=== PATIENT | male | born 1980 | race African-American/Black ===

== ENCOUNTER → 2017-06-06 | Outpatient (CLI) | payer OTHER ==
[2017-06-06 13:34] LABS: Bilirubin, Delta 0.2 mg/dL (0.0-0.2); Total Bilirubin 0.4 mg/dL (0.2-1.3); Total Protein 7.7 g/dL (6.3-8.2)
[2017-06-06 13:37] LABS: Basophils % (A) 0 %; CH 31.3; CHCM 34.5; Eosinophils # (A) 0.1 k/uL (0-0.7); Eosinophils % (A) 1 %; HCT 45.2 % (39.0-53.0); HDW 2.78; HGB 14.8 gm/dL (13.0-17.5); Luc # (Auto) 0.07; Luc % (Auto) 1; Lymphocytes # (A) 0.6 k/uL (1.0-4.8); Lymphocytes % (A) 7 %; MCHC 32.8 g/dL (31.0-37.0); MCV 91.2 fL (80.0-100.0); Mean Platelet Volume 7.4; Monocytes # (A) 0.3 k/uL (0-1.0); Monocytes % (A) 4 %; Neutrophils # (A) 7.5 k/uL (1.3-7.7); Neutrophils % (A) 87 %; RBC 4.95 m/uL (4.30-5.90); RDW 15.2 % (11.5-15.5); WBC 8.6 k/uL (3.8-10.6); WBC (Perox) 9.03
== END | disposition home or self-care (01) ==
LOC: LABWHC1 12:56
PROVIDERS: ATTEND Internal Medicine Critical Care Medicine
DX: D86.0 Sarcoidosis of lung (principal)
CPT/HCPCS: 36415; 80076; 85025

== ENCOUNTER → 2017-08-17 | Outpatient (CLI) | payer OTHER ==
[2017-08-17 11:51] LABS: Basophils % (A) 0 %; CH 30.4; Eosinophils # (A) 0.1 k/uL (0-0.7); Eosinophils % (A) 1 %; HCT 44.4 % (39.0-53.0); HDW 2.93; HGB 14.3 gm/dL (13.0-17.5); Luc # (Auto) 0.18; Luc % (Auto) 3; Lymphocytes # (A) 0.7 k/uL (1.0-4.8); Lymphocytes % (A) 11 %; MCH 29.7 pg (25.0-35.0); MCHC 32.1 g/dL (31.0-37.0); MCV 92.5 fL (80.0-100.0); Mean Platelet Volume 6.7; Monocytes # (A) 0.3 k/uL (0-1.0); Monocytes % (A) 5 %; Neutrophils # (A) 5.3 k/uL (1.3-7.7); Neutrophils % (A) 80 %; RDW 15.5 % (11.5-15.5); WBC 6.6 k/uL (3.8-10.6); WBC (Perox) 6.83
== END | disposition home or self-care (01) ==
LOC: LABWHC1 11:11
PROVIDERS: ATTEND Family Medicine
DX: D47.3 Essential (hemorrhagic) thrombocythemia (principal)
CPT/HCPCS: 36415; 85025

== ENCOUNTER 2017-10-29 23:51 | Observation (INO) | payer OTHER ==
[2017-10-30] MEDS ORDERED: SODIUM CHLORIDE 0.9% 1,000 ML IV STA (01:01)
[2017-10-30 01:45] LABS: Basophils # (A) 0.1 k/uL (0-0.2); Basophils % (A) 1 %; Eosinophils # (A) 0.2 k/uL (0-0.7); Eosinophils % (A) 2 %; HCT 42.2 % (39.0-53.0); Lymphocytes # (A) 1.5 k/uL (1.0-4.8); Lymphocytes % (A) 18 %; MCH 30.4 pg (25.0-35.0); MCHC 33.2 g/dL (31.0-37.0); MCV 91.3 fL (80.0-100.0); Mean Platelet Volume 6.9; Monocytes # (A) 0.6 k/uL (0-1.0); Monocytes % (A) 7 %; Neutrophils % (A) 69 %; Platelet Count 349 k/uL (150-450); RBC 4.62 m/uL (4.30-5.90); RDW 14.7 % (11.5-15.5); WBC 8.8 k/uL (3.8-10.6)
--- NOTE | 2017-10-30 01:47 | ED ---
General Adult HPI - General Chief complaint: Headache Stated complaint: Headache/DONNA Time Seen by Provider: 10/30/17 00:14 Source: patient, RN notes reviewed Mode of arrival: ambulatory Limitations: no limitations - History of Present Illness Initial comments: 37 yo male presents to the ER with cc of headache, lightheadedness, and cough. Patient states he has had a this for about 2 weeks now. Patient admits to a history of sarcoidosis. He states he has had lightheadedness episodes in the past when he had sarcoidosis on the brain. He states he's had a low-grade fever he had a cough with this. He states that this hasn't worsened headache. He denies any high fevers but states he has been warm on and off. He states that he walks up stairs of his increased exercise he does get sweaty. He was concerned because he just does not seem to be getting better so he thought that he should be seen. Patient denies any recent shortness of breath, chest pain, back pain, abdominal pain, nausea vomiting, numbness or tingling, dysuria or hematuria, constipation or diarrhea, visual changes, or any other current symptoms. - Related Data Allergies Allergy/AdvReac Type Severity Reaction Status Date / Time No Known Allergies Allergy Verified 10/29/17 23:59 Review of Systems ROS Statement: Those systems with pertinent positive or pertinent negative responses have been documented in the HPI. ROS Other: All systems not noted in ROS Statement are negative. Past Medical History Additional Past Medical History / Comment(s): sarcoidosis History of Any Multi-Drug Resistant Organisms: None Reported Additional Past Surgical History / Comment(s): lung biopsy Past Psychological History: Depression Smoking Status: Current every day smoker Past Alcohol Use History: None Reported Past Drug Use History: None Reported General Exam - General Exam Comments Initial Comments: General: The patient is awake and alert, in no distress, and does not appear acutely ill. Eye: Pupils are equal, round and reactive to light, extra-ocular movements are intact; there is normal conjunctiva bilaterally. No signs of icterus. Ears, nose, mouth and throat: There are moist mucous membranes and no oral lesions. Neck: The neck is supple, there is no tenderness. Cardiovascular: There is a regular rate and rhythm. No murmur, rub or gallop is appreciated. Respiratory: Lungs are clear to auscultation, respirations are non-labored, breath sounds are equal. No wheezes, stridor, rales, or rhonchi. Gastrointestinal: Soft, non-distended, non-tender abdomen without masses or organomegaly noted. There is no rebound or guarding present. No CVA tenderness. Bowel sounds are unremarkable. Back: There is no tenderness to palpation in the midline. There is no obvious deformity. No rashes noted. Musculoskeletal: Normal ROM, no tenderness, There is no pedal edema. There is no calf tenderness or swelling. Sensation intact. Pulses equal bilaterally 2+. Neurological: CN II-XII intact, There are no obvious motor or sensory deficits. Coordination appears grossly intact. Speech is normal. Skin: Skin is warm and dry and no rashes or lesions are noted. Psychiatric: Cooperative, appropriate mood & affect, normal judgment. Limitations: no limitations Course Vital Signs 10/29/17 23:57 Temperature 100.6 F H Pulse Rate 94 Respiratory 20 Rate Blood Pressure 123/60 O2 Sat by Pulse 96 Oximetry EKG Findings - EKG Comments: EKG Findings:: normal sinus rhythm 88 bpm, normal axis, no atopy, no S-T depressions or elevations Medical Decision Making - Medical Decision Making 37-year-old male presents with history of productive cough with fever. This time x-rays reviewed that does show concern for possible developing pneumonia. Due to his health history the patient at this time. We will start Levaquin. We did discuss this with patient who is in agreement this plan. All questions have been answered. Patient will be admitted. - Lab Data Result diagrams: 10/30/17 01:30 10/30/17 01:30 Lab Results 10/30/17 10/30/17 10/30/17 Range/Units 00:10 01:30 01:30 WBC 8.8 (3.8-10.6) k/uL RBC 4.62 (4.30-5.90) m/uL Hgb 14.0 (13.0-17.5) gm/dL Hct 42.2 (39.0-53.0) % MCV 91.3 (80.0-100.0) fL MCH 30.4 (25.0-35.0) pg MCHC 33.2 (31.0-37.0) g/dL RDW 14.7 (11.5-15.5) % Plt Count 349 (150-450) k/uL Neutrophils % 69 % Lymphocytes % 18 % Monocytes % 7 % Eosinophils % 2 % Basophils % 1 % Neutrophils # 6.0 (1.3-7.7) k/uL Lymphocytes # 1.5 (1.0-4.8) k/uL Monocytes # 0.6 (0-1.0) k/uL Eosinophils # 0.2 (0-0.7) k/uL Basophils # 0.1 (0-0.2) k/uL PT (9.0-12.0) sec INR (<1.2) APTT (22.0-30.0) sec Sodium 141 (137-145) mmol/L Potassium 3.5 (3.5-5.1) mmol/L Chloride 99 (98-107) mmol/L Carbon Dioxide 30 (22-30) mmol/L Anion Gap 12 mmol/L BUN 15 (9-20) mg/dL Creatinine 1.10 (0.66-1.25) mg/dL Est GFR (MDRD) Af Amer >60 (>60 ml/min/1.73 sqM) Est GFR (MDRD) Non-Af >60 (>60 ml/min/1.73 sqM) Glucose 104 H (74-99) mg/dL Plasma Lactic Acid Olman (0.7-2.0) mmol/L Calcium 9.7 (8.4-10.2) mg/dL Total Bilirubin 0.3 (0.2-1.3) mg/dL AST 34 (17-59) U/L ALT 54 (21-72) U/L Alkaline Phosphatase 83 (38-126) U/L Troponin I (0.000-0.034) ng/mL Total Protein 7.4 (6.3-8.2) g/dL Albumin 4.1 (3.5-5.0) g/dL Influenza Type A RNA Not Detected (Not Detectd) Influenza Type B (PCR) Not Detected (Not Detectd) 10/30/17 10/30/17 10/30/17 Range/Units 01:30 01:30 01:30 WBC (3.8-10.6) k/uL RBC (4.30-5.90) m/uL Hgb (13.0-17.5) gm/dL Hct (39.0-53.0) % MCV (80.0-100.0) fL MCH (25.0-35.0) pg MCHC (31.0-37.0) g/dL RDW (11.5-15.5) % Plt Count (150-450) k/uL Neutrophils % % Lymphocytes % % Monocytes % % Eosinophils % % Basophils % % Neutrophils # (1.3-7.7) k/uL Lymphocytes # (1.0-4.8) k/uL Monocytes # (0-1.0) k/uL Eosinophils # (0-0.7) k/uL Basophils # (0-0.2) k/uL PT 9.7 (9.0-12.0) sec INR 1.0 (<1.2) APTT 29.3 (22.0-30.0) sec Sodium (137-145) mmol/L Potassium (3.5-5.1) mmol/L Chloride (98-107) mmol/L Carbon Dioxide (22-30) mmol/L Anion Gap mmol/L BUN (9-20) mg/dL Creatinine (0.66-1.25) mg/dL Est GFR (MDRD) Af Amer (>60 ml/min/1.73 sqM) Est GFR (MDRD) Non-Af (>60 ml/min/1.73 sqM) Glucose (74-99) mg/dL Plasma Lactic Acid Olman 1.6 (0.7-2.0) mmol/L Calcium (8.4-10.2) mg/dL Total Bilirubin (0.2-1.3) mg/dL AST (17-59) U/L ALT (21-72) U/L Alkaline Phosphatase (38-126) U/L Troponin I <0.012 (0.000-0.034) ng/mL Total Protein (6.3-8.2) g/dL Albumin (3.5-5.0) g/dL Influenza Type A RNA (Not Detectd) Influenza Type B (PCR) (Not Detectd) - Radiology Data Radiology results: report reviewed, image reviewed Disposition Clinical Impression: Left upper lobe pneumonia, Sarcoidosis, Lightheadedness, Fever Disposition: ADMITTED IP TO THIS [facility] Condition: Stable Referrals: Renee Brito MD [Primary Care Provider] - 1-2 days Decision Date: 10/30/17 Decision Time: 03:37
--- NOTE | 2017-10-30 01:54 | XR ---
EXAMINATION TYPE: XR chest 2V DATE OF EXAM: 10/30/2017 COMPARISON: 12/05/2013 HISTORY: Cough TECHNIQUE: Frontal and lateral views of the chest are obtained. FINDINGS: There is extensive bilateral nodular pulmonary interstitial infiltrate. There is coalescen t density in the upper lobes. Heart size is normal. There is no pleural effusion. I do not suspect he art failure. There is some bulkiness of the pulmonary leelee. The bony thorax appears intact. IMPRESSION: Extensive pulmonary infiltrates that could relate to severe sarcoidosis or pneumoconiosi s. There is some progression compared to old exam with more coalescent density in the upper lobes.
[2017-10-30 02:02] LABS: ALT 54 U/L (21-72); AST 34 U/L (17-59); Albumin 4.1 g/dL (3.5-5.0); Alkaline Phosphatase 83 U/L (38-126); Anion Gap 12 mmol/L; Blood Urea Nitrogen 15 mg/dL (9-20); Calcium 9.7 mg/dL (8.4-10.2); Carbon Dioxide 30 mmol/L (22-30); Chloride 99 mmol/L (98-107); Glucose 104 mg/dL (74-99); Potassium 3.5 mmol/L (3.5-5.1); Sodium 141 mmol/L (137-145); Total Bilirubin 0.3 mg/dL (0.2-1.3); Total Protein 7.4 g/dL (6.3-8.2)
--- NOTE | 2017-10-30 02:04 | CT ---
EXAMINATION TYPE: CT brain wo con DATE OF EXAM: 10/30/2017 COMPARISON: 12/25/2011 HISTORY: GARRETT, hx of neurosarcoid CT DLP: 978.20 mGycm. Automated Exposure Control for Dose Reduction was Utilized. TECHNIQUE: CT scan of the head is performed without contrast. Findings. Ventricles and sulci appear normal. There is no mass effect nor midline shift. There is no sign of in tracranial hemorrhage. The calvarium is intact. There are numerous tiny cutaneous calcifications. The re is some ossification noted in the anterior cerebral falx that is thought to be of no significance. CONCLUSION: Negative CT scan of the brain. Brain appears unchanged compared to old exam.
[2017-10-30 02:40] LABS: Partial Thromboplastin Time 29.3 sec (22.0-30.0); Prothrombin Time 9.7 sec (9.0-12.0)
[2017-10-30] MEDS ORDERED: ACETAMINOPHEN TAB 500 MG TAB PO STA (03:25)
[2017-10-30] MEDS ORDERED: KETOROLAC 30 MG/ML 1 ML VIAL IVP STA (03:25)
[2017-10-30] MEDS ORDERED: PNEUMONIA PROTOCOL UTILIZED 1 EACH MISC PO PRN (03:37)
[2017-10-30] MEDS ORDERED: LEVOFLOXACIN 750MG-D5W PMX 750 MG in DEXTROSE/WATER 1 150ML.BAG IVPB STA (03:37)
[2017-10-30] MEDS ORDERED: BENZONATATE 100 MG CAP PO ONE (04:00)
[2017-10-30 05:05] VITALS: BMI 31.1
[2017-10-30 07:36] VITALS: RESP 16
[2017-10-30] MEDS: IBUPROFEN 600 MG TAB PO SCH ×2 (07:36→17:45)
[2017-10-30] MEDS: IPRATROPIUM-ALBUTEROL 3 ML NEB INHALATION PRN ×2 (08:11→11:42)
[2017-10-30] MEDS: SODIUM CHLORIDE 0.9% 1,000 ML IV SCH ×2 (08:58→17:37)
[2017-10-30] MEDS ORDERED: predniSONE 10 MG TAB PO SCH (09:00)
[2017-10-30] MEDS ORDERED: SYMBICORT 160-4.5 MCG INHALER INHALATION SCH (09:00)
[2017-10-30] MEDS ORDERED: Acetaminophen-Codeine 300-30mg TAB PO PRN (11:46)
[2017-10-30] MEDS ORDERED: methylPREDNISolone SOD SUCCI 125 MG/2 ML VIAL IV STA (11:48)
[2017-10-30 11:57] VITALS: BP 168/66; PULSE 67; TEMP 98.6
[2017-10-30] MEDS ORDERED: PANTOPRAZOLE 40 MG/10 ML VIAL IVP ONE (12:00)
--- NOTE | 2017-10-30 18:10 | HP ---
HISTORY AND PHYSICAL HISTORY AND PHYSICAL/DISCHARGE SUMMARY: CHIEF COMPLAINT: Headache and dizziness. HISTORY OF PRESENT ILLNESS: This 37-year-old gentleman with a past medical history of multiple medical problems including COPD, sarcoidosis, lung biopsy, depression being followed by Dr. Renee Brito as a primary care and also [facility] for multiple other medical issues, was having headaches for the last 2 weeks. The headache is mostly situated diffusely and the patient also had lightheaded episodes and in the past the patient has sarcoidosis of the brain and the patient also has a low-grade fever and the patient came to [facility] and was admitted for further evaluation and treatment. Symptomatic treatment was provided at this time. There is no history of chest pain, palpitations, hematochezia or melena, cough, sputum and hemoptysis at this time. PAST MEDICAL HISTORY: History of COPD, sarcoidosis, lung biopsy, depression. MEDICATIONS: Prior to admission include home medications are: 1. Prednisone 10 mg daily. 2. Lamictal 200 mg daily. 3. Methotrexate 20 mg. 4. Ipratropium 2 sprays t.i.d. 5. Hydrochlorothiazide 12.5 mg daily. 6. Folic acid 1 mg daily. 7. Drisdol 1 tabs p.r.n. 8. Cymbalta 60 mg daily. 9. Symbicort 160/4.5 two puffs b.i.d. 10.Fosamax 1 tablet p.o. daily. 11.Albuterol 1 puff q.4h p.r.n. 12.Abilify 15 mg p.o. daily. 13.Prednisone. 14.Protonix 40 mg daily. PHYSICAL EXAMINATION: Patient is alert, oriented x two. Pulse is 76, blood pressure 168/66, respirations 16, temperature 98.2, pulse ox 98% on room air. HEENT: Conjunctivae normal. NECK: No jugular venous distention. No carotid bruit. Cardiovascular: S1, S2 muffled. Respiratory: Breath sounds diminished in the bases. A few scattered rhonchi and crackles. ABDOMEN: Soft, nontender. No mass palpable. Legs no edema and no swelling. NERVOUS SYSTEM: Higher functions as mentioned earlier. Moves all 4 limbs. No focal motor or sensory deficits. Lymphatics: No lymph nodes palpable in the neck, axillae or groin. Skin no ulcer, rash or bleeding. LABS: CBC within normal limits. ESR 68. INR is 1 and CMP noted. Influenza is negative. Chest x-ray showed bilateral lesions of sarcoidosis. ASSESSMENT: 1. Headache for evaluation. 2. Bilateral lung sarcoidosis. 3. Lightheadedness. 4. History of chronic obstructive pulmonary disease. 5. History of lung biopsy. 6. History of depression. 7. History of nicotine dependence. RECOMMENDATIONS AND DISCUSSION: In this 37-year-old gentleman who presented with multiple medical issues as mentioned earlier. Currently the patient appears to be improving at this time I recommend continue the steroids and I would also recommend close follow up at [facility] early next week and as well as primary physician. The recommended medications at the time of discharge are as follows. DISCHARGE ADVICE AND MEDICATIONS: 1. Diet is cardiac diet. 2. Activity limited until followup. 3. Follow up with primary physician in 2-3 days. 4. Follow up with [facility] as advised. 5. Ventolin 1 puff q.6h p.r.n. 6. Fosamax 1 tab p.o. Thursday. 7. Abilify 50 mg daily. 8. Symbicort 2 puffs b.i.d. 9. Cymbalta 60 mg daily. 10.Vitamin D2 1 tab p.o. Thursday. 11.Folic acid 1 mg. 12. 12.5 mg daily. 13.Ipratropium 2 sprays daily. 14.Lamictal 200 mg p.o. daily. 15.Levaquin 750 mg p.o. daily for 5 days. 16.Methotrexate 20 mg p.o. Thursday. 17.Protonix 40 mg p.o. daily and dose to be tapered by [facility] or primary physician. 18.Diet is cardiac. 19.Activity limited until followup. MMODL / IJN: [id number] /
[2017-10-31] MEDS ORDERED: LEVOFLOXACIN 750 MG TAB PO SCH (09:00)
== END 2017-10-30 16:56 | disposition home or self-care (01) ==
LOC: EC 23:51 → 3OBS 10-30 04:13
PROVIDERS: ADMIT Hospitalist; ATTEND Hospitalist
DX: R51 Headache (principal); R42 Dizziness and giddiness; D86.0 Sarcoidosis of lung; D86.89 Sarcoidosis of other sites; J44.9 Chronic obstructive pulmonary disease, unspecified; F32.9 Major depressive disorder, single episode, unspecified; Z87.891 Personal history of nicotine dependence; R05 Cough; R50.9 Fever, unspecified; Z79.899 Other long term (current) drug therapy; Z79.51 Long term (current) use of inhaled steroids; Z79.52 Long term (current) use of systemic steroids
CPT/HCPCS: 96365 ×2; 96375 ×3; 96361 ×2; 99285; 36415; 94640 ×2; 93005; 80053; 85652; 83605; 84484; 85025; 85610; 85730; 86140; 87040; 87502; 71046; 70450; G0378; J2930; J1885; J1956; J7512; C9113

== ENCOUNTER 2019-10-06 10:01 | Observation (INO) | payer OTHER ==
[2019-10-06] MEDS ORDERED: IPRATROPIUM-ALBUTEROL 3 ML NEB INHALATION STA (10:41)
--- NOTE | 2019-10-06 10:44 | ED ---
SOB HPI - General Chief Complaint: Shortness of Breath Stated Complaint: pneumonia Time Seen by Provider: 10/06/19 10:18 Source: patient Mode of arrival: ambulatory Limitations: no limitations - History of Present Illness Initial Comments: Patient is a 39-year-old male with history of COPD and sarcoidosis presenting to emergency Department with a chief complaint of a cough and shortness of breath. Patient states symptoms began about 4-5 days ago and have been gradually increasing severity. Patient states the cough is nonproductive. He also report s bilateral otalgia but denies any rhinorrhea or sore throat. Denies any wheezing or chest pain. Denies nausea vomiting diarrhea. Denies any headaches, lightheadedness, dizziness or blurry vision. Patient has history of smoking. He does report night sweats and chills but denies any fevers. Patient states he went to the urgent care where he received a single dose of Rocephin and albuterol breathing treatment. - Related Data Home Medications Medication Instructions Recorded Confirmed ARIPiprazole 15 mg PO DAILY 10/30/17 10/06/19 Albuterol Inhaler [Ventolin Hfa 1 puff INHALATION RT-Q4H PRN 10/30/17 10/06/19 Inhaler] Budesonide/Formoterol Fumarate 2 puff INHALATION RT-BID 10/30/17 10/06/19 [Symbicort 160-4.5 Mcg Inhaler] Ergocalciferol [Vitamin D2 1 tab PO HENAO 10/30/17 10/06/19 (DRISDOL)] lamoTRIgine 200 mg PO HS 10/30/17 10/06/19 DULoxetine HCL [Cymbalta] 60 mg PO DAILY 10/06/19 10/06/19 Hydrochlorothiazide 12.5 mg PO DAILY 10/06/19 10/06/19 predniSONE 5 mg PO DAILY 10/06/19 10/06/19 Allergies Allergy/AdvReac Type Severity Reaction Status Date / Time No Known Allergies Allergy Verified 10/06/19 13:33 Review of Systems ROS Statement: Those systems with pertinent positive or pertinent negative responses have been documented in the HPI. ROS Other: All systems not noted in ROS Statement are negative. Past Medical History Past Medical History: COPD Additional Past Medical History / Comment(s): sarcoidosis History of Any Multi-Drug Resistant Organisms: None Reported Past Surgical History: Hernia Repair Additional Past Surgical History / Comment(s): lung biopsy Past Anesthesia/Blood Transfusion Reactions: No Reported Reaction Past Psychological History: Depression Smoking Status: Former smoker Past Alcohol Use History: None Reported Past Drug Use History: Marijuana - Past Family History Mother Additional Family Medical History / Comment(s): sarcoidosis Father Additional Family Medical History / Comment(s): leukemia at 45 General Exam Limitations: no limitations General appearance: alert, in no apparent distress Head exam: Present: atraumatic, normocephalic, normal inspection Eye exam: Present: normal appearance, PERRL, EOMI Pupils: Present: normal accommodation ENT exam: Present: normal exam, normal oropharynx, mucous membranes moist, TM's normal bilaterally, normal external ear exam Neck exam: Present: normal inspection, full ROM Respiratory exam: Present: normal lung sounds bilaterally. Absent: respiratory distress, wheezes Cardiovascular Exam: Present: regular rate, normal rhythm, normal heart sounds Extremities exam: Present: normal inspection, full ROM Back exam: Present: normal inspection, full ROM Neurological exam: Present: alert, oriented X3 Psychiatric exam: Present: normal affect, normal mood Skin exam: Present: warm, dry, intact, normal color Course Vital Signs 10/06/19 10/06/19 10/06/19 10:09 10:56 11:03 Temperature 100.5 F H Pulse Rate 94 91 90 Respiratory 20 16 16 Rate Blood Pressure 132/83 O2 Sat by Pulse 96 Oximetry 10/06/19 13:29 Temperature 99.0 F Pulse Rate 91 Respiratory 18 Rate Blood Pressure 138/81 O2 Sat by Pulse 97 Oximetry Medical Decision Making - Medical Decision Making Patient is a 39-year-old male with history of COPD and sarcoidosis presenting to emergency Department with chief complaint of shortness of breath. On initial evaluation patient does have a nonproductive cough. Auscultation is unremarkable. Chest x-ray shows multiple acute on chronic consolidations. Edmundo chao does have a white count of 13.7. Rest of laboratory workup is unremarkable. Patient was given 1 g Rocephin prior to ED arrival in the urgent care. Patient given 125 mg of Solu-Medrol in the ED. Patient also given a DuoNeb treatment and azithromycin. Patient does report some improvement in his symptoms but continues to be short of breath. Patient will be admitted for further medical management. Case discussed with physician. Medical physician is . Pulmonology consulted. - Lab Data Result diagrams: 10/06/19 12:20 10/06/19 12:20 Lab Results 10/06/19 10/06/19 10/06/19 Range/Units 12:20 12:20 12:20 WBC 13.7 H (3.8-10.6) k/uL RBC 4.88 (4.30-5.90) m/uL Hgb 13.6 (13.0-17.5) gm/dL Hct 42.0 (39.0-53.0) % MCV 86.2 (80.0-100.0) fL MCH 27.9 (25.0-35.0) pg MCHC 32.3 (31.0-37.0) g/dL RDW 14.4 (11.5-15.5) % Plt Count 365 (150-450) k/uL Neutrophils % 83 % Lymphocytes % 7 % Monocytes % 6 % Eosinophils % 2 % Basophils % 1 % Neutrophils # 11.4 H (1.3-7.7) k/uL Lymphocytes # 0.9 L (1.0-4.8) k/uL Monocytes # 0.8 (0-1.0) k/uL Eosinophils # 0.2 (0-0.7) k/uL Basophils # 0.2 (0-0.2) k/uL Sodium 139 (137-145) mmol/L Potassium 4.1 (3.5-5.1) mmol/L Chloride 105 (98-107) mmol/L Carbon Dioxide 25 (22-30) mmol/L Anion Gap 9 mmol/L BUN 13 (9-20) mg/dL Creatinine 0.78 (0.66-1.25) mg/dL Est GFR (CKD-EPI)AfAm >90 (>60 ml/min/1.73 sqM) Est GFR (CKD-EPI)NonAf >90 (>60 ml/min/1.73 sqM) Glucose 91 (74-99) mg/dL Plasma Lactic Acid Olman 1.0 (0.7-2.0) mmol/L Calcium 9.2 (8.4-10.2) mg/dL Total Bilirubin 0.7 (0.2-1.3) mg/dL AST 23 (17-59) U/L ALT 16 (4-49) U/L Alkaline Phosphatase 96 (38-126) U/L Total Protein 7.6 (6.3-8.2) g/dL Albumin 3.9 (3.5-5.0) g/dL Influenza Type A RNA (Not Detectd) Influenza Type B (PCR) (Not Detectd) 10/06/19 Range/Units 12:36 WBC (3.8-10.6) k/uL RBC (4.30-5.90) m/uL Hgb (13.0-17.5) gm/dL Hct (39.0-53.0) % MCV (80.0-100.0) fL MCH (25.0-35.0) pg MCHC (31.0-37.0) g/dL RDW (11.5-15.5) % Plt Count (150-450) k/uL Neutrophils % % Lymphocytes % % Monocytes % % Eosinophils % % Basophils % % Neutrophils # (1.3-7.7) k/uL Lymphocytes # (1.0-4.8) k/uL Monocytes # (0-1.0) k/uL Eosinophils # (0-0.7) k/uL Basophils # (0-0.2) k/uL Sodium (137-145) mmol/L Potassium (3.5-5.1) mmol/L Chloride (98-107) mmol/L Carbon Dioxide (22-30) mmol/L Anion Gap mmol/L BUN (9-20) mg/dL Creatinine (0.66-1.25) mg/dL Est GFR (CKD-EPI)AfAm (>60 ml/min/1.73 sqM) Est GFR (CKD-EPI)NonAf (>60 ml/min/1.73 sqM) Glucose (74-99) mg/dL Plasma Lactic Acid Olman (0.7-2.0) mmol/L Calcium (8.4-10.2) mg/dL Total Bilirubin (0.2-1.3) mg/dL AST (17-59) U/L ALT (4-49) U/L Alkaline Phosphatase (38-126) U/L Total Protein (6.3-8.2) g/dL Albumin (3.5-5.0) g/dL Influenza Type A RNA Not Detected (Not Detectd) Influenza Type B (PCR) Not Detected (Not Detectd) Disposition Clinical Impression: COPD exacerbation, Shortness of breath Disposition: ADMITTED IP TO THIS HOSP Condition: Good Instructions (If sedation given, give patient instructions): Chronic Cough (ED) Additional Instructions: Patient will be admitted Is patient prescribed a controlled substance at d/c from ED?: No Referrals: Renee Brito MD [Primary Care Provider] - 1-2 days Time of Disposition: 13:48
--- NOTE | 2019-10-06 11:34 | XR ---
EXAMINATION TYPE: XR chest 2V DATE OF EXAM: 10/06/2019 COMPARISON: 10/30/2017 HISTORY: Cough and congestion TECHNIQUE: Frontal and lateral views of the chest are obtained. FINDINGS: Acute on chronic multifocal opacities. These are masslike in the lung apices, right perihi lar region and right infrahilar region. Chronic interstitial prominence is also seen. No sizable pleu ral effusion. Advanced bullous emphysematous changes of the lung apices as noted on the prior, right greater than left. Cardiomediastinal silhouette is stable. IMPRESSION: Multiple masslike consolidations, acute on chronic in comparison to the prior. Pulmonary neoplasms are suspected with underlying bullous emphysematous changes and fibrosis. Alternatively th e previously suggested sarcoidosis or pneumoconiosis are possible.
[2019-10-06] MEDS ORDERED: methylPREDNISolone SOD SUCCI 125 MG/2 ML VIAL IV STA (12:00)
[2019-10-06] MEDS ORDERED: AZITHROMYCIN 500 MG in SODIUM CHLORIDE 0.9% 250 ML IVPB STA (12:00)
[2019-10-06] MEDS ORDERED: SODIUM CHLORIDE 0.9% 500 ML 500 ML IV STA (12:00)
[2019-10-06 12:37] LABS: Basophils # (A) 0.2 k/uL (0-0.2); Basophils % (A) 1 %; Eosinophils # (A) 0.2 k/uL (0-0.7); Eosinophils % (A) 2 %; HGB 13.6 gm/dL (13.0-17.5); Lymphocytes # (A) 0.9 k/uL (1.0-4.8); Lymphocytes % (A) 7 %; MCH 27.9 pg (25.0-35.0); MCHC 32.3 g/dL (31.0-37.0); MCV 86.2 fL (80.0-100.0); Monocytes # (A) 0.8 k/uL (0-1.0); Monocytes % (A) 6 %; Neutrophils # (A) 11.4 k/uL (1.3-7.7); Neutrophils % (A) 83 %; Platelet Count 365 k/uL (150-450); RBC 4.88 m/uL (4.30-5.90); RDW 14.4 % (11.5-15.5); WBC 13.7 k/uL (3.8-10.6)
[2019-10-06 12:53] LABS: ALT 16 U/L (4-49); AST 23 U/L (17-59); African American GFR (CKD) >90 (>60 ml/min/1.73 sqM); Albumin 3.9 g/dL (3.5-5.0); Alkaline Phosphatase 96 U/L (38-126); Anion Gap 9 mmol/L; Blood Urea Nitrogen 13 mg/dL (9-20); Calcium 9.2 mg/dL (8.4-10.2); Carbon Dioxide 25 mmol/L (22-30); Chloride 105 mmol/L (98-107); Glucose 91 mg/dL (74-99); Non-African American GFR(CKD) >90 (>60 ml/min/1.73 sqM); Potassium 4.1 mmol/L (3.5-5.1); Sodium 139 mmol/L (137-145); Total Bilirubin 0.7 mg/dL (0.2-1.3); Total Protein 7.6 g/dL (6.3-8.2)
[2019-10-06] MEDS ORDERED: LORazepam 2 MG/ML INJ IV PRN (13:42)
[2019-10-06] MEDS ORDERED: NALOXONE 0.4 MG/ML 1 ML VIAL IV PRN (13:42)
[2019-10-06] MEDS ORDERED: MORPHINE SULFATE 4 MG/ML SYRINGE IV PRN (13:42)
[2019-10-06] MEDS: SODIUM CHLORIDE 0.9% 1,000 ML IV SCH (13:59)
--- NOTE | 2019-10-06 14:00 | P.HPIM ---
History of Present Illness This is a pleasant 39 years old -Italian male with past medical history of COPD and sarcoidosis, depression. Presents because of chest congestion and dyspnea with a dry cough for about 5-6 days. He doesn't have chest pain and does not make a lot of phlegm. No diarrhea or headache. He uses Lamictal for depression, however he does not signs and symptoms of active depression. He is not on home oxygen but he uses prednisone 5 mg daily for sarcoidosis however he does not follow up with computer information systems professor as an outpatient On admission patient is febrile at 100.5. Leukocytosis with 13.7 K, rest of labs are unremarkable. Influenza is negative. Chest x-ray showing emphysematous changes, masslike consolidation, 3 on the right and one on the left In the emergency room patient was started on ceftriaxone, Zithromax and reynaldo meterol. Review of Systems CONSTITUTIONAL: No fever, no malaise, no fatigue. HEENT: No recent visual problems or hearing problems. Denied any sore throat. CARDIOVASCULAR: No orthopnea, PND, no palpitations, no syncope. PULMONARY: No shortness of breath, no cough, no hemoptysis. GASTROINTESTINAL: No diarrhea, no nausea, no vomiting, no abdominal pain. Normoactive bowel sounds. NEUROLOGICAL: No headaches, no weakness, no numbness. HEMATOLOGICAL: Denies any bleeding or petechiae. GENITOURINARY: Denies any burning micturition, frequency, or urgency. MUSCULOSKELETAL/RHEUMATOLOGICAL: Denies any joint pain, swelling, or any muscle pain. ENDOCRINE: Denies any polyuria or polydipsia. Past Medical History Past Medical History: COPD Additional Past Medical History / Comment(s): sarcoidosis History of Any Multi-Drug Resistant Organisms: None Reported Past Surgical History: Hernia Repair Additional Past Surgical History / Comment(s): lung biopsy Past Anesthesia/Blood Transfusion Reactions: No Reported Reaction Past Psychological History: Depression Smoking Status: Former smoker Past Alcohol Use History: None Reported Past Drug Use History: Marijuana - Past Family History Mother Additional Family Medical History / Comment(s): sarcoidosis Father Additional Family Medical History / Comment(s): leukemia at 45 Medications and Allergies Home Medications Medication Instructions Recorded Confirmed Type ARIPiprazole 15 mg PO DAILY 10/30/17 10/06/19 History Albuterol Inhaler [Ventolin Hfa 1 puff INHALATION RT-Q4H PRN 10/30/17 10/06/19 History Inhaler] Budesonide/Formoterol Fumarate 2 puff INHALATION RT-BID 10/30/17 10/06/19 History [Symbicort 160-4.5 Mcg Inhaler] Ergocalciferol [Vitamin D2 1 tab PO HENAO 10/30/17 10/06/19 History (DRISDOL)] lamoTRIgine 200 mg PO HS 10/30/17 10/06/19 History DULoxetine HCL [Cymbalta] 60 mg PO DAILY 10/06/19 10/06/19 History Hydrochlorothiazide 12.5 mg PO DAILY 10/06/19 10/06/19 History predniSONE 5 mg PO DAILY 10/06/19 10/06/19 History Allergies Allergy/AdvReac Type Severity Reaction Status Date / Time No Known Allergies Allergy Verified 10/06/19 13:33 Physical Exam Vitals: Vital Signs Temp Pulse Resp BP Pulse Ox 10/06/19 13:29 99.0 F 91 18 138/81 97 10/06/19 11:03 90 16 10/06/19 10:56 91 16 10/06/19 10:09 100.5 F H 94 20 132/83 96 Intake and Output 10/05/19 10/06/19 10/06/19 22:59 06:59 14:59 Other: Weight 74.843 kg GENERAL: The patient is alert and oriented x3, not in any acute distress. Well developed, well nourished. HEENT: Pupils are round and equally reacting to light. EOMI. No scleral icterus. No conjunctival pallor. Normocephalic, atraumatic. No pharyngeal erythema. No thyromegaly. CARDIOVASCULAR: S1 and S2 present. No murmurs, rubs, or gallops. PULMONARY: Chest is clear to auscultation, no wheezing or crackles. ABDOMEN: Soft, nontender, nondistended, normoactive bowel sounds. No palpable organomegaly. MUSCULOSKELETAL: No joint swelling or deformity. EXTREMITIES: No cyanosis, clubbing, or pedal edema. NEUROLOGICAL: Gross neurological examination did not reveal any focal deficits. SKIN: No rashes. No petechiae Results CBC & Chem 7: 10/06/19 12:20 10/06/19 12:20 Labs: Abnormal Lab Results - Last 24 Hours (Table) 10/06/19 Range/Units 12:20 WBC 13.7 H (3.8-10.6) k/uL Neutrophils # 11.4 H (1.3-7.7) k/uL Lymphocytes # 0.9 L (1.0-4.8) k/uL Assessment and Plan Assessment: Acute community acquired pneumonia, With multiple consolidation suspicious for masses Sepsis secondary to above, with systemic inflammatory response syndrome with f ever and tachycardia COPD, not in acute exacerbation Sarcoidosis Depression, not in active tissue Plan: This is a pleasant 39 years old male who presents with pneumonia, possible mass consolidation. Continue with breathing treatment, bronchodilator and oxygen as needed. Continue with IV fluid. Pulmonary consult Labs and medication were reviewed.. Continue same treatment. Continue with symptomatic treatment. Resume home medication. Monitor lytes and vitals. DVT and GI prophylaxis. Further recommendations of the clinical course of the patient DVT prophylaxis: Subcutaneous heparin GI Prophylaxis: Pepcid Prognosis is guarded
--- NOTE | 2019-10-06 18:37 | P.CNPUL ---
History of Present Illness Consult date: 10/06/19 Requesting physician: Seng E Sheet Reason for consult: cough, COPD, other (Sarcoidosis.) Chief complaint: Cough, shortness of breath, History of present illness: This is a 39-year-old -Finnish male with history of multiple medical problems including sarcoidosis, depression, COPD, patient was diagnosed with sarcoidosis back in 2007. He saw me and he saw Dr. BEARDEN for a period of time, and he was treated with prednisone. Later that year, the patient was referred to the [facility], and has been following with Dr. Petersen until 2 years ago. Patient was treated with prednisone and methotrexate. Later on he was switched only to prednisone, and his primary care physician has tapered the prednisone down over the last year to 5 mg daily maintenance. Patient had no pulmonary function tests, no actual pulmonary follow-up on his sarcoidosis over the last 2 years. Presented to the ER today with mostly 6 days history of cough, congestion, shortness of breath on exertion, some vague chest discomfort. His cough is described as nonproductive, also associated with some fullness and pressure in the ears and sinuses. Patient had a chest x-ray which showed evidence of multiple masslike consolidations, very much similar to a chest x-ray he had at in 2018, and it is mostly consistent with sarcoidosis or pneumoconiosis. Underlying infiltrate is difficult to rule out considering the abnormality noted on the chest x-ray. Considering his symptoms and considering his abnormal chest x-ray, patient was admitted, and this consult was initiated. Review of Systems Constitutional: Denies any fever denies any chills, he had a low-grade temp in the ER. Denies any weight loss. Pulmonary: As noted in HPI. Cardiac: Denies any anginal symptoms, denies any diaphoresis, denies any syncope. Denies any palpitations. GI: Denies nausea vomiting abdominal pain melena or hematemesis. Genitourinary: Denies any dysuria frequency or urgency. Musculoskeletal: Denies any aches or pains, denies any sarcoid related arthropathy. Hematologic: No clotting bleeding or bruising Psychiatric: History of depression presently inactive.. Neurologic: Denies any headache blurred vision or dizziness denies any diplopia. Endocrine: Denies any heat or cold intolerance, denies any polyuria polydipsia. And polycythemia. Skin: History of sarcoidosis involving the skin treated by dermatology. Past Medical History Past Medical History: COPD Additional Past Medical History / Comment(s): sarcoidosis History of Any Multi-Drug Resistant Organisms: None Reported Past Surgical History: Hernia Repair Additional Past Surgical History / Comment(s): lung biopsy, cataract surgery bilateral Past Anesthesia/Blood Transfusion Reactions: No Reported Reaction Past Psychological History: Depression Smoking Status: Former smoker Past Alcohol Use History: None Reported Past Drug Use History: Marijuana - Past Family History Mother Additional Family Medical History / Comment(s): sarcoidosis Father Additional Family Medical History / Comment(s): leukemia at 45 Medications and Allergies Home Medications Medication Instructions Recorded Confirmed Type ARIPiprazole 15 mg PO DAILY 10/30/17 10/06/19 History Albuterol Inhaler [Ventolin Hfa 1 puff INHALATION RT-Q4H PRN 10/30/17 10/06/19 History Inhaler] Budesonide/Formoterol Fumarate 2 puff INHALATION RT-BID 10/30/17 10/06/19 History [Symbicort 160-4.5 Mcg Inhaler] Ergocalciferol [Vitamin D2 1 tab PO HENAO 10/30/17 10/06/19 History (DRISDOL)] lamoTRIgine 200 mg PO HS 10/30/17 10/06/19 History DULoxetine HCL [Cymbalta] 60 mg PO DAILY 10/06/19 10/06/19 History Hydrochlorothiazide 12.5 mg PO DAILY 10/06/19 10/06/19 History predniSONE 5 mg PO DAILY 10/06/19 10/06/19 History Allergies Allergy/AdvReac Type Severity Reaction Status Date / Time No Known Allergies Allergy Verified 10/06/19 13:33 Physical Exam Vitals: Vital Signs Temp Pulse Pulse Resp BP BP Pulse Ox 10/06/19 14:30 99.0 F 91 17 143/82 96 10/06/19 13:29 99.0 F 91 18 138/81 97 10/06/19 11:03 90 16 10/06/19 10:56 91 16 10/06/19 10:09 100.5 F H 94 20 132/83 96 Intake and Output 10/06/19 10/06/19 10/06/19 06:59 14:59 22:59 Intake Total 300 Balance 300 Intake: Oral 300 Other: Weight 74.843 kg Physical Exam: Revealed 39-year-old -Finnish male in no form of respiratory distress, on room air. Head: Atraumatic, normocephalic. HEENT:[Neck is supple.] [No neck masses.] [No thyromegaly.] [No JVD.] Chest: [Diminished breath sounds at the bases, minimal wheezing on forced expiratory maneuver only. No chest wall tenderness. Symmetrical chest expansion. Cardiac Exam: [Normal S1 and S2, no S3 gallop, no murmur.] Abdomen: [Soft, nontender, no megaly, no rebound, no guarding, normal bowel sounds.] Extremities: [No clubbing, no edema, no cyanosis.] Neurological Exam: [No focal neurologic deficit.] Alert and oriented 3. Psychiatric: Normal mood, affect and normal mental status examination. Skin: No rashes. Lymphatics: No lymphadenopathy. Results - Laboratory Findings CBC and BMP: 10/06/19 12:20 10/06/19 12:20 Abnormal lab findings: Abnormal Labs 10/06/19 12:20 WBC 13.7 H Neutrophils # 11.4 H Lymphocytes # 0.9 L - Diagnostic Findings Chest x-ray: image reviewed (As noted in HPI.) Assessment and Plan Assessment: Impression: Pulmonary sarcoidosis, difficult to rule out underlying pneumonia, but it is felt to be less likely. Acute tracheobronchitis and possible acute exacerbation of sarcoidosis. Or underlying COPD with acute exacerbation. History of depression. Recommendation: Reviewed and discussed the chest x-ray findings with the patient. Suggest we treat the patient with Solu-Medrol, antibiotics, bronchodilators, Consider discharging the patient home in the next 24 hours, and follow-up on outpatient basis. Patient will need further evaluation of his sarcoidosis by having more workup including PFT, possibly CT of the chest, and try to retrieve previous workup done at the [facility] for his sarcoidosis. We'll continue to follow. Time with Patient: Greater than 30
[2019-10-06] MEDS: SYMBICORT 160-4.5 MCG INHALER INHALATION SCH (19:49)
[2019-10-06] MEDS ORDERED: lamoTRIgine 100 MG TAB PO SCH (21:00)
[2019-10-06] MEDS: methylPREDNISolone SOD SUCCI 40 MG/ML 1 ML VIAL IV SCH (21:00)
[2019-10-06] MEDS: HEPARIN SODIUM,PORCINE 5,000 UNIT/ML 1 ML VIAL SQ SCH (21:00)
[2019-10-06] MEDS: FAMOTIDINE 20 MG/2 ML VIAL IV SCH (21:00)
[2019-10-07] MEDS: methylPREDNISolone SOD SUCCI 40 MG/ML 1 ML VIAL IV SCH ×2 (01:21→09:58)
[2019-10-07] MEDS: SODIUM CHLORIDE 0.9% 1,000 ML IV SCH (05:12)
[2019-10-07 08:07] VITALS: BP 162/76; PULSE 70; RESP 17; TEMP 98.7
[2019-10-07] MEDS: Acetaminophen-Codeine 300-30mg TAB PO PRN ×2 (08:45→10:48)
[2019-10-07] MEDS: HEPARIN SODIUM,PORCINE 5,000 UNIT/ML 1 ML VIAL SQ SCH (08:46)
[2019-10-07] MEDS: FAMOTIDINE 20 MG/2 ML VIAL IV SCH (08:47)
[2019-10-07] MEDS ORDERED: HYDROCHLOROTHIAZIDE 12.5 MG CAP PO SCH (09:00)
[2019-10-07] MEDS ORDERED: AZITHROMYCIN 500 MG in SODIUM CHLORIDE 0.9% 250 ML IVPB SCH (09:00)
[2019-10-07] MEDS ORDERED: DULoxetine HCL 60 MG CAPSULE.DR PO SCH (09:00)
[2019-10-07] MEDS ORDERED: ARIPiprazole 15 MG TAB PO SCH (09:00)
[2019-10-07] MEDS: SYMBICORT 160-4.5 MCG INHALER INHALATION SCH (10:49)
--- NOTE | 2019-10-07 13:29 | P.PN ---
Subjective Progress Note Date: 10/07/19 Principal diagnosis: Cough, COPD, sarcoidosis This is a 39-year-old -Gambian male with history of multiple medical problems including sarcoidosis, depression, COPD, patient was diagnosed with sarcoidosis back in 2007. He saw me and he saw Dr. BEARDEN for a period of time, and he was treated with prednisone. Later that year, the patient was referred to the [facility], and has been following with Dr. Petersen until 2 years ago. Patient was treated with prednisone and methotrexate. Later on he was switched only to prednisone, and his primary care physician has tapered the prednisone down over the last year to 5 mg daily maintenance. Patient had no pulmonary function tests, no actual pulmonary follow-up on his sarcoidosis over the last 2 years. Presented to the ER today with mostly 6 days history of cough, congestion, shortness of breath on exertion, some vague chest discomfort. His cough is described as nonproductive, also associated with some fullness and pressure in the ears and sinuses. Patient had a chest x-ray which showed evidence of multiple masslike consolidations, very much similar to a chest x-ray he had at [facility] in 2018, and it is mostly consistent with sarcoidosis or pneumoconiosis. Underlying infiltrate is difficult to rule out considering the abnormality noted on the chest x-ray. Considering his symptoms and considering his abnormal chest x-ray, patient was admitted, and this consult was initiated. On 10/07/2019 patient seen in follow-up on medical surgical floor, he is resting comfortably in bed, no evidence of respiratory difficulty, room air pulse ox is 98%, lung sounds are clear, diminished at the bases, no rhonchi, no wheezing, no complaints of chest pain, no significant cough or congestion, patient is afebrile, patient is on Antibiotics, IV steroids, breathing treatments, is improving, he is only complaint today is a migraine headache. Objective - Vital Signs Vital signs: Vital Signs Temp 98.7 F 10/07/19 07:00 Pulse 70 10/07/19 07:00 Resp 17 10/07/19 07:25 BP 162/76 10/07/19 07:00 Pulse Ox 98 10/07/19 07:00 Intake & Output 10/06/19 10/07/19 10/07/19 18:59 06:59 18:59 Intake Total 300 Balance 300 Weight 74.843 kg Intake: Oral 300 Other: Voiding Method Toilet - Exam GENERAL EXAM: Alert, 39-year-old male, comfortable in no apparent distress. HEAD: Normocephalic/atraumatic. EYES: Normal reaction of pupils, equal size. Conjunctiva pink, sclera white. NOSE: Clear with pink turbinates. THROAT: No erythema or exudates. NECK: No masses, no JVD, no thyroid enlargement, no adenopathy. CHEST: No chest wall deformity. Symmetrical expansion. LUNGS: Equal air entry with no crackles, wheeze, rhonchi or dullness. CVS: Regular rate and rhythm, normal S1 and S2, no gallops, no murmurs, no rubs ABDOMEN: Soft, nontender. No hepatosplenomegaly, normal bowel sounds, no guarding or rigidity. EXTREMITIES: No clubbing, no edema, no cyanosis, 2+ pulses and upper and lower extremities. MUSCULOSKELETAL: Muscle strength and tone normal. SPINE: No scoliosis or deformity SKIN: No rashes CENTRAL NERVOUS SYSTEM: Alert and oriented -3. No focal deficits, tone is normal in all 4 extremities. PSYCHIATRIC: Alert and oriented -3. Appropriate affect. Intact judgment and insight. - Labs CBC & Chem 7: 10/06/19 12:20 10/06/19 12:20 Assessment and Plan Plan: Assessment: #1. Pulmonary sarcoidosis, difficult to rule out underlying pneumonia, however pneumonia is felt to be less likely #2. Acute tracheobronchitis and possible acute exacerbation of sarcoidosis or underlying COPD with acute exacerbation #3. History of depression Plan: Patient remains stable, no worsening dyspnea, vital signs are stable, no fever, no wheezing, no phlegm production, his only complaint today is a migraine headache. From pulmonary perspective patient can be considered for discharge home on outpatient course of oral antibiotics, prednisone taper, he will need follow-up with Dr. Whitney and Dr. Petersen at the [facility] graft to his underlying history of sarcoidosis I performed a history & physical examination of the patient and discussed their management with my nurse practitioner, Neelam Grant. I reviewed the nurse practitioner's note and agree with the documented findings and plan of care. Lung sounds are positive for clear diminished breath sounds. The findings and the impression was discussed with the patient. I attest to the documentation by the nurse practitioner. Time with Patient: Less than 30
[2019-10-07] MEDS ORDERED: FAMOTIDINE 20 MG TAB PO SCH (21:00)
--- NOTE | 2019-10-08 07:19 | P.DS ---
Providers Date of admission: 10/06/19 13:48 Attending physician: Prince Montoya Consults: 10/06/19 13:42 Consult Physician Stat Consulting Provider: Sara Kwan Reason/Comments: Shortness of breath, pneumonia, COPD exacerbation Do you want consulting provider notified?: Yes Primary care physician: [facility] Course: Diagnoses: -Bilateral multiple consolidation, about 3 of them on the left side and one of them on the right side, suspicious for pulmonary sarcoidosis with acute exacerbation, possible pneumonia but less likely -Acute tracheal bronchitis, also possibility of acute COPD exacerbation -Depression, not in active tissue -Chronic headache, for years Hospital course: This is a pleasant 39 years old -Norwegian male with past medical history of COPD and sarcoidosis, depression. Presents because of chest congestion and dyspnea with a dry cough for about 5-6 days. He doesn't have chest pain and does not make a lot of phlegm. No diarrhea or headache. He uses Lamictal for depression, however he does not signs and symptoms of active depression. He is not on home oxygen but he uses prednisone 5 mg daily for sarcoidosis however he does not follow up with industrial laborer as an outpatient On admission patient is febrile at 100.5. Leukocytosis with 13.7 K, rest of labs are unremarkable. Influenza is negative. Chest x-ray showing emphysematous changes, and mass-like consolidation with 3 on the right and one on the left side. In the emergency room patient was started on ceftriaxone, Zithromax and Solu- Medrol. Patient feels better, however he does not have much symptoms. He has no cough, no dyspnea, no chest pain. Patient has been evaluated by industrial laborer cleared him for discharge. However patient will need pulmonary follow-up for further evaluation of his sarcoidosis including PFT, and possibly CT of the chest. Upper recommendation of industrial laborer patient was discharge on oral antibiotic for 7-10 days, also he will be discharged on standard dose of prednisone 30 mg, patient was instructed extensively with the at bedside about the need to continue with prednisone and follow-up with industrial laborer, also I explained to the patient and patient stop steroids appropriately as this could these to sudden drop in blood pressure and other complications, instead he will continue prednisone until he sees his doctors, PCP on pulmono logist, and upon discontinuation of the medication it should be tapered down gradually, patient and at bedside verbalized understanding, and the, that going to follow-up with his industrial laborer Dr. Whitney Patient also having chronic headache, frontal and generalized that gets about twice per week, moderate in severity, felt like pressure. No neurological deficits, no blurred vision or difficulty swallowing or talking. No weakness or abnormal sensation in limbs. Meningeal signs are absent. Patient will be referred to a neurologist as an outpatient and he agrees Patient denies other symptoms Patient is cleared for discharge by pulmonary team Problems and management plan were discussed with the patient and he verbalized understanding and acceptance Patient was found stable and can be discharged home however he needs follow-up as an outpatient. Patient was instructed to follow up with PCP within one week and patient agrees. Also patient instructed to follow up with pulmonary in 1-2 weeks and neurology for headache in 1-2 weeks and he agrees. I told the patient and at bedside about his appointments and the exact timing for his pulmonary, PCP and neurologist and both agreed with these appointments and their timing and states he will follow-up physical exam Gen: patient is a AAOx3, no distress CVS: S1-S2, RRR, no murmur Lungs: B/L CTA, no wheezing Abdomen: soft, no distention, no tenderness, positive bowel sounds Extremity: no leg edema or induration Time spent more than 35 minutes Patient Condition at Discharge: Good Plan - Discharge Summary Discharge Rx Participant: No New Discharge Prescriptions: New Cefuroxime Axetil [Ceftin] 500 mg PO BID 10 Days #20 tab Famotidine [Pepcid] 20 mg PO Q12HR #60 tab predniSONE 30 mg PO DAILY #21 tab Acetaminophen-Codeine 300-30mg [Tylenol w/codeine #3] 1 each PO Q12HR PRN 3 Days #6 tab PRN Reason: Moderate Pain Azithromycin [Zithromax] 500 mg PO DAILY 7 Days #7 tab Continue lamoTRIgine 200 mg PO HS Budesonide/Formoterol Fumarate [Symbicort 160-4.5 Mcg Inhaler] 2 puff INHALATION RT-BID Ergocalciferol [Vitamin D2 (DRISDOL)] 1 tab PO HENAO Albuterol Inhaler [Ventolin Hfa Inhaler] 1 puff INHALATION RT-Q4H PRN PRN Reason: Shortness Of Breath Or Wheezing ARIPiprazole 15 mg PO DAILY predniSONE 5 mg PO DAILY Hydrochlorothiazide 12.5 mg PO DAILY DULoxetine HCL [Cymbalta] 60 mg PO DAILY Discharge Medication List ARIPiprazole 15 mg PO DAILY 10/30/17 [History] Albuterol Inhaler [Ventolin Hfa Inhaler] 1 puff INHALATION RT-Q4H PRN 10/30/17 [History] Budesonide/Formoterol Fumarate [Symbicort 160-4.5 Mcg Inhaler] 2 puff INHALATION RT-BID 10/30/17 [History] Ergocalciferol [Vitamin D2 (DRISDOL)] 1 tab PO HENAO 10/30/17 [History] lamoTRIgine 200 mg PO HS 10/30/17 [History] DULoxetine HCL [Cymbalta] 60 mg PO DAILY 10/06/19 [History] Hydrochlorothiazide 12.5 mg PO DAILY 10/06/19 [History] predniSONE 5 mg PO DAILY 10/06/19 [History] Acetaminophen-Codeine 300-30mg [Tylenol w/codeine #3] 1 each PO Q12HR PRN 3 Days #6 tab 10/07/19 [Rx] Azithromycin [Zithromax] 500 mg PO DAILY 7 Days #7 tab 10/07/19 [Rx] Cefuroxime Axetil [Ceftin] 500 mg PO BID 10 Days #20 tab 10/07/19 [Rx] Famotidine [Pepcid] 20 mg PO Q12HR #60 tab 10/07/19 [Rx] predniSONE 30 mg PO DAILY #21 tab 10/07/19 [Rx] Follow up Appointment(s)/Referral(s): Sara Kwan MD [STAFF PHYSICIAN] - 10/19/19 9:45 am Renee Brito MD [Primary Care Provider] - 10/10/19 8:00 am (With Dr Hernández, Bring discharge packet with you and arrive 10 minutes early) Johanna Crockett MD [STAFF PHYSICIAN] - 10/17/19 9:30 am (neurologist for your headache) Patient Instructions/Handouts: Sarcoidosis (DC), Chronic Cough (ED) Activity/Diet/Wound Care/Special Instructions: Resume previous diet,use low carbohydrate diet Activity is limited till you see your doctor Discharge Disposition: HOME SELF-CARE
[2019-10-08] MEDS ORDERED: AZITHROMYCIN 500 MG TAB PO SCH (09:00)
[2019-10-09] MEDS ORDERED: ERGOCALCIFEROL 50,000 UNIT CAP PO SCH (09:00)
== END 2019-10-07 15:48 | disposition home or self-care (01) ==
LOC: EC 10:01 → 4SSUR 13:48
PROVIDERS: ADMIT Hospitalist; ATTEND Hospitalist
DX: D86.0 Sarcoidosis of lung (principal); J20.9 Acute bronchitis, unspecified; J44.0 Chronic obstructive pulmonary disease with (acute) lower respiratory infection; R51 Headache; F32.9 Major depressive disorder, single episode, unspecified; Z87.891 Personal history of nicotine dependence; Z79.51 Long term (current) use of inhaled steroids; Z79.899 Other long term (current) drug therapy; Z83.6 Family history of other diseases of the respiratory system; Z80.6 Family history of leukemia
CPT/HCPCS: 96376 ×2; 96361 ×3; 96366; 96367; 96372 ×2; 96375 ×2; 96365; 99285; 36415; 94640 ×2; 80053; 82164; 83605; 85025; 87040; 87502; 71046; G0378 ×2; J1644 ×2; J2920 ×2; J2930; J0456 ×2; J0696

== ENCOUNTER → 2020-11-29 | Outpatient (CLI) | payer OTHER ==
--- NOTE | 2020-11-29 13:31 | XR ---
EXAMINATION TYPE: XR shoulder complete RT DATE OF EXAM: 11/29/2020 Comparison: 03/15/2020 chest x-ray Clinical History: 40-year-old male M25.511 pain in right shoulder Findings: There is no loss of the subacromial space. There is mild degenerative spurring in the glenohumeral padmini int. Patchy sclerosis in the humeral head is noted. Extensive pleural-parenchymal opacities throughou t the right lung due to be correlated clinically. No acute fracture, subluxation, dislocation seen. Impression: 1. Patchy sclerosis within the humeral head may be seen with AVN. Correlate for any risk factors in t his patient. 2. There is mild degenerative spurring of the glenohumeral joint. 3. No acute osseous abnormality seen. 4. Extensive pleural-parenchymal changes in the visualized right lung. Some of these densities haven' t masslike configuration. We see that the patient's prior CT was back on 07/13/2011. Chronic changes, possible sequela of pneumoconiosis or sarcoidosis are considerations. Recommend follow-up CT chest t o assess for any suspicious interval change.
== END | disposition home or self-care (01) ==
LOC: RADXRMAIN 10:27
PROVIDERS: ATTEND Internal Medicine
DX: M19.011 Primary osteoarthritis, right shoulder (principal)

== ENCOUNTER → 2020-12-13 | Outpatient (CLI) | payer OTHER | END | disposition home or self-care (01) | LOC: LABWHC1 16:50 | PROVIDERS: ATTEND Internal Medicine | DX: Z20.822 Contact with and (suspected) exposure to COVID-19 (principal); R51.9 Headache, unspecified | CPT/HCPCS: U0003; C9803; U0005 ==

== ENCOUNTER → 2021-01-07 | Outpatient (CLI) | payer OTHER | END | disposition home or self-care (01) | LOC: LABWHC1 16:26 | PROVIDERS: ATTEND Emergency Medicine | DX: Z20.822 Contact with and (suspected) exposure to COVID-19 (principal) | CPT/HCPCS: U0003; C9803; U0005 ==

== ENCOUNTER 2021-02-26 07:46 | Observation (INO) | payer OTHER ==
--- NOTE | 2021-02-26 08:10 | ED ---
General Adult HPI - General Chief complaint: Back Pain/Injury Stated complaint: Back Pain Time Seen by Provider: 02/26/21 07:54 Source: patient Mode of arrival: ambulatory Limitations: no limitations - History of Present Illness Initial comments: Dictation was produced using [employer] dictation software. please excuse any grammatical, word or spelling errors. Chief Complaint: 40-year-old Rican male past medical history of sarco idosis presents with right thoracic back pain History of Present Illness: Just 40-year-old male started having right thoracic back pain since yesterday. Patient states she was getting out of the car for his lunch break when his pain started. Denies any trauma to the thoracic back. Patient denies any worsening shortness of breath. He lives with chronic shortness of breath from sarcoidosis. States that it hurts when he twists his thorax and takes a deep breath. Denies any constitutional symptoms. Does not have any recent coughing. No runny nose. No obvious exposed To sick individuals. No radiation of symptoms. The ROS documented in this emergency department record has been reviewed and confirmed by me. Those systems with pertinent positive or negative responses have been documented in the HPI. All other systems are other negative and/or noncontributory. PHYSICAL EXAM: General Impression: Alert and oriented x3, not in acute distress HEENT: Normocephalic atraumatic, extra-ocular movements intact, pupils equal and reactive to light bilaterally, mucous membranes moist. Cardiovascular: Heart regular rate and rhythm Chest: Able to complete full sentences, no retractions, no tachypnea, tenderness to palpation over the right posterior ribs, lungs clear to auscultation bila terally Abdomen: abdomen soft, non-tender, non-distended, no organomegaly Musculoskeletal: Pulses present and equal in all extremities, no peripheral edema Motor: no focal deficits noted Neurological: CN II-XII grossly intact, no focal motor or sensory deficits noted Skin: Intact with no visualized rashes Psych: Normal affect and mood ED course: 40-year-old male history of sarcoidosis presents clinical presentation consistent with musculoskeletal thoracic back strain. Times upon arrival shows findings within acceptable limits. Patient is not hypoxic. He is not tachycardic. Laboratory evaluation obtained. CBC, metabolic panel is unremarkable. Urinalysis is negative. Pending Covid test. CT angios the chest shows no evidence of PE however there is pulmonary hypertension. There is ground glass and consolidation in the right lower lobe trace effusion. Disposition options were discussed with patient. They're agreeable with observation admission with pulmonary consultation. We this is reasonable disposition given that there is significantly worsened findings on patient's CT films compared to 2010. Patient will be admitted to [facility]. - Related Data Home Medications Medication Instructions Recorded Confirmed ARIPiprazole 15 mg PO HS 10/30/17 02/26/21 Ergocalciferol [Vitamin D2 1,250 mcg PO HENAO 10/30/17 02/26/21 (DRISDOL)] lamoTRIgine 200 mg PO HS 10/30/17 02/26/21 Hydrochlorothiazide 12.5 mg PO HS 10/06/19 02/26/21 [hydroCHLOROthiazide] Albuterol Sulfate [Proventil Hfa] 2 puff INHALATION RT-Q4H PRN 02/26/21 02/26/21 Ascorbic Acid [Vitamin C] 1,000 mg PO DAILY 02/26/21 02/26/21 Cyclobenzaprine [Flexeril] 10 mg PO HS 02/26/21 02/26/21 Vitamin B Complex 1 cap PO DAILY 02/26/21 02/26/21 Allergies Allergy/AdvReac Type Severity Reaction Status Date / Time No Known Allergies Allergy Verified 02/26/21 09:31 Review of Systems ROS Statement: Those systems with pertinent positive or pertinent negative responses have been documented in the HPI. ROS Other: All systems not noted in ROS Statement are negative. Past Medical History Past Medical History: COPD Additional Past Medical History / Comment(s): sarcoidosis History of Any Multi-Drug Resistant Organisms: None Reported Past Surgical History: Hernia Repair Additional Past Surgical History / Comment(s): lung biopsy, cataract surgery bilateral Past Anesthesia/Blood Transfusion Reactions: No Reported Reaction Past Psychological History: Depression Smoking Status: Never smoker Past Alcohol Use History: Occasional Past Drug Use History: Marijuana - Past Family History Mother Additional Family Medical History / Comment(s): sarcoidosis Father Additional Family Medical History / Comment(s): leukemia at 45 General Exam Limitations: no limitations Course Vital Signs 02/26/21 07:49 Temperature 99.7 F H Pulse Rate 87 Respiratory 18 Rate Blood Pressure 140/87 O2 Sat by Pulse 96 Oximetry Medical Decision Making - Lab Data Result diagrams: 02/26/21 08:09 02/26/21 08:09 Lab Results 02/26/21 02/26/21 02/26/21 Range/Units 08:09 08:09 08:09 WBC 9.6 (3.8-10.6) k/uL RBC 4.73 (4.30-5.90) m/uL Hgb 13.7 (13.0-17.5) gm/dL Hct 39.5 (39.0-53.0) % MCV 83.5 (80.0-100.0) fL MCH 28.9 (25.0-35.0) pg MCHC 34.6 (31.0-37.0) g/dL RDW 14.5 (11.5-15.5) % Plt Count 357 (150-450) k/uL MPV 7.1 Neutrophils % 79 % Lymphocytes % 9 % Monocytes % 8 % Eosinophils % 2 % Basophils % 1 % Neutrophils # 7.6 (1.3-7.7) k/uL Lymphocytes # 0.9 L (1.0-4.8) k/uL Monocytes # 0.8 (0-1.0) k/uL Eosinophils # 0.2 (0-0.7) k/uL Basophils # 0.1 (0-0.2) k/uL Sodium 137 (137-145) mmol/L Potassium 4.4 (3.5-5.1) mmol/L Chloride 102 (98-107) mmol/L Carbon Dioxide 27 (22-30) mmol/L Anion Gap 8 mmol/L BUN 11 (9-20) mg/dL Creatinine 0.84 (0.66-1.25) mg/dL Est GFR (CKD-EPI)AfAm >90 (>60 ml/min/1.73 sqM) Est GFR (CKD-EPI)NonAf >90 (>60 ml/min/1.73 sqM) Glucose 91 (74-99) mg/dL Calcium 9.0 (8.4-10.2) mg/dL Urine Color Yellow Urine Appearance Clear (Clear) Urine pH 6.5 (5.0-8.0) Ur Specific [place] 1.018 (1.001-1.035) Urine Protein Trace H (Negative) Urine Glucose (UA) Negative (Negative) Urine Ketones Negative (Negative) Urine Blood Negative (Negative) Urine Nitrite Negative (Negative) Urine Bilirubin Negative (Negative) Urine Urobilinogen <2.0 (<2.0) mg/dL Ur Leukocyte Esterase Negative (Negative) Disposition Clinical Impression: Sarcoidosis Disposition: ADMITTED IP TO THIS HOSP Condition: Fair Referrals: Perlita Perez NPC [REFERRING] - 1-2 days
--- NOTE | 2021-02-26 08:33 | XR ---
EXAMINATION TYPE: XR chest 2V DATE OF EXAM: 02/26/2021 COMPARISON: 10/06/2019 INDICATION: Right thoracic back pain TECHNIQUE: Frontal and lateral views of the chest are obtained. FINDINGS: The heart size is normal. The pulmonary vasculature is normal. There are patchy infiltrates through the bilateral lungs. This appears more extensive than prior. Mas s should be considered. Right apical bulla are present. There is tenting diaphragm.. IMPRESSION: 1. Worsening bilateral lung opacities. Findings are progressive from comparison. Mass is within the d ifferential
[2021-02-26 08:44] LABS: Appearance,Urine Clear (Clear); Bilirubin,Urine Negative (Negative); Blood,Urine Negative (Negative); Color,Urine Yellow; Glucose,Urine (UA) Negative (Negative); Ketones,Urine Negative (Negative); Leukocyte Esterase,Urine Negative (Negative); Nitrite,Urine Negative (Negative); PH, Urine 6.5 (5.0-8.0); Protein,Urine Trace (Negative); Specific Gravity,Urine 1.018 (1.001-1.035); Urobilinogen,Urine <2.0 mg/dL (<2.0)
[2021-02-26 08:51] LABS: Basophils # (A) 0.1 k/uL (0-0.2); Basophils % (A) 1 %; Eosinophils # (A) 0.2 k/uL (0-0.7); Eosinophils % (A) 2 %; HCT 39.5 % (39.0-53.0); HGB 13.7 gm/dL (13.0-17.5); Lymphocytes # (A) 0.9 k/uL (1.0-4.8); Lymphocytes % (A) 9 %; MCH 28.9 pg (25.0-35.0); MCHC 34.6 g/dL (31.0-37.0); MCV 83.5 fL (80.0-100.0); Mean Platelet Volume 7.1; Monocytes # (A) 0.8 k/uL (0-1.0); Monocytes % (A) 8 %; Neutrophils # (A) 7.6 k/uL (1.3-7.7); Neutrophils % (A) 79 %; Platelet Count 357 k/uL (150-450); RBC 4.73 m/uL (4.30-5.90); RDW 14.5 % (11.5-15.5); WBC 9.6 k/uL (3.8-10.6)
[2021-02-26 08:55] LABS: African American GFR (CKD) >90 (>60 ml/min/1.73 sqM); Anion Gap 8 mmol/L; Blood Urea Nitrogen 11 mg/dL (9-20); Carbon Dioxide 27 mmol/L (22-30); Chloride 102 mmol/L (98-107); Glucose 91 mg/dL (74-99); Non-African American GFR(CKD) >90 (>60 ml/min/1.73 sqM); Sodium 137 mmol/L (137-145)
[2021-02-26] MEDS ORDERED: LIDOCAINE 5% PATCH TOPICAL STA (09:01)
[2021-02-26 09:04] LABS: Potassium 4.4 mmol/L (3.5-5.1)
--- NOTE | 2021-02-26 09:41 | CT ---
EXAMINATION TYPE: CT angio chest DATE OF EXAM: 02/26/2021 COMPARISON: Radiograph same day at 03/15/[address]. [address] 07/13/2011 HISTORY: 40-year-old male elevated d-dimer, posterior right chest pain, history of sarcoid TECHNIQUE: Contiguous axial scanning of the chest performed with IV Contrast, patient injected with 1 00 mL of Isovue 370. Coronal/sagittal MIP reconstructions performed. CT DLP: 281 mGycm Automated exposure control for dose reduction was used. FINDINGS: Heart upper limits of normal in size. No reflux of contrast into the hepatic veins. No pericardial ef fusion. Aorta normal caliber with bovine configuration to the aortic arch. Subcarinal lymph node measures up to 1.8 cm. Confluent bilateral hilar and suprahilar masslike peribr onchovascular thickening and opacities extending up into the upper lobes and down to the mid lungs. N umerous smaller areas of interstitial nodularity throughout. Findings have severely progressed from 2 011. Some cystic or emphysematous change at the right greater than left apices. Borderline to mildly enlarged caliber to the main right and left pulmonary arteries at 2.5 to 2.8 cm, respectively suggesting underlying pulmonary arterial hypertension. No pulmonary embolism is identif ied. There is groundglass opacity and consolidation involving the posterior right lower lobe. Trace right pleural effusion. Visualized upper abdomen shows no gross abnormality. Bones: Bilateral humeral head AVN. No osseous destructive process otherwise seen. IMPRESSION: 1. NO EVIDENCE FOR PULMONARY EMBOLUS. HOWEVER, FINDINGS SUGGEST PULMONARY ARTERIAL HYPERTENSION PROBA DANIELLE DUE TO SEVERE CHRONIC LUNG DISEASE. THE LUNG DISEASE HAS SIGNIFICANTLY PROGRESSED FROM 2011. 2. GROUNDGLASS AND CONSOLIDATION IN THE RIGHT LOWER LOBE WITH TRACE RIGHT EFFUSION. FINDINGS SUGGEST A SUPERIMPOSED PNEUMONIA. 3. SEVERE CHRONIC LUNG DISEASE WITH MASSLIKE INTERSTITIAL AND PERIBRONCHOVASCULAR THICKENING ESPECIAL LY IN THE UPPER AND MID LUNGS AND DIFFUSE INTERSTITIAL NODULARITY THROUGHOUT BUT WITH AN UPPER AND CA DLUNG PREDOMINANCE. FINDINGS IN KEEPING WITH PULMONARY SARCOIDOSIS. SUSPECT SOME SUPERIMPOSED EMPHYSE MA AT THE APICES. 4. BILATERAL HUMERAL HEAD AVN PROBABLY DUE TO CHRONIC STEROID USE.
[2021-02-26] MEDS ORDERED: NALOXONE 0.4 MG/ML 1 ML VIAL IV PRN (10:03)
[2021-02-26] MEDS ORDERED: CYCLOBENZAPRINE 5 MG TAB PO PRN (11:00)
[2021-02-26] MEDS ORDERED: ALBUTEROL NEBULIZED 2.5 MG/3 ML INHALATION PRN (11:01)
--- NOTE | 2021-02-26 11:11 | P.HPIM ---
History of Present Illness H&P Date: 02/26/21 Chief Complaint: Low back pain This is a 40-year-old male with past medical history noted below significant for underlying sarcoidosis the presented to the emergency room with low back pain. Patient said that his symptoms started yesterday and is being getting progressively worse. He denies any trauma or back injury. He said the pain is mostly in the right lower back. There is no radiation to the lower extremity. No numbness or tingling anywhere. Patient was evaluated in the ER and a urinalysis showed no evidence of UTI. For unclear reasons to me, patient had th e CT angiogram of the chest in the ER. CT showed no evidence of PE however showed significantly worsening underlying sarcoidosis with diffuse interstitial nodularity and suspected severe pulmonary hypertension. Patient will be placed on observation with pulmonary consultation. Patient himself reports that he has chronic shortness of breath that is not changed recently. He has cough that is generally nonproductive. He denies any fevers or chills. No recent sick contact. 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 He was never evaluated in the specialized sarcoidosis clinic at the tertiary care facility. Review of Systems Review of system: 14 points review of systems were obtained and were negative except to what were mentioned in the HPI. Past Medical History Past Medical History: COPD Additional Past Medical History / Comment(s): sarcoidosis History of Any Multi-Drug Resistant Organisms: None Reported Past Surgical History: Hernia Repair Additional Past Surgical History / Comment(s): lung biopsy, cataract surgery bilateral Past Anesthesia/Blood Transfusion Reactions: No Reported Reaction Past Psychological History: Depression Smoking Status: Never smoker Past Alcohol Use History: Occasional Past Drug Use History: Marijuana - Past Family History Mother Additional Family Medical History / Comment(s): sarcoidosis Father Additional Family Medical History / Comment(s): leukemia at 45 Medications and Allergies Home Medications Medication Instructions Recorded Confirmed Type ARIPiprazole 15 mg PO HS 10/30/17 02/26/21 History Ergocalciferol [Vitamin D2 1,250 mcg PO HENAO 10/30/17 02/26/21 History (DRISDOL)] lamoTRIgine 200 mg PO HS 10/30/17 02/26/21 History Hydrochlorothiazide 12.5 mg PO HS 10/06/19 02/26/21 History [hydroCHLOROthiazide] Albuterol Sulfate [Proventil Hfa] 2 puff INHALATION RT-Q4H PRN 02/26/21 02/26/21 History Ascorbic Acid [Vitamin C] 1,000 mg PO DAILY 02/26/21 02/26/21 History Cyclobenzaprine [Flexeril] 10 mg PO HS 02/26/21 02/26/21 History Vitamin B Complex 1 cap PO DAILY 02/26/21 02/26/21 History Allergies Allergy/AdvReac Type Severity Reaction Status Date / Time No Known Allergies Allergy Verified 02/26/21 09:31 Physical Exam Vitals: Vital Signs Temp Pulse Resp BP Pulse Ox 02/26/21 10:53 73 20 137/83 97 02/26/21 07:49 99.7 F H 87 18 140/87 96 Intake and Output 02/25/21 02/26/21 02/26/21 22:59 06:59 14:59 Other: Weight 79.379 kg General: The patient is awake and alert, in no distress Eye: there is normal conjunctiva bilaterally. Neck: The neck is supple, there is no JVD. Cardiovascular: Normal S1-S2, no S3-S4, no murmurs. Respiratory: Lungs clear to auscultation bilaterally Gastrointestinal: Abdomen is soft, nontender Musculoskeletal: There is no pedal edema. Neurological:. Speech is normal. Skin: Skin is warm and dry Results CBC & Chem 7: 02/26/21 08:09 02/26/21 08:09 Labs: Abnormal Lab Results - Last 24 Hours (Table) 02/26/21 02/26/21 Range/Units 08:09 08:09 Lymphocytes # 0.9 L (1.0-4.8) k/uL Urine Protein Trace H (Negative) Assessment and Plan Assessment: This is a 40-year-old male with past medical history noted below who presented to the hospital with low back pain. He was evaluated in the ER and was placed on observation for pulmonary consultation regarding CT scan of the chest findings. Below is a list of his medical problems agonist during this hospitalization 1. Acute low back pain, most likely musculoskeletal. Continue Tylenol and Fl exeril as needed. Urinalysis with no evidence of infection. 2. Worsening underlying sarcoidosis, with complex findings noted on computed tomography scan of the chest. Awaiting pulmonary evaluation. No clinical evidence of underlying pneumonia. I would order pro-calcitonin. Echocardiogram to assess right ventricular pressure 3. Essential hypertension: Blood pressure within acceptable range
[2021-02-26] MEDS ORDERED: IPRATROPIUM-ALBUTEROL 3 ML NEB INHALATION PRN (11:35)
--- NOTE | 2021-02-26 11:57 | P.CNPUL ---
History of Present Illness Consult date: 02/26/21 Requesting physician: Sherman Bruce Reason for consult: abnormal CXR/CT, other Chief complaint: Back pain History of present illness: 40-year-old -Italian male patient that follows with Dr. Whitney in the pulmonary clinic for his history of stage IV pulmonary sarcoidosis, and COPD. His outpatient PFT completed on 10/19/2019 showed FEV1 of 1.79 L or 53% predicted, FVC of 2.96 L or 73% of predicted, UIU8DAS of 73% of predicted, DLCO of 50%, moderately severe obstructive airway disease, probable restriction, and moderately severe diffusion defect. Patient used to be on steroids for his pulmonary sarcoidosis, currently he is not on any treatment. He he is an ex- smoker, not smoking anymore. He is on Symbicort, and Proventil on a regular basis, he hasn't seen Dr. Whitney in about 1 year. He presented to the emergency department no 6 awake 2020 with complaints of sharp back pain which is exacerbated by deep breathing, and he states even smaller breaths exacerbate the sharp pain in the back, he denied any fever, denied any chills, he states he always coughs related to his history of COPD, and his cough frequency or characteristics have not changed, denies any wheezing. Denies any phlegm production. He stated that he was getting out of the car yesterday for his lunch break when the pain started. Denies any trauma to the thoracic back, no falls, no injury. No constitutional symptoms, no runny nose, he was tested for COVID-19 and was found to be negative. Chest x-ray showed worsening bilateral lung opacities in comparison to most recent chest x-ray on 10/06/2019. His labs showed normal white count of 9.6, hemoglobin of 13.7, electrolytes and renal profile were within normal limits, urinalysis shows trace protein, no evidence of infection. Patient states he has had no muscle aches, no visual changes, no recent kidney stones he follows with business management specialist Dr. Garcia regular basis, and has not been told that his vision is worsening to suspect active azar coidoisis. CTA chest was obtained and showed no evidence of pulmonary embolism, there were ground glass consolidation in the right lower lobe with trace pleural effusion and findings suggested pneumonia, and severe chronic lung disease with masslike interstitial and peribronchial bronchovascular thickening especially in the upper and mid lungs and diffuse interstitial nodularity throughout with u pper and midlung predominance, and superimposed emphysema at the apices. Pro- calcitonin level has been sent. he was seen in the emergency department, he is being kept for observation, appears fairly comfortable, breathing comfortably, and with deep breathing, he is currently on room air, a low-grade temperature with a temp of 99.7F, hemodynamically stable. Review of Systems All systems: negative Constitutional: Denies chills, Denies fever Eyes: denies blurred vision, denies pain Ears, nose, mouth and throat: Denies headache, Denies sore throat Cardiovascular: Denies chest pain, Denies shortness of breath Respiratory: Reports pleurisy, Denies cough Gastrointestinal: Denies abdominal pain, Denies diarrhea, Denies nausea, Denies vomiting Musculoskeletal: Denies myalgias Integumentary: Denies pruritus, Denies rash Neurological: Denies numbness, Denies weakness Psychiatric: Denies anxiety, Denies depression Endocrine: Denies fatigue, Denies weight change Past Medical History Past Medical History: COPD Additional Past Medical History / Comment(s): sarcoidosis History of Any Multi-Drug Resistant Organisms: None Reported Past Surgical History: Hernia Repair Additional Past Surgical History / Comment(s): lung biopsy, cataract surgery bilateral Past Anesthesia/Blood Transfusion Reactions: No Reported Reaction Past Psychological History: Depression Smoking Status: Never smoker Past Alcohol Use History: Occasional Past Drug Use History: Marijuana - Past Family History Mother Additional Family Medical History / Comment(s): sarcoidosis Father Additional Family Medical History / Comment(s): leukemia at 45 Medications and Allergies Home Medications Medication Instructions Recorded Confirmed Type ARIPiprazole 15 mg PO HS 10/30/17 02/26/21 History Ergocalciferol [Vitamin D2 1,250 mcg PO HENAO 10/30/17 02/26/21 History (DRISDOL)] lamoTRIgine 200 mg PO HS 10/30/17 02/26/21 History Hydrochlorothiazide 12.5 mg PO HS 10/06/19 02/26/21 History [hydroCHLOROthiazide] Albuterol Sulfate [Proventil Hfa] 2 puff INHALATION RT-Q4H PRN 02/26/21 02/26/21 History Ascorbic Acid [Vitamin C] 1,000 mg PO DAILY 02/26/21 02/26/21 History Cyclobenzaprine [Flexeril] 10 mg PO HS 02/26/21 02/26/21 History Vitamin B Complex 1 cap PO DAILY 02/26/21 02/26/21 History Allergies Allergy/AdvReac Type Severity Reaction Status Date / Time No Known Allergies Allergy Verified 02/26/21 09:31 Physical Exam Vitals: Vital Signs Temp Pulse Resp BP Pulse Ox 02/26/21 10:53 73 20 137/83 97 02/26/21 07:49 99.7 F H 87 18 140/87 96 Intake and Output 02/25/21 02/26/21 02/26/21 22:59 06:59 14:59 Other: Weight 79.379 kg GENERAL EXAM: Alert, very pleasant, 40-year-old -Italian male on room air, with pulse ox of 96% comfortable in no apparent distress. Patient has with grimacing and discomfort with deep breathing in his back HEAD: Normocephalic/atraumatic. EYES: Normal reaction of pupils, equal size. Conjunctiva pink, sclera white. NOSE: Clear with pink turbinates. THROAT: No erythema or exudates. NECK: No masses, no JVD, no thyroid enlargement, no adenopathy. CHEST: No chest wall deformity. Symmetrical expansion. LUNGS: Equal air entry with no crackles, wheeze, rhonchi or dullness. CVS: Regular rate and rhythm, normal S1 and S2, no gallops, no murmurs, no rubs ABDOMEN: Soft, nontender. No hepatosplenomegaly, normal bowel sounds, no guarding or rigidity. EXTREMITIES: No clubbing, no edema, no cyanosis, 2+ pulses and upper and lower extremities. MUSCULOSKELETAL: Muscle strength and tone normal. SPINE: No scoliosis or deformity SKIN: No rashes CENTRAL NERVOUS SYSTEM: Alert and oriented -3. No focal deficits, tone is normal in all 4 extremities. PSYCHIATRIC: Alert and oriented -3. Appropriate affect. Intact judgment and insight. Results - Laboratory Findings CBC and BMP: 02/26/21 08:09 02/26/21 08:09 Abnormal lab findings: Abnormal Labs 02/26/21 02/26/21 08:09 08:09 Lymphocytes # 0.9 L Urine Protein Trace H - Diagnostic Findings Chest x-ray: report reviewed, image reviewed CT scan - chest: report reviewed, image reviewed Assessment and Plan Plan: Assessment: #1. Pleuritic pain in patient's back, possibly related to underlying pneumonia, CTA chest showed no evidence of pulmonary embolism, total groundglass consolidation at the right lower lobe for trace right pleural effusion suggesting possibility of pneumonia. COVID-19 PCR was negative #2. Bullous emphysema seen on CT chest, at the apices of bilateral lungs #3. History of pulmonary sarcoidosis stage IV, currently not on any treatment #4. 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 #5. History of COPD #6. Former smoker, currently in remission #7. Bipolar disorder Plan: We'll start the patient on empiric Antibiotics the form of azithromycin and Rocephin Pro-calcitonin level is pending Chest x-ray and CAT scan reviewed, difficult to exclude underlying pneumonia We'll cover the patient with antibiotics Breathing treatments We will continue to follow I performed a history & physical examination of the patient and discussed their management with my nurse practitioner, Neelam Grant. I reviewed the nurse bryn iverson's note and agree with the documented findings and plan of care. Lung sounds are positive for diminished breath sounds. The findings and the impression was discussed with the patient. I attest to the documentation by the nurse practitioner. Time with Patient: Greater than 30
[2021-02-26] MEDS: IPRATROPIUM-ALBUTEROL 3 ML NEB INHALATION SCH ×3 (13:26→19:21)
[2021-02-26 13:28] VITALS: RESP 18
[2021-02-26] MEDS: AZITHROMYCIN 500 MG TAB PO SCH (13:37)
[2021-02-26] MEDS: ACETAMINOPHEN TAB 325 MG TAB PO PRN (16:34)
[2021-02-26] MEDS ORDERED: KETOROLAC 15 MG/ML 1 ML VIAL IVP STA (18:09)
[2021-02-26] MEDS ORDERED: hydroCHLOROthiazide 12.5 MG CAP PO SCH (21:00)
[2021-02-26] MEDS ORDERED: CYCLOBENZAPRINE 10 MG TAB PO SCH (21:00)
[2021-02-26] MEDS ORDERED: lamoTRIgine 100 MG TAB PO SCH (21:00)
[2021-02-26] MEDS ORDERED: ARIPiprazole 15 MG TAB PO SCH (21:00)
[2021-02-27] MEDS: IPRATROPIUM-ALBUTEROL 3 ML NEB INHALATION SCH ×2 (07:45→11:16)
[2021-02-27] MEDS: AZITHROMYCIN 500 MG TAB PO SCH (08:44)
[2021-02-27] MEDS: ACETAMINOPHEN TAB 325 MG TAB PO PRN (08:44)
[2021-02-27] MEDS ORDERED: ASCORBIC ACID 500 MG TAB PO SCH (09:00)
[2021-02-27] MEDS ORDERED: NON FORMULARY DRUG (Vitamin B Complex [Vitamin B Complex] 1 EACH Capsule) PO SCH (09:00)
--- NOTE | 2021-02-27 10:16 | P.DS ---
Providers Date of admission: 02/27/21 09:22 Expected date of discharge: 02/27/21 Attending physician: Sherman Bruce Consults: 02/26/21 10:04 Consult Physician Routine Consulting Provider: Sara Kwan Consult Reason/Comments: sarcoidosis Do you want consulting provider notified?: Yes Primary care physician: Earnest [facility] Hospital Course: This is a 40-year-old male with past medical history noted below who presented to the hospital with low back pain. He was evaluated in the ER and was placed on observation for pulmonary consultation regarding CT scan of the chest find ings. Below is a list of his medical problems agonist during this hospitalization 1. Acute low back pain, most likely musculoskeletal. Improved significantly. Continue Tylenol and Flexeril as needed. Urinalysis with no evidence of infection. 2. Worsening underlying sarcoidosis with suspected community-acquired pneumonia: complex findings noted on computed tomography scan of the chest. Pat ient was seen and evaluated by pulmonology. Pro-calcitonin only slightly elevated. We will treat with antibiotic to finish 8 days course. Patient was strongly advised to follow-up with Dr. Kwan in the office in 10 days 3. Essential hypertension: Blood pressure within acceptable range 4. Suspected pulmonary hypertension suggested on CT findings. Echocardiogram ordered for further evaluation. Patient will follow-up with Dr. Whitney in the office regarding results Patient will be discharged home in a stable condition. For further details about this hospitalization please refer to the electronic chart. Time spent on discharge > 30 minutes including counseling and coordination of care Patient Condition at Discharge: Fair Plan - Discharge Summary Discharge Rx Participant: No New Discharge Prescriptions: New Cephalexin [Keflex] 500 mg PO Q6HR 6 Days #24 cap RX: Azithromycin [Zithromax] 250 mg PO DAILY 4 Days #4 tab Continue RX: lamoTRIgine 200 mg PO HS RX: Ergocalciferol [Vitamin D2 (DRISDOL)] 1,250 mcg PO HENAO RX: ARIPiprazole 15 mg PO HS RX: Hydrochlorothiazide [hydroCHLOROthiazide] 12.5 mg PO HS RX: Cyclobenzaprine [Flexeril] 10 mg PO HS RX: Vitamin B Complex 1 cap PO DAILY RX: Ascorbic Acid [Vitamin C] 1,000 mg PO DAILY RX: Albuterol Sulfate [Proventil Hfa] 2 puff INHALATION RT-Q4H PRN PRN Reason: Shortness Of Breath Discharge Medication List ARIPiprazole 15 mg PO HS 10/30/17 [History] Ergocalciferol [Vitamin D2 (DRISDOL)] 1,250 mcg PO HENAO 10/30/17 [History] lamoTRIgine 200 mg PO HS 10/30/17 [History] Hydrochlorothiazide [hydroCHLOROthiazide] 12.5 mg PO HS 10/06/19 [History] Albuterol Sulfate [Proventil Hfa] 2 puff INHALATION RT-Q4H PRN 02/26/21 [History] Ascorbic Acid [Vitamin C] 1,000 mg PO DAILY 02/26/21 [History] Cyclobenzaprine [Flexeril] 10 mg PO HS 02/26/21 [History] Vitamin B Complex 1 cap PO DAILY 02/26/21 [History] Azithromycin [Zithromax] 250 mg PO DAILY 4 Days #4 tab 02/27/21 [Rx] Cephalexin [Keflex] 500 mg PO Q6HR 6 Days #24 cap 02/27/21 [Rx] Follow up Appointment(s)/Referral(s): Perlita Perez NPC [REFERRING] - 1-2 days Sara Kwan MD [Family Provider] - 10 Days Discharge Disposition: HOME SELF-CARE
--- NOTE | 2021-02-27 11:38 | P.PN ---
Subjective Progress Note Date: 02/27/21 Principal diagnosis: Pleuritic back pain, suspect right lower lobe pneumonia 40-year-old -Fil[place] male patient that follows with Dr. Whitney in the pulmonary clinic for his history of stage IV pulmonary sarcoidosis, and COPD. His outpatient PFT completed on 10/19/2019 showed FEV1 of 1.79 L or 53% predicted, FVC of 2.96 L or 73% of predicted, [id number] of 73% of predicted, DLCO of 50%, moderately severe obstructive airway disease, probable restriction, and moderately severe diffusion defect. Patient used to be on steroids for his pulmonary sarcoidosis, currently he is not on any treatment. He he is an ex- smoker, not smoking anymore. He is on Symbicort, and Proventil on a regular basis, he hasn't seen Dr. Whitney in about 1 year. He presented to the emergency department no 6 awake 2020 with complaints of sharp back pain which is exacerbated by deep breathing, and he states even smaller breaths exacerbate the sharp pain in the back, he denied any fever, denied any chills, he states he always coughs related to his history of COPD, and his cough frequency or characteristics have not changed, denies any wheezing. Denies any phlegm production. He stated that he was getting out of the car yesterday for his lunch break when the pain started. Denies any trauma to the thoracic back, no falls, no injury. No constitutional symptoms, no runny nose, he was tested for COVID-19 and was found to be negative. Chest x-ray showed worsening bilateral lung opacities in comparison to most recent chest x-ray on 10/06/2019. His labs showed normal white count of 9.6, hemoglobin of 13.7, electrolytes and renal profile were within normal limits, urinalysis shows trace protein, no evidence of infection. Patient states he has had no muscle aches, no visual changes, no recent kidney stones he follows with eyeglass lens grinder Dr. Garcia regular basis, and has not been told that his vision is worsening to suspect active sarcoidoisis. CTA chest was obtained and showed no evidence of pulmonary embolism, there were ground glass consolidation in the right lower lobe with trace pleural effusion and findings suggested pneumonia, and severe chronic lung disease with masslike interstitial and peribronchial bronchovascular thickening especially in the upper and mid lungs and diffuse interstitial nodularity throughout with upper and midlung predominance, and superimposed emphysema at the apices. Pro-calcitonin level has been sent. he was seen in the emergency department, he is being kept for observation, appears fairly comfortable, breathing comfortably, and with deep breathing, he is currently on room air, a low-grade temperature with a temp of 99.7F, hemodynamically stable. The patient is seen today 02/27/2021 in follow-up on the selective care unit. He is awake and alert in no acute distress. Continue good O2 saturations in the mid 90s on room air. He's been afebrile. Hemodynamically stable. He's been maintained on bronchodilators, antibiotics in the form of ceftriaxone and azithromycin. Objective - Vital Signs Vital signs: Vital Signs Temp 98.7 F 02/26/21 20:00 Pulse 85 02/27/21 07:57 Resp 18 02/27/21 04:00 BP 132/68 02/27/21 04:00 Pulse Ox 96 02/27/21 04:00 Intake & Output 02/26/21 02/27/21 02/27/21 18:59 06:59 18:59 Weight 79.379 kg Other: # Voids 1 - Exam GENERAL EXAM: Alert, very pleasant, 40-year-old male patient on room air, with pulse ox of 96% comfortable in no apparent distress. HEAD: Normocephalic/atraumatic. EYES: Normal reaction of pupils, equal size. Conjunctiva pink, sclera white. NOSE: Clear with pink turbinates. THROAT: No erythema or exudates. NECK: No masses, no JVD, no thyroid enlargement, no adenopathy. CHEST: No chest wall deformity. Symmetrical expansion. LUNGS: Equal air entry with no crackles, wheeze, rhonchi or dullness. CVS: Regular rate and rhythm, normal S1 and S2, no gallops, no murmurs, no rubs ABDOMEN: Soft, nontender. No hepatosplenomegaly, normal bowel sounds, no guarding or rigidity. EXTREMITIES: No clubbing, no edema, no cyanosis, 2+ pulses and upper and lower extremities. MUSCULOSKELETAL: Muscle strength and tone normal. SPINE: No scoliosis or deformity SKIN: No rashes CENTRAL NERVOUS SYSTEM: No focal deficits, tone is normal in all 4 extremities. PSYCHIATRIC: Alert and oriented -3. Appropriate affect. Intact judgment and i nsight. - Labs CBC & Chem 7: 02/26/21 08:09 02/26/21 08:09 Labs: Abnormal Lab Results - Last 24 Hours (Table) 02/26/21 Range/Units 08:09 Procalcitonin 0.14 H (0.02-0.09) ng/mL Assessment and Plan Assessment: 1 Pleuritic pain in patient's back, possibly related to underlying pneumonia, CTA chest showed no evidence of pulmonary embolism, total groundglass consolidation at the right lower lobe for trace right pleural effusion suggesting possibility of pneumonia. 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 5 History of COPD 6 Former smoker, currently in remission 7 Bipolar disorder Plan: The patient was seen and evaluated by Dr. Watson Yang from the pulmonary standpoint Cleared for discharge No antibiotics needed at this time Follow-up in the office in 1-2 weeks' time I, the cosigning physician, performed a history & physical examination of the patient. Lungs sounds are clear. Maintaining good O2 saturations in the 90s on room air. I discussed the assessment and plan of care with my nurse practitioner, Yady Gomez. I attest to the above note as dictated by her.
[2021-02-27 12:29] VITALS: BP 112/66; PULSE 68; TEMP 98.5
--- NOTE | 2021-03-01 11:20 | ECHOF ---
Referral Reason:Severe pulmonary hypertension? MEASUREMENTS -------- HEIGHT: 172.7 cm WEIGHT: 79.4 kg BP: IVSd: 1.0 cm (0.6 - 1.1) LVIDd: 3.3 cm (3.9 - 5.3) LVPWd: 1.2 cm (0.6 - 1.1) IVSs: 1.7 cm LVIDs: 2.4 cm LVPWs: 1.7 cm Ao Diam: 2.9 cm (2.0 - 3.7) AV Cusp: 1.6 cm (1.5 - 2.6) LA Diam: 2.4 cm (2.7 - 3.8) MV EXCURSION: 16.399 mm (> 18.000) MV EF SLOPE: 93 mm/s (70 - 150) EPSS: 0.4 cm MV E Bean: 0.85 m/s MV DecT: 309 ms MV A Bean: 0.86 m/s MV E/A Ratio: 0.99 RAP: 5.00 mmHg RVSP: 21.56 mmHg FINDINGS -------- This was a technically good study. The left ventricular size is normal. There is mild concentric left ventricular hypertrophy. Overa ll left ventricular systolic function is normal with, an EF between 55 - 60 %. The right ventricle is normal in size. The left atrial size is normal. Left atrium is normal size by volume. The right atrial size is normal. The aortic valve is trileaflet and appears structurally normal. The mitral valve is normal. Mild mitral regurgitation is present. The tricuspid valve appears structurally normal. Mild tricuspid regurgitation present. Right vent ricular systolic pressure is normal at < 35 mmHg. There is no pulmonic regurgitation present. The aortic root size is normal. There is no pericardial effusion. CONCLUSIONS -------- 1. The left ventricular size is normal. 2. There is mild concentric left ventricular hypertrophy. 3. Overall left ventricular systolic function is normal with, an EF between 55 - 60 %. 4. Mild mitral regurgitation is present. 5. Mild tricuspid regurgitation present. 6. There is no pericardial effusion. 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
== END 2021-02-27 13:53 | disposition home or self-care (01) ==
LOC: EC 07:46 → 1SOBS 10:03 → 3SCARD 15:25 → OBSVTOIN 02-27 09:22 → INTOOBSV 02-27 09:22 → UNDODISIN 02-27 13:53
PROVIDERS: ADMIT Internal Medicine; ATTEND Internal Medicine
DX: D86.0 Sarcoidosis of lung (principal); J43.9 Emphysema, unspecified; M54.6 Pain in thoracic spine; M54.5 Low back pain; R07.81 Pleurodynia; I10 Essential (primary) hypertension; M87.9 Osteonecrosis, unspecified; I08.1 Rheumatic disorders of both mitral and tricuspid valves; F31.9 Bipolar disorder, unspecified; Z20.822 Contact with and (suspected) exposure to COVID-19; Z79.899 Other long term (current) drug therapy; Z98.49 Cataract extraction status, unspecified eye; Z98.890 Other specified postprocedural states; Z87.891 Personal history of nicotine dependence; Z80.6 Family history of leukemia; Z83.6 Family history of other diseases of the respiratory system
CPT/HCPCS: 96366; 96375; 96365; 99284; 36415; 94640 ×3; 93306; 80048; 85025; 81003; 84145; 87635; 71046; 71275; G0378 ×3; J0696 ×2; J1885; Q9967; 99285

== ENCOUNTER → 2021-03-25 | Outpatient (CLI) | payer OTHER | END | disposition home or self-care (01) | CPT/HCPCS: 70553; A9585 ==

== ENCOUNTER → 2022-07-09 | Outpatient (CLI) | payer OTHER ==
--- NOTE | 2022-07-09 09:32 | MR ---
EXAMINATION TYPE: MR shoulder RT wo con DATE OF EXAM: 07/09/2022 COMPARISON: Right shoulder x-ray November 29, 2020 HISTORY: RIGHT SHOULDER PAIN for 2 years with prior s urgery March 10, 2020 TECHNIQUE: Multiplanar, multisequence imaging of the right shoulder is performed without contrast. FINDINGS: Rotator Cuff: There is increased signal in the distal supraspinatus and infraspinatus tendons with pa rtial tearing more prominent in the distal supraspinatus tendon. Susceptibility artifact from prior r otator cuff repair in the anterior lateral aspect of the humeral head is noted. No full-thickness ret racted tear is seen. Subscapularis tendon intact. Rotator cuff muscle bulk preserved. Acromioclavicular Joint: Mild narrowing with mild to moderate superior capsular hypertrophy. Mild spu rring. Underlying fat plane maintained. Distal acromion morphology unremarkable. Glenohumeral Joint: Mild/moderate bony projection inferior medial humeral head. Small joint effusion. Labrum: Increased signal superior labrum coronal image 31 suspicious for tearing. Biceps Tendon: The long head of biceps is in normal location within bicipital groove. Bone marrow signal: There is serpiginous low T1 signal in the superior medial aspect of the humeral h ead corresponding to area of sclerosis on 2020 radiographs. No new bony fragmentation or collapse not ed. Other: No additional significant abnormality is appreciated. IMPRESSION: 1. 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 Correlate clinically. 2. Tendinopathy and partial tearing of the surgically repaired distal supraspinatus and infraspinatus tendons. No recurrent full-thickness retracted tear is seen. Rotator cuff muscle bulk is maintained.
== END | disposition home or self-care (01) ==
LOC: RADMRIMAIN 07:03
PROVIDERS: ATTEND Internal Medicine
DX: M75.111 Incomplete rotator cuff tear or rupture of right shoulder, not specified as traumatic (principal); M25.111 Fistula, right shoulder

== ENCOUNTER 2022-09-22 23:56 | Observation (INO) | payer OTHER ==
[2022-09-23] MEDS ORDERED: SODIUM CHLORIDE 0.9% 1,000 ML IV STA (00:13)
[2022-09-23] MEDS ORDERED: SODIUM CHLORIDE 0.9% 500 ML 500 ML IV STA (00:13)
--- NOTE | 2022-09-23 00:14 | ED ---
SOB HPI - General Chief Complaint: Shortness of Breath Stated Complaint: DONNA Time Seen by Provider: 09/23/22 00:13 Source: patient, RN notes reviewed, old records reviewed Mode of arrival: ambulatory Limitations: no limitations - History of Present Illness Initial Comments: This is a 42-year-old male to the emergency department for evaluation patient do es suffer from sarcoidosis coming in for severe shortness of breath patient gets these exacerbations often but this is about is worse as his head. No nausea vomiting or chest pain or shortness of breath no current fevers. Difficulty with wheezing and increasing wheezing. MD Complaint: shortness of breath, cough -: days(s) Severity: moderate Severity scale (1-10): 4 Quality: dull, throbbing Consistency: constant, intermittent Improves With: oxygen, rest Worsens With: exertion, movement Known History Of: COPD, asthma Context: recent URI, recent illness Associated Symptoms: cough, sputum production Treatments Prior to Arrival: none - Related Data Home Medications Medication Instructions Recorded Confirmed ARIPiprazole 15 mg PO HS 10/30/17 09/26/22 lamoTRIgine 200 mg PO HS 10/30/17 09/26/22 Ascorbic Acid [Vitamin C] 1,000 mg PO HS 02/26/21 09/26/22 Vitamin B Complex 1 cap PO HS 02/26/21 09/26/22 predniSONE 10 mg PO HS 09/23/22 09/26/22 Previous Rx's Medication Instructions Recorded ALPRAZolam [Xanax] 0.5 mg PO BID PRN #6 tab 09/25/22 Albuterol Nebulized [Ventolin 2.5 mg INHALATION RT-Q4H #180 ml 09/25/22 Nebulized] Albuterol Sulfate [Proventil Hfa] 2 puff INHALATION RT-Q4H PRN #1 09/25/22 each Budesonide/Formoterol Fumarate 2 puff INHALATION RT-BID #7 each 09/25/22 [Symbicort 160-4.5 Mcg Inhaler] predniSONE See Taper PO DIRECTED #30 tab 09/25/22 Allergies Allergy/AdvReac Type Severity Reaction Status Date / Time No Known Allergies Allergy Verified 09/26/22 06:35 Review of Systems ROS Statement: Those systems with pertinent positive or pertinent negative responses have been documented in the HPI. ROS Other: All systems not noted in ROS Statement are negative. Past Medical History Past Medical History: COPD Additional Past Medical History / Comment(s): sarcoidosis History of Any Multi-Drug Resistant Organisms: None Reported Past Surgical History: Hernia Repair Additional Past Surgical History / Comment(s): lung biopsy, cataract surgery bilateral Past Anesthesia/Blood Transfusion Reactions: No Reported Reaction Past Psychological History: Depression Smoking Status: Never smoker Past Alcohol Use History: Occasional Past Drug Use History: Marijuana - Past Family History Mother Additional Family Medical History / Comment(s): sarcoidosis Father Additional Family Medical History / Comment(s): leukemia at 45 General Exam Limitations: no limitations General appearance: alert, in no apparent distress, anxious Head exam: Present: atraumatic, normocephalic, normal inspection Eye exam: Present: normal appearance, PERRL, EOMI. Absent: scleral icterus, conjunctival injection, periorbital swelling ENT exam: Present: normal exam, mucous membranes moist Neck exam: Present: normal inspection. Absent: tenderness, meningismus, lymphadenopathy Respiratory exam: Present: wheezes, decreased breath sounds, prolonged expir atory. Absent: respiratory distress, rales, rhonchi, stridor Cardiovascular Exam: Present: regular rate, normal rhythm, normal heart sounds. Absent: systolic murmur, diastolic murmur, rubs, gallop, clicks GI/Abdominal exam: Present: soft, normal bowel sounds. Absent: distended, tenderness, guarding, rebound, rigid Extremities exam: Present: normal inspection, full ROM, normal capillary refill. Absent: tenderness, pedal edema, joint swelling, calf tenderness Back exam: Present: normal inspection Neurological exam: Present: alert, oriented X3, CN II-XII intact Psychiatric exam: Present: normal affect, normal mood Skin exam: Present: warm, dry, intact, normal color. Absent: rash Course Vital Signs 09/23/22 09/23/22 09/23/22 00:08 01:07 01:13 Temperature 98.6 F Pulse Rate 94 96 91 Pulse Rate [ Right] Respiratory 16 Rate Blood Pressure 161/93 Blood Pressure [Right Arm] O2 Sat by Pulse 94 L Oximetry 09/23/22 09/23/22 09/23/22 01:37 03:39 03:48 Temperature Pulse Rate 91 85 86 Pulse Rate [ Right] Respiratory 22 Rate Blood Pressure 153/99 Blood Pressure [Right Arm] O2 Sat by Pulse 98 Oximetry 09/23/22 09/23/22 09/23/22 06:24 07:14 07:26 Temperature Pulse Rate 75 74 84 Pulse Rate [ Right] Respiratory 16 Rate Blood Pressure 149/115 Blood Pressure [Right Arm] O2 Sat by Pulse 98 99 Oximetry 09/23/22 09/23/22 07:55 08:20 Temperature 98.2 F Pulse Rate 83 Pulse Rate [ 68 Right] Respiratory 18 20 Rate Blood Pressure 169/98 Blood Pressure 156/98 [Right Arm] O2 Sat by Pulse 96 98 Oximetry - Reevaluation(s) Reevaluation #1: 09/23/22 medical record is reviewed Reevaluation #2: 10/01/22 Patient symptoms are not improved here in the ER Reevaluation #3: 09/23/22 Patient informed results and questions answered Reevaluation #4: 09/23/22 Differential Dyspnea: Coronary syndrome, arrhythmia, tamponade, asthma, COPD, pulmonary embolism, pneumonia, pneumothorax, pulmonary effusion, anaphylaxis, diabetic ketoacidosis, flailed chest, pulmonary contusion, diaphragmatic rupture, anemia, neuromuscular, this is not meant to be an all-inclusive list. Reevaluation #5: 09/23/22 Was pt. sent in by a medical professional or institution? @ -no Did you speak to anyone other than the patient for history? @ -no Did you review nursing and triage notes? @ -agree Were old charts reviewed? @ -no Differential Diagnosis? @ -no EKG interpreted by me (3pts min.)? @ -yes X-rays interpreted by me (1pt min.)? @ -yes CT interpreted by me (1pt min.)? @ -[none] U/S interpreted by me (1pt. min.)? @ -[none] What testing was considered but not performed? (CT, X-rays, U/S, labs)? Why? @ no What meds were considered but not given? Why? @ -[none] Did you discuss the management of the patient with other professionals? @ -no Did you reconcile home meds? @ -[none] Was smoking cessation discussed for >3mins.? @ -[none] Was critical care preformed (if so, how long)? @ -[none] Were there social determinants of health that impacted care today? How? (Homelessness, low income, unemployed, alcoholism, drug addiction, transportation, low edu. Level, literacy, decrease access to med. care, halfway, rehab)? @ -no Was there de-escalation of care discussed even if they declined? (Discuss DNR or withdrawal of care, Hospice)? @ -on What co-morbidities impacted this encounter? (DM, HTN, Smoking, COPD, CAD, Cancer, CVA, Hep., AIDS, mental health diagnosis, sleep apnea, morbid obesity)? @ -no Was patient admitted / discharged? @ -admit Undiagnosed new problem with uncertain prognosis? @ -[none] Drug Therapy requiring intensive monitoring for toxicity (Heparin, Nitro, Insulin, Cardizem)? @ -[none] Were any procedures done? @ -[none] Diagnosis/symptom? @ -[default] Acute, or Chronic, or Acute on Chronic? @ -[default] Uncomplicated (without systemic symptoms) or Complicated (systemic symptoms)? @ -[default] Side effects of treatment? @ -[none] Exacerbation, Progression, or Severe Exacerbation] @ -[no] Poses a threat to life or bodily function? @ -[no] 10/01/22 06:02 Medical Decision Making - Lab Data Result diagrams: 09/23/22 00:38 09/23/22 06:09 Lab Results 09/23/22 09/23/22 09/23/22 Range/Units 00:38 00:38 00:38 WBC 7.2 (3.8-10.6) k/uL RBC 4.77 (4.30-5.90) m/uL Hgb 13.9 (13.0-17.5) gm/dL Hct 42.4 (39.0-53.0) % MCV 88.9 (80.0-100.0) fL MCH 29.2 (25.0-35.0) pg MCHC 32.9 (31.0-37.0) g/dL RDW 14.3 (11.5-15.5) % Plt Count 271 (150-450) k/uL MPV 7.4 Neutrophils % 78 % Lymphocytes % 12 % Monocytes % 6 % Eosinophils % 2 % Basophils % 1 % Neutrophils # 5.6 (1.3-7.7) k/uL Lymphocytes # 0.9 L (1.0-4.8) k/uL Monocytes # 0.5 (0-1.0) k/uL Eosinophils # 0.1 (0-0.7) k/uL Basophils # 0.1 (0-0.2) k/uL PT 10.6 (9.0-12.0) sec INR 1.0 (<1.2) APTT 28.0 (22.0-30.0) sec D-Dimer <0.17 (<0.60) mg/L FEU Sodium 141 (137-145) mmol/L Potassium 3.3 L (3.5-5.1) mmol/L Chloride 101 (98-107) mmol/L Carbon Dioxide 32 H (22-30) mmol/L Anion Gap 8 mmol/L BUN 11 (9-20) mg/dL Creatinine 0.74 (0.66-1.25) mg/dL Est GFR (CKD-EPI)AfAm >90 (>60 ml/min/1.73 sqM) Est GFR (CKD-EPI)NonAf >90 (>60 ml/min/1.73 sqM) Glucose 127 H (74-99) mg/dL Plasma Lactic Acid Olman (0.7-2.0) mmol/L Calcium 9.1 (8.4-10.2) mg/dL Magnesium 1.8 (1.6-2.3) mg/dL Total Bilirubin 0.2 (0.2-1.3) mg/dL AST 26 (17-59) U/L ALT 26 (4-49) U/L Alkaline Phosphatase 81 (38-126) U/L Troponin I (0.000-0.034) ng/mL NT-Pro-B Natriuret Pep pg/mL Total Protein 7.9 (6.3-8.2) g/dL Albumin 4.2 (3.5-5.0) g/dL Influenza Type A (PCR) (Not Detectd) Influenza Type B (PCR) (Not Detectd) RSV (PCR) (Not Detectd) SARS-CoV-2 (PCR) (Not Detectd) 09/23/22 09/23/22 09/23/22 Range/Units 00:38 00:38 00:38 WBC (3.8-10.6) k/uL RBC (4.30-5.90) m/uL Hgb (13.0-17.5) gm/dL Hct (39.0-53.0) % MCV (80.0-100.0) fL MCH (25.0-35.0) pg MCHC (31.0-37.0) g/dL RDW (11.5-15.5) % Plt Count (150-450) k/uL MPV Neutrophils % % Lymphocytes % % Monocytes % % Eosinophils % % Basophils % % Neutrophils # (1.3-7.7) k/uL Lymphocytes # (1.0-4.8) k/uL Monocytes # (0-1.0) k/uL Eosinophils # (0-0.7) k/uL Basophils # (0-0.2) k/uL PT (9.0-12.0) sec INR (<1.2) APTT (22.0-30.0) sec D-Dimer (<0.60) mg/L FEU Sodium (137-145) mmol/L Potassium (3.5-5.1) mmol/L Chloride (98-107) mmol/L Carbon Dioxide (22-30) mmol/L Anion Gap mmol/L BUN (9-20) mg/dL Creatinine (0.66-1.25) mg/dL Est GFR (CKD-EPI)AfAm (>60 ml/min/1.73 sqM) Est GFR (CKD-EPI)NonAf (>60 ml/min/1.73 sqM) Glucose (74-99) mg/dL Plasma Lactic Acid Olman 1.6 (0.7-2.0) mmol/L Calcium (8.4-10.2) mg/dL Magnesium (1.6-2.3) mg/dL Total Bilirubin (0.2-1.3) mg/dL AST (17-59) U/L ALT (4-49) U/L Alkaline Phosphatase (38-126) U/L Troponin I <0.012 (0.000-0.034) ng/mL NT-Pro-B Natriuret Pep 67 pg/mL Total Protein (6.3-8.2) g/dL Albumin (3.5-5.0) g/dL Influenza Type A (PCR) (Not Detectd) Influenza Type B (PCR) (Not Detectd) RSV (PCR) (Not Detectd) SARS-CoV-2 (PCR) (Not Detectd) 09/23/22 Range/Units 01:46 WBC (3.8-10.6) k/uL RBC (4.30-5.90) m/uL Hgb (13.0-17.5) gm/dL Hct (39.0-53.0) % MCV (80.0-100.0) fL MCH (25.0-35.0) pg MCHC (31.0-37.0) g/dL RDW (11.5-15.5) % Plt Count (150-450) k/uL MPV Neutrophils % % Lymphocytes % % Monocytes % % Eosinophils % % Basophils % % Neutrophils # (1.3-7.7) k/uL Lymphocytes # (1.0-4.8) k/uL Monocytes # (0-1.0) k/uL Eosinophils # (0-0.7) k/uL Basophils # (0-0.2) k/uL PT (9.0-12.0) sec INR (<1.2) APTT (22.0-30.0) sec D-Dimer (<0.60) mg/L FEU Sodium (137-145) mmol/L Potassium (3.5-5.1) mmol/L Chloride (98-107) mmol/L Carbon Dioxide (22-30) mmol/L Anion Gap mmol/L BUN (9-20) mg/dL Creatinine (0.66-1.25) mg/dL Est GFR (CKD-EPI)AfAm (>60 ml/min/1.73 sqM) Est GFR (CKD-EPI)NonAf (>60 ml/min/1.73 sqM) Glucose (74-99) mg/dL Plasma Lactic Acid Olman (0.7-2.0) mmol/L Calcium (8.4-10.2) mg/dL Magnesium (1.6-2.3) mg/dL Total Bilirubin (0.2-1.3) mg/dL AST (17-59) U/L ALT (4-49) U/L Alkaline Phosphatase (38-126) U/L Troponin I (0.000-0.034) ng/mL NT-Pro-B Natriuret Pep pg/mL Total Protein (6.3-8.2) g/dL Albumin (3.5-5.0) g/dL Influenza Type A (PCR) Not Detected (Not Detectd) Influenza Type B (PCR) Not Detected (Not Detectd) RSV (PCR) Detected A (Not Detectd) SARS-CoV-2 (PCR) Not Detected (Not Detectd) - EKG Data -: EKG Interpreted by Me (EKG is sinus 96 IN 149 QRS 92 QTC 327) Disposition Clinical Impression: Asthma with acute exacerbation, COPD exacerbation, Sarcoidosis, Pneumonia, Encounter for observation due to foreign body in airway Disposition: ADMITTED IP TO THIS HOSP Condition: Stable Is patient prescribed a controlled substance at d/c from ED?: No Time of Disposition: 02:10
[2022-09-23] MEDS ORDERED: KETOROLAC 15 MG/ML 1 ML VIAL IVP STA (00:28)
[2022-09-23] MEDS ORDERED: IPRATROPIUM-ALBUTEROL 3 ML NEB INHALATION STA ×2 (00:28→02:06)
[2022-09-23 00:49] LABS: Basophils # (A) 0.1 k/uL (0-0.2); Basophils % (A) 1 %; Eosinophils # (A) 0.1 k/uL (0-0.7); Eosinophils % (A) 2 %; HCT 42.4 % (39.0-53.0); HGB 13.9 gm/dL (13.0-17.5); Lymphocytes # (A) 0.9 k/uL (1.0-4.8); Lymphocytes % (A) 12 %; MCH 29.2 pg (25.0-35.0); MCHC 32.9 g/dL (31.0-37.0); MCV 88.9 fL (80.0-100.0); Mean Platelet Volume 7.4; Monocytes # (A) 0.5 k/uL (0-1.0); Monocytes % (A) 6 %; Neutrophils # (A) 5.6 k/uL (1.3-7.7); Neutrophils % (A) 78 %; Platelet Count 271 k/uL (150-450); RBC 4.77 m/uL (4.30-5.90); RDW 14.3 % (11.5-15.5); WBC 7.2 k/uL (3.8-10.6)
[2022-09-23 01:01] LABS: Chloride 101 mmol/L (98-107)
[2022-09-23 01:02] LABS: ALT 26 U/L (4-49); AST 26 U/L (17-59); African American GFR (CKD) >90 (>60 ml/min/1.73 sqM); Albumin 4.2 g/dL (3.5-5.0); Alkaline Phosphatase 81 U/L (38-126); Anion Gap 8 mmol/L; Blood Urea Nitrogen 11 mg/dL (9-20); Calcium 9.1 mg/dL (8.4-10.2); Carbon Dioxide 32 mmol/L (22-30); Glucose 127 mg/dL (74-99); Magnesium 1.8 mg/dL (1.6-2.3); Non-African American GFR(CKD) >90 (>60 ml/min/1.73 sqM); Potassium 3.3 mmol/L (3.5-5.1); Sodium 141 mmol/L (137-145); Total Bilirubin 0.2 mg/dL (0.2-1.3); Total Protein 7.9 g/dL (6.3-8.2)
[2022-09-23 01:05] LABS: Prothrombin Time 10.6 sec (9.0-12.0)
--- NOTE | 2022-09-23 01:15 | XR ---
EXAMINATION TYPE: XR chest 1V portable DATE OF EXAM: 09/23/2022 COMPARISON: 06/23/2022 HISTORY: Chest pain TECHNIQUE: FINDINGS: There are extensive bilateral upper lobe patchy pulmonary infiltrates. There is coalescent density. No pleural effusion. Heart size is normal. Thoracic aorta is intact. There is enlargement of the pulmonary leelee. There are chest leads. IMPRESSION: Extensive bilateral perihilar infiltrates is consistent with sarcoidosis and not signific antly different than last exam. Normal heart.
[2022-09-23] MEDS ORDERED: NALOXONE 0.4 MG/ML 1 ML VIAL IVP PRN (02:06)
[2022-09-23] MEDS ORDERED: ACETAMINOPHEN TAB 325 MG TAB PO PRN (02:06)
[2022-09-23] MEDS ORDERED: ONDANSETRON 4 MG/2 ML VIAL IVP PRN (02:06)
[2022-09-23] MEDS ORDERED: ALBUTEROL NEBULIZED 2.5 MG/3 ML INHALATION SCH (02:15)
[2022-09-23] MEDS: ALBUTEROL NEBULIZED 2.5 MG/3 ML INHALATION SCH ×5 (03:40→20:10)
[2022-09-23] MEDS ORDERED: IPRATROPIUM-ALBUTEROL 3 ML NEB INHALATION PRN (03:56)
--- NOTE | 2022-09-23 03:56 | P.HPIM ---
History of Present Illness H&P Date: 09/23/22 The patient is a 42-year-old male with a PMH of sarcoidosis and COPD who presented to the emergency room with complaints of shortness of breath and productive cough. The patient is accompanied by his at the bedside. Patient reports that over the past 3-4 days, he has had a gradually worsening cough productive of yellow phlegm as well as shortness of breath and occasional chest tightness. He denies fever or chills. Also denied nausea, vomiting, or dizziness. Patient follows with Dr. Kwan for sarcoidosis. He reported attempting to take his rescue inhaler numerous times over the past few days with only partial improvement. Case discussed in detail with the ED physician. EKG in emergency room revealed sinus rhythm at [address]/T-wave changes noted as reviewed by me. Chest x-ray revealed findings consistent with sarcoidosis unchanged from prior. Laboratory evaluation was remarkable for RSV PCR positive, potassium 3.3, CO2 32, and troponin less than 0.012. The patie nt's SpO2 was 94% on room air upon presentation which improved to 96% with 2 L is a cannula oxygen. Review of systems: Pertinent positives and negatives as discussed in HPI, a complete review of syst ems was performed and all other systems are negative. Physical examination: General: non toxic, no distress, appears at stated age, normal weight Derm: no unusual rashes/lesions, warm Head: atraumatic, normocephalic, symmetric Eyes: EOMI, no lid lag, anicteric sclera, pupils equal round reactive to light ENT: Nose and ears atraumatic Neck: No cervical lymphadenopathy, trachea midline, supple Mouth: no lip lesion, mucus membranes moist Cardiovascular: S1S2 reg, no murmur, positive dorsalis pedis pulse bilateral, no edema Lungs: Poor air entry bilaterally with expiratory wheezing noted, no rales or rhonchi, no accessory muscle use Abdominal: soft, nontender to palpation, no guarding Ext: muscle strength 5 out of 5 in all 4 extremities grossly, no gross muscle atrophy, no contractures, Neuro: CN II-XI grossly intact, no gross focal neuro deficits Psych: Alert, oriented, appropriate affect Assessment/plan Acute COPD exacerbation in setting of sarcoidosis and RSV infection -Patient takes prednisone at home -Initiate Solu-Medrol -DuoNeb's when necessary and [id number] -Pulmonary consulted -Low suspicion for bacterial infection at this time Hypokalemia -Replace and monitor DVT prophylaxis -Heparin subcu The patient is admitted with an anticipated less than 2 midnight stay for evaluation of COPD exacerbation CODE STATUS: Full Code Discussed with: Patient, Anticipated discharge date: in am Anticipated discharge place: Home Past Medical History Past Medical History: COPD Additional Past Medical History / Comment(s): sarcoidosis History of Any Multi-Drug Resistant Organisms: None Reported Past Surgical History: Hernia Repair Additional Past Surgical History / Comment(s): lung biopsy, cataract surgery bilateral Past Anesthesia/Blood Transfusion Reactions: No Reported Reaction Past Psychological History: Depression Smoking Status: Never smoker Past Alcohol Use History: Occasional Past Drug Use History: Marijuana - Past Family History Mother Additional Family Medical History / Comment(s): sarcoidosis Father Additional Family Medical History / Comment(s): leukemia at 45 Medications and Allergies Home Medications Medication Instructions Recorded Confirmed Type ARIPiprazole 15 mg PO HS 10/30/17 02/26/21 History Ergocalciferol [Vitamin D2 1,250 mcg PO HENAO 10/30/17 02/26/21 History (DRISDOL)] lamoTRIgine 200 mg PO HS 10/30/17 02/26/21 History hydroCHLOROthiazide 12.5 mg PO HS 10/06/19 02/26/21 History Albuterol Sulfate [Proventil Hfa] 2 puff INHALATION RT-Q4H PRN 02/26/21 02/26/21 History Ascorbic Acid [Vitamin C] 1,000 mg PO DAILY 02/26/21 02/26/21 History Cyclobenzaprine [Flexeril] 10 mg PO HS 02/26/21 02/26/21 History Vitamin B Complex 1 cap PO DAILY 02/26/21 02/26/21 History Azithromycin [Zithromax] 250 mg PO DAILY 4 Days #4 tab 02/27/21 Rx Cephalexin [Keflex] 500 mg PO Q6HR 6 Days #24 cap 02/27/21 Rx Allergies Allergy/AdvReac Type Severity Reaction Status Date / Time No Known Allergies Allergy Verified 09/23/22 00:11 Physical Exam Vitals: Vital Signs Temp Pulse Resp BP Pulse Ox 09/23/22 03:48 86 09/23/22 03:39 85 09/23/22 01:37 91 22 153/99 98 09/23/22 01:13 91 09/23/22 01:07 96 09/23/22 00:08 98.6 F 94 16 161/93 94 L Intake and Output 09/22/22 09/22/22 09/23/22 14:59 22:59 06:59 Other: Weight 74.843 kg Results CBC & Chem 7: 09/23/22 00:38 09/23/22 00:38 Labs: Abnormal Lab Results - Last 24 Hours (Table) 09/23/22 09/23/22 09/23/22 Range/Units 00:38 00:38 01:46 Lymphocytes # 0.9 L (1.0-4.8) k/uL Potassium 3.3 L (3.5-5.1) mmol/L Carbon Dioxide 32 H (22-30) mmol/L Glucose 127 H (74-99) mg/dL RSV (PCR) Detected A (Not Detectd)
[2022-09-23] MEDS ORDERED: POTASSIUM CHLORIDE ER 20 MEQ TAB.ER PO STA (03:57)
[2022-09-23] MEDS: SODIUM CHLORIDE 0.9% 1,000 ML IV SCH ×2 (04:20→14:58)
[2022-09-23] MEDS: methylPREDNISolone SOD SUCCI 125 MG/2 ML VIAL IV SCH ×3 (06:22→17:01)
[2022-09-23] MEDS: HEPARIN SODIUM,PORCINE/PF 5,000 UNIT/0.5 ML SYRINGE SQ SCH ×2 (07:41→17:02)
[2022-09-23 08:49] LABS: African American GFR (CKD) 125.9 (60.0-200.0); Anion Gap 10.8 mmol/L (10.00-18.00); BUN/Creat Ratio 12.5 Ratio (12.00-20.00); Calcium 9.1 mg/dL (8.7-10.3); Carbon Dioxide 28.2 mmol/L (20.0-27.5); Non-African American GFR(CKD) 108.6 (60.0-200.0); Potassium 4.3 mmol/L (3.5-5.5)
--- NOTE | 2022-09-23 09:13 | P.CNPUL ---
History of Present Illness Consult date: 09/23/22 Requesting physician: Cem Hawley Reason for consult: dyspnea Chief complaint: Shortness of breath and productive cough History of present illness: Evaluating this patient on 09/23/2022, for a new consult, on general medical floor. Apparently the patient has been experiencing shortness of breath and a productive cough with yellow sputum for approximately 3-4 days. Denies He did see Dr. Lin in outpatient setting who recommended he go to the ER for treatment. Patient did test positive for RSV in the ER. Negative for coronavirus and influenza. He also sees Dr. john in our office for history of sarcoidosis stage IV. He is managed outpatient with prednisone 10 mg orally daily. He also takes Symbicort inhaler, albuterol inhaler at home.. other pertinent medical history includes being an ex-smoker, in which he quit in 2006 after his diagnosis of sarcoidosis and previous COPD diagnosis.. He appears fairly comfortable laying in bed nasal cannula. Denies fever, chest pain, palpitations. He does have expiratory wheezes heard throughout. Currently maintained on DuoNeb inhalation, IV Solu-Medrol. He is receiving normal saline at 75 mL per hour. CBC from today shows WBC count of 7.2, hemoglobin 13.9, hematocrit 42.4, platelets 271,000. BMP from today shows sodium 142, potassium 4.3, chloride 103, serum CO2 28.2, BUN 10, creatinine 0.8, glucose 82. His d- dimer, troponins, and BNP were all clinically insignificant. Chest x-ray from 09/23/2022 showed extensive bilateral perihilar infiltrates which were consistent with sarcoidosis and not significantly different from previous exam. Vital signs are stable patient remains afebrile this time. Review of Systems REVIEW OF SYSTEMS: CONSTITUTIONAL: Denies any recent significant weight loss or weight gain. EYES: Denies change in vision. EARS, NOSE, MOUTH, THROAT: Denies headaches, denies sore throat. CARDIOVASCULAR: Denies chest pain, palpitations or syncopal episodes. RESPIRATORY: Denies congestion or hemoptysis. Admits shortness of breathand intermittent nonproductive cough feels sputum GASTROINTESTINAL: Denies change in appetite, denies abdominal pain GENITOURINARY: Denies hematuria, denies infections. MUSKULOSKELETAL: Denies pain, denies swelling. INTEGUMENTARY: Denies rash, denies eczema. NEUROLOGICAL: Denies recent memory loss, no recent seizure activity. PSYCHIATRIC: Denies anxiety, denies depression. HEMATOLOGIC/LYMPHATIC: Denies anemia, denies enlarged lymph nodes. Past Medical History Past Medical History: COPD Additional Past Medical History / Comment(s): sarcoidosis History of Any Multi-Drug Resistant Organisms: None Reported Past Surgical History: Hernia Repair Additional Past Surgical History / Comment(s): lung biopsy, cataract surgery bilateral Past Anesthesia/Blood Transfusion Reactions: No Reported Reaction Past Psychological History: Depression Smoking Status: Never smoker Past Alcohol Use History: Occasional Past Drug Use History: Marijuana - Past Family History Mother Additional Family Medical History / Comment(s): sarcoidosis Father Additional Family Medical History / Comment(s): leukemia at 45 Medications and Allergies Home Medications Medication Instructions Recorded Confirmed Type ARIPiprazole 15 mg PO HS 10/30/17 09/23/22 History lamoTRIgine 200 mg PO HS 10/30/17 09/23/22 History Albuterol Sulfate [Proventil Hfa] 2 puff INHALATION RT-Q4H PRN 02/26/21 09/23/22 History Ascorbic Acid [Vitamin C] 1,000 mg PO HS 02/26/21 09/23/22 History Vitamin B Complex 1 cap PO HS 02/26/21 09/23/22 History Budesonide/Formoterol Fumarate 2 puff INHALATION RT-BID 09/23/22 09/23/22 Histo ry [Symbicort 160-4.5 Mcg Inhaler] predniSONE 10 mg PO HS 09/23/22 09/23/22 History Allergies Allergy/AdvReac Type Severity Reaction Status Date / Time No Known Allergies Allergy Verified 09/23/22 07:01 Physical Exam Vitals: Vital Signs Temp Pulse Resp BP Pulse Ox 09/23/22 07:55 83 18 169/98 96 09/23/22 07:26 84 09/23/22 07:14 74 99 09/23/22 06:24 75 16 149/115 98 09/23/22 03:48 86 09/23/22 03:39 85 09/23/22 01:37 91 22 153/99 98 09/23/22 01:13 91 09/23/22 01:07 96 09/23/22 00:08 98.6 F 94 16 161/93 94 L Intake and Output 09/22/22 09/23/22 09/23/22 22:59 06:59 14:59 Other: Weight 74.843 kg GENERAL EXAM: Alert, active, -Lao male, comfortable in no apparent distress. HEAD: Normocephalic. EYES: Normal reaction of pupils, equal size. NOSE: Clear with pink turbinates. THROAT: No erythema or exudates. NECK: No masses, no JVD. CHEST: No chest wall deformity. LUNGS: Equal air entry with no crackles, rhonchi or dullness. Expiratory wheezes heard throughout. On 2 L nasal cannula with an oxygen saturation of 96% CVS: S1 and S2 normal with no audible murmur, regular rhythm. ABDOMEN: No hepatosplenomegaly, normal bowel sounds, no guarding or rigidity. SPINE: No scoliosis or deformity SKIN: No rashes CENTRAL NERVOUS SYSTEM: No focal deficits, tone is normal in all 4 extremities. EXTREMITIES: There is no peripheral edema. No clubbing, no cyanosis. Peripheral pulses are intact. Results - Laboratory Findings CBC and BMP: 09/23/22 00:38 09/23/22 06:09 PT/INR, D-dimer PT 10.6 sec (9.0-12.0) 09/23/22 00:38 INR 1.0 (<1.2) 09/23/22 00:38 D-Dimer <0.17 mg/L FEU (<0.60) 09/23/22 00:38 Abnormal lab findings: Abnormal Labs 09/23/22 09/23/22 09/23/22 00:38 00:38 01:46 Lymphocytes # 0.9 L Potassium 3.3 L Carbon Dioxide 32 H Glucose 127 H RSV (PCR) Detected A 09/23/22 06:09 Lymphocytes # Potassium Carbon Dioxide 28.2 H Glucose RSV (PCR) - Diagnostic Findings Chest x-ray: image reviewed Assessment and Plan Assessment: RSV infection Acute hypoxemic respiratory failure secondary to above Sarcoidosis Ex-smoker History of COPD Plan: Indications, labs, x-ray were reviewed. Continue DuoNeb inhalation and IV Solu-Medrol. Start patient back on Symbicort inhaler Heparin for DVT prophylaxis. We will continue to follow I have personally seen and examined the patient, performed the documentation and the assessment and plan as written. Number of minutes spent on the visit: 20. Time with Patient: Greater than 30
[2022-09-23] MEDS: ALPRAZolam 0.5 MG TAB PO PRN (20:06)
[2022-09-23] MEDS: SYMBICORT 160-4.5 MCG INHALER INHALATION SCH (20:10)
[2022-09-23] MEDS ORDERED: hydrALAZINE HCL 25 MG TAB PO STA (20:31)
[2022-09-23] MEDS: ARIPiprazole 15 MG TAB PO SCH (20:56)
[2022-09-23] MEDS: lamoTRIgine 100 MG TAB PO SCH (20:56)
[2022-09-24] MEDS: methylPREDNISolone SOD SUCCI 125 MG/2 ML VIAL IV SCH ×5 (00:04→22:12)
[2022-09-24] MEDS: HEPARIN SODIUM,PORCINE/PF 5,000 UNIT/0.5 ML SYRINGE SQ SCH ×4 (00:05→22:17)
[2022-09-24] MEDS: ALBUTEROL NEBULIZED 2.5 MG/3 ML INHALATION SCH ×6 (01:08→20:21)
[2022-09-24] MEDS: SODIUM CHLORIDE 0.9% 1,000 ML IV SCH ×2 (04:19→18:21)
[2022-09-24] MEDS ORDERED: SYMBICORT 160-4.5 MCG INHALER INHALATION SCH (08:00)
[2022-09-24] MEDS: SYMBICORT 160-4.5 MCG INHALER INHALATION SCH ×2 (08:20→20:30)
--- NOTE | 2022-09-24 14:50 | P.PN ---
Subjective Progress Note Date: 09/24/22 Evaluating this patient on 09/23/2022, for a new consult, on general medical floor. Apparently the patient has been experiencing shortness of breath and a productive cough with yellow sputum for approximately 3-4 days. Denies He did see Dr. Lin in outpatient setting who recommended he go to the ER for treatment. Patient did test positive for RSV in the ER. Negative for coronavirus and influenza. He also sees Dr. john in our office for history of sarcoidosis stage IV. He is managed outpatient with prednisone 10 mg orally daily. He also takes Symbicort inhaler, albuterol inhaler at home.. other pertinent medical history includes being an ex-smoker, in which he quit in 2006 after his diagnosis of sarcoidosis and previous COPD diagnosis.. He appears fairly comfortable laying in bed nasal cannula. Denies fever, chest pain, palpitations. He does have expiratory wheezes heard throughout. Currently maintained on DuoNeb inhalation, IV Solu-Medrol. He is receiving normal saline at 75 mL per hour. CBC from today shows WBC count of 7.2, hemoglobin 13.9, hematocrit 42.4, platelets 271,000. BMP from today shows sodium 142, potassium 4.3, chloride 103, serum CO2 28.2, BUN 10, creatinine 0.8, glucose 82. His d- dimer, troponins, and BNP were all clinically insignificant. Chest x-ray from 09/23/2022 showed extensive bilateral perihilar infiltrates which were consistent with sarcoidosis and not significantly different from previous exam. Vital signs are stable patient remains afebrile this time. On 09/24/2022, seeing the patient for a follow-up. The patient is still on oxygen at 2 L/m nasal cannula. The patient remains on Symbicort and Ventolin about treatments every 4 hours. The patient is receiving normal saline at rate of 75 mL an hour. No new complaints otherwise for now. Clinically improving. She has sarcoidosis stage IV with chronic fibrotic changes and volume loss in addition to a superinfection with RSV-positive significant amount of shortness of breath and bronchospasm and wheeze. Objective - Vital Signs Vital signs: Vital Signs Temp 97.5 F L 09/24/22 07:00 Pulse 95 09/24/22 12:31 Resp 20 09/24/22 08:00 BP 158/90 09/24/22 07:00 Pulse Ox 97 01/04/23 12:02 FiO2 Intake & Output 09/23/22 09/24/22 09/24/22 18:59 06:59 18:59 Intake Total 118 Balance 118 Weight 74.843 kg Intake: Oral 118 Other: Voiding Method Toilet Toilet # Voids 2 3 - Exam GENERAL EXAM: Alert, active, -[place] male, comfortable in no apparent distress. HEAD: Normocephalic. EYES: Normal reaction of pupils, equal size. NOSE: Clear with pink turbinates. THROAT: No erythema or exudates. NECK: No masses, no JVD. CHEST: No chest wall deformity. LUNGS: Equal air entry with no crackles, rhonchi or dullness. Expiratory wheezes heard throughout. On 2 L nasal cannula with an oxygen saturation of 96% CVS: S1 and S2 normal with no audible murmur, regular rhythm. ABDOMEN: No hepatosplenomegaly, normal bowel sounds, no guarding or rigidity. SPINE: No scoliosis or deformity SKIN: No rashes CENTRAL NERVOUS SYSTEM: No focal deficits, tone is normal in all 4 extremities. EXTREMITIES: There is no peripheral edema. No clubbing, no cyanosis. Peripheral pulses are intact. - Labs CBC & Chem 7: 09/23/22 00:38 09/23/22 06:09 Assessment and Plan Plan: RSV infection Acute on chronic respiratory insufficiency and shortness of breath secondary to RSV infection type of chronic stage IV sarcoidosis Acute hypoxemic respiratory failure secondary to above Sarcoidosis Ex-smoker History of COPD Plan: The patient is still maintained on oxygen at 2 L/m. Unable to wean down any f urther. Continue DuoNeb inhalation and IV Solu-Medrol. Continue Symbicort inhaler Heparin for DVT prophylaxis. We will continue to follow
[2022-09-24] MEDS: ALPRAZolam 0.5 MG TAB PO PRN (15:57)
--- NOTE | 2022-09-24 16:54 | P.PN ---
Subjective Progress Note Date: 09/24/22 The patient is a 42-year-old male with a PMH of sarcoidosis and COPD who presented to the emergency room with complaints of shortness of breath and productive cough. The patient is accompanied by his at the bedside. Patient reports that over the past 3-4 days, he has had a gradually worsening cough productive of yellow phlegm as well as shortness of breath and occasional chest tightness. He denies fever or chills. Also denied nausea, vomiting, or dizziness. Patient follows with Dr. Kwan for sarcoidosis. He reported attempting to take his rescue inhaler numerous times over the past few days with only partial improvement. Case discussed in detail with the ED physician. EKG in emergency room revealed sinus rhythm at [address]/T-wave changes noted as reviewed by me. Chest x-ray revealed findings consistent with sarcoidosis unchanged from prior. Laboratory evaluation was remarkable for RSV PCR positive, potassium 3.3, CO2 32, and troponin less than 0.012. The patient's SpO2 was 94% on room air upon presentation which improved to 96% with 2 L is a cannula oxygen. Patient was seen and examined. No acute events overnight. Patient reports slight improvement in his breathing continues to complain of shortness of breath and chest tightness. He reports a dry cough. Physical examination: General: non toxic, no distress, appears at stated age, normal weight Derm: no unusual rashes/lesions, warm Head: atraumatic, normocephalic, symmetric Eyes: EOMI, no lid lag, anicteric sclera ENT: Nose and ears atraumatic Neck: No cervical lymphadenopathy, trachea midline, supple Mouth: no lip lesion, mucus membranes moist Cardiovascular: S1S2 reg, no murmur, positive dorsalis pedis pulse bilateral, no edema Lungs: Poor air entry bilaterally with expiratory wheezing noted, no rales or rhonchi, no accessory muscle use Ext: muscle strength 5 out of 5 in all 4 extremities grossly, no gross muscle atrophy, no contractures, Neuro: no gross focal neuro deficits Psych: Alert, oriented, appropriate affect #Acute hypoxic respiratory failure #Acute COPD exacerbation in setting of sarcoidosis and RSV infection Patient takes prednisone at home Continue Solu-Medrol DuoNeb's when necessary and [id number] Pulmonary recommendations appreciated Low suspicion for bacterial infection at this time Resolved: Hypokalemia Objective - Vital Signs Vital signs: Vital Signs Temp 98.2 F 09/24/22 15:00 Pulse 100 09/24/22 16:14 Resp 18 09/24/22 15:00 BP 162/86 09/24/22 15:00 Pulse Ox 97 09/24/22 15:00 FiO2 Intake & Output 09/23/22 09/24/22 09/24/22 18:59 06:59 18:59 Intake Total 118 Balance 118 Weight 74.843 kg Intake: Oral 118 Other: Voiding Method Toilet Toilet # Voids 2 3 4 # Bowel Movements 1 - Labs CBC & Chem 7: 09/23/22 00:38 09/23/22 06:09
[2022-09-24] MEDS: NYSTATIN 100,000 UNIT/ML SUSP 500,000 UNIT/5 ML CUP PO SCH ×2 (18:16→22:12)
[2022-09-24] MEDS: lamoTRIgine 100 MG TAB PO SCH (22:12)
[2022-09-24] MEDS: ARIPiprazole 15 MG TAB PO SCH (22:12)
[2022-09-25] MEDS: ALBUTEROL NEBULIZED 2.5 MG/3 ML INHALATION SCH ×5 (00:31→15:52)
[2022-09-25] MEDS: methylPREDNISolone SOD SUCCI 125 MG/2 ML VIAL IV SCH ×3 (06:29→13:11)
[2022-09-25 08:01] VITALS: RESP 16
[2022-09-25] MEDS: SODIUM CHLORIDE 0.9% 1,000 ML IV SCH (08:36)
[2022-09-25] MEDS: HEPARIN SODIUM,PORCINE/PF 5,000 UNIT/0.5 ML SYRINGE SQ SCH ×2 (08:37→16:18)
[2022-09-25] MEDS: NYSTATIN 100,000 UNIT/ML SUSP 500,000 UNIT/5 ML CUP PO SCH ×2 (08:38→13:23)
[2022-09-25] MEDS: SYMBICORT 160-4.5 MCG INHALER INHALATION SCH (08:51)
[2022-09-25] MEDS ORDERED: predniSONE 20 MG TAB PO SCH (12:59)
--- NOTE | 2022-09-25 13:18 | P.PN ---
Subjective Progress Note Date: 09/25/22 Principal diagnosis: RSV Evaluating this patient on 09/23/2022, for a new consult, on general medical floor. Apparently the patient has been experiencing shortness of breath and a productive cough with yellow sputum for approximately 3-4 days. Denies He did see Dr. Lin in outpatient setting who recommended he go to the ER for treatment. Patient did test positive for RSV in the ER. Negative for coronavirus and influenza. He also sees Dr. john in our office for history of sarcoidosis stage IV. He is managed outpatient with prednisone 10 mg orally daily. He also takes Symbicort inhaler, albuterol inhaler at home.. other pertinent medical history includes being an ex-smoker, in which he quit in 2006 after his diagnosis of sarcoidosis and previous COPD diagnosis.. He appears fairly comfortable laying in bed nasal cannula. Denies fever, chest pain, palp itations. He does have expiratory wheezes heard throughout. Currently maintained on DuoNeb inhalation, IV Solu-Medrol. He is receiving normal saline at 75 mL per hour. CBC from today shows WBC count of 7.2, hemoglobin 13.9, hematocrit 42.4, platelets 271,000. BMP from today shows sodium 142, potassium 4.3, chloride 103, serum CO2 28.2, BUN 10, creatinine 0.8, glucose 82. His d- dimer, troponins, and BNP were all clinically insignificant. Chest x-ray from 09/23/2022 showed extensive bilateral perihilar infiltrates which were consistent with sarcoidosis and not significantly different from previous exam. Vital signs are stable patient remains afebrile this time. On 09/24/2022, seeing the patient for a follow-up. The patient is still on oxygen at 2 L/m nasal cannula. The patient remains on Symbicort and Ventolin about treatments every 4 hours. The patient is receiving normal saline at rate of 75 mL an hour. No new complaints otherwise for now. Clinically improving. She has sarcoidosis stage IV with chronic fibrotic changes and volume loss in addition to a superinfection with RSV-positive significant amount of shortness of breath and bronchospasm and wheeze. I'm reevaluating this patient today on September 25, 2022, he is sitting comfortably up in bed, in no acute distress, on room air. Patient is telling me that he is ready to go home, and that his respiratory status is near baseline. He is maintained on DuoNeb inhalation, Symbicort inhaler, and IV Solu-Medrol. Overall, his lungs sound a bit better today, with faint expiratory wheezes heard throughout. No new chest x-ray to review today. No new labs to review today. Patient remains hemodynamically stable. Objective - Vital Signs Vital signs: Vital Signs Temp 97.6 F 09/25/22 07:15 Pulse 100 09/25/22 12:37 Resp 16 09/25/22 08:00 BP 156/88 09/25/22 07:15 Pulse Ox 94 L 09/25/22 08:51 FiO2 Intake & Output 09/24/22 09/25/22 09/25/22 18:59 06:59 18:59 Intake Total 118 1000 118 Balance 118 1000 118 Intake: Oral 118 1000 118 Other: Voiding Method Toilet Toilet Toilet # Voids 4 # Bowel Movements 1 - Exam GENERAL EXAM: Alert, active, -[place] male, comfortable in no apparent distress. HEAD: Normocephalic. EYES: Normal reaction of pupils, equal size. NOSE: Clear with pink turbinates. THROAT: No erythema or exudates. NECK: No masses, no JVD. CHEST: No chest wall deformity. LUNGS: Equal air entry with no crackles, rhonchi or dullness. Faint expiratory wheezes heard throughout. On room air with oxygen saturation of 93%. CVS: S1 and S2 normal with no audible murmur, regular rhythm. ABDOMEN: No hepatosplenomegaly, normal bowel sounds, no guarding or rigidity. SPINE: No scoliosis or deformity SKIN: No rashes CENTRAL NERVOUS SYSTEM: No focal deficits, tone is normal in all 4 extremities. EXTREMITIES: There is no peripheral edema. No clubbing, no cyanosis. Peripheral pulses are intact. - Labs CBC & Chem 7: 09/23/22 00:38 09/23/22 06:09 Assessment and Plan Assessment: RSV infection Acute on chronic respiratory insufficiency and shortness of breath secondary to RSV infection type of chronic stage IV sarcoidosis Acute hypoxemic respiratory failure secondary to above Sarcoidosis Ex-smoker History of COPD Plan: Patient's medications were reviewed start prednisone taper Continue albuterol inhalations at home Follow up in the office with Dr. Whitney on October 10 Patient is cleared for discharge from pulmonary standpoint I have personally seen and examined the patient, performed the documentation and the assessment and plan as written. Number of minutes spent on the visit: 10. Patient can be discharged home today on a prednisone burst taper to be followed up in our office. Cleared for discharge from the pulmonary standpoint. Time with Patient: Less than 30
--- NOTE | 2022-09-25 13:30 | P.PN ---
Subjective Progress Note Date: 09/25/22 The patient is a 42-year-old male with a PMH of sarcoidosis and COPD who presented to the emergency room with complaints of shortness of breath and productive cough. The patient is accompanied by his at the bedside. Patient reports that over the past 3-4 days, he has had a gradually worsening cough productive of yellow phlegm as well as shortness of breath and occasional chest tightness. He denies fever or chills. Also denied nausea, vomiting, or dizziness. Patient follows with Dr. Kwan for sarcoidosis. He reported attempting to take his rescue inhaler numerous times over the past few days with only partial improvement. Case discussed in detail with the ED physician. EKG in emergency room revealed sinus rhythm at [address]/T-wave changes noted as reviewed by me. Chest x-ray revealed findings consistent with sarcoidosis unchanged from prior. Laboratory evaluation was remarkable for RSV PCR positive, potassium 3.3, CO2 32, and troponin less than 0.012. The patient's SpO2 was 94% on room air upon presentation which improved to 96% with 2 L is a cannula oxygen. Patient was seen and examined. No acute events overnight. Patient reports continued improvement in his breathing continues to complain of shortness of breath and chest tightness. He reports a dry cough. States that he is 50% better. Physical examination: General: non toxic, no distress, appears at stated age, normal weight Derm: no unusual rashes/lesions, warm Head: atraumatic, normocephalic, symmetric Eyes: EOMI, no lid lag, anicteric sclera ENT: Nose and ears atraumatic Neck: No cervical lymphadenopathy, trachea midline, supple Mouth: no lip lesion, mucus membranes moist Cardiovascular: S1S2 reg, no murmur, positive dorsalis pedis pulse bilateral, no edema Lungs: Poor air entry bilaterally with expiratory wheezing noted, no rales or rhonchi, no accessory muscle use Ext: muscle strength 5 out of 5 in all 4 extremities grossly, no gross muscle atrophy, no contractures, Neuro: no gross focal neuro deficits Psych: Alert, oriented, appropriate affect #Acute hypoxic respiratory failure #Acute COPD exacerbation in setting of sarcoidosis and RSV infection Patient takes prednisone at home Patient does not have IV line, agree with transition to Prednisone 40 mg PO QD (takes 10 mg PO QD at home) DuoNeb's when necessary and [id number] Pulmonary recommendations appreciated Low suspicion for bacterial infection at this time Resolved: Hypokalemia Patient states he still feels short of breath. We will reassess this afternoon. Anticipate DC in 1-2 days. Objective - Vital Signs Vital signs: Vital Signs Temp 97.6 F 09/25/22 07:15 Pulse 100 09/25/22 12:37 Resp 16 09/25/22 08:00 BP 156/88 09/25/22 07:15 Pulse Ox 94 L 09/25/22 08:51 FiO2 Intake & Output 09/24/22 09/25/22 09/25/22 18:59 06:59 18:59 Intake Total 118 1000 118 Balance 118 1000 118 Intake: Oral 118 1000 118 Other: Voiding Method Toilet Toilet Toilet # Voids 4 # Bowel Movements 1 - Labs CBC & Chem 7: 09/23/22 00:38 09/23/22 06:09
[2022-09-25 14:49] VITALS: BP 166/95; TEMP 98.3
[2022-09-25 16:06] VITALS: PULSE 97
--- NOTE | 2022-09-25 18:14 | P.DS ---
Providers Date of admission: 09/23/22 02:06 Expected date of discharge: 09/25/22 Attending physician: Francois Rahman MD Consults: 09/23/22 02:07 Consult Physician Routine Consulting Provider: Sara Kwan Consult Reason/Comments: kknown Do you want consulting provider notified?: Yes Primary care physician: Maximino Dunham MD Hospital Course: The patient is a 42-year-old male with a PMH of sarcoidosis and COPD who presented to the emergency room with complaints of shortness of breath and productive cough. The patient is accompanied by his at the bedside. Patient reports that over the past 3-4 days, he has had a gradually worsening cough productive of yellow phlegm as well as shortness of breath and occasional chest tightness. He denies fever or chills. Also denied nausea, vomiting, or dizziness. Patient follows with Dr. Kwan for sarcoidosis. He reported attempting to take his rescue inhaler numerous times over the past few days with only partial improvement. Case discussed in detail with the ED physician. EKG in emergency room revealed sinus rhythm at [address]/T-wave changes noted as reviewed by me. Chest x-ray revealed findings consistent with sarcoidosis unchanged from prior. Laboratory evaluation was remarkable for RSV PCR positive, potassium 3.3, CO2 32, and troponin less than 0.012. The patient's SpO2 was 94% on room air upon presentation which improved to 96% with 2 L is a cannula oxygen. Patient improved with DuoNeb and Solu-Medrol. Pulmonology was consulted and involved in the care of this patient. Pulmonology cleared the patient for discharge on 09/25/2022. Pertinent studies include chest x-ray. Physical examination: General: non toxic, no distress, appears at stated age, normal weight Derm: no unusual rashes/lesions, warm Head: atraumatic, normocephalic, symmetric Eyes: EOMI, no lid lag, anicteric sclera ENT: Nose and ears atraumatic Neck: No cervical lymphadenopathy, trachea midline, supple Mouth: no lip lesion, mucus membranes moist Cardiovascular: S1S2 reg, no murmur, positive dorsalis pedis pulse bilateral, no edema Lungs: Poor air entry bilaterally with expiratory wheezing noted, no rales or rh onchi, no accessory muscle use Ext: muscle strength 5 out of 5 in all 4 extremities grossly, no gross muscle atrophy, no contractures, Neuro: no gross focal neuro deficits Psych: Alert, oriented, appropriate affect Discharge diagnosis: #Acute hypoxic respiratory failure #Acute COPD exacerbation in setting of sarcoidosis and RSV infection Patient Condition at Discharge: Stable Plan - Discharge Summary New Discharge Prescriptions: New ALPRAZolam [Xanax] 0.5 mg PO BID PRN #6 tab PRN Reason: Anxiety predniSONE See Taper PO DIRECTED #30 tab Albuterol Nebulized [Ventolin Nebulized] 2.5 mg INHALATION RT-Q4H #180 ml Continue lamoTRIgine 200 mg PO HS ARIPiprazole 15 mg PO HS Vitamin B Complex 1 cap PO HS Ascorbic Acid [Vitamin C] 1,000 mg PO HS predniSONE 10 mg PO HS Budesonide/Formoterol Fumarate [Symbicort 160-4.5 Mcg Inhaler] 2 puff INHALATION RT-BID #7 each Albuterol Sulfate [Proventil Hfa] 2 puff INHALATION RT-Q4H PRN #1 each PRN Reason: Shortness Of Breath Discharge Medication List ARIPiprazole 15 mg PO HS 10/30/17 [History] lamoTRIgine 200 mg PO HS 10/30/17 [History] Ascorbic Acid [Vitamin C] 1,000 mg PO HS 02/26/21 [History] Vitamin B Complex 1 cap PO HS 02/26/21 [History] predniSONE 10 mg PO HS 09/23/22 [History] ALPRAZolam [Xanax] 0.5 mg PO BID PRN #6 tab 09/25/22 [Rx] Albuterol Nebulized [Ventolin Nebulized] 2.5 mg INHALATION RT-Q4H #180 ml 09/25/22 [Rx] Albuterol Sulfate [Proventil Hfa] 2 puff INHALATION RT-Q4H PRN #1 each 09/25/22 [Rx] Budesonide/Formoterol Fumarate [Symbicort 160-4.5 Mcg Inhaler] 2 puff INHALATION RT-BID #7 each 09/25/22 [Rx] predniSONE See Taper PO DIRECTED #30 tab 09/25/22 [Rx] Follow up Appointment(s)/Referral(s): Sara Kwan MD [STAFF PHYSICIAN] - 10/10/22 10:15 am Maximino Dunham MD [Primary Care Provider] - 1-2 days Discharge Disposition: HOME SELF-CARE
== END 2022-09-25 16:21 | disposition home or self-care (01) ==
LOC: EC 23:56 → 6NMEDSUR 09-23 02:06
PROVIDERS: ADMIT Internal Medicine; ATTEND Internal Medicine
DX: R06.02 Shortness of breath (principal); J96.01 Acute respiratory failure with hypoxia; J44.1 Chronic obstructive pulmonary disease with (acute) exacerbation; B97.4 Respiratory syncytial virus as the cause of diseases classified elsewhere; Z20.822 Contact with and (suspected) exposure to COVID-19; D86.9 Sarcoidosis, unspecified; F32.A Depression, unspecified; J18.9 Pneumonia, unspecified organism; Z80.6 Family history of leukemia; Z87.891 Personal history of nicotine dependence; Z79.51 Long term (current) use of inhaled steroids; Z79.899 Other long term (current) drug therapy; Z79.52 Long term (current) use of systemic steroids
CPT/HCPCS: 96376 ×2; 96372 ×3; 96374; 96375; 99285; 36415; 94640 ×6; 94760 ×3; 93005; 85379; 83880; 80053; 80048; 83605; 83735; 84484; 85025; 85610; 85730; 87636; 71045; G0378 ×3; J2930 ×2; J1885; J7512; J1644 ×2

== ENCOUNTER 2022-09-25 23:24 | Inpatient (IN) | payer OTHER ==
[2022-09-26] MEDS ORDERED: IPRATROPIUM 0.5 MG/2.5 ML NEBU INHALATION STA (03:22)
[2022-09-26] MEDS ORDERED: ALBUTEROL NEBULIZED 2.5 MG/3 ML INHALATION STA (03:22)
[2022-09-26] MEDS ORDERED: NALOXONE 0.4 MG/ML 1 ML VIAL IV PRN (03:43)
--- NOTE | 2022-09-26 03:48 | ED ---
General Adult HPI - General Chief complaint: Shortness of Breath Stated complaint: DONNA Time Seen by Provider: 09/26/22 02:27 Source: patient Mode of arrival: ambulatory Limitations: no limitations - History of Present Illness Initial comments: This is a 42-year-old male with a past medical history including sarcoidosis presents to the emergency department for shortness of breath. The patient was recently discharged from the hospital earlier this afternoon with RSV. The patient then try to go home however had continued increasing shortness of breath or difficulty in breathing 3 needed to come back to the emergency department for evaluation. The patient did report that there was some back and forth about him being discharged and he ultimately decided to go home however stated with me that he made the wrong choice and needed to be in the hospital considered continued shortness of breath was not ready to go home. The patient denied any other acute pain or complaints or any other acute changes. The patient was tachypneic on evaluation with mild respiratory distress. The patient denied any fevers and chills however. - Related Data Home Medications Medication Instructions Recorded Confirmed ARIPiprazole 15 mg PO HS 10/30/17 09/23/22 lamoTRIgine 200 mg PO HS 10/30/17 09/23/22 Ascorbic Acid [Vitamin C] 1,000 mg PO HS 02/26/21 09/23/22 Vitamin B Complex 1 cap PO HS 02/26/21 09/23/22 predniSONE 10 mg PO HS 09/23/22 09/23/22 Previous Rx's Medication Instructions Recorded ALPRAZolam [Xanax] 0.5 mg PO BID PRN #6 tab 09/25/22 Albuterol Nebulized [Ventolin 2.5 mg INHALATION RT-Q4H #180 ml 09/25/22 Nebulized] Albuterol Sulfate [Proventil Hfa] 2 puff INHALATION RT-Q4H PRN #1 09/25/22 each Budesonide/Formoterol Fumarate 2 puff INHALATION RT-BID #7 each 09/25/22 [Symbicort 160-4.5 Mcg Inhaler] predniSONE See Taper PO DIRECTED #30 tab 09/25/22 Allergies Allergy/AdvReac Type Severity Reaction Status Date / Time No Known Allergies Allergy Verified 09/25/22 23:29 Review of Systems ROS Statement: Those systems with pertinent positive or pertinent negative responses have been documented in the HPI. ROS Other: All systems not noted in ROS Statement are negative. Past Medical History Past Medical History: COPD, Hypertension, Osteoarthritis (OA), Vascular Disorder Additional Past Medical History / Comment(s): sarcoidosis, avascular necrosis right shoulder History of Any Multi-Drug Resistant Organisms: None Reported Past Surgical History: Hernia Repair Additional Past Surgical History / Comment(s): lung biopsy, cataract surgery bilateral, rotator cuff repair right shoulder Past Anesthesia/Blood Transfusion Reactions: No Reported Reaction Past Psychological History: Depression Smoking Status: Former smoker - Past Family History Mother Additional Family Medical History / Comment(s): sarcoidosis Father Additional Family Medical History / Comment(s): leukemia at 45 General Exam Limitations: no limitations General appearance: alert, in distress (In mild respiratory distress) Head exam: Present: atraumatic, normocephalic, normal inspection Eye exam: Present: normal appearance, PERRL Pupils: Present: normal accommodation ENT exam: Present: normal exam, normal oropharynx, mucous membranes moist Neck exam: Present: normal inspection, full ROM Respiratory exam: Present: wheezes (Expiratory wheezes heard bilaterally) Cardiovascular Exam: Present: regular rate, normal rhythm, normal heart sounds GI/Abdominal exam: Present: soft, distended Extremities exam: Present: normal inspection, full ROM, normal capillary refill Back exam: Present: normal inspection, full ROM Neurological exam: Present: alert, oriented X3, CN II-XII intact Psychiatric exam: Present: normal affect, normal mood Skin exam: Present: warm, dry Course Vital Signs 09/25/22 09/26/22 09/26/22 23:29 03:28 03:33 Temperature 98.0 F Pulse Rate 88 70 Respiratory 15 18 20 Rate Blood Pressure 168/97 168/109 O2 Sat by Pulse 95 93 L Oximetry Medical Decision Making - Medical Decision Making Was pt. sent in by a medical professional or institution (, PA, BISQUE CLEANER, urgent care, hospital, or longterm...) When possible be specific @ -No Did you speak to anyone other than the patient for history (EMS, parent, family, police, friend...)? What history was obtained from this source @ -Yes, patient's Did you review nursing and triage notes (agree or disagree)? Why? @ -I reviewed and agree with nursing and triage notes Were old charts reviewed (outside hosp., previous admission, EMS record, old EKG, old radiological studies, urgent care reports/EKG's, longterm records)? Report findings @ -Yes, previous admission notes were reviewed Differential Diagnosis (chest pain, altered mental status, abdominal pain women, abdominal pain men, vaginal bleeding, weakness, fever, dyspnea, syncope, headache, dizziness, GI bleed, back pain, seizure, CVA, palpatations, mental health)? @ -Sarcoidosis exacerbation, pneumonia, pneumothorax EKG interpreted by me (3pts min.). @ -None X-rays interpreted by me (1pt min.). @ -Chest x-ray was obtained was to pending at this time CT interpreted by me (1pt min.). @ -None done U/S interpreted by me (1pt. min.). @ -None done What testing was considered but not performed or refused? (CT, X-rays, U/S, labs)? Why? @ -None What meds were considered but not given or refused? Why? @ -None Did you discuss the management of the patient with other professionals (professionals i.e. , PA, BISQUE CLEANER, lab, RT, psych nurse, long term care social worker, python java developer, teacher, earth science technical officer, leather case finisher)? Give summary @ -Yes, admitting physician Was smoking cessation discussed for >3mins.? @ -No Was critical care preformed (if so, how long)? @ -No Were there social determinants of health that impacted care today? How? (Homelessness, low income, unemployed, alcoholism, drug addiction, transportation, low edu. Level, literacy, decrease access to med. care, longterm, rehab)? @ -No Was there de-escalation of care discussed even if they declined (Discuss DNR or withdrawal of care, Hospice)? DNR status @ -No What co-morbidities impacted this encounter? (DM, HTN, Smoking, COPD, CAD, Canc er, CVA, ARF, Chemo, Hep., AIDS, mental health diagnosis, sleep apnea, morbid obesity)? @ -Sarcoidosis Was patient admitted / discharged? Hospital course, mention meds given and route, prescriptions, significant lab abnormalities, going to OR and other pertinent info. @ -The patient was seen and evaluated emergency department. Physical exam, the patient was in mild respiratory distress and was to Neck. The patient had bilateral expiratory wheezes heard. Due to the patient's RSV in the setting of sarcoidosis and a previous admission and no improvement of his symptoms, the patient will be readmitted to the same team for continued evaluation and management. The patient's primary care physician was being covered by Dr. Wilkins and he accepted the patient for admission at 0339. The patient was admitted in stable condition. Undiagnosed new problem with uncertain prognosis? @ -No Drug Therapy requiring intensive monitoring for toxicity (Heparin, Nitro, Insulin, Cardizem)? @ -No Were any procedures done? @ -No Diagnosis/symptom? @ -Shortness of breath secondary to RSV, sarcoidosis Acute, or Chronic, or Acute on Chronic? @ -Acute on chronic Uncomplicated (without systemic symptoms) or Complicated (systemic symptoms)? @ -Complicated Side effects of treatment? @ -No Exacerbation, Progression, or Severe Exacerbation? @ -Exacerbation Poses a threat to life or bodily function? How? (Chest pain, [place], [place], pneumonia, PE, COPD, DKA, ARF, appy, cholecystitis, CVA, Diverticulitis, Homicidal, Suicidal, threat to staff... and all critical care pts) @ -No Disposition Clinical Impression: Sarcoidosis, RSV infection, Shortness of breath Disposition: ADMITTED IP TO THIS [facility] Condition: Stable Is patient prescribed a controlled substance at d/c from ED?: No Referrals: Maximino Dunham MD [Primary Care Provider] - 1-2 days Time of Disposition: 03:30 Decision to Admit Reason: Admit from EC Decision Date: 09/26/22 Decision Time: 03:30
--- NOTE | 2022-09-26 04:08 | XR ---
EXAMINATION TYPE: XR chest 2V DATE OF EXAM: 09/26/2022 COMPARISON: NONE HISTORY: Difficulty breathing TECHNIQUE: 2 views FINDINGS: There is extensive coarse infiltrate in the mid and upper lung [place]. There is some retrac tion of the pulmonary [place]. Heart size is normal. No definite heart failure. No pleural effusion. The re are chest leads. IMPRESSION: Extensive coarse perihilar infiltrates could relate to fibrosis or sarcoidosis and not si gnificantly different than recent exam. Lung disease also similar to old exam of 06/23/2012.
--- NOTE | 2022-09-26 04:56 | P.HPIM ---
History of Present Illness H&P Date: 09/26/22 The patient is a 42-year-old male with a PMH of COPD and sarcoidosis, who was discharged earlier today after hospitalization for acute COPD exacerbation in setting of an RSV infection. The patient reports that shortly after returning home, he again started having shortness of breath. Symptoms persisted and gradually worsened, which prompted him to come to the emergency room. He denied experiencing pain, nausea, vomiting, diaphoresis, or dizziness. The patient had SpO2 of 93% on room air upon presentation. Chest x-ray the emergency room revealed findings consistent with sarcoidosis, unchanged from prior. Review of systems: Pertinent positives and negatives as discussed in HPI, a complete review of systems was performed and all other systems are negative. Physical examination: General: non toxic, no distress, appears at stated age, normal weight Derm: no unusual rashes/lesions, warm Head: atraumatic, normocephalic, symmetric Eyes: EOMI, no lid lag, anicteric sclera, pupils equal round reactive to light ENT: Nose and ears atraumatic Neck: No cervical lymphadenopathy, trachea midline, supple Mouth: no lip lesion, mucus membranes moist Cardiovascular: S1S2 reg, no murmur, positive dorsalis pedis pulse bilateral, no edema Lungs: Decreased air entry bilaterally without wheezing, rales, rhonchi, no accessory muscle use Abdominal: soft, nontender to palpation, no guarding Ext: muscle strength 5 out of 5 in all 4 extremities grossly, no gross muscle atrophy, no contractures, Neuro: CN II-XI grossly intact, no gross focal neuro deficits Psych: Alert, oriented, appropriate affect Assessment/plan Acute hypoxic respiratory failure with acute COPD exacerbation in setting of COPD and RSV infections -Continue with Solu-Medrol and DuoNeb's -Pulmonary consult -Supplemental oxygen -Cardiac monitoring DVT prophylaxis -Heparin subcu The patient is admitted with an anticipated greater than 2 midnight stay for evaluation of acute COPD exacerbation CODE STATUS: Full Code Discussed with: Patient, Anticipated discharge date: 2-[address]: Home Past Medical History Past Medical History: COPD, Hypertension, Osteoarthritis (OA), Vascular Disorder Additional Past Medical History / Comment(s): sarcoidosis, avascular necrosis right shoulder History of Any Multi-Drug Resistant Organisms: None Reported Past Surgical History: Hernia Repair Additional Past Surgical History / Comment(s): lung biopsy, cataract surgery bilateral, rotator cuff repair right shoulder Past Anesthesia/Blood Transfusion Reactions: No Reported Reaction Past Psychological History: Depression Smoking Status: Former smoker - Past Family History Mother Additional Family Medical History / Comment(s): sarcoidosis Father Additional Family Medical History / Comment(s): leukemia at 45 Medications and Allergies Home Medications Medication Instructions Recorded Confirmed Type ARIPiprazole 15 mg PO HS 10/30/17 09/23/22 History lamoTRIgine 200 mg PO HS 10/30/17 09/23/22 History Ascorbic Acid [Vitamin C] 1,000 mg PO HS 02/26/21 09/23/22 History Vitamin B Complex 1 cap PO HS 02/26/21 09/23/22 History predniSONE 10 mg PO HS 09/23/22 09/23/22 History ALPRAZolam [Xanax] 0.5 mg PO BID PRN #6 tab 09/25/22 Rx Albuterol Nebulized [Ventolin 2.5 mg INHALATION RT-Q4H #180 ml 09/25/22 Rx Nebulized] Albuterol Sulfate [Proventil Hfa] 2 puff INHALATION RT-Q4H PRN #1 09/25/22 Rx each Budesonide/Formoterol Fumarate 2 puff INHALATION RT-BID #7 each 09/25/22 Rx [Symbicort 160-4.5 Mcg Inhaler] predniSONE See Taper PO DIRECTED #30 tab 09/25/22 Rx Allergies Allergy/AdvReac Type Severity Reaction Status Date / Time No Known Allergies Allergy Verified 09/25/22 23:29 Physical Exam Vitals: Vital Signs Temp Pulse Resp BP Pulse Ox 09/26/22 03:33 20 09/26/22 03:28 70 18 168/109 93 L 09/25/22 23:29 98.0 F 88 15 168/97 95 Intake and Output 09/25/22 09/25/22 09/26/22 14:59 22:59 06:59 Other: Weight 74.843 kg
[2022-09-26] MEDS: methylPREDNISolone SOD SUCCI 125 MG/2 ML VIAL IV SCH ×3 (06:48→19:00)
[2022-09-26] MEDS: IPRATROPIUM-ALBUTEROL 3 ML NEB INHALATION SCH ×4 (07:19→23:03)
[2022-09-26] MEDS: HEPARIN SODIUM,PORCINE/PF 5,000 UNIT/0.5 ML SYRINGE SQ SCH ×2 (08:20→16:07)
[2022-09-26] MEDS: SYMBICORT 160-4.5 MCG INHALER INHALATION SCH ×2 (10:03→23:03)
--- NOTE | 2022-09-26 13:04 | P.CNPUL ---
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 The patient was in the hospital earlier this week for RSV infection and severe bronchospasm wheezing and hypoxic respiratory failure. The patient ultimately improved and the patient was sent home on room air oxygen along with a prednisone burst taper. Within 3 hours of being home, he smokes 2 cigarettes a became acutely short of breath and he became quite hypoxic and he had to come into the hospital. Currently is on high flow oxygen at 50 L with an FiO2 of 30%. He is having diminished breath sounds along with significant bronchospasm and wheezing. The patient's chest x-ray shows no significant interval change. No angina. No palpitation. No swelling lower extremities. No calf pain or tenderness. No fever or chills. Review of Systems Constitutional: Reports fatigue, Reports weakness Eyes: denies as per HPI, denies blurred vision, denies bulging eye, denies decreased vision, denies diplopia, denies discharge, denies dry eye, denies irritation, denies itching, denies pain, denies photophobia, denies loss of peripheral vision, denies loss of vision, denies tunnel vision/blind spots Ears: deny: decreased hearing, ear discharge, earache, tinnitus Ears, nose, mouth and throat: Reports as per HPI Breasts: absent: as per HPI, gynecomastia Cardiovascular: Reports decreased exercise tolerance, Reports dyspnea on exertion Respiratory: Reports cough, Reports cough with sputum, Reports dyspnea, Reports wheezing Gastrointestinal: Reports as per HPI Genitourinary: Reports as per HPI Musculoskeletal: Reports as per HPI Musculoskeletal: absent: ankle pain, ankle stiffness, ankle swelling, as per HPI, elbow pain, elbow stiffness, elbow swelling, foot pain, foot stiffness, foot swelling, hand pain, hand stiffness, hand swelling, hip pain, hip stiffness, hip swelling, knee pain, knee stiffness, knee swelling, shoulder pain, shoulder stiffness, shoulder swelling, wrist pain, wrist stiffness, wrist swelling Integumentary: Reports as per HPI Neurological: Reports as per HPI Psychiatric: Reports as per HPI Endocrine: Reports as per HPI Hematologic/Lymphatic: Reports as per HPI Allergic/Immunologic: Reports as per HPI Past Medical History Past Medical History: COPD, Hypertension, Osteoarthritis (OA), Vascular Disorder Additional Past Medical History / Comment(s): sarcoidosis, avascular necrosis right shoulder History of Any Multi-Drug Resistant Organisms: None Reported Past Surgical History: Hernia Repair Additional Past Surgical History / Comment(s): lung biopsy, cataract surgery bilateral, rotator cuff repair right shoulder Past Anesthesia/Blood Transfusion Reactions: No Reported Reaction Past Psychological History: Depression Smoking Status: Former smoker - Past Family History Mother Additional Family Medical History / Comment(s): sarcoidosis Father Additional Family Medical History / Comment(s): leukemia at 45 Medications and Allergies Home Medications Medication Instructions Recorded Confirmed Type ARIPiprazole 15 mg PO HS 10/30/17 09/26/22 History lamoTRIgine 200 mg PO HS 10/30/17 09/26/22 History Ascorbic Acid [Vitamin C] 1,000 mg PO HS 02/26/21 09/26/22 History Vitamin B Complex 1 cap PO HS 02/26/21 09/26/22 History predniSONE 10 mg PO HS 09/23/22 09/26/22 History ALPRAZolam [Xanax] 0.5 mg PO BID PRN #6 tab 09/25/22 09/26/22 Rx Albuterol Nebulized [Ventolin 2.5 mg INHALATION RT-Q4H #180 ml 09/25/22 09/26/22 Rx Nebulized] Albuterol Sulfate [Proventil Hfa] 2 puff INHALATION RT-Q4H PRN #1 09/25/22 09/26/22 Rx each Budesonide/Formoterol Fumarate 2 puff INHALATION RT-BID #7 each 09/25/22 09/26/22 Rx [Symbicort 160-4.5 Mcg Inhaler] predniSONE See Taper PO DIRECTED #30 tab 09/25/22 09/26/22 Rx Allergies Allergy/AdvReac Type Severity Reaction Status Date / Time No Known Allergies Allergy Verified 09/26/22 06:35 Physical Exam Vitals: Vital Signs Temp Pulse Resp BP Pulse Ox FiO2 09/26/22 11:30 91 09/26/22 11:18 84 98 30 09/26/22 11:00 91 24 182/113 98 09/26/22 10:00 93 58 H 168/106 98 09/26/22 09:39 84 23 168/106 98 09/26/22 07:31 97 09/26/22 07:19 85 97 30 09/26/22 06:14 87 16 160/108 98 09/26/22 05:15 30 09/26/22 05:00 88 09/26/22 04:15 76 09/26/22 03:33 20 09/26/22 03:28 70 18 168/109 93 L 09/25/22 23:29 98.0 F 88 15 168/97 95 Intake and Output 09/25/22 09/26/22 09/26/22 22:59 06:59 14:59 Other: Weight 74.843 kg GENERAL EXAM: Alert, active, -Indian male, comfortable in no apparent distress. She is currently on high flow oxygen with 50 L an FiO2 of 30% HEAD: Normocephalic. EYES: Normal reaction of pupils, equal size. NOSE: Clear with pink turbinates. THROAT: No erythema or exudates. NECK: No masses, no JVD. CHEST: No chest wall deformity. LUNGS: Equal air entry with no crackles, rhonchi or dullness. Expiratory wheezes heard throughout. CVS: S1 and S2 normal with no audible murmur, regular rhythm. ABDOMEN: No hepatosplenomegaly, normal bowel sounds, no guarding or rigidity. SPINE: No scoliosis or deformity SKIN: No rashes CENTRAL NERVOUS SYSTEM: No focal deficits, tone is normal in all 4 extremities. EXTREMITIES: There is no peripheral edema. No clubbing, no cyanosis. Peripheral pulses are intact. Results - Diagnostic Findings Chest x-ray: image reviewed Assessment and Plan Plan: Acute hypoxemic respiratory failure, on that investigation. The patient was recently hospitalized for acute RSV tracheobronchitis on top of chronic stage IV pulmonary sarcoidosis. Subsequently, the patient was discharged home and within a few hours, he presented back with acute hypoxic respiratory failure. Rule out ongoing need activity and failure for home treatment. Rule out pulmonary embolism. Rule out superinfection with viruses including Covid 19 or influenza and those needs to be rechecked. Chest x-ray showing no interval change Stage IV resected doses with chronic fibrosis History of avascular necrosis of the right shoulder. History of osteoarthritis Chronic smoking Plan Keep the patient on high flow oxygen at 50 L with an FiO2 of 30% Restart IV Solu-Medrol 60 mg every 6 hours DuoNeb nebulized treatments 4 times a day CTA of the chest Influenza and Covid 19 screen Resume all medications Titrate FiO2 to maintain saturation above 90% We'll continue to follow
[2022-09-26] MEDS: cloNIDine HCL 0.1 MG TAB PO SCH ×2 (13:24→23:54)
--- NOTE | 2022-09-26 14:03 | CT ---
CT CHEST FOR PULMONARY EMBOLISM. EXAMINATION TYPE: CT angio chest DATE OF EXAM: 09/26/2022 INDICATION: Sarcoidosis with RSV, dyspnea CT DLP: 319.6 mGycm, Automated exposure control for dose reduction was used. CONTRAST: Patient injected with 100, wasted 20 ml mL of Isovue 300. COMPARISON: 02/26/2021 TECHNIQUE: CT of the chest is performed on a spiral scan at 2 mm thick sections. Study is performed with intravenous contrast timed for evaluation for pulmonary embolism. This will limit additional po rtions of the evaluation. 3-D MIP images reconstructed by the technologist are reviewed on the compu ter in the coronal and sagittal planes. FINDINGS: No persistent filling defects are evident to suggest an acute pulmonary embolism. No mediastinal or hilar adenopathy enlarged by CT criteria is evident. The ascending aorta diameter at the level of the main pulmonary artery is 3.4 cm. The main pulmonary artery diameter at the bifur cation is 2.6 cm. There is soft tissue thickening through the perihilar regions bilaterally more so on the right. Addit ional areas of increased density are scattered within the bilateral lung [place]. A new soft tissue de nsity is in the posterior lateral left lung base. Series 401 image 122. Peripheral density in the anterior lateral right lung base, series 401 image 23 is stable in prior ex am. Upper lobe field density has a more stable appearance from the comparison. Large emphysematous blebs or bulla are within the right apex. Additional smaller blebs and bulla are present bilaterally greate r on the right. Limited CT section through the upper abdomen are unremarkable. IMPRESSIONS: 1. No acute pulmonary embolism radiographically evident. 2. Soft tissue densities within the perihilar lung [place] with a similar appearance to prior study. 3. There is a new soft tissue density within the lateral left lung base.
[2022-09-26 14:39] LABS: Basophils % (A) 0 %; Eosinophils # (A) 0.2 k/uL (0-0.7); Eosinophils % (A) 1 %; HCT 45.7 % (39.0-53.0); HGB 14.1 gm/dL (13.0-17.5); Hypochromasia Moderate; Lymphocytes # (A) 0.4 k/uL (1.0-4.8); Lymphocytes % (A) 4 %; MCH 28.5 pg (25.0-35.0); MCHC 30.9 g/dL (31.0-37.0); Mean Platelet Volume 7.7; Monocytes # (A) 0.2 k/uL (0-1.0); Monocytes % (A) 2 %; Neutrophils # (A) 11.7 k/uL (1.3-7.7); Neutrophils % (A) 93 %; Platelet Count 296 k/uL (150-450); RBC 4.96 m/uL (4.30-5.90); RDW 14.4 % (11.5-15.5); WBC 12.6 k/uL (3.8-10.6)
[2022-09-26 15:02] LABS: African American GFR (CKD) >90 (>60 ml/min/1.73 sqM); Anion Gap 6 mmol/L; Blood Urea Nitrogen 21 mg/dL (9-20); Calcium 9.3 mg/dL (8.4-10.2); Carbon Dioxide 37 mmol/L (22-30); Chloride 95 mmol/L (98-107); Glucose 166 mg/dL (74-99); Non-African American GFR(CKD) >90 (>60 ml/min/1.73 sqM); Potassium 4.6 mmol/L (3.5-5.1); Sodium 138 mmol/L (137-145)
--- NOTE | 2022-09-26 15:18 | P.PN ---
Subjective Progress Note Date: 09/26/22 The patient is a 42-year-old male with a PMH of COPD and sarcoidosis, who was discharged earlier today after hospitalization for acute COPD exacerbation in setting of an RSV infection. The patient reports that shortly after returning home, he again started having shortness of breath. Symptoms persisted and gradually worsened, which prompted him to come to the emergency room. He denied experiencing pain, nausea, vomiting, diaphoresis, or dizziness. The patient had SpO2 of 93% on room air upon presentation. Chest x-ray the emergency room revealed findings consistent with sarcoidosis, unchanged from prior. He states that when he went home he smoked a cigar, felt short of breath which prompted him to come back to the ED. Patient was seen and examined. No acute events overnight. Patient reports continued improvement in his breathing continues to complain of shortness of breath and chest tightness. He is currently on Airvo. Physical examination: General: non toxic, no distress, appears at stated age, normal weight Derm: no unusual rashes/lesions, warm Head: atraumatic, normocephalic, symmetric Eyes: EOMI, no lid lag, anicteric sclera ENT: Nose and ears atraumatic Neck: No cervical lymphadenopathy, trachea midline, supple Mouth: no lip lesion, mucus membranes moist Cardiovascular: S1S2 reg, no murmur, positive dorsalis pedis pulse bilateral, no edema Lungs: Poor air entry bilaterally with expiratory wheezing noted, no rales or rhonchi, no accessory muscle use Ext: muscle strength 5 out of 5 in all 4 extremities grossly, no gross muscle atrophy, no contractures, Neuro: no gross focal neuro deficits Psych: Alert, oriented, appropriate affect #Acute hypoxic respiratory failure #Acute COPD exacerbation in setting of sarcoidosis and RSV infection Patient takes prednisone at home Continue Solu-Medrol DuoNeb's when necessary and [id number] Pulmonary recommendations appreciated CTA chest ordered Low suspicion for bacterial infection at this time #Leukocytosis #Hyperglycemia Steroid induced. Continue to monitor. Objective - Vital Signs Vital signs: Vital Signs Temp 98.0 F 09/25/22 23:29 Pulse 88 09/26/22 15:13 Resp 19 09/26/22 14:00 BP 178/105 09/26/22 14:00 Pulse Ox 98 09/26/22 15:13 FiO2 30 09/26/22 15:13 Intake & Output 09/25/22 09/26/22 09/26/22 18:59 06:59 18:59 Weight 74.843 kg - Labs CBC & Chem 7: 09/26/22 14:17 09/26/22 14:17 Labs: Abnormal Lab Results - Last 24 Hours (Table) 09/26/22 09/26/22 Range/Units 14:17 14:17 WBC 12.6 H (3.8-10.6) k/uL MCHC 30.9 L (31.0-37.0) g/dL Neutrophils # 11.7 H (1.3-7.7) k/uL Lymphocytes # 0.4 L (1.0-4.8) k/uL Chloride 95 L (98-107) mmol/L Carbon Dioxide 37 H (22-30) mmol/L BUN 21 H (9-20) mg/dL Glucose 166 H (74-99) mg/dL
[2022-09-26] MEDS: lamoTRIgine 100 MG TAB PO SCH (20:51)
[2022-09-26] MEDS: ALPRAZolam 0.5 MG TAB PO PRN (20:51)
[2022-09-26] MEDS: ARIPiprazole 15 MG TAB PO SCH (23:54)
[2022-09-27] MEDS: IPRATROPIUM-ALBUTEROL 3 ML NEB INHALATION PRN (00:21)
[2022-09-27] MEDS: methylPREDNISolone SOD SUCCI 125 MG/2 ML VIAL IV SCH ×4 (01:00→17:34)
[2022-09-27] MEDS: HEPARIN SODIUM,PORCINE/PF 5,000 UNIT/0.5 ML SYRINGE SQ SCH ×3 (03:54→17:11)
[2022-09-27] MEDS: cloNIDine HCL 0.1 MG TAB PO SCH ×2 (08:33→21:24)
[2022-09-27] MEDS: SYMBICORT 160-4.5 MCG INHALER INHALATION SCH ×2 (09:25→19:37)
[2022-09-27] MEDS: IPRATROPIUM-ALBUTEROL 3 ML NEB INHALATION SCH ×4 (09:25→19:36)
[2022-09-27] MEDS: ALPRAZolam 0.5 MG TAB PO PRN ×2 (10:41→22:52)
--- NOTE | 2022-09-27 11:06 | P.PN ---
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 The patient was in the hospital earlier this week for RSV infection and severe bronchospasm wheezing and hypoxic respiratory failure. The patient ultimately improved and the patient was sent home on room air oxygen along with a prednisone burst taper. Within 3 hours of being home, he smokes 2 cigarettes a became acutely short of breath and he became quite hypoxic and he had to come into the hospital. Currently is on high flow oxygen at 50 L with an FiO2 of 30%. He is having diminished breath sounds along with significant bronchospasm and wheezing. The patient's chest x-ray shows no significant inte rval change. No angina. No palpitation. No swelling lower extremities. No calf pain or tenderness. No fever or chills. On 09/27/2022, the patient is feeling slightly better compared to yesterday. CT antigram of the chest was done yesterday and there was no evidence of any pulmonary embolism. There is chronic perihilar and upper lobe scarring which is unchanged. There is also chronic emphysematous blebs in the upper lobes bilaterally more so on the right upper lobe. There is also another 9 mm soft tissue density in the left lower lobe which is a nonspecific finding. He is currently on high flow oxygen at 50 L with an FiO2 of 25%. Which should be able to wean him down further. He remains on IV Solu-Medrol and bronchodilators. No other significant events otherwise for now. Overall much improved. Objective - Vital Signs Vital signs: Vital Signs Temp 98.0 F 09/25/22 23:29 Pulse 90 09/27/22 09:26 Resp 16 09/27/22 06:41 BP 137/85 09/27/22 06:41 Pulse Ox 96 09/27/22 06:41 FiO2 25 09/27/22 09:26 - Exam GENERAL EXAM: Alert, active, -[place] male, comfortable in no apparent distress. She is currently on high flow oxygen with 50 L an FiO2 of 30% HEAD: Normocephalic. EYES: Normal reaction of pupils, equal size. NOSE: Clear with pink turbinates. THROAT: No erythema or exudates. NECK: No masses, no JVD. CHEST: No chest wall deformity. LUNGS: Equal air entry with no crackles, rhonchi or dullness. Expiratory wheezes heard throughout. CVS: S1 and S2 normal with no audible murmur, regular rhythm. ABDOMEN: No hepatosplenomegaly, normal bowel sounds, no guarding or rigidity. SPINE: No scoliosis or deformity SKIN: No rashes CENTRAL NERVOUS SYSTEM: No focal deficits, tone is normal in all 4 extremities. EXTREMITIES: There is no peripheral edema. No clubbing, no cyanosis. Peripheral pulses are intact. - Labs CBC & Chem 7: 09/26/22 14:17 09/26/22 14:17 Labs: Abnormal Lab Results - Last 24 Hours (Table) 09/26/22 09/26/22 Range/Units 14:17 14:17 WBC 12.6 H (3.8-10.6) k/uL MCHC 30.9 L (31.0-37.0) g/dL Neutrophils # 11.7 H (1.3-7.7) k/uL Lymphocytes # 0.4 L (1.0-4.8) k/uL Chloride 95 L (98-107) mmol/L Carbon Dioxide 37 H (22-30) mmol/L BUN 21 H (9-20) mg/dL Glucose 166 H (74-99) mg/dL Assessment and Plan Plan: Acute hypoxemic respiratory failure, on that investigation. The patient was recently hospitalized for acute RSV tracheobronchitis on top of chronic stage IV pulmonary sarcoidosis. Subsequently, the patient was discharged home and within a few hours, he presented back with acute hypoxic respiratory failure. Rule out ongoing need activity and failure for home treatment. The angiogram was negative for any pulmonary embolism. Influenza screen and the Covid 19 screen came back negative also. Stage IV resected doses with chronic fibrosis, unchanged compared to the earlier CAT scan of the chest Emphysema with bilateral apical bulla right more than left History of avascular necrosis of the right shoulder. History of osteoarthritis Chronic smoking Plan Keep the patient on high flow oxygen and wean the patient to 40 L with an FiO2 of 25% Continue IV Solu-Medrol 60 mg every 6 hours DuoNeb nebulized treatments 4 times a day CTA of the chest was completed and there is no evidence of any pulmonary embolism and the findings of essentially stable Influenza and Covid 19 screen Resume all medications Titrate FiO2 to maintain saturation above 90% We'll continue to follow, clinically improving. We'll continue to follow.
--- NOTE | 2022-09-27 15:49 | P.PN ---
Subjective Progress Note Date: 09/27/22 The patient is a 42-year-old male with a PMH of COPD and sarcoidosis, who was discharged earlier today after hospitalization for acute COPD exacerbation in setting of an RSV infection. The patient reports that shortly after returning home, he again started having shortness of breath. Symptoms persisted and gradually worsened, which prompted him to come to the emergency room. He denied experiencing pain, nausea, vomiting, diaphoresis, or dizziness. The patient had SpO2 of 93% on room air upon presentation. Chest x-ray the emergency room revealed findings consistent with sarcoidosis, unchanged from prior. He states that when he went home he smoked a cigar, felt short of breath which prompted him to come back to the ED. Patient was seen and examined. No acute events overnight. Patient reports continued improvement in his breathing continues to complain of shortness of breath and chest tightness. He is currently on Airvo. Physical examination: General: non toxic, no distress, appears at stated age, normal weight Derm: no unusual rashes/lesions, warm Head: atraumatic, normocephalic, symmetric Eyes: EOMI, no lid lag, anicteric sclera ENT: Nose and ears atraumatic Neck: No cervical lymphadenopathy, trachea midline, supple Mouth: no lip lesion, mucus membranes moist Cardiovascular: S1S2 reg, no murmur, positive dorsalis pedis pulse bilateral, no edema Lungs: Poor air entry bilaterally with expiratory wheezing noted, no rales or rhonchi, no accessory muscle use Ext: muscle strength 5 out of 5 in all 4 extremities grossly, no gross muscle atrophy, no contractures, Neuro: no gross focal neuro deficits Psych: Alert, oriented, appropriate affect #Acute hypoxic respiratory failure #Acute COPD exacerbation in setting of sarcoidosis and RSV infection Patient takes prednisone at home Continue Solu-Medrol DuoNeb's when necessary and [id number] Pulmonary recommendations appreciated CTA chest shows no PE, soft tissue densities within the perihilar lung [place], new soft tissue density within the lateral left lung base Low suspicion for bacterial infection at this time #Leukocytosis #Hyperglycemia Steroid induced. Continue to monitor. Objective - Vital Signs Vital signs: Vital Signs Temp 98.0 F 09/25/22 23:29 Pulse 80 09/27/22 13:18 Resp 20 09/27/22 13:18 BP 142/87 09/27/22 13:18 Pulse Ox 94 L 09/27/22 13:18 FiO2 25 09/27/22 11:05 - Labs CBC & Chem 7: 09/26/22 14:17 09/26/22 14:17
[2022-09-27] MEDS ORDERED: ACETAMINOPHEN TAB 325 MG TAB PO STA (15:54)
[2022-09-27 20:15] LABS: Glucose,Whole Blood 195 mg/dL (70-110)
[2022-09-27] MEDS: ARIPiprazole 15 MG TAB PO SCH (21:23)
[2022-09-27] MEDS: ACETAMINOPHEN TAB 325 MG TAB PO PRN (21:24)
[2022-09-27] MEDS: lamoTRIgine 100 MG TAB PO SCH (21:25)
[2022-09-28] MEDS: HEPARIN SODIUM,PORCINE/PF 5,000 UNIT/0.5 ML SYRINGE SQ SCH ×3 (00:11→15:39)
[2022-09-28] MEDS: methylPREDNISolone SOD SUCCI 125 MG/2 ML VIAL IV SCH ×4 (00:13→19:13)
[2022-09-28] MEDS: ONDANSETRON 4 MG/2 ML VIAL IVP PRN ×3 (00:55→22:07)
[2022-09-28 06:14] LABS: Glucose,Whole Blood 130 mg/dL (70-110)
[2022-09-28] MEDS: IPRATROPIUM-ALBUTEROL 3 ML NEB INHALATION SCH ×4 (08:09→20:28)
[2022-09-28] MEDS: SYMBICORT 160-4.5 MCG INHALER INHALATION SCH ×2 (08:09→20:28)
[2022-09-28] MEDS: cloNIDine HCL 0.1 MG TAB PO SCH ×2 (09:06→20:25)
[2022-09-28] MEDS: ACETAMINOPHEN TAB 325 MG TAB PO PRN (09:06)
--- NOTE | 2022-09-28 10:21 | P.PN ---
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 The patient was in the hospital earlier this week for RSV infection and severe bronchospasm wheezing and hypoxic respiratory failure. The patient ultimately improved and the patient was sent home on room air oxygen along with a prednisone burst taper. Within 3 hours of being home, he smokes 2 cigarettes a became acutely short of breath and he became quite hypoxic and he had to come into the hospital. Currently is on high flow oxygen at 50 L with an FiO2 of 30%. He is having diminished breath sounds along with significant bronchospasm and wheezing. The patient's chest x-ray shows no significant inte rval change. No angina. No palpitation. No swelling lower extremities. No calf pain or tenderness. No fever or chills. On 09/27/2022, the patient is feeling slightly better compared to yesterday. CT antigram of the chest was done yesterday and there was no evidence of any pulmonary embolism. There is chronic perihilar and upper lobe scarring which is unchanged. There is also chronic emphysematous blebs in the upper lobes bilaterally more so on the right upper lobe. There is also another 9 mm soft tissue density in the left lower lobe which is a nonspecific finding. He is currently on high flow oxygen at 50 L with an FiO2 of 25%. Which should be able to wean him down further. He remains on IV Solu-Medrol and bronchodilators. No other significant events otherwise for now. Overall much improved. 09/28/2022, patient continues to improve and the patient currently is on 2 L O2 nasal cannula. He is gradually improving. No need for now. He was taken off the high flow oxygen today. CAT scan of the chest was. He is on bronchodilators. His been on steroids. I'm thinking that the patient may ultimately need home O2 at a time of discharge in combination with his nebulized treatments Objective - Vital Signs Vital signs: Vital Signs Temp 97.9 F 09/28/22 04:17 Pulse 92 09/28/22 08:25 Resp 12 09/28/22 04:17 BP 138/60 09/28/22 04:17 Pulse Ox 96 09/28/22 04:17 FiO2 21 09/27/22 17:10 Intake & Output 09/27/22 09/28/22 09/28/22 18:59 06:59 18:59 Intake Total 358 Balance 358 Intake: Oral 358 Other: Voiding Method Toilet # Voids 1 3 # Bowel Movements 1 - Exam GENERAL EXAM: Alert, active, -Citizen Of [place] male, comfortable in no apparent distress. She is currently on 2 L O2 nasal cannula HEAD: Normocephalic. EYES: Normal reaction of pupils, equal size. NOSE: Clear with pink turbinates. THROAT: No erythema or exudates. NECK: No masses, no JVD. CHEST: No chest wall deformity. LUNGS: Equal air entry with no crackles, rhonchi or dullness. Expiratory wheezes heard throughout. CVS: S1 and S2 normal with no audible murmur, regular rhythm. ABDOMEN: No hepatosplenomegaly, normal bowel sounds, no guarding or rigidity. SPINE: No scoliosis or deformity SKIN: No rashes CENTRAL NERVOUS SYSTEM: No focal deficits, tone is normal in all 4 extremities. EXTREMITIES: There is no peripheral edema. No clubbing, no cyanosis. Peripheral pulses are intact. - Labs CBC & Chem 7: 09/26/22 14:17 09/26/22 14:17 Labs: Abnormal Lab Results - Last 24 Hours (Table) 09/27/22 09/28/22 Range/Units 20:14 06:13 POC Glucose (mg/dL) 195 H 130 H (70-110) mg/dL Assessment and Plan Plan: Acute hypoxemic respiratory failure, on that investigation. The patient was recently hospitalized for acute RSV tracheobronchitis on top of chronic stage IV pulmonary sarcoidosis. Subsequently, the patient was discharged home and within a few hours, he presented back with acute hypoxic respiratory failure. Rule out ongoing need activity and failure for home treatment. The angiogram was n egative for any pulmonary embolism. Influenza screen and the Covid 19 screen came back negative also. Stage IV resected doses with chronic fibrosis, unchanged compared to the earlier CAT scan of the chest Emphysema with bilateral apical bulla right more than left History of avascular necrosis of the right shoulder. History of osteoarthritis Chronic smoking Plan Keep the patient on 2 liters/min Continue IV Solu-Medrol 60 mg every 6 hours DuoNeb nebulized treatments 4 times a day CTA of the chest was completed and there is no evidence of any pulmonary embolism and the findings of essentially stable Influenza and Covid 19 screen Resume all medications Titrate FiO2 to maintain saturation above 90% We'll continue to follow, clinically improving. We'll continue to follow.
[2022-09-28 10:45] LABS: HCT 42.9 % (39.0-53.0); HGB 13.5 gm/dL (13.0-17.5); Hypochromasia Marked; MCH 29.2 pg (25.0-35.0); MCHC 31.4 g/dL (31.0-37.0); MCV 93.2 fL (80.0-100.0); Mean Platelet Volume 7.8; Platelet Count 276 k/uL (150-450); RBC 4.61 m/uL (4.30-5.90); RDW 14.6 % (11.5-15.5); WBC 25.9 k/uL (3.8-10.6)
[2022-09-28 10:59] LABS: African American GFR (CKD) >90 (>60 ml/min/1.73 sqM); Anion Gap 2 mmol/L; Blood Urea Nitrogen 20 mg/dL (9-20); Calcium 8.9 mg/dL (8.4-10.2); Carbon Dioxide 40 mmol/L (22-30); Chloride 98 mmol/L (98-107); Glucose 106 mg/dL (74-99); Non-African American GFR(CKD) >90 (>60 ml/min/1.73 sqM); Potassium 5.1 mmol/L (3.5-5.1); Sodium 140 mmol/L (137-145)
[2022-09-28] MEDS ORDERED: KETOROLAC 15 MG/ML 1 ML VIAL IVP STA (14:16)
--- NOTE | 2022-09-28 14:19 | P.PN ---
Subjective Progress Note Date: 09/28/22 The patient is a 42-year-old male with a PMH of COPD and sarcoidosis, who was discharged earlier today after hospitalization for acute COPD exacerbation in setting of an RSV infection. The patient reports that shortly after returning home, he again started having shortness of breath. Symptoms persisted and gradually worsened, which prompted him to come to the emergency room. He denied experiencing pain, nausea, vomiting, diaphoresis, or dizziness. The patient had SpO2 of 93% on room air upon presentation. Chest x-ray the emergency room revealed findings consistent with sarcoidosis, unchanged from prior. He states that when he went home he smoked a cigar, felt short of breath which prompted him to come back to the ED. Patient was seen and examined. No acute events overnight. Patient reports continued improvement in his breathing continues to complain of shortness of breath and chest tightness. He is currently on 2L NC. General: non toxic, no distress, appears at stated age, normal weight Derm: no unusual rashes/lesions, warm Head: atraumatic, normocephalic, symmetric Eyes: EOMI, no lid lag, anicteric sclera ENT: Nose and ears atraumatic Neck: No cervical lymphadenopathy, trachea midline, supple Mouth: no lip lesion, mucus membranes moist Cardiovascular: S1S2 reg, no murmur, positive dorsalis pedis pulse bilateral, no edema Lungs: Poor air entry bilaterally with expiratory wheezing noted, no rales or rhonchi, no accessory muscle use Ext: muscle strength 5 out of 5 in all 4 extremities grossly, no gross muscle atrophy, no contractures, Neuro: no gross focal neuro deficits Psych: Alert, oriented, appropriate affect #Acute hypoxic respiratory failure #Acute COPD exacerbation in setting of sarcoidosis and RSV infection Patient takes prednisone at home Continue Solu-Medrol DuoNeb's when necessary and [id number] Pulmonary recommendations appreciated CTA chest shows no PE, soft tissue densities within the perihilar lung [place], new soft tissue density within the lateral left lung base Low suspicion for bacterial infection at this time Case discussed with Dr. Del Valle, continue present management, anticipate DC in 1-2 days. #Leukocytosis #Hyperglycemia Steroid induced. Continue to monitor. #Headache Toradol as needed. Objective - Vital Signs Vital signs: Vital Signs Temp 97.4 F L 09/28/22 08:32 Pulse 90 09/28/22 12:30 Resp 16 09/28/22 08:32 BP 154/98 09/28/22 08:32 Pulse Ox 94 L 09/28/22 08:32 FiO2 21 09/27/22 17:10 Intake & Output 09/27/22 09/28/22 09/28/22 18:59 06:59 18:59 Intake Total 598 Balance 598 Intake: Oral 598 Other: Voiding Method Toilet Toilet # Voids 1 3 # Bowel Movements 1 - Labs CBC & Chem 7: 09/28/22 10:03 09/28/22 10:03 Labs: Abnormal Lab Results - Last 24 Hours (Table) 09/27/22 09/28/22 09/28/22 Range/Units 20:14 06:13 10:03 WBC 25.9 H (3.8-10.6) k/uL Carbon Dioxide (22-30) mmol/L Glucose (74-99) mg/dL POC Glucose (mg/dL) 195 H 130 H (70-110) mg/dL 09/28/22 Range/Units 10:03 WBC (3.8-10.6) k/uL Carbon Dioxide 40 H (22-30) mmol/L Glucose 106 H (74-99) mg/dL POC Glucose (mg/dL) (70-110) mg/dL
[2022-09-28] MEDS: lamoTRIgine 100 MG TAB PO SCH (20:24)
[2022-09-28] MEDS: ARIPiprazole 15 MG TAB PO SCH (20:24)
[2022-09-28] MEDS: ALPRAZolam 0.5 MG TAB PO PRN (22:03)
[2022-09-29] MEDS: methylPREDNISolone SOD SUCCI 125 MG/2 ML VIAL IV SCH ×2 (00:15→06:50)
[2022-09-29] MEDS: HEPARIN SODIUM,PORCINE/PF 5,000 UNIT/0.5 ML SYRINGE SQ SCH ×4 (00:24→23:44)
[2022-09-29] MEDS: SYMBICORT 160-4.5 MCG INHALER INHALATION SCH ×2 (07:24→20:00)
[2022-09-29] MEDS: IPRATROPIUM-ALBUTEROL 3 ML NEB INHALATION SCH ×4 (07:24→20:00)
[2022-09-29] MEDS: KETOROLAC 15 MG/ML 1 ML VIAL IVP PRN (08:56)
[2022-09-29] MEDS: cloNIDine HCL 0.1 MG TAB PO SCH ×2 (08:56→20:36)
--- NOTE | 2022-09-29 13:18 | P.PN ---
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 The patient was in the hospital earlier this week for RSV infection and severe bronchospasm wheezing and hypoxic respiratory failure. The patient ultimately improved and the patient was sent home on room air oxygen along with a prednisone burst taper. Within 3 hours of being home, he smokes 2 cigarettes a became acutely short of breath and he became quite hypoxic and he had to come into the hospital. Currently is on high flow oxygen at 50 L with an FiO2 of 30%. He is having diminished breath sounds along with significant bronchospasm and wheezing. The patient's chest x-ray shows no significant inter maria teresa change. No angina. No palpitation. No swelling lower extremities. No calf pain or tenderness. No fever or chills. On 09/27/2022, the patient is feeling slightly better compared to yesterday. CT antigram of the chest was done yesterday and there was no evidence of any pulmonary embolism. There is chronic perihilar and upper lobe scarring which is unchanged. There is also chronic emphysematous blebs in the upper lobes bilaterally more so on the right upper lobe. There is also another 9 mm soft tissue density in the left lower lobe which is a nonspecific finding. He is currently on high flow oxygen at 50 L with an FiO2 of 25%. Which should be able to wean him down further. He remains on IV Solu-Medrol and bronchodilators. No other significant events otherwise for now. Overall much improved. 09/28/2022, patient continues to improve and the patient currently is on 2 L O2 nasal cannula. He is gradually improving. No need for now. He was taken off the high flow oxygen today. CAT scan of the chest was. He is on bronchodilators. His been on steroids. I'm thinking that the patient may ultimately need home O2 at a time of discharge in combination with his nebulized treatments The patient is seen today 09/29/2022 follow-up on the selective care unit. He is currently sitting up in bed. Awake and alert in no acute distress. He is maintaining good O2 saturations in the 90s on 2 L/m per nasal cannula. No new labs today. He remains on DuoNeb inhalations, Symbicort, prednisone taper. Heparin for DVT prophylaxis. Objective - Vital Signs Vital signs: Vital Signs Temp 98.0 F 09/29/22 08:55 Pulse 100 09/29/22 11:22 Resp 18 09/29/22 08:55 BP 157/87 09/29/22 08:55 Pulse Ox 96 09/29/22 08:55 FiO2 21 09/27/22 17:10 Intake & Output 09/28/22 09/29/22 09/29/22 18:59 06:59 18:59 Intake Total 712 118 Balance 712 118 Intake: Oral 712 118 Other: Voiding Method Toilet Toilet Toilet # Voids 2 2 - Exam GENERAL EXAM: Alert, pleasant 42-year-old male patient, comfortable in no apparent distress. Currently on 2 L O2 nasal cannula HEAD: Normocephalic. EYES: Normal reaction of pupils, equal size. NOSE: Clear with pink turbinates. THROAT: No erythema or exudates. NECK: No masses, no JVD. CHEST: No chest wall deformity. LUNGS: Equal air entry with no crackles, rhonchi or dullness. Expiratory wheeze s heard throughout. CVS: S1 and S2 normal with no audible murmur, regular rhythm. ABDOMEN: No hepatosplenomegaly, normal bowel sounds, no guarding or rigidity. SPINE: No scoliosis or deformity SKIN: No rashes CENTRAL NERVOUS SYSTEM: No focal deficits, tone is normal in all 4 extremities. EXTREMITIES: There is no peripheral edema. No clubbing, no cyanosis. Peripheral pulses are intact. - Labs CBC & Chem 7: 09/28/22 10:03 09/28/22 10:03 Assessment and Plan Assessment: Acute hypoxemic respiratory failure, under investigation. The patient was recently hospitalized for acute RSV tracheobronchitis on top of chronic stage IV pulmonary sarcoidosis. Subsequently, the patient was discharged home and within a few hours, he presented back with acute hypoxic respiratory failure. Rule out ongoing need for home oxygen treatment. The angiogram was negative for any pulmonary embolism. Influenza screen and the Covid 19 screen came back negative also. Stage IV sarcoidosis with chronic fibrosis, unchanged compared to the earlier CAT scan of the chest Emphysema with bilateral apical bulla right more than left History of avascular necrosis of the right shoulder. History of osteoarthritis Chronic smoking Plan: The patient was seen and evaluated Currently stable from the pulmonary standpoint May be evaluated for possible home oxygen Complete prednisone taper Continue his home pulmonary medications He follows with Dr. Kwan in our office To be seen in follow-up in one week I have personally seen and examined the patient, performed the documentation and the assessment and plan as written. Number of minutes spent on the visit: 10.
[2022-09-29] MEDS ORDERED: methylPREDNISolone SOD SUCCI 125 MG/2 ML VIAL IV SCH (16:00)
--- NOTE | 2022-09-29 17:47 | P.PN ---
Subjective Progress Note Date: 09/29/22 (delayed charting seen at 10am) Patient is a 42-year-old male with known COPD, sarcoidosis, tobacco dependency, and hypertension who presented to the hospital after being discharged earlier the day with acute exacerbation of COPD and RSV infection. After returning home he had increasing shortness of breath and therefore re-presented to the ER. Chest x-ray in the ER revealed findings consistent with sarcoidosis that were unchanged from prior. Initial vital signs were within normal limits however shortly after patient required aerosolized mask. Initial laboratory analysis was remarkable for white blood cell count of 12.6. He was admitted for acute exacerbation of COPD and RSV infection. Pulmonology was consulted. Patient underwent CT of the chest which was negative for pulmonary embolism but did show soft tissue densities within the perihilar lung [place] consistent with prior study and a new soft tissue density on the lateral left lung field. He was slowly weaned back down of his oxygen requirement. Patient seen and examined at bedside. He continues to have shortness of breath and a jagged cough. He has some chest discomfort when he has been coughing. He denies any nausea or vomiting. He has an insatiable hunger. Significant other present at bedside. All questions answered. I told him he could have a prolonged course with RSV. I also informed him awaiting to go home on oxygen. Case discussed with patient and he was advised not to use high flow O2 as it can have determental side effects. General: nontoxic, no distress, appears at stated age Derm: warm, dry Head: atraumatic, normocephalic, symmetric Eyes: EOMI, no lid lag, anicteric sclera Mouth: no lip lesion, mucus membranes moist Cardiovascular: S1S2 reg, no murmur, positive posterior tibial pulse bilateral, Lungs: Decreased breath sounds bilateral, no rhonchi, no rales , no accessory m uscle use Abdominal: soft, nontender to palpation, no guarding, no appreciable organomegaly Ext: no gross muscle atrophy, no edema, no contractures Neuro: CN II-XI grossly intact, no focal neuro deficits Psych: Alert, oriented, appropriate affect Assessment/plan: Acute exacerbation of COPD in the setting of stage IV sarcoidosis and active RSV infection Acute hypoxic respiratory failure related-pulmonary recommendations: They have transition Solu-Medrol to prednisone (increase to 60 mg as patient is chronically on 10 mg at home), earlier in the day decrease Solu-Medrol dosing -Continue with DuoNeb's -CTA of the chest ruled out pulmonary embolism -Patient will likely need to be off work for several weeks Murmur - new per patient - will check echo Hyperglycemia and leukocytosis -Likely secondary to steroids -Continue to monitor -Repeat CBC in a.m. Nicotine dependency - cessation encouraged. Headache, resolved Anticipate home tomorrow once echocardiogram complete. Active Medications Generic Name Dose Route Start Last Admin Trade Name Freq PRN Reason Stop Dose Admin Acetaminophen 650 mg 09/27/22 15:54 09/28/22 09:06 Acetaminophen Tab 325 Mg Tab PO 650 mg Q6HR PRN Administration Fever and/ or Pain Albuterol/Ipratropium 3 ml 09/26/22 04:56 09/27/22 00:21 Ipratropium-Albuterol 3 Ml Neb INHALATION 3 ml RT-QID PRN Administration Shortness Of Breath Or Wheezing Albuterol/Ipratropium 3 ml 09/26/22 08:00 09/29/22 15:26 Ipratropium-Albuterol 3 Ml Neb INHALATION 3 ml RT-QID ANDRY Administration Alprazolam 0.5 mg 09/26/22 08:00 09/28/22 22:03 Alprazolam 0.5 Mg Tab PO 0.5 mg BID PRN Administration Anxiety Aripiprazole 15 mg 09/26/22 21:00 09/28/22 20:24 Aripiprazole 15 Mg Tab PO 15 mg HS ANDRY Administration Budesonide/Formoterol Fumarate 2 puff 09/26/22 08:00 09/29/22 07:24 Symbicort 160-4.5 Mcg Inhaler INHALATION 2 puff RT-BID ANDRY Administration Clonidine 0.1 mg 09/26/22 13:15 09/29/22 08:56 Clonidine Hcl 0.1 Mg Tab PO 0.1 mg BID ANDRY Administration Heparin Sodium (Porcine) 5,000 unit 09/26/22 08:00 09/29/22 16:59 Heparin Sodium,Porcine/Pf 5,000 Unit/0.5 Ml Syringe SQ Not Given Q8HR ANDRY Ketorolac Tromethamine 15 mg 09/28/22 14:16 09/29/22 08:56 Ketorolac 15 Mg/Ml 1 Ml Vial IVP 10/01/22 14:16 15 mg Q6HR PRN Administration Pain Lamotrigine 200 mg 09/26/22 21:00 09/28/22 20:24 Lamotrigine 100 Mg Tab PO 200 mg HS ANDRY Administration Naloxone HCl 0.2 mg 09/26/22 03:43 Naloxone 0.4 Mg/Ml 1 Ml Vial IV Q2M PRN Opioid Reversal Ondansetron HCl 4 mg 09/28/22 00:47 09/28/22 22:07 Ondansetron 4 Mg/2 Ml Vial IVP 4 mg Q6HR PRN Administration Nausea And Vomiting Prednisone 60 mg 09/30/22 09:00 Prednisone 20 Mg Tab PO DAILY ANDRY Objective - Vital Signs Vital signs: Vital Signs Temp 97.8 F 09/29/22 14:14 Pulse 102 H 09/29/22 15:38 Resp 18 09/29/22 14:14 BP 155/87 09/29/22 14:14 Pulse Ox 95 09/29/22 14:14 FiO2 21 09/27/22 17:10 Intake & Output 09/28/22 09/29/22 09/29/22 18:59 06:59 18:59 Intake Total 712 718 Balance 712 718 Intake: Oral 712 718 Other: Voiding Method Toilet Toilet Toilet # Voids 2 2 - Labs CBC & Chem 7: 09/28/22 10:03 09/28/22 10:03
[2022-09-29] MEDS: ACETAMINOPHEN TAB 325 MG TAB PO PRN (20:34)
[2022-09-29] MEDS: lamoTRIgine 100 MG TAB PO SCH (20:35)
[2022-09-29] MEDS: ARIPiprazole 15 MG TAB PO SCH (20:36)
--- NOTE | 2022-09-29 23:17 | XR ---
EXAMINATION TYPE: XR abdomen 1V DATE OF EXAM: 09/29/2022 COMPARISON: NONE HISTORY: Abdominal pain TECHNIQUE: 2 views upright FINDINGS: There is no sign of intestinal obstruction or pneumoperitoneum. Fecal pattern is normal. No evidence of a mass. There are no pathologic calcifications over the kidneys. Lung bases are clear. IMPRESSION: Nonacute abdomen.
[2022-09-29] MEDS: ONDANSETRON 4 MG/2 ML VIAL IVP PRN (23:44)
[2022-09-30] MEDS: ALPRAZolam 0.5 MG TAB PO PRN ×2 (00:15→21:08)
[2022-09-30] MEDS: SYMBICORT 160-4.5 MCG INHALER INHALATION SCH ×2 (07:28→19:57)
[2022-09-30] MEDS: IPRATROPIUM-ALBUTEROL 3 ML NEB INHALATION SCH ×4 (07:28→19:57)
[2022-09-30] MEDS: cloNIDine HCL 0.1 MG TAB PO SCH ×2 (08:48→21:08)
[2022-09-30] MEDS: HEPARIN SODIUM,PORCINE/PF 5,000 UNIT/0.5 ML SYRINGE SQ SCH ×3 (08:48→23:54)
[2022-09-30] MEDS: predniSONE 20 MG TAB PO SCH (08:48)
[2022-09-30] MEDS: KETOROLAC 15 MG/ML 1 ML VIAL IVP PRN (08:55)
[2022-09-30] MEDS: ONDANSETRON 4 MG/2 ML VIAL IVP PRN (08:56)
[2022-09-30] MEDS ORDERED: predniSONE 20 MG TAB PO SCH (09:00)
[2022-09-30] MEDS: IOPAMIDOL CONTRAST (ORAL USE) VIAL PO PRN ×2 (11:43→12:33)
[2022-09-30] MEDS: guaiFENesin 600 MG TABLET.ER PO SCH ×2 (11:43→21:07)
--- NOTE | 2022-09-30 11:54 | CA ---
Transthoracic Echo Report Name: Osmany Soto Age: 42 Gender: M : 1980 Exam Date: 09/30/2022 11:13 Exam Location: [facility] Ht (in): 68 Wt (lb): 165 Ordering Physician: Gem Petty DO Attending/Referring Phys: [id number], Malinda Director Transportation Sarahy Molina RDCS Procedure CPT: Indications: new murmur Cardiac Hx: Technical Quality: Fair Contrast 1: Total Dose (mL): Contrast 2: Total Dose (mL): MEASUREMENTS (Male / Female) Normal Values 2D ECHO LV Diastolic Diameter PLAX 4.0 cm 4.2 - 5.9 / 3.9 - 5.3 cm LV Systolic Diameter PLAX 2.5 cm IVS Diastolic Thickness 1.7 cm 0.6 - 1.0 / 0.6 - 0.9 cm LVPW Diastolic Thickness 1.0 cm 0.6 - 1.0 / 0.6 - 0.9 cm LV Relative Wall Thickness 0.7 M-MODE Aortic Root Diameter MM 2.9 cm LA Systolic Diameter MM 3.3 cm LA Ao Ratio MM 1.1 AV Cusp Separation MM 1.9 cm DOPPLER AV Peak Velocity 139.3 cm/s AV Peak Gradient 7.8 mmHg LVOT Peak Velocity 123.4 cm/s LVOT Peak Gradient 6.1 mmHg MV Area PHT 4.0 cm??? Mitral E Point Velocity 90.0 cm/s Mitral A Point Velocity 102.1 cm/s Mitral E to A Ratio 0.9 MV Deceleration Time 187.4 ms FINDINGS Left Ventricle Severely increased left ventricular wall thickness. Normal left ventricular systolic function with no obvious regional wall motion abnormalities. Left ventricular ejection fraction is estimated at 55-60 %. Right Ventricle Normal right ventricular size and function. Right ventricular systolic pressure within normal limits. Right Atrium Normal right atrial size. Left Atrium Normal left atrial size. Mitral Valve Structurally normal mitral valve. No mitral stenosis, regurgitation or prolapse. Aortic Valve No aortic valve stenosis or regurgitation. Tricuspid Valve Structurally normal tricuspid valve. Mild tricuspid regurgitation. Pulmonic Valve Trace pulmonic regurgitation. Pericardium No pericardial effusion. Aorta Normal size aortic root and proximal ascending aorta. CONCLUSIONS Normal LV size with moderate to severe concentric LVH. There is no wall motion abnormality. Ejection fraction is normal there is mild mitral and tricuspid insufficiency no pericardial effusion Previewed by: Dr. Mary Wilson MD (Electronically Signed) Final Date: 30 September 2022 11:54
--- NOTE | 2022-09-30 12:10 | P.GSCN ---
History of Present Illness Consult date: 09/30/22 History of present illness: CHIEF COMPLAINT: Shortness of breath HISTORY OF PRESENT ILLNESS: This is a 42-year-old male with a known history of stage IV sarcoidosis and COPD. Patient recently hospitalized for an acute COPD exacerbation and RSV infection. He returned to the hospital shortly after being discharged due to worsening shortness of breath. He is admitted with to the hospital with COPD exacerbation and active RSV infection. Patient followed by pulmonary service. He has been transitioned from IV steroids to oral steroids. Patient has been complaining of abdominal distention that his been present for about one week. He does have mid abdominal pain. He feels that his abdomen is stretched tight and the tightness wraps around the back. He is tolerating diet. He does report some nausea. He is having regular bowel movements and flatus. He does report some tightness in the upper thighs as well. WBC is elevated. He has mildly tachycardic. Afebrile. Patient has been on steroids. Past surgical history does include bilateral inguinal hernia repair. Denies ever having an EGD or colonoscopy. Denies any change in bowel habits. Denies any blood in the stools or black stools. Medicine service ordered an echo due to new murmur. PAST MEDICAL HISTORY: See below PAST SURGICAL HISTORY: See below MEDICATIONS: See below ALLERGIES: See below SOCIAL HISTORY: No illicit drug use. Nicotine dependence. Rare alcohol use. REVIEW OF SYSTEMS: CONSTITUTIONAL: Denies fever or chills. HEENT: Denies blurred vision, vision changes, or eye pain. Denies hemoptysis CARDIOVASCULAR: Denies chest pain or pressure. RESPIRATORY: No shortness of breath. GASTROINTESTINAL: See HPI for pertinent findings HEMATOLOGIC: Denies bleeding disorders. GENITOURINARY: Denies any blood in urine or increased urinary frequency. SKIN: Denies pruitis. Denies rash. PHYSICAL EXAM: VITAL SIGNS: Reviewed GENERAL: Well-developed in no acute distress. HEENT: No sclera icterus. Extraocular movements grossly intact. Moist buccal mucosa. Head is atraumatic, normocephalic. No nasal drainage. ABDOMEN: Soft. Distended. Mid abdominal tenderness. NEUROLOGIC: Alert and oriented. Cranial nerves II through XII grossly intact. LABORATORY DATA: WBC 12.9 Hgb 13.5 platelets 276 Sodium 140 potassium is 5.1 creatinine 0.77 Covid 19 and influenza not detected IMAGING: Abdominal x-ray nonacute abdomen Echo normal LV size with moderate to severe LVH. There is no wall motion abnormality. EF is normal. There is mild mitral and tricuspid insufficiency. No pericardial effusion. ASSESSMENT: 1. Abdominal distention and pain 2. COPD exacerbation 3. RSV infection 4. History of sarcoidosis 5. Leukocytosis PLAN: -Computed tomography scan abdomen and pelvis with contrast ordered for further evaluation of abdominal distention -Continue supportive care -Keep patient nothing by mouth until computed tomography scan results reviewed -Follow up on today's lab results Thank you for this consultation Physician Band Presser note has been reviewed by physician. Signing provider agrees with the documented findings, assessment, and plan of care. I have personally seen and examined the patient, reviewed the [employer]ITION RELATIONSHIP MANAGER /PAs history, exam and MDM and agree with the assessment and plan as written. Based on total visit time, I have performed more than 50% of the visit. As above: Patient was having abdominal bloating. He says his abdomen, flanks, and upper thighs felt swollen. Said he was not having much discomfort. He is tolerating his diet. He said he is actually been quite hungry because of the steroid use recently. CAT scan shows some edema of the abdominal wall and retroperitoneum. No no obvious other pathology to explain his symptoms. Echo was performed showing LV hypertrophy but EF is maintained. He is no longer on IV fluids. Continue diet as tolerated. No further surgical testing planned at this time. We'll follow with you for now. Past Medical History Past Medical History: COPD, Hypertension, Osteoarthritis (OA), Vascular Disorder Additional Past Medical History / Comment(s): sarcoidosis, avascular necrosis right shoulder History of Any Multi-Drug Resistant Organisms: None Reported Past Surgical History: Hernia Repair Additional Past Surgical History / Comment(s): lung biopsy, cataract surgery bilateral, rotator cuff repair right shoulder Past Anesthesia/Blood Transfusion Reactions: No Reported Reaction Past Psychological History: Depression Smoking Status: Former smoker - Past Family History Mother Additional Family Medical History / Comment(s): sarcoidosis Father Additional Family Medical History / Comment(s): leukemia at 45 Medications and Allergies Home Medications Medication Instructions Recorded Confirmed Type ARIPiprazole 15 mg PO HS 10/30/17 09/26/22 History lamoTRIgine 200 mg PO HS 10/30/17 09/26/22 History Ascorbic Acid [Vitamin C] 1,000 mg PO HS 02/26/21 09/26/22 History Vitamin B Complex 1 cap PO HS 02/26/21 09/26/22 History predniSONE 10 mg PO HS 09/23/22 09/26/22 History ALPRAZolam [Xanax] 0.5 mg PO BID PRN #6 tab 09/25/22 09/26/22 Rx Albuterol Nebulized [Ventolin 2.5 mg INHALATION RT-Q4H #180 ml 09/25/22 09/26/22 Rx Nebulized] Albuterol Sulfate [Proventil Hfa] 2 puff INHALATION RT-Q4H PRN #1 09/25/22 09/26/22 Rx each Budesonide/Formoterol Fumarate 2 puff INHALATION RT-BID #7 each 09/25/2203/13 Rx [Symbicort 160-4.5 Mcg Inhaler] predniSONE See Taper PO DIRECTED #30 tab 09/25/22 09/26/22 Rx Allergies Allergy/AdvReac Type Severity Reaction Status Date / Time No Known Allergies Allergy Verified 09/26/22 06:35 Surgical - Exam Vital Signs Temp Pulse Resp BP Pulse Ox 98.0 F 88 15 168/97 95 09/25/22 23:29 09/25/22 23:29 09/25/22 23:29 09/25/22 23:29 09/25/22 23:29 Results - Labs 09/30/22 12:10 09/30/22 12:10
[2022-09-30 12:25] LABS: HCT 44.2 % (39.0-53.0); HGB 13.5 gm/dL (13.0-17.5); Hypochromasia Marked; MCH 28.9 pg (25.0-35.0); MCHC 30.4 g/dL (31.0-37.0); MCV 94.8 fL (80.0-100.0); Mean Platelet Volume 7.4; Platelet Count 306 k/uL (150-450); RBC 4.66 m/uL (4.30-5.90); RDW 14.2 % (11.5-15.5); WBC 17.1 k/uL (3.8-10.6)
--- NOTE | 2022-09-30 12:31 | P.PN ---
Subjective Progress Note Date: 09/30/22 Principal diagnosis: RSV infection, sarcoidosis This is a 42-year-old male patient with stage IV sarcoidosis with chronic pulmonary fibrosis. The patient was in the hospital earlier this week for RSV infection and severe bronchospasm wheezing and hypoxic respiratory failure. The patient ultimately improved and the patient was sent home on room air oxygen along with a prednisone burst taper. Within 3 hours of being home, he smokes 2 cigarettes a became acutely short of breath and he became quite hypoxic and he had to come into the hospital. Currently is on high flow oxygen at 50 L with an FiO2 of 30%. He is having diminished breath sounds along with significant bronc hospasm and wheezing. The patient's chest x-ray shows no significant interval change. No angina. No palpitation. No swelling lower extremities. No calf pain or tenderness. No fever or chills. On 09/27/2022, the patient is feeling slightly better compared to yesterday. CT antigram of the chest was done yesterday and there was no evidence of any pulmonary embolism. There is chronic perihilar and upper lobe scarring which is unchanged. There is also chronic emphysematous blebs in the upper lobes bilaterally more so on the right upper lobe. There is also another 9 mm soft tissue density in the left lower lobe which is a nonspecific finding. He is currently on high flow oxygen at 50 L with an FiO2 of 25%. Which should be able to wean him down further. He remains on IV Solu-Medrol and bronchodilators. No other significant events otherwise for now. Overall much improved. 09/28/2022, patient continues to improve and the patient currently is on 2 L O2 nasal cannula. He is gradually improving. No need for now. He was taken off the high flow oxygen today. CAT scan of the chest was. He is on bronchodilators. His been on steroids. I'm thinking that the patient may ultimately need home O2 at a time of discharge in combination with his nebulized treatments The patient is seen today 09/29/2022 follow-up on the selective care unit. He is currently sitting up in bed. Awake and alert in no acute distress. He is maintaining good O2 saturations in the 90s on 2 L/m per nasal cannula. No new labs today. He remains on DuoNeb inhalations, Symbicort, prednisone taper. Heparin for DVT prophylaxis. Evaluating this patient today on 09/30/2022 on a general medical floor. He currently is sitting up in bed, in no acute distress, on 2 L nasal cannula. Denies any acute episodes of shortness of breath or fevers overnight. He continues to have a persistent nonproductive cough. He is audibly wheezing. No new chest x-ray to review today. No new labs today. Patient did have some abdominal discomfort and distention last night. An abdominal x-ray was obtained and was essentially negative for any acute abnormality. Patient did have a small bowel movement last night. I am concerned, however, about this new distention and we'll consult surgery. Patient has an echocardiogram pending. Patient continues to be managed on DuoNeb inhalation, Symbicort inhaler, Muc inex, and oral prednisone taper. Patient's vital signs remain stable. Objective - Vital Signs Vital signs: Vital Signs Temp 98.5 F 09/30/22 07:24 Pulse 108 H 09/30/22 11:13 Resp 20 09/30/22 07:24 BP 146/90 09/30/22 07:24 Pulse Ox 96 09/30/22 07:24 FiO2 21 09/27/22 17:10 Intake & Output 09/29/22 09/30/22 09/30/22 18:59 06:59 18:59 Intake Total 836 Balance 836 Intake: Oral 836 Other: Voiding Method Toilet Toilet Toilet # Voids 2 2 - Exam GENERAL EXAM: Alert, pleasant 42-year-old male patient, comfortable in no apparent distress. HEAD: Normocephalic. EYES: Normal reaction of pupils, equal size. NOSE: Clear with pink turbinates. THROAT: No erythema or exudates. NECK: No masses, no JVD. CHEST: No chest wall deformity. LUNGS: Equal air entry with no crackles, rhonchi or dullness. Expiratory wheezes heard throughout. Currently on 2 L O2 nasal cannula. No conversational dyspnea or accessory muscle use. CVS: S1 and S2 normal, with no audible murmur, regular rhythm. Heart rate is 100 bpm ABDOMEN: No hepatosplenomegaly, normal bowel sounds, no guarding or rigidity. Patient's abdomen is moderately distended this morning. SPINE: No scoliosis or deformity SKIN: No rashes CENTRAL NERVOUS SYSTEM: No focal deficits, tone is normal in all 4 extremities. EXTREMITIES: There is no peripheral edema. No clubbing, no cyanosis. Peripheral pulses are intact. The - Labs CBC & Chem 7: 09/28/22 10:03 09/28/22 10:03 Assessment and Plan Assessment: Acute hypoxemic respiratory failure. The patient was recently hospitalized for acute RSV tracheobronchitis on top of chronic stage IV pulmonary sarcoidosis. Subsequently, the patient was discharged home and within a few hours, he presented back with acute hypoxic respiratory failure. Rule out ongoing need for home oxygen treatment. The angiogram was negative for any pulmonary embolism. Influenza screen and the Covid 19 screen came back negative also. Stage IV sarcoidosis with chronic fibrosis, unchanged compared to the earlier CAT scan of the chest Emphysema with bilateral apical bulla right more than left History of avascular necrosis of the right shoulder. History of osteoarthritis Chronic smoking Plan: Patient's medications and abdominal x-ray reviewed Continue supplemental oxygen to maintain oxygen saturation of 92% or greater May need evaluation for home oxygen on discharge Continue prednisone taper Continue DuoNeb inhalation, Symbicort inhaler, Mucinex We will consult surgery for new moderate abdominal distention We will continue to follow I have personally seen and examined the patient, performed the documentation and the assessment and plan as written. Number of minutes spent on the visit: 10. Time with Patient: Less than 30
[2022-09-30 12:37] LABS: African American GFR (CKD) >90 (>60 ml/min/1.73 sqM); Anion Gap 3 mmol/L; Blood Urea Nitrogen 22 mg/dL (9-20); Calcium 8.4 mg/dL (8.4-10.2); Chloride 93 mmol/L (98-107); Glucose 119 mg/dL (74-99); Non-African American GFR(CKD) >90 (>60 ml/min/1.73 sqM); Potassium 4.9 mmol/L (3.5-5.1); Sodium 136 mmol/L (137-145)
[2022-09-30 12:51] LABS: Carbon Dioxide 40 mmol/L (22-30)
--- NOTE | 2022-09-30 13:24 | CT ---
EXAMINATION TYPE: CT abdomen pelvis w con CT DLP: 772.6 mGycm, Automated exposure control for dose reduction was used. DATE OF EXAM: 09/30/2022 1:14 PM COMPARISON: CTA chest 09/26/2022 CLINICAL INDICATION:Male, 42 years old with history of abdominal distention, pain; abd distention TECHNIQUE: Standard CT of the abdomen and pelvis following the administration of 70 cc of Isovue 30 0 IV contrast material. Oral contrast was administered. Coronal and sagittal reformats were performed . FINDINGS: LOWER CHEST: Mild bibasilar patchy reticular groundglass opacities with some nodularity which is unch anged from most recent CT chest measuring up to 9 mm (series 4, image 7). ABDOMEN LIVER: Unremarkable GALLBLADDER AND BILE DUCTS: Unremarkable. PANCREAS: Unremarkable. SPLEEN: Unremarkable. ADRENAL GLANDS: Unremarkable. KIDNEYS AND URETERS: No evidence of hydronephrosis or renal calculus. The kidneys enhance symmetrical ly. PELVIS BLADDER: Unremarkable REPRODUCTIVE: Unremarkable. ABDOMEN & PELVIS STOMACH AND BOWEL: Stomach and duodenum are unremarkable. The appendix is within normal limits. Enter ic contrast reaches the cecum. Distal scattered colonic diverticulosis without evidence for acute div erticulitis. Moderate colonic stool burden. No evidence of bowel obstruction. PERITONEUM: No evidence of pneumoperitoneum or free fluid. VASCULATURE: No evidence of aortic aneurysm. MUSCULOSKELETAL: Heterogenous sclerosis involving the bilateral femoral heads consistent with avascul ar necrosis no subchondral collapse. LYMPH NODES: No gross evidence for lymphadenopathy. SOFT TISSUE/ABDOMINAL WALL: Diffuse anasarca. IMPRESSION: 1. No acute abdominal/pelvic process. 2. Scattered colonic diverticulosis without evidence for acute diverticulitis. 3. Diffuse anasarca. 4. Avascular necrosis of both femoral heads without evidence of subchondral collapse. 5. Redemonstration of bibasilar reticular groundglass opacities and nodularity which may be related t o reported sarcoidosis.
--- NOTE | 2022-09-30 15:48 | P.PN ---
Subjective Progress Note Date: 09/30/22 (delayed charting seen at 1130) Patient is a 42-year-old male with known COPD, sarcoidosis, tobacco dependency, and hypertension who presented to the hospital after being discharged earlier the day with acute exacerbation of COPD and RSV infection. After returning home he had increasing shortness of breath and therefore re-presented to the ER. Chest x-ray in the ER revealed findings consistent with sarcoidosis that were unchanged from prior. Initial vital signs were within normal limits however shortly after patient required aerosolized mask. Initial laboratory analysis was remarkable for white blood cell count of 12.6. He was admitted for acute exacerbation of COPD and RSV infection. Pulmonology was consulted. Patient underwent CT of the chest which was negative for pulmonary embolism but did show soft tissue densities within the perihilar lung [place] consistent with prior study and a new soft tissue density on the lateral left lung field. He was slowly weaned back down of his oxygen requirement. He developed some abdominal distention on 09/29/22 which came back as diffuse anasarca. Parents were transitioned to oral and he again began feeling short of breath. Patient seen and examined at bedside. Breathing is worse today, s/o feeling like he has stuff stuck in his lungs that he cannot cough up. CT ABD/Pelvis-no acute abdominal/pelvic process, diffuse anasarca, avascular n ecrosis of both femoral heads, redemonstration of diabetes with a reticular groundglass opacities and nodularities related to reported sarcoidosis ECHO-Ejection fraction 55-60%, severe concentric left ventricular hypertrophy, mild mitral and tricuspid insufficiency ABD X-ray- non acute abdomen General: nontoxic, no distress, appears at stated age Derm: warm, dry Head: atraumatic, normocephalic, symmetric Eyes: EOMI, no lid lag, anicteric sclera Mouth: no lip lesion, mucus membranes moist Cardiovascular: S1S2 reg, + grade 3 murmur, positive posterior tibial pulse bilateral, Lungs: Course breath sounds bilateral, no rhonchi, no rales , no accessory muscle use Abdominal: soft, nontender to palpation, no guarding, no appreciable organomegaly Ext: no gross muscle atrophy, no edema, no contractures Neuro: CN II-XI grossly intact, no focal neuro deficits Psych: Alert, oriented, appropriate affect Assessment/plan: Acute exacerbation of COPD in the setting of stage IV sarcoidosis and active RSV infection Acute hypoxic respiratory failure related-pulmonary recommendations - Continue Prednisone 60 mg - add mucinex and flutter valve -Continue with DuoNeb's -CTA of the chest ruled out pulmonary embolism Severe Concentric Left Ventricular Hypertrophy - Outpatient cardiac evaluation Hyperglycemia and leukocytosis- improving -Likely secondary to steroids -Continue to monitor Nicotine dependency - cessation encouraged. Headache, resolved Active Medications Generic Name Dose Route Start Last Admin Trade Name Freq PRN Reason Stop Dose Admin Acetaminophen 650 mg 09/27/22 15:54 09/29/22 20:34 Acetaminophen Tab 325 Mg Tab PO 650 mg Q6HR PRN Administration Fever and/ or Pain Albuterol/Ipratropium 3 ml 09/26/22 04:56 09/27/22 00:21 Ipratropium-Albuterol 3 Ml Neb INHALATION 3 ml RT-QID PRN Administration Shortness Of Breath Or Wheezing Albuterol/Ipratropium 3 ml 09/26/22 08:00 09/30/22 11:02 Ipratropium-Albuterol 3 Ml Neb INHALATION 3 ml RT-QID ANDRY Administration Alprazolam 0.5 mg 09/26/22 08:00 09/30/22 00:15 Alprazolam 0.5 Mg Tab PO 0.5 mg BID PRN Administration Anxiety Aripiprazole 15 mg 09/26/22 21:00 09/29/22 20:36 Aripiprazole 15 Mg Tab PO 15 mg HS ANDRY Administration Budesonide/Formoterol Fumarate 2 puff 09/26/22 08:00 09/30/22 07:28 Symbicort 160-4.5 Mcg Inhaler INHALATION 2 puff RT-BID ANDRY Administration Clonidine 0.1 mg 09/26/22 13:15 09/30/22 08:48 Clonidine Hcl 0.1 Mg Tab PO 0.1 mg BID ANDRY Administration Guaifenesin 600 mg 09/30/22 11:45 09/30/22 11:43 Guaifenesin 600 Mg Tablet.Er PO 600 mg Q12HR ANDRY Administration Heparin Sodium (Porcine) 5,000 unit 09/26/22 08:00 09/30/22 08:48 Heparin Sodium,Porcine/Pf 5,000 Unit/0.5 Ml Syringe SQ 5,000 unit Q8HR ANDRY Administration Ketorolac Tromethamine 15 mg 09/28/22 14:16 09/30/22 08:55 Ketorolac 15 Mg/Ml 1 Ml Vial IVP 10/01/22 14:16 15 mg Q6HR PRN Administration Pain Lamotrigine 200 mg 09/26/22 21:00 09/29/22 20:35 Lamotrigine 100 Mg Tab PO 200 mg HS ANDRY Administration Naloxone HCl 0.2 mg 09/26/22 03:43 Naloxone 0.4 Mg/Ml 1 Ml Vial IV Q2M PRN Opioid Reversal Ondansetron HCl 4 mg 09/28/22 00:47 09/30/22 08:56 Ondansetron 4 Mg/2 Ml Vial IVP 4 mg Q6HR PRN Administration Nausea And Vomiting Prednisone 60 mg 09/30/22 09:00 09/30/22 08:48 Prednisone 20 Mg Tab PO 60 mg DAILY ANDRY Administration Objective - Vital Signs Vital signs: Vital Signs Temp 98.3 F 09/30/22 13:17 Pulse 93 09/30/22 13:17 Resp 18 09/30/22 13:17 BP 159/89 09/30/22 13:17 Pulse Ox 92 L 09/30/22 13:17 FiO2 21 09/27/22 17:10 Intake & Output 09/29/22 09/30/22 09/30/22 18:59 06:59 18:59 Intake Total 836 Balance 836 Intake: Oral 836 Other: Voiding Method Toilet Toilet Toilet # Voids 2 2 - Labs CBC & Chem 7: 09/30/22 12:10 09/30/22 12:10 Labs: Abnormal Lab Results - Last 24 Hours (Table) 09/30/22 09/30/22 Range/Units 12:10 12:10 WBC 17.1 H (3.8-10.6) k/uL MCHC 30.4 L (31.0-37.0) g/dL Sodium 136 L (137-145) mmol/L Chloride 93 L (98-107) mmol/L Carbon Dioxide 40 H (22-30) mmol/L BUN 22 H (9-20) mg/dL Glucose 119 H (74-99) mg/dL
[2022-09-30] MEDS: lamoTRIgine 100 MG TAB PO SCH (21:08)
[2022-09-30] MEDS: ARIPiprazole 15 MG TAB PO SCH (21:08)
[2022-10-01] MEDS: SYMBICORT 160-4.5 MCG INHALER INHALATION SCH ×2 (04:56→19:47)
[2022-10-01] MEDS: IPRATROPIUM-ALBUTEROL 3 ML NEB INHALATION SCH ×4 (04:56→19:47)
[2022-10-01] MEDS: IPRATROPIUM-ALBUTEROL 3 ML NEB INHALATION PRN ×2 (07:44→23:25)
[2022-10-01] MEDS: HEPARIN SODIUM,PORCINE/PF 5,000 UNIT/0.5 ML SYRINGE SQ SCH ×2 (08:44→16:39)
[2022-10-01] MEDS: predniSONE 20 MG TAB PO SCH (08:44)
[2022-10-01] MEDS: KETOROLAC 15 MG/ML 1 ML VIAL IVP PRN (08:44)
[2022-10-01] MEDS: amLODIPine 5 MG TAB PO SCH (08:44)
[2022-10-01] MEDS: ONDANSETRON 4 MG/2 ML VIAL IVP PRN (08:45)
[2022-10-01] MEDS: guaiFENesin 600 MG TABLET.ER PO SCH ×2 (08:45→21:59)
[2022-10-01] MEDS ORDERED: FUROSEMIDE 10 MG/ML 4 ML VIAL IV STA (09:26)
[2022-10-01] MEDS: FLUTICASONE 50MCG/SPRAY NASAL 16GM EA NOSTRIL SCH (10:26)
[2022-10-01] MEDS: LORATADINE 10 MG TAB PO SCH (10:27)
--- NOTE | 2022-10-01 12:44 | P.PN ---
Subjective Progress Note Date: 10/01/22 Principal diagnosis: RSV infection, sarcoidosis This is a 42-year-old male patient with stage IV sarcoidosis with chronic pulmonary fibrosis. The patient was in the hospital earlier this week for RSV infection and severe bronchospasm wheezing and hypoxic respiratory failure. The patient ultimately improved and the patient was sent home on room air oxygen along with a prednisone burst taper. Within 3 hours of being home, he smokes 2 cigarettes a became acutely short of breath and he became quite hypoxic and he had to come into the hospital. Currently is on high flow oxygen at 50 L with an FiO2 of 30%. He is having diminished breath sounds along with significant bronc hospasm and wheezing. The patient's chest x-ray shows no significant interval change. No angina. No palpitation. No swelling lower extremities. No calf pain or tenderness. No fever or chills. On 09/27/2022, the patient is feeling slightly better compared to yesterday. CT antigram of the chest was done yesterday and there was no evidence of any pulmonary embolism. There is chronic perihilar and upper lobe scarring which is unchanged. There is also chronic emphysematous blebs in the upper lobes bilaterally more so on the right upper lobe. There is also another 9 mm soft tissue density in the left lower lobe which is a nonspecific finding. He is currently on high flow oxygen at 50 L with an FiO2 of 25%. Which should be able to wean him down further. He remains on IV Solu-Medrol and bronchodilators. No other significant events otherwise for now. Overall much improved. 09/28/2022, patient continues to improve and the patient currently is on 2 L O2 nasal cannula. He is gradually improving. No need for now. He was taken off the high flow oxygen today. CAT scan of the chest was. He is on bronchodilators. His been on steroids. I'm thinking that the patient may ultimately need home O2 at a time of discharge in combination with his nebulized treatments The patient is seen today 09/29/2022 follow-up on the selective care unit. He is currently sitting up in bed. Awake and alert in no acute distress. He is maintaining good O2 saturations in the 90s on 2 L/m per nasal cannula. No new labs today. He remains on DuoNeb inhalations, Symbicort, prednisone taper. Heparin for DVT prophylaxis. Evaluating this patient today on 09/30/2022 on a general medical floor. He currently is sitting up in bed, in no acute distress, on 2 L nasal cannula. Denies any acute episodes of shortness of breath or fevers overnight. He continues to have a persistent nonproductive cough. He is audibly wheezing. No new chest x-ray to review today. No new labs today. Patient did have some abdominal discomfort and distention last night. An abdominal x-ray was obtained and was essentially negative for any acute abnormality. Patient did have a small bowel movement last night. I am concerned, however, about this new distention and we'll consult surgery. Patient has an echocardiogram pending. Patient continues to be managed on DuoNeb inhalation, Symbicort inhaler, Muc inex, and oral prednisone taper. Patient's vital signs remain stable. I'm reevaluating this patient today on 10/01/2022 on a general medical floor. He's currently sitting at the edge of the bed, on 2 L nasal cannula, in no acute distress. He is a bit more wheezy today. Denies any significant shortness of breath or fevers overnight. he continues to receive DuoNeb inhalation, Symbicort inhaler, and oral prednisone taper. Abdominal workup was essentially negative, and he reports improvement in his abdominal distention today. He continues to have soft bowel movements and passing flatus. his abdominal CT from yesterday showed no acute abdominal or pelvic process; it did show some: diffuse anasarca, scattered diverticulosis without diverticulitis, avascular necrosis of both femoral heads without evidence of subchondral collapse, and redemonstration of his sarcoidosis. echocardiogram from yesterday showeda preserved ejection fraction of 55-60% with severe concentric left ventricular hypertrophy. no repeat chest x-ray from today. patient's CBC from yesterday showed improvement in his WBC count 17.1, hemoglobin 13.5, hematocrit 44.2, platelets 306,000. Patient's BMP from yesterday shows a sodium 136, potassium 4.9, chloride 93, serum CO2 was 40, BUN 22, creatinine 0.83, glucose 119. vital signs remain stable. Objective - Vital Signs Vital signs: Vital Signs Temp 98.8 F 10/01/22 08:17 Pulse 90 10/01/22 11:44 Resp 16 10/01/22 08:17 BP 149/82 10/01/22 08:17 Pulse Ox 94 L 10/01/22 08:17 FiO2 21 09/27/22 17:10 Intake & Output 09/30/22 10/01/22 10/01/22 18:59 06:59 18:59 Other: Voiding Method Toilet Toilet Toilet # Voids 6 1 # Bowel Movements 1 - Exam GENERAL EXAM: Alert, pleasant 42-year-old male patient, comfortable in no apparent distress. HEAD: Normocephalic. EYES: Normal reaction of pupils, equal size. NOSE: Clear with pink turbinates. THROAT: No erythema or exudates. NECK: No masses, no JVD. CHEST: No chest wall deformity. LUNGS: Equal air entry with no crackles, rhonchi or dullness. Expiratory wheezes heard throughout, more wheezing heard throughout the right lung. Currently on 2 L O2 nasal cannula. No conversational dyspnea or accessory muscle use. CVS: S1 and S2 normal, with no audible murmur, regular rhythm. Heart rate is 100 bpm ABDOMEN: No hepatosplenomegaly, normal bowel sounds, no guarding or rigidity. patient's abdominal distention has improved, and abdomen is soft palpation. SPINE: No scoliosis or deformity SKIN: No rashes CENTRAL NERVOUS SYSTEM: No focal deficits, tone is normal in all 4 extremities. EXTREMITIES: There is no peripheral edema. No clubbing, no cyanosis. Peripheral pulses are intact. The - Labs CBC & Chem 7: 09/30/22 12:10 09/30/22 12:10 Labs: Abnormal Lab Results - Last 24 Hours (Table) 09/30/22 Range/Units 12:10 Sodium 136 L (137-145) mmol/L Chloride 93 L (98-107) mmol/L Carbon Dioxide 40 H (22-30) mmol/L BUN 22 H (9-20) mg/dL Glucose 119 H (74-99) mg/dL Assessment and Plan Assessment: Acute hypoxemic respiratory failure. The patient was recently hospitalized for acute RSV tracheobronchitis on top of chronic stage IV pulmonary sarcoidosis. Subsequently, the patient was discharged home and within a few hours, he presented back with acute hypoxic respiratory failure. Rule out ongoing need for home oxygen treatment. The angiogram was negative for any pulmonary embolism. Influenza screen and the Covid 19 screen came back negative also. we will check procalcitonin level. Stage IV sarcoidosis with chronic fibrosis, unchanged compared to the earlier CAT scan of the chest Emphysema with bilateral apical bulla right more than left History of avascular necrosis of the right shoulder. History of osteoarthritis Chronic smoking Plan: Patient's medications, labs, abdominal CT, echocardiogram were reviewed Continue supplemental oxygen to maintain oxygen saturation of 92% or greater May need evaluation for home oxygen on discharge Continue prednisone taper Continue DuoNeb inhalation, Symbicort inhaler, Mucinex we will check procalcitoninto to rule out superimposed bacterial infection. Patient is not ready for discharge yet. His wheezing is a bit worse today, and I am worried he would end up being readmitted. We will continue to follow I have personally seen and examined the patient, performed the documentation and the assessment and plan as written. Number of minutes spent on the visit: 10. Time with Patient: Less than 30
--- NOTE | 2022-10-01 14:07 | P.PN ---
Subjective Progress Note Date: 10/01/22 CHIEF COMPLAINT: Abdominal distention HISTORY OF PRESENT ILLNESS: Patient continues to have abdominal distention with swelling into the thighs. He really feels more of a discomfort and tightness versus a pain. He is having bowel movements and flatus. He had some nausea earlier has improved. Denies any vomiting. Tolerating regular diet. Computed tomography scan showing no acute abdominal/pelvic process. Scattered colonic diverticulosis without evidence of diverticulitis diffuse anasarca. Avascular necrosis both femoral heads. Redemonstration of bibasilar reticular groundglass opacities and nodularity which may be related to reported sarcoidosis. Patient is afebrile. WBC is down from 25-17 H3 13.5 platelets 36 03/21/1938 potassium 4.9 creatinine 0.83 Medicine service did give a dose of IV Lasix PHYSICAL EXAM: VITAL SIGNS: Reviewed. GENERAL: Well-developed in no acute distress. HEENT: No sclera icterus. Extraocular movements grossly intact. Moist buccal mucosa. Head is atraumatic, normocephalic. ABDOMEN: Soft. Distended. Nontender NEUROLOGIC: Alert and oriented. Cranial nerves II through XII grossly intact. ASSESSMENT: 1. Abdominal distention with anasarca noted on CT scan 2. COPD exacerbation 3. RSV infection 4. History of sarcoidosis 5. Leukocytosis PLAN: -Continue supportive care -No surgical intervention planned -Continue regular diet Physician Ring Sewer note has been reviewed by physician. Signing provider agrees with the documented findings, assessment, and plan of care. Objective - Vital Signs Vital signs: Vital Signs Temp 98.6 F 10/01/22 13:38 Pulse 105 H 10/01/22 13:38 Resp 16 10/01/22 13:38 BP 142/73 10/01/22 13:38 Pulse Ox 93 L 10/01/22 13:38 FiO2 21 09/27/22 17:10 Intake & Output 09/30/22 10/01/22 10/01/22 18:59 06:59 18:59 Other: Voiding Method Toilet Toilet Toilet # Voids 6 1 # Bowel Movements 1 - Labs CBC & Chem 7: 09/30/22 12:10 09/30/22 12:10
--- NOTE | 2022-10-01 15:14 | P.PN ---
Subjective Progress Note Date: 10/01/22 (delayed charting seen at 0915) Patient is a 42-year-old male with known COPD, sarcoidosis, tobacco dependency, and hypertension who presented to the hospital after being discharged earlier the day with acute exacerbation of COPD and RSV infection. After returning home he had increasing shortness of breath and therefore re-presented to the ER. Chest x-ray in the ER revealed findings consistent with sarcoidosis that were unchanged from prior. Initial vital signs were within normal limits however shortly after patient required aerosolized mask. Initial laboratory analysis was remarkable for white blood cell count of 12.6. He was admitted for acute exacerbation of COPD and RSV infection. Pulmonology was consulted. Patient underwent CT of the chest which was negative for pulmonary embolism but did show soft tissue densities within the perihilar lung [place] consistent with prior study and a new soft tissue density on the lateral left lung field. He was slowly weaned back down of his oxygen requirement. He developed some abdominal distention on 09/29/22 which came back as diffuse anasarca. Parents were transitioned to oral and he again began feeling short of breath. He had some abdominal distension and CT showed anasarca. Echo showed severe LVH. Patient seen and examined at bedside. Feeling tired and worn out. Still SOB and cannot cough things up. He does report ear pain and post nasal drip. Initial diagnosis in 2006, lung biopsy, was following at [facility], had tried hydroxychlorquin and methotraxate in the past but did not tolerate. Has no been back to the in years and follows with Dr. Kwan. 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 No hx of cardiac involvement. CT ABD/Pelvis-no acute abdominal/pelvic process, diffuse anasarca, avascular necrosis of both femoral heads, redemonstration of diabetes with a reticular groundglass opacities and nodularities related to reported sarcoidosis ECHO-Ejection fraction 55-60%, severe concentric left ventricular hypertrophy, mild mitral and tricuspid insufficiency ABD X-ray- non acute abdomen General: nontoxic, no distress, appears at stated age Derm: warm, dry Head: atraumatic, normocephalic, symmetric Eyes: EOMI, no lid lag, anicteric sclera Mouth: no lip lesion, mucus membranes moist Cardiovascular: S1S2 reg, + murmur, positive posterior tibial pulse bilateral, Lungs: Course breath sounds bilateral, no rhonchi, no rales , no accessory muscle use Abdominal: soft, nontender to palpation, no guarding, no appreciable organomegaly Ext: no gross muscle atrophy, no edema, no contractures Neuro: CN II-XI grossly intact, no focal neuro deficits Psych: Alert, oriented, appropriate affect Assessment/plan: Acute exacerbation of COPD in the setting of stage IV sarcoidosis and active RSV infection Acute hypoxic respiratory failure related-pulmonary recommendations Sinusitis- viral - Continue Prednisone 60 mg - mucinex and flutter valve -Continue with DuoNeb's -CTA of the chest ruled out pulmonary embolism - flonase and claritin Severe Concentric Left Ventricular Hypertrophy HTN - Outpatient cardiac evaluation -Dr. Piper or Robby - transition from catapres to norvasc Anasarca - lasix X 1 Hyperglycemia and leukocytosis- improving -Likely secondary to steroids -Continue to monitor Nicotine dependency - cessation encouraged. Headache, resolved Active Medications Generic Name Dose Route Start Last Admin Trade Name Freq PRN Reason Stop Dose Admin Acetaminophen 650 mg 09/27/22 15:54 09/29/22 20:34 Acetaminophen Tab 325 Mg Tab PO 650 mg Q6HR PRN Administration Fever and/ or Pain Albuterol/Ipratropium 3 ml 09/26/22 04:56 10/01/22 07:44 Ipratropium-Albuterol 3 Ml Neb INHALATION 3 ml RT-QID PRN Administration Shortness Of Breath Or Wheezing Albuterol/Ipratropium 3 ml 09/26/22 08:00 10/01/22 11:35 Ipratropium-Albuterol 3 Ml Neb INHALATION 3 ml RT-QID ANDRY Administration Alprazolam 0.5 mg 09/26/22 08:00 09/30/22 21:08 Alprazolam 0.5 Mg Tab PO 0.5 mg BID PRN Administration Anxiety Amlodipine Besylate 5 mg 10/01/22 09:00 10/01/22 08:44 Amlodipine 5 Mg Tab PO 5 mg DAILY ANDRY Administration Aripiprazole 15 mg 09/26/22 21:00 09/30/22 21:08 Aripiprazole 15 Mg Tab PO 15 mg HS ANDRY Administration Budesonide/Formoterol Fumarate 2 puff 09/26/22 08:00 10/01/22 04:56 Symbicort 160-4.5 Mcg Inhaler INHALATION 2 puff RT-BID ANDRY Administration Fluticasone Propionate 2 spray 10/01/22 10:00 10/01/22 10:26 Fluticasone 50mcg/[place] Nasal 16gm EA NOSTRIL 2 spray DAILY ANDRY Administration Guaifenesin 600 mg 09/30/22 11:45 10/01/22 08:45 Guaifenesin 600 Mg Tablet.Er PO 600 mg Q12HR ANDRY Administration Heparin Sodium (Porcine) 5,000 unit 09/26/22 08:00 10/01/22 08:44 Heparin Sodium,Porcine/Pf 5,000 Unit/0.5 Ml Syringe SQ 5,000 unit Q8HR ANDRY Administration Lamotrigine 200 mg 09/26/22 21:00 09/30/22 21:08 Lamotrigine 100 Mg Tab PO 200 mg HS ANDRY Administration Loratadine 10 mg 10/01/22 10:00 10/01/22 10:27 Loratadine 10 Mg Tab PO 10 mg DAILY ANDRY Administration Naloxone HCl 0.2 mg 09/26/22 03:43 Naloxone 0.4 Mg/Ml 1 Ml Vial IV Q2M PRN Opioid Reversal Ondansetron HCl 4 mg 09/28/22 00:47 10/01/22 08:45 Ondansetron 4 Mg/2 Ml Vial IVP 4 mg Q6HR PRN Administration Nausea And Vomiting Prednisone 60 mg 09/30/22 09:00 10/01/22 08:44 Prednisone 20 Mg Tab PO 60 mg DAILY ANDRY Administration Objective - Vital Signs Vital signs: Vital Signs Temp 98.6 F 10/01/22 13:38 Pulse 105 H 10/01/22 13:38 Resp 16 10/01/22 13:38 BP 142/73 10/01/22 13:38 Pulse Ox 93 L 10/01/22 13:38 FiO2 21 09/27/22 17:10 Intake & Output 09/30/22 10/01/22 10/01/22 18:59 06:59 18:59 Other: Voiding Method Toilet Toilet Toilet # Voids 6 1 # Bowel Movements 1 - Labs CBC & Chem 7: 09/30/22 12:10 09/30/22 12:10
[2022-10-01] MEDS: ARIPiprazole 15 MG TAB PO SCH (21:59)
[2022-10-01] MEDS: lamoTRIgine 100 MG TAB PO SCH (21:59)
[2022-10-01] MEDS: ALPRAZolam 0.5 MG TAB PO PRN (22:01)
[2022-10-02] MEDS: HEPARIN SODIUM,PORCINE/PF 5,000 UNIT/0.5 ML SYRINGE SQ SCH ×4 (00:16→15:54)
[2022-10-02] MEDS: IPRATROPIUM-ALBUTEROL 3 ML NEB INHALATION PRN ×2 (04:38→23:27)
[2022-10-02 07:09] LABS: HCT 41.6 % (39.0-53.0); HGB 12.9 gm/dL (13.0-17.5); Hypochromasia Slight; MCH 28.4 pg (25.0-35.0); MCV 91.6 fL (80.0-100.0); Mean Platelet Volume 7.1; Platelet Count 260 k/uL (150-450); RBC 4.54 m/uL (4.30-5.90); RDW 14.3 % (11.5-15.5); WBC 17.1 k/uL (3.8-10.6)
[2022-10-02 07:18] LABS: African American GFR (CKD) >90 (>60 ml/min/1.73 sqM); Blood Urea Nitrogen 18 mg/dL (9-20); Calcium 8.2 mg/dL (8.4-10.2); Chloride 94 mmol/L (98-107); Glucose 117 mg/dL (74-99); Non-African American GFR(CKD) >90 (>60 ml/min/1.73 sqM); Potassium 3.7 mmol/L (3.5-5.1); Sodium 140 mmol/L (137-145)
[2022-10-02 07:25] LABS: Anion Gap 4 mmol/L
[2022-10-02 07:37] LABS: Carbon Dioxide 42 mmol/L (22-30)
[2022-10-02] MEDS: IPRATROPIUM-ALBUTEROL 3 ML NEB INHALATION SCH ×4 (07:56→19:29)
[2022-10-02] MEDS: SYMBICORT 160-4.5 MCG INHALER INHALATION SCH ×2 (07:56→19:29)
--- NOTE | 2022-10-02 09:12 | XR ---
EXAMINATION TYPE: XR chest 1V portable DATE OF EXAM: 10/02/2022 CLINICAL HISTORY: Difficulty breathing progress study. TECHNIQUE: Single AP portable upright view of the chest is obtained. COMPARISON: Chest x-ray using CTA chest from 6 day earlier and older studies FINDINGS: Advanced emphysematous change with perihilar opacities corresponding to chronic consolidat ion is redemonstrated. No pleural effusion or pneumothorax seen bilaterally. Cardiac silhouette size stable and within normal limits. Underlying scoliotic curvature is present. IMPRESSION: No significant change from prior studies. Advanced emphysematous change with bilateral ce ntral opacities favoring chronic consolidation.
[2022-10-02] MEDS ORDERED: FUROSEMIDE 10 MG/ML 4 ML VIAL IV STA (09:14)
[2022-10-02] MEDS: predniSONE 20 MG TAB PO SCH (09:38)
[2022-10-02] MEDS: FLUTICASONE 50MCG/SPRAY NASAL 16GM EA NOSTRIL SCH (09:38)
[2022-10-02] MEDS: LORATADINE 10 MG TAB PO SCH (09:38)
[2022-10-02] MEDS: amLODIPine 5 MG TAB PO SCH (09:38)
[2022-10-02] MEDS: guaiFENesin 600 MG TABLET.ER PO SCH ×2 (09:38→21:15)
--- NOTE | 2022-10-02 11:43 | P.PN ---
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 The patient was in the hospital earlier this week for RSV infection and severe bronchospasm wheezing and hypoxic respiratory failure. The patient ultimately improved and the patient was sent home on room air oxygen along with a prednisone burst taper. Within 3 hours of being home, he smokes 2 cigarettes a became acutely short of breath and he became quite hypoxic and he had to come into the hospital. Currently is on high flow oxygen at 50 L with an FiO2 of 30%. He is having diminished breath sounds along with significant bronc hospasm and wheezing. The patient's chest x-ray shows no significant interval change. No angina. No palpitation. No swelling lower extremities. No calf pain or tenderness. No fever or chills. On 09/27/2022, the patient is feeling slightly better compared to yesterday. CT antigram of the chest was done yesterday and there was no evidence of any pulmonary embolism. There is chronic perihilar and upper lobe scarring which is unchanged. There is also chronic emphysematous blebs in the upper lobes bilaterally more so on the right upper lobe. There is also another 9 mm soft tissue density in the left lower lobe which is a nonspecific finding. He is currently on high flow oxygen at 50 L with an FiO2 of 25%. Which should be able to wean him down further. He remains on IV Solu-Medrol and bronchodilators. No other significant events otherwise for now. Overall much improved. 09/28/2022, patient continues to improve and the patient currently is on 2 L O2 nasal cannula. He is gradually improving. No need for now. He was taken off the high flow oxygen today. CAT scan of the chest was. He is on bronchodilators. His been on steroids. I'm thinking that the patient may ultimately need home O2 at a time of discharge in combination with his nebulized treatments The patient is seen today 09/29/2022 follow-up on the selective care unit. He is currently sitting up in bed. Awake and alert in no acute distress. He is maintaining good O2 saturations in the 90s on 2 L/m per nasal cannula. No new labs today. He remains on DuoNeb inhalations, Symbicort, prednisone taper. Heparin for DVT prophylaxis. Evaluating this patient today on 09/30/2022 on a general medical floor. He currently is sitting up in bed, in no acute distress, on 2 L nasal cannula. Denies any acute episodes of shortness of breath or fevers overnight. He continues to have a persistent nonproductive cough. He is audibly wheezing. No new chest x-ray to review today. No new labs today. Patient did have some abdominal discomfort and distention last night. An abdominal x-ray was obtained and was essentially negative for any acute abnormality. Patient did have a smal l bowel movement last night. I am concerned, however, about this new distention and we'll consult surgery. Patient has an echocardiogram pending. Patient continues to be managed on DuoNeb inhalation, Symbicort inhaler, Mucinex, and oral prednisone taper. Patient's vital signs remain stable. I'm reevaluating this patient today on 10/01/2022 on a general medical floor. He's currently sitting at the edge of the bed, on 2 L nasal cannula, in no acute distress. He is a bit more wheezy today. Denies any significant shortness of breath or fevers overnight. he continues to receive DuoNeb inhalation, Symbicort inhaler, and oral prednisone taper. Abdominal workup was essentially negative, and he reports improvement in his abdominal distention today. He continues to have soft bowel movements and passing flatus. his abdominal CT from yesterday showed no acute abdominal or pelvic process; it did show some: diffuse anasarca, scattered diverticulosis without diverticulitis, avascular necrosis of both femoral heads without evidence of subchondral collapse, and redemonstration of his sarcoidosis. echocardiogram from yesterday showeda preserved ejection fraction of 55-60% with severe concentric left ventricular hypertrophy. no repeat chest x-ray from today. patient's CBC from yesterday showed improvement in his WBC count 17.1, hemoglobin 13.5, hematocrit 44.2, platelets 306,000. Patient's BMP from yesterday shows a sodium 136, potassium 4.9, chloride 93, serum CO2 was 40, BUN 22, creatinine 0.83, glucose 119. vital signs remain stable. This patient today 10/02/2022 in follow-up on a general medical floor. The patient is sitting up in bed, in no acute distress, on 2 L nasal cannula. He continues to have some persistent wheezing especially in the right lung. He denies any significant significant shortness of breath or fevers overnight. Coronary he continues DuoNeb inhalation, Symbicort inhaler, and oral prednisone taper. His repeat chest x-ray from today showed no significant change from priors studies, and some emphysematous changes. patient's CBC from today continues to show some leukocytosis with a WBC count of 17.1, hemoglobin 12.9, hematocrit 21.6, platelets 260,000. Patient's BMP shows a sodium of 140, potassium 3.7, chloride 94, a chronically high serum CO2 42, BUN 18, creatinine 0.81, glucose 117. His vital signs remain stable. Objective - Vital Signs Vital signs: Vital Signs Temp 98.7 F 10/02/22 07:52 Pulse 104 H 10/02/22 09:17 Resp 18 10/02/22 07:52 BP 142/82 10/02/22 07:52 Pulse Ox 86 L 10/02/22 09:17 FiO2 21 09/27/22 17:10 Intake & Output 10/01/22 10/02/22 10/02/22 18:59 06:59 18:59 Other: Voiding Method Toilet Toilet # Voids 1 - Exam GENERAL EXAM: Alert, pleasant 42-year-old -[place] male patient, comfortable in no apparent distress. HEAD: Normocephalic. EYES: Normal reaction of pupils, equal size. NOSE: Clear with pink turbinates. THROAT: No erythema or exudates. NECK: No masses, no JVD. CHEST: No chest wall deformity. LUNGS: Equal air entry with no crackles, rhonchi or dullness. Expiratory wheezes heard throughout, more wheezing heard throughout the right lung. Curr ently on 2 L O2 nasal cannula. No conversational dyspnea or accessory muscle use. CVS: S1 and S2 normal, with no audible murmur, regular rhythm. Heart rate is 106 bpm ABDOMEN: No hepatosplenomegaly, normal bowel sounds, no guarding or rigidity. patient's abdominal distention has improved, and abdomen is soft palpation. SPINE: No scoliosis or deformity SKIN: No rashes CENTRAL NERVOUS SYSTEM: No focal deficits, tone is normal in all 4 extremities. EXTREMITIES: There is no peripheral edema. No clubbing, no cyanosis. Peripheral pulses are intact. - Labs CBC & Chem 7: 10/02/22 06:53 10/02/22 06:53 Labs: Abnormal Lab Results - Last 24 Hours (Table) 10/02/22 10/02/22 Range/Units 06:53 06:53 WBC 17.1 H (3.8-10.6) k/uL Hgb 12.9 L (13.0-17.5) gm/dL Chloride 94 L (98-107) mmol/L Carbon Dioxide 42 H* (22-30) mmol/L Glucose 117 H (74-99) mg/dL Calcium 8.2 L (8.4-10.2) mg/dL Assessment and Plan Assessment: Acute hypoxemic respiratory failure. The patient was recently hospitalized for acute RSV tracheobronchitis on top of chronic stage IV pulmonary sarcoidosis. Subsequently, the patient was discharged home and within a few hours, he presented back with acute hypoxic respiratory failure. Rule out ongoing need for home oxygen treatment. The angiogram was negative for any pulmonary embolism. Influenza screen and the Covid 19 screen came back negative also. we will check procalcitonin level. Stage IV sarcoidosis with chronic fibrosis, unchanged compared to the earlier CAT scan of the chest Emphysema with bilateral apical bulla right more than left History of avascular necrosis of the right shoulder. History of osteoarthritis Chronic smoking Plan: Patient's medications, labs, abdominal CT, echocardiogram were reviewed Continue supplemental oxygen to maintain oxygen saturation of 92% or greater May need evaluation for home oxygen on discharge Continue prednisone taper Continue DuoNeb inhalation, Symbicort inhaler, Mucinex we will check procalcitonin to rule out superimposed bacterial infection. Patient is not ready for discharge yet. We will continue to follow I have personally seen and examined the patient, performed the documentation and the assessment and plan as written. Number of minutes spent on the visit: 10. Time with Patient: Less than 30
--- NOTE | 2022-10-02 15:11 | P.PN ---
Subjective Progress Note Date: 10/02/22 CHIEF COMPLAINT: Abdominal distention HISTORY OF PRESENT ILLNESS: Patient's abdominal distention and tightness in the thighs is showing improvement with the IV Lasix. Patient denies any abdominal pain. He is having bowel movements. Tolerating diet. Afebrile. WBC 17.1 hemoglobin 12.9-60 sodium is 140 potassium 3.7 creatinine 0.81 PHYSICAL EXAM: VITAL SIGNS: Reviewed. GENERAL: Well-developed in no acute distress. HEENT: No sclera icterus. Extraocular movements grossly intact. Moist buccal mucosa. Head is atraumatic, normocephalic. ABDOMEN: Soft. less Distended. Nontender NEUROLOGIC: Alert and oriented. Cranial nerves II through XII grossly intact. ASSESSMENT: 1. Abdominal distention with anasarca noted on CT scan 2. COPD exacerbation 3. RSV infection 4. History of sarcoidosis 5. Leukocytosis PLAN: -Continue supportive care -No surgical intervention planned -Continue regular diet -Agree with diuretics Physician [employer] Cook note has been reviewed by physician. Signing provider agrees with the documented findings, assessment, and plan of care. I have personally seen and examined the patient, reviewed the TRA[employer] /PAs history, exam and MDM and agree with the assessment and plan as written. Based on total visit time, I have performed more than 50% of the visit. As above: Patient tolerating regular diet. No abdominal pain at this time. We'll sign off. Please call if needed. Objective - Vital Signs Vital signs: Vital Signs Temp 98.1 F 10/02/22 12:40 Pulse 98 10/02/22 12:40 Resp 18 10/02/22 12:40 BP 142/85 10/02/22 12:40 Pulse Ox 97 10/02/22 12:40 FiO2 21 09/27/22 17:10 Intake & Output 10/01/22 10/02/22 10/02/22 18:59 06:59 18:59 Other: Voiding Method Toilet Toilet # Voids 1 - Labs CBC & Chem 7: 10/02/22 06:53 10/02/22 06:53 Labs: Abnormal Lab Results - Last 24 Hours (Table) 10/02/22 10/02/22 Range/Units 06:53 06:53 WBC 17.1 H (3.8-10.6) k/uL Hgb 12.9 L (13.0-17.5) gm/dL Chloride 94 L (98-107) mmol/L Carbon Dioxide 42 H* (22-30) mmol/L Glucose 117 H (74-99) mg/dL Calcium 8.2 L (8.4-10.2) mg/dL
--- NOTE | 2022-10-02 16:29 | P.PN ---
Subjective Progress Note Date: 10/02/22 (delayed charting seen at 0845) Patient is a 42-year-old male with known COPD, sarcoidosis, tobacco dependency, and hypertension who presented to the hospital after being discharged earlier the day with acute exacerbation of COPD and RSV infection. After returning home he had increasing shortness of breath and therefore re-presented to the ER. Chest x-ray in the ER revealed findings consistent with sarcoidosis that were unchanged from prior. Initial vital signs were within normal limits however shortly after patient required aerosolized mask. Initial laboratory analysis was remarkable for white blood cell count of 12.6. He was admitted for acute exacerbation of COPD and RSV infection. Pulmonology was consulted. Patient underwent CT of the chest which was negative for pulmonary embolism but did show soft tissue densities within the perihilar lung [place] consistent with prior study and a new soft tissue density on the lateral left lung field. He was slowly weaned back down of his oxygen requirement. He developed some abdominal distention on 09/29/22 which came back as diffuse anasarca. Parents were transitioned to oral and he again began feeling short of breath. He had some abdominal distension and CT showed anasarca. Echo showed severe LVH. CT ABD/Pelvis-no acute abdominal/pelvic process, diffuse anasarca, avascular necrosis of both femoral heads, redemonstration of diabetes with a reticular groundglass opacities and nodularities related to reported sarcoidosis ECHO-Ejection fraction 55-60%, severe concentric left ventricular hypertrophy, mild mitral and tricuspid insufficiency ABD X-ray- non acute abdomen Patient seen and examined at bedside. He reports some improvement with lasix yesterday, his mucus is coming up easier and breathing slightly better. We discussed that he will need O2 on discharge and short term disability. General: nontoxic, no distress, appears at stated age Derm: warm, dry Head: atraumatic, normocephalic, symmetric Eyes: EOMI, no lid lag, anicteric sclera Mouth: no lip lesion, mucus membranes moist Cardiovascular: S1S2 reg, + murmur, positive posterior tibial pulse bilateral, Lungs: Course breath sounds bilateral, no rhonchi, no rales , no accessory muscle use Abdominal: soft, nontender to palpation, no guarding, no appreciable or ganomegaly Ext: no gross muscle atrophy, no edema, no contractures Neuro: CN II-XI grossly intact, no focal neuro deficits Psych: Alert, oriented, appropriate affect Assessment/plan: Acute exacerbation of COPD in the setting of stage IV sarcoidosis and active RSV infection Acute hypoxic respiratory failure related-pulmonary recommendations Sinusitis- viral - Continue Prednisone 60 mg - mucinex and flutter valve -Continue with DuoNeb's - CTA of the chest ruled out pulmonary embolism - flonase and claritin - liekly will need home O2 at discharge RA with ambulation 85% Severe Concentric Left Ventricular Hypertrophy HTN - Outpatient cardiac evaluation -Dr. Piper or Robby - transition from [facility] to [facility] Anasarca - lasix X 1 again today Hyperglycemia and leukocytosis- improving -Likely secondary to steroids -Continue to monitor Nicotine dependency - cessation encouraged. Headache, resolved Active Medications Generic Name Dose Route Start Last Admin Trade Name Freq PRN Reason Stop Dose Admin Acetaminophen 650 mg 09/27/22 15:54 09/29/22 20:34 Acetaminophen Tab 325 Mg Tab PO 650 mg Q6HR PRN Administration Fever and/ or Pain Albuterol/Ipratropium 3 ml 09/26/22 04:56 10/02/22 04:38 Ipratropium-Albuterol 3 Ml Neb INHALATION 3 ml RT-QID PRN Administration Shortness Of Breath Or Wheezing Albuterol/Ipratropium 3 ml 09/26/22 08:00 10/02/22 16:04 Ipratropium-Albuterol 3 Ml Neb INHALATION 3 ml RT-QID ANDRY Administration Alprazolam 0.5 mg 09/26/22 08:00 10/01/22 22:01 Alprazolam 0.5 Mg Tab PO 0.5 mg BID PRN Administration Anxiety Amlodipine Besylate 5 mg 10/01/22 09:00 10/02/22 09:38 Amlodipine 5 Mg Tab PO 5 mg DAILY ANDRY Administration Aripiprazole 15 mg 09/26/22 21:00 10/01/22 21:59 Aripiprazole 15 Mg Tab PO 15 mg HS ANDRY Administration Budesonide/Formoterol Fumarate 2 puff 09/26/22 08:00 10/02/22 07:56 Symbicort 160-4.5 Mcg Inhaler INHALATION 2 puff RT-BID ANDRY Administration Fluticasone Propionate 2 spray 10/01/22 10:00 10/02/22 09:38 Fluticasone 50mcg/[place] Nasal 16gm EA NOSTRIL 2 spray DAILY ANDRY Administration Guaifenesin 600 mg 09/30/22 11:45 10/02/22 09:38 Guaifenesin 600 Mg Tablet.Er PO 600 mg Q12HR ANDRY Administration Heparin Sodium (Porcine) 5,000 unit 09/26/22 08:00 10/02/22 15:54 Heparin Sodium,Porcine/Pf 5,000 Unit/0.5 Ml Syringe SQ Not Given Q8HR ANDRY Lamotrigine 200 mg 09/26/22 21:00 10/01/22 21:59 Lamotrigine 100 Mg Tab PO 200 mg HS ANDRY Administration Loratadine 10 mg 10/01/22 10:00 10/02/22 09:38 Loratadine 10 Mg Tab PO 10 mg DAILY ANDRY Administration Naloxone HCl 0.2 mg 09/26/22 03:43 Naloxone 0.4 Mg/Ml 1 Ml Vial IV Q2M PRN Opioid Reversal Ondansetron HCl 4 mg 09/28/22 00:47 10/01/22 08:45 Ondansetron 4 Mg/2 Ml Vial IVP 4 mg Q6HR PRN Administration Nausea And Vomiting Prednisone 60 mg 09/30/22 09:00 10/02/22 09:38 Prednisone 20 Mg Tab PO 60 mg DAILY ANDRY Administration Objective - Vital Signs Vital signs: Vital Signs Temp 98.1 F 10/02/22 12:40 Pulse 98 10/02/22 16:16 Resp 18 10/02/22 12:40 BP 142/85 10/02/22 12:40 Pulse Ox 97 10/02/22 12:40 FiO2 21 09/27/22 17:10 Intake & Output 10/01/22 10/02/22 10/02/22 18:59 06:59 18:59 Other: Voiding Method Toilet Toilet # Voids 1 - Labs CBC & Chem 7: 10/02/22 06:53 10/02/22 06:53 Labs: Abnormal Lab Results - Last 24 Hours (Table) 10/02/22 10/02/22 Range/Units 06:53 06:53 WBC 17.1 H (3.8-10.6) k/uL Hgb 12.9 L (13.0-17.5) gm/dL Chloride 94 L (98-107) mmol/L Carbon Dioxide 42 H* (22-30) mmol/L Glucose 117 H (74-99) mg/dL Calcium 8.2 L (8.4-10.2) mg/dL
[2022-10-02] MEDS: ARIPiprazole 15 MG TAB PO SCH (21:15)
[2022-10-02] MEDS: lamoTRIgine 100 MG TAB PO SCH (21:15)
[2022-10-03] MEDS: HEPARIN SODIUM,PORCINE/PF 5,000 UNIT/0.5 ML SYRINGE SQ SCH ×2 (00:30→08:40)
[2022-10-03 03:25] VITALS: RESP 20
[2022-10-03] MEDS: IPRATROPIUM-ALBUTEROL 3 ML NEB INHALATION PRN (04:34)
[2022-10-03 07:39] LABS: HGB 12.8 gm/dL (13.0-17.5); Hypochromasia Slight; MCH 27.8 pg (25.0-35.0); MCHC 30.4 g/dL (31.0-37.0); MCV 91.4 fL (80.0-100.0); Platelet Count 271 k/uL (150-450); RBC 4.59 m/uL (4.30-5.90); RDW 14.3 % (11.5-15.5); WBC 19.3 k/uL (3.8-10.6)
[2022-10-03 07:51] LABS: African American GFR (CKD) >90 (>60 ml/min/1.73 sqM); Blood Urea Nitrogen 15 mg/dL (9-20); Calcium 8.4 mg/dL (8.4-10.2); Chloride 93 mmol/L (98-107); Glucose 76 mg/dL (74-99); Non-African American GFR(CKD) >90 (>60 ml/min/1.73 sqM); Sodium 137 mmol/L (137-145)
[2022-10-03 07:58] LABS: Anion Gap 1 mmol/L
[2022-10-03] MEDS: SYMBICORT 160-4.5 MCG INHALER INHALATION SCH (07:59)
[2022-10-03] MEDS: IPRATROPIUM-ALBUTEROL 3 ML NEB INHALATION SCH ×2 (07:59→11:29)
[2022-10-03 08:04] LABS: Carbon Dioxide 43 mmol/L (22-30)
[2022-10-03] MEDS: predniSONE 20 MG TAB PO SCH (08:39)
[2022-10-03] MEDS: LORATADINE 10 MG TAB PO SCH (08:39)
[2022-10-03] MEDS: guaiFENesin 600 MG TABLET.ER PO SCH (08:39)
[2022-10-03] MEDS: FLUTICASONE 50MCG/SPRAY NASAL 16GM EA NOSTRIL SCH (08:40)
[2022-10-03 08:45] VITALS: BP 159/87; TEMP 97.8
[2022-10-03] MEDS ORDERED: amLODIPine 10 MG TAB PO SCH (09:00)
[2022-10-03 11:44] VITALS: PULSE 90
--- NOTE | 2022-10-03 12:18 | P.PN ---
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 The patient was in the hospital earlier this week for RSV infection and severe bronchospasm wheezing and hypoxic respiratory failure. The patient ultimately improved and the patient was sent home on room air oxygen along with a prednisone burst taper. Within 3 hours of being home, he smokes 2 cigarettes a became acutely short of breath and he became quite hypoxic and he had to come into the hospital. Currently is on high flow oxygen at 50 L with an FiO2 of 30%. He is having diminished breath sounds along with significant bronc hospasm and wheezing. The patient's chest x-ray shows no significant interval change. No angina. No palpitation. No swelling lower extremities. No calf pain or tenderness. No fever or chills. On 09/27/2022, the patient is feeling slightly better compared to yesterday. CT antigram of the chest was done yesterday and there was no evidence of any pulmonary embolism. There is chronic perihilar and upper lobe scarring which is unchanged. There is also chronic emphysematous blebs in the upper lobes bilaterally more so on the right upper lobe. There is also another 9 mm soft tissue density in the left lower lobe which is a nonspecific finding. He is currently on high flow oxygen at 50 L with an FiO2 of 25%. Which should be able to wean him down further. He remains on IV Solu-Medrol and bronchodilators. No other significant events otherwise for now. Overall much improved. 09/28/2022, patient continues to improve and the patient currently is on 2 L O2 nasal cannula. He is gradually improving. No need for now. He was taken off the high flow oxygen today. CAT scan of the chest was. He is on bronchodilators. His been on steroids. I'm thinking that the patient may ultimately need home O2 at a time of discharge in combination with his nebulized treatments The patient is seen today 09/29/2022 follow-up on the selective care unit. He is currently sitting up in bed. Awake and alert in no acute distress. He is maintaining good O2 saturations in the 90s on 2 L/m per nasal cannula. No new labs today. He remains on DuoNeb inhalations, Symbicort, prednisone taper. Heparin for DVT prophylaxis. Evaluating this patient today on 09/30/2022 on a general medical floor. He currently is sitting up in bed, in no acute distress, on 2 L nasal cannula. Denies any acute episodes of shortness of breath or fevers overnight. He continues to have a persistent nonproductive cough. He is audibly wheezing. No new chest x-ray to review today. No new labs today. Patient did have some abdominal discomfort and distention last night. An abdominal x-ray was obtained and was essentially negative for any acute abnormality. Patient did have a smal l bowel movement last night. I am concerned, however, about this new distention and we'll consult surgery. Patient has an echocardiogram pending. Patient continues to be managed on DuoNeb inhalation, Symbicort inhaler, Mucinex, and oral prednisone taper. Patient's vital signs remain stable. I'm reevaluating this patient today on 10/01/2022 on a general medical floor. He's currently sitting at the edge of the bed, on 2 L nasal cannula, in no acute distress. He is a bit more wheezy today. Denies any significant shortness of breath or fevers overnight. he continues to receive DuoNeb inhalation, Symbicort inhaler, and oral prednisone taper. Abdominal workup was essentially negative, and he reports improvement in his abdominal distention today. He continues to have soft bowel movements and passing flatus. his abdominal CT from yesterday showed no acute abdominal or pelvic process; it did show some: diffuse anasarca, scattered diverticulosis without diverticulitis, avascular necrosis of both femoral heads without evidence of subchondral collapse, and redemonstration of his sarcoidosis. echocardiogram from yesterday showeda preserved ejection fraction of 55-60% with severe concentric left ventricular hypertrophy. no repeat chest x-ray from today. patient's CBC from yesterday showed improvement in his WBC count 17.1, hemoglobin 13.5, hematocrit 44.2, platelets 306,000. Patient's BMP from yesterday shows a sodium 136, potassium 4.9, chloride 93, serum CO2 was 40, BUN 22, creatinine 0.83, glucose 119. vital signs remain stable. This patient today 10/02/2022 in follow-up on a general medical floor. The patient is sitting up in bed, in no acute distress, on 2 L nasal cannula. He continues to have some persistent wheezing especially in the right lung. He denies any significant significant shortness of breath or fevers overnight. Coronary he continues DuoNeb inhalation, Symbicort inhaler, and oral prednisone taper. His repeat chest x-ray from today showed no significant change from priors studies, and some emphysematous changes. patient's CBC from today continues to show some leukocytosis with a WBC count of 17.1, hemoglobin 12.9, hematocrit 21.6, platelets 260,000. Patient's BMP shows a sodium of 140, potassium 3.7, chloride 94, a chronically high serum CO2 42, BUN 18, creatinine 0.81, glucose 117. His vital signs remain stable. I'm reevaluating this patient today on 10/03/2022 in follow-up on a general medical floor. The patient is currently sitting up in bed, in no acute distress, on 2 L nasal cannula. Patient's lungs sound much better today. No new chest x-ray to review today. Patient's CBC from today shows some leukocytosis and WBC count of 19.3, hemoglobin 12.8, hematocrit 42, platelets 271,000. Patient's BMP from today has been stable with a sodium of 137, potassium 4, chloride 93, serum CO2 chronically high 43, BUN 15, creatinine 0.76, glucose 76. Patient's procalcitonin was quite low at 0.07. Patient has been afebrile. I don't suspect superimposed bacterial infection at this time. Patient is maintained on DuoNeb inhalation, Symbicort inhaler, and oral prednisone. His vital signs remain stable. He will be discharged on home oxygen and the equipment is at the bedside. Objective - Vital Signs Vital signs: Vital Signs Temp 97.8 F 10/03/22 08:18 Pulse 90 10/03/22 11:44 Resp 20 10/03/22 02:22 BP 159/87 10/03/22 08:18 Pulse Ox 99 10/03/22 08:18 FiO2 21 09/27/22 17:10 Intake & Output 10/02/22 10/03/22 10/03/22 18:59 06:59 18:59 Intake Total 835 Balance 835 Intake: Oral 835 Other: Voiding Method Toilet Toilet # Voids 4 1 - Exam GENERAL EXAM: Alert, pleasant 42-year-old -[place] male patient, comfortable in no apparent distress. HEAD: Normocephalic. EYES: Normal reaction of pupils, equal size. NOSE: Clear with pink turbinates. THROAT: No erythema or exudates. NECK: No masses, no JVD. CHEST: No chest wall deformity. LUNGS: Equal air entry with no crackles, rhonchi or dullness. Expiratory wheezes heard throughout with increased aeration. Currently on 2 L O2 nasal cannula. No conversational dyspnea or accessory muscle use. CVS: S1 and S2 normal, with no audible murmur, regular rhythm. Heart rate is 106 bpm ABDOMEN: No hepatosplenomegaly, normal bowel sounds, no guarding or rigidity. patient's abdominal distention has improved, and abdomen is soft palpation. SPINE: No scoliosis or deformity SKIN: No rashes CENTRAL NERVOUS SYSTEM: No focal deficits, tone is normal in all 4 extremities. EXTREMITIES: There is no peripheral edema. No clubbing, no cyanosis. Peripheral pulses are intact. - Labs CBC & Chem 7: 10/03/22 07:18 10/03/22 07:18 Labs: Abnormal Lab Results - Last 24 Hours (Table) 10/03/22 10/03/22 Range/Units 07:18 07:18 WBC 19.3 H (3.8-10.6) k/uL Hgb 12.8 L (13.0-17.5) gm/dL MCHC 30.4 L (31.0-37.0) g/dL Chloride 93 L (98-107) mmol/L Carbon Dioxide 43 H* (22-30) mmol/L Assessment and Plan Assessment: Acute hypoxemic respiratory failure. The patient was recently hospitalized for acute RSV tracheobronchitis on top of chronic stage IV pulmonary sarcoidosis. Subsequently, the patient was discharged home and within a few hours, he presented back with acute hypoxic respiratory failure. The angiogram was negative for any pulmonary embolism. Influenza screen and the Covid 19 screen came back negative also. Procalcitonin level was low. Patient will be discharged on home oxygen and his equipment is at bedside. Patient will remain on oral prednisone on discharge. We will taper his prednisone down to 40 mg PO daily, and he will remain at this dose until his follow-up office visit. Stage IV sarcoidosis with chronic fibrosis, unchanged compared to the earlier CAT scan of the chest Emphysema with bilateral apical bulla right more than left History of avascular necrosis of the right shoulder. History of osteoarthritis Chronic smoking Plan: Patient's medications and labs reviewed will be discharged with home oxygen, and this equipment is at the bedside Continue prednisone taper to 40 mg daily, and remain at this dose until follow- up office visit Continue DuoNeb inhalation, Symbicort inhaler, Mucinex procalcitonin level was low, and I doubt superimposed bacterial infection. patient is cleared for discharge from a pulmonary standpoint. we will see this patient in the office for follow-up. I have personally seen and examined the patient, performed the documentation and the assessment and plan as written. Number of minutes spent on the visit: 10. Time with Patient: Less than 30
--- NOTE | 2022-10-03 16:10 | P.DS ---
Providers Date of admission: 09/26/22 03:45 Expected date of discharge: 10/03/22 Attending physician: Sandra Wilkins MD Consults: 09/26/22 03:43 Consult Physician Routine Consulting Provider: Huong Del Valle Consult Reason/Comments: SOB with Sarcoidosis, RSV Do you want consulting provider notified?: Yes, Notify in am 09/30/22 08:19 Consult Physician Routine Consulting Provider: Tono Thompson Consult Reason/Comments: abdominal distention Do you want consulting provider notified?: Yes Primary care physician: Maximino Dunham MD Hospital Course: Discharge Diagnosis: Acute exacerbation of COPD in the setting of stage IV sarcoidosis and active RSV infection Acute hypoxic respiratory failure related-pulmonary recommendations Sinusitis- viral Severe Concentric Left Ventricular Hypertrophy HTN, urgency on admission Hyperglycemia Leukocytosis Nicotine rependency Headache Hospital Course: Patient is a 42-year-old male with known COPD, sarcoidosis, tobacco dependency, and hypertension who presented to the hospital after being discharged earlier the day with acute exacerbation of COPD and RSV infection. After returning home he had increasing shortness of breath and therefore re-presented to the ER. Chest x-ray in the ER revealed findings consistent with sarcoidosis that were unchanged from prior. Initial vital signs were within normal limits however shortly after patient required aerosolized mask. Initial laboratory analysis was remarkable for white blood cell count of 12.6. He was admitted for acute exacerbation of COPD and RSV infection. Pulmonology was consulted. Patient underwent CT of the chest which was negative for pulmonary embolism but did show soft tissue densities within the perihilar lung [place] consistent with prior study and a new soft tissue density on the lateral left lung field. He was slowly weaned back down of his oxygen requirement. He developed some abdominal distention on 09/29/22 which came back as diffuse anasarca. Parents were transitioned to oral and he again began feeling short of breath. He had some abdominal distension and CT showed anasarca and was started on IV Lasix with improvement. Echo showed severe LVH. He continued to have slow improvement. He required oxygen for room air pulse ox of 85% with ambulation. He was determined stable for discharge home. Follow-up: Dr. Whitney in 1 week, patient will be referred to [facility] to consider lung transplant, he'll remain on prednisone 40 mg daily, he will establish with Dr. Bustamante for evaluation of left ventricular hypertrophy, he was started on Norvasc 10 mg daily due to uncontrolled hypertension on admission, he'll follow up with Dr. Lin in the next 1-2 days, he will remain off of work secondary to oxygen use. Patient seen and examined at bedside. Denies any chest pain, shortness of breath was improved from admission but not quite back to baseline, no nausea or vomiting, abdominal distention improved Vital signs reviewed and stable. General: nontoxic, no distress, appears at stated age Derm: warm, dry Head: atraumatic, normocephalic, symmetric Eyes: EOMI, no lid lag, anicteric sclera Mouth: no lip lesion, mucus membranes moist Cardiovascular: S1S2 reg, no murmur, positive posterior tibial pulse bilateral, Lungs: Coarse breath sounds bilateral, no rhonchi, no rales , no accessory muscle use Abdominal: soft, nontender to palpation, no guarding, no appreciable organomegaly Ext: no gross muscle atrophy, no edema, no contractures Neuro: CN II-XI grossly intact, no focal neuro deficits Psych: Alert, oriented, appropriate affect A total of 35 minutes of time were spent preparing this complex discharge summary. Patient was discharged on 10/03/22. Patient Condition at Discharge: Stable Plan - Discharge Summary Discharge Rx Participant: No New Discharge Prescriptions: New Loratadine [Claritin] 10 mg PO DAILY #30 tab predniSONE [Deltasone] 60 mg PO DAILY #63 tab Fluticasone Nasal Independence [Flonase Nasal Independence] 2 spray EA NOSTRIL DAILY #1 dispenser guaiFENesin [Mucinex] 600 mg PO Q12HR #30 tab amLODIPine [Norvasc] 10 mg PO DAILY #30 tab Continue lamoTRIgine 200 mg PO HS ARIPiprazole 15 mg PO HS Vitamin B Complex 1 cap PO HS Ascorbic Acid [Vitamin C] 1,000 mg PO HS ALPRAZolam [Xanax] 0.5 mg PO BID PRN #6 tab PRN Reason: Anxiety Budesonide/Formoterol Fumarate [Symbicort 160-4.5 Mcg Inhaler] 2 puff INHALATION RT-BID #7 each Albuterol Nebulized [Ventolin Nebulized] 2.5 mg INHALATION RT-Q4H #180 ml Albuterol Sulfate [Proventil Hfa] 2 puff INHALATION RT-Q4H PRN #1 each PRN Reason: Shortness Of Breath Discontinued predniSONE 10 mg PO HS predniSONE See Taper PO DIRECTED #30 tab Discharge Medication List ARIPiprazole 15 mg PO HS 10/30/17 [History] lamoTRIgine 200 mg PO HS 10/30/17 [History] Ascorbic Acid [Vitamin C] 1,000 mg PO HS 02/26/21 [History] Vitamin B Complex 1 cap PO HS 02/26/21 [History] ALPRAZolam [Xanax] 0.5 mg PO BID PRN #6 tab 09/25/22 [Rx] Albuterol Nebulized [Ventolin Nebulized] 2.5 mg INHALATION RT-Q4H #180 ml 09/25/22 [Rx] Albuterol Sulfate [Proventil Hfa] 2 puff INHALATION RT-Q4H PRN #1 each 09/25/22 [Rx] Budesonide/Formoterol Fumarate [Symbicort 160-4.5 Mcg Inhaler] 2 puff INHALATION RT-BID #7 each 09/25/22 [Rx] Fluticasone Nasal Independence [Flonase Nasal Independence] 2 spray EA NOSTRIL DAILY #1 dispenser 10/03/22 [Rx] Loratadine [Claritin] 10 mg PO DAILY #30 tab 10/03/22 [Rx] amLODIPine [Norvasc] 10 mg PO DAILY #30 tab 10/03/22 [Rx] guaiFENesin [Mucinex] 600 mg PO Q12HR #30 tab 10/03/22 [Rx] predniSONE [Deltasone] 60 mg PO DAILY #63 tab 10/03/22 [Rx] Follow up Appointment(s)/Referral(s): Sara Kwan MD [STAFF PHYSICIAN] - 10/10/22 10:15 am Hood Bustamante DO [STAFF PHYSICIAN] - 1 Week (or Dr. Piper. OFFICE WILL CALL YOU WITH YOUR APPOINTMENT DATE/TIME.) Maximino Dunham MD [Primary Care Provider] - 1-2 days (please call the offic to schedule your appointment.) Patient Instructions/Handouts: Respiratory Syncytial Virus (DC), Sarcoidosis (DC) Activity/Diet/Wound Care/Special Instructions: Activity: as tolerated Diet: Heart healthy Special Instructions: Patient will require home O2 at 2L r/t COPD Patient will require a nebulizer r/t COPD, on Duoneb QID. [facility] will supply you home o2 and nebulizer phone number # Monitor for signs of thrush Off work through 10/17/22 Discharge/Stand Alone Forms: Work/School Release / Restrict Discharge Disposition: HOME SELF-CARE
== END 2022-10-03 11:49 | disposition home or self-care (01) | DRG 190 ==
LOC: EC 23:24 → 4SSUR 09-26 03:45 → 3SCARD 09-26 13:47 → 5NMEDONC 09-30 00:46
PROVIDERS: ADMIT Internal Medicine; ATTEND Internal Medicine
DX: J43.9 Emphysema, unspecified (principal); J96.01 Acute respiratory failure with hypoxia; M87.821 Other osteonecrosis, right humerus; Z20.822 Contact with and (suspected) exposure to COVID-19; B97.4 Respiratory syncytial virus as the cause of diseases classified elsewhere; D86.0 Sarcoidosis of lung; J84.10 Pulmonary fibrosis, unspecified; J40 Bronchitis, not specified as acute or chronic; R73.9 Hyperglycemia, unspecified; T38.0X5A Adverse effect of glucocorticoids and synthetic analogues, initial encounter; R60.1 Generalized edema; J32.9 Chronic sinusitis, unspecified; X58.XXXA Exposure to other specified factors, initial encounter; K57.90 Diverticulosis of intestine, part unspecified, without perforation or abscess without bleeding; I10 Essential (primary) hypertension; R01.1 Cardiac murmur, unspecified; M19.90 Unspecified osteoarthritis, unspecified site; F32.A Depression, unspecified; J98.01 Acute bronchospasm; I08.1 Rheumatic disorders of both mitral and tricuspid valves; F41.9 Anxiety disorder, unspecified; R51.9 Headache, unspecified; M89.721 Major osseous defect, right humerus; F17.210 Nicotine dependence, cigarettes, uncomplicated; Z79.52 Long term (current) use of systemic steroids; Z79.899 Other long term (current) drug therapy; Z79.51 Long term (current) use of inhaled steroids; Z80.6 Family history of leukemia; Z71.6 Tobacco abuse counseling; Z87.19 Personal history of other diseases of the digestive system; Z98.49 Cataract extraction status, unspecified eye
CPT/HCPCS: 71045; 71046; 71275; 74018; 74177; 80048; 84145; 85025; 85027; 87502; 87635; 93306; 94640; 94644; 94667; 94760; 96374; 96376; 99285

== ENCOUNTER → 2022-12-16 | Outpatient (CLI) | payer OTHER ==
--- NOTE | 2022-12-16 11:29 | CA ---
Lexiscan Nuclear Stress Test Report Name: Osmany Soto Exam Date: 12/16/2022 10:18 Exam Location: [facility] Ht (in): 68 Wt (lb): 197 BSA: 2.03 Ordering Phys: Hood Bustamante DO Referring Phys: JOSE, Technologist: Yahir Vieira Age: 42 Gender: M : 1980 Procedure CPT: Indications: R07.9 ICD-10 Codes: Patient History: Medications: SEE LIST Meds past 24 hrs: Pretest Chest Pain: STRESS TEST Lexiscan Protocol Exercise Duration (min:sec): 01:[address] Depressions (mm): Angina Score: Oropeza Score: Resting HR (bpm): 80 Peak HR (bpm): 102 Resting BP (mmHg): 162 / 105 Peak BP (mmHg): 156 / 103 MPHR: 176 Target HR: 150 % MPHR: 58 METS: 1.0 Total Dose: Peak Dose: Atropine: Double Product: 45679 BP Response: Stress Termination: INFUSION COMPLETE Stress Symptoms: DIFFICULTY IN BREATHING Stress Summary: ECG ANALYSIS Resting ECG: Stress ECG: CONCLUSIONS At baseline EKG showed normal sinus rhythm, normal axis, no significant ST or T wave abnormalities. Patient recieved IV infusion of Lexiscan 0.4mg and at peak infusion EKG showed no significant change from baseline. Conclusions: 1. Normal EKG response to Lexiscan infusion 2. Nuclear imaging to be reported separately. Dr. Hood Bustamante DO (Electronically Signed) Final Date: 16 December 2022 11:28
--- NOTE | 2022-12-16 12:15 | NM ---
EXAMINATION TYPE: NM stress lexiscan cardiolite DATE OF EXAM: 12/16/2022 COMPARISON: NONE HISTORY: Regarding chest pain TECHNIQUE: After the intravenous administration of 10.5 mCi Tc 99m Sestamibi - Cardiolite resting SP ECT images acquired 45 minutes post injection. The patient received 0.4mg Lexiscan, 27.0 mCi Tc 99m Sestamibi - Stress images obtained [address] injection FINDINGS: Review of stress and rest SPECT images demonstrates no distinct perfusion abnormality. Gated analysi s shows normal wall motion with an estimated left ventricular ejection fraction of 57 %. IMPRESSION: No scintigraphic evidence for reversible ischemia.
== END | disposition home or self-care (01) ==
LOC: RADNMMAIN 08:27
PROVIDERS: ATTEND Internal Medicine
DX: R07.9 Chest pain, unspecified (principal)
CPT/HCPCS: 93017; 78452; A9500

== ENCOUNTER → 2023-01-07 | Outpatient (CLI) | payer OTHER ==
[2023-01-07 15:06] LABS: HCT 46.8 % (39.6-50.0); HGB 14.7 g/dL (13.0-17.0); MCH 28.2 pg (27.0-32.0); MCHC 31.4 g/dL (32.0-37.0); MCV 89.7 fL (80.0-97.0); NRBC Per 100 WBC 0 /100 WBCS (0.0-0.0); Platelet Count 404 X 10*3/uL (140-440); RBC 5.22 X 10*6/uL (4.40-5.60); RDW 14.2 % (11.5-14.5); WBC 8.52 X 10*3/uL (4.50-10.00)
[2023-01-07 15:26] LABS: African American GFR (CKD) 97.3 (60.0-200.0); Anion Gap 10.4 mmol/L (10.00-18.00); Blood Urea Nitrogen 11.1 mg/dL (9.0-27.0); Carbon Dioxide 30.2 mmol/L (20.0-27.5); Potassium 4.1 mmol/L (3.5-5.5)
== END | disposition home or self-care (01) ==
LOC: LABPAT 09:26
PROVIDERS: ATTEND Internal Medicine
DX: Z01.812 Encounter for preprocedural laboratory examination (principal); R07.9 Chest pain, unspecified; R06.02 Shortness of breath
CPT/HCPCS: 36415; 80051; 82565; 84520; 85027

== ENCOUNTER 2023-01-12 07:41 | Day surgery (SDC) | payer OTHER ==
[2023-01-06 15:49] VITALS: BMI 29.9
[~2023-01-12 07:41] MED LIST: ALPRAZolam 0.25 MG TAB PO PRN; ALPRAZolam 0.5 MG TAB PO PRN; ASPIRIN 325 MG TAB PO STA; NITROGLYCERIN SL TABS 0.4 MG TAB SUBLINGUAL PRN; SODIUM CHLORIDE 0.9% 1,000 ML in EMPTY BAG 1 BAG IV SCH
[2023-01-12 08:21] VITALS: RESP 18; TEMP 98.7
[2023-01-12] MEDS ORDERED: VERAPAMIL 2.5 MG/ML 2 ML AMP ONE (08:35)
[2023-01-12] MEDS ORDERED: HEPARIN SODIUM 1,000 UN/ML (10ML VL) ONE (08:36)
[2023-01-12] MEDS ORDERED: fentaNYL (PF) 50 MCG/ML 2 ML AMP ONE (08:36)
[2023-01-12] MEDS ORDERED: fentaNYL (PF) 50 MCG/ML 2 ML AMP IVP ONE (09:05)
[2023-01-12] MEDS: MIDAZOLAM 2 MG/2 ML VIAL IVP ONE ×2 (09:05→09:07)
[2023-01-12] MEDS: LIDOCAINE 1% INJ 10MG/ML (5 ML VIAL-PF) SQ ONE ×2 (09:08→09:11)
[2023-01-12] MEDS ORDERED: VERAPAMIL SYRINGE (5 MG/10 ML) INTRAARTER ONE (09:09)
[2023-01-12] MEDS ORDERED: HEPARIN SODIUM 1,000 UN/ML (10ML VL) IVP ONE (09:27)
[2023-01-12] MEDS ORDERED: IOPAMIDOL-370 200ML BTL INJ ONE (09:34)
[2023-01-12 09:38] LABS: O2 Sat Blood Gas 77.6 %
[2023-01-12 09:40] LABS: O2 Sat Blood Gas 94.6 %
[2023-01-12 09:42] LABS: O2 Sat Blood Gas 81.2 %
[2023-01-12 13:02] VITALS: BP 138/69; PULSE 72
--- NOTE | 2023-01-12 21:12 | P.CARDCATH ---
Description of Procedure: PROCEDURES PERFORMED: Left and right heart catheterization, bilateral coronary angiography INDICATION: Dyspnea on exertion concerning for cardiac etiology CONSENT:I have discussed the risks, benefits and alternative therapies for the above-mentioned procedure and for both sedation/analgesia as well as necessary blood product administration, if indicated, as they pertain to this patient. The patient has indicated understanding and acceptance of the risks and procedures discussed. PROCEDURE: After the risks, benefits and alternatives of the above mentioned procedure explained in detail with the patient, informed consent was obtained. Patient was taken to the catheterization lab and prepped and draped in usual fashion. 1% lidocaine was used to anesthetize the right radial artery. A 6- [place] sheath was placed in the right radial artery using modified Seldinger technique. An additional 6Fr sheath was placed in the right brachial vein using modified Seldinger technique and ultrasound. A 5Fr [place] Kari catheter was inserted into the RA, RV, PA and PCWP positions and pressure measurement and O2 sats were obtained. Left coronary angiography was performed with a 5-Omani JL 3.5 catheter and right coronary angiography was performed with a 5-Omani JR5 catheter in various views. A 5-Omani FR5 catheter was inserted into the left ventricle and pressure measurements were obtained. The right radial sheath was removed and a TR band was placed with hemostasis achieved. The patient tolerated the procedure well. Patient was transported back to the post catheterization holding area in stable condition. Conscious Sedation: Patient was monitored under the direct supervision of myself for conscious sedation using Versed and fentanyl for a total duration of 27 minutes Aorta: 142/90 LV: 132/5, LVEDP 10 RA: 6 RV: 50/7 PA: 40/23 (31) PCWP: 16 PA oxygen sat: 78% RA oxygen sat: 81% Right radial oxygen sat: 95% Cardiac outpt MORE: 10.7 L/min Cardiac index MORE: 5.25 L/min/m2 Cardiac outpt thermodilution: 7.17 L/min Cardiac index thermodilution: 3.5 L/min/m2 SELECTIVE CORONARY ARTERIOGRAPHY: LEFT MAIN: The left main is a large caliber vessel which bifurcates into the LAD and circumflex. There is no significant stenosis. LEFT ANTERIOR DESCENDING CORONARY ARTERY: LAD is a large caliber vessel which wraps around to the apex. There is mild 10-20% mid LAD plaquing LEFT CIRCUMFLEX CORONARY ARTERY: Left circumflex is a moderate caliber vessel without significant stenosis. RIGHT CORONARY ARTERY: The right coronary artery is a large caliber vessel which gives off a PDA and PLV branch and is the dominant vessel. There is no significant stenosis. FINAL IMPRESSION: 1. Relatively normal coronary arteries as described above other than minimal mid LAD plaquing. 2. Normal left and right sided filling pressures 3. High normal cardiac outpt/ cardiac index PLAN: 1. Aggressive risk factor modification per most recent ACC/AHA guidelines. 2. Follow-up in the office in 1-2 weeks.
== END 2023-01-12 13:38 | disposition home or self-care (01) ==
LOC: CATHCVL 07:41
PROVIDERS: ATTEND Internal Medicine
DX: R07.89 Other chest pain (principal); I50.1 Left ventricular failure, unspecified; I10 Essential (primary) hypertension; Z79.82 Long term (current) use of aspirin; Z79.899 Other long term (current) drug therapy
CPT/HCPCS: 93460; 76937; 85018; 82810; C1769; C1894; C1751; J2250; J2001; J3010; J1644

== ENCOUNTER 2023-02-12 01:58 | Emergency (ER) | payer OTHER ==
[2023-02-12 02:03] VITALS: TEMP 96.2
[2023-02-12] MEDS ORDERED: SODIUM CHLORIDE 0.9% 500 ML 500 ML IV STA (02:31)
--- NOTE | 2023-02-12 02:43 | ED ---
Dizziness HPI - General Chief Complaint: Dizziness Stated Complaint: Dizziness Time Seen by Provider: 02/12/23 02:17 Source: patient Mode of arrival: ambulatory - History of Present Illness Initial Comments: Patient is a 42-year-old male with history of sarcoidosis presenting with chief complaint of dizziness. Patient states that he has noticed that when he has coughing episodes he tends to "black out", patient tells me that he does not fully lose consciousness but he does feel like he is in the daze and gets dizzy. Dizziness persists for several minutes while he comes to. He denies any chest pain, difficulty breathing, fever, chills, nausea, vomiting, abdominal pain, numbness, tingling, URI-like symptoms. - Related Data Home Medications Medication Instructions Recorded Confirmed ARIPiprazole 15 mg PO HS 10/30/17 01/12/23 lamoTRIgine 200 mg PO HS 10/30/17 01/12/23 Cyclobenzaprine [Flexeril] 5 mg PO HS 01/06/23 01/12/23 Loratadine [Claritin] 10 mg PO HS 01/06/23 01/12/23 amLODIPine [Norvasc] 10 mg PO HS 01/06/23 01/12/23 predniSONE [Deltasone] 10 mg PO HS 01/06/23 01/12/23 traZODone HCL [Desyrel] 50 mg PO HS 01/06/23 01/12/23 Aspirin 81 mg PO DAILY 01/12/23 01/12/23 Previous Rx's Medication Instructions Recorded Albuterol Nebulized [Ventolin 2.5 mg INHALATION RT-Q4H #180 ml 09/25/22 Nebulized] Albuterol Sulfate [Proventil Hfa] 2 puff INHALATION RT-Q4H PRN #1 09/25/22 each Budesonide/Formoterol Fumarate 2 puff INHALATION RT-BID #7 each 09/25/22 [Symbicort 160-4.5 Mcg Inhaler] Fluticasone Nasal [place] [Flonase 2 spray EA NOSTRIL DAILY #1 10/03/22 Nasal [place]] dispenser Allergies Allergy/AdvReac Type Severity Reaction Status Date / Time No Known Allergies Allergy Verified 01/12/23 08:06 Review of Systems ROS Statement: Those systems with pertinent positive or pertinent negative responses have been documented in the HPI. ROS Other: All systems not noted in ROS Statement are negative. Past Medical History Past Medical History: COPD, Hypertension, Osteoarthritis (OA), Vascular Disorder Additional Past Medical History / Comment(s): sarcoidosis, avascular necrosis History of Any Multi-Drug Resistant Organisms: None Reported Past Surgical History: Hernia Repair Additional Past Surgical History / Comment(s): lung biopsy, cataract surgery bilateral, rotator cuff repair right shoulder Past Anesthesia/Blood Transfusion Reactions: No Reported Reaction Past Psychological History: Depression Smoking Status: Former smoker Past Alcohol Use History: Occasional Past Drug Use History: Marijuana - Past Family History Mother Additional Family Medical History / Comment(s): sarcoidosis Father Additional Family Medical History / Comment(s): leukemia at 45 General Exam Limitations: no limitations General appearance: alert, in no apparent distress Head exam: Present: atraumatic, normocephalic, normal inspection Eye exam: Present: normal appearance, PERRL, EOMI. Absent: scleral icterus, periorbital swelling Pupils: Present: normal accommodation Neck exam: Present: normal inspection, full ROM Respiratory exam: Present: normal lung sounds bilaterally. Absent: respiratory distress, wheezes, rales, rhonchi, stridor Cardiovascular Exam: Present: regular rate, normal rhythm, normal heart sounds. Absent: systolic murmur, diastolic murmur, rubs, gallop, clicks Neurological exam: Present: alert, oriented X3, CN II-XII intact Psychiatric exam: Present: normal affect, normal mood Skin exam: Present: warm, dry, intact, normal color. Absent: rash Course Vital Signs 02/12/23 02/12/23 02/12/23 01:59 02:55 03:16 Temperature 96.2 F L Pulse Rate 95 107 H 89 Respiratory 18 20 17 Rate Blood Pressure 155/103 166/93 141/83 O2 Sat by Pulse 96 96 95 Oximetry 02/12/23 02/12/23 04:06 04:26 Temperature 96.2 F L Pulse Rate 90 90 Respiratory 18 18 Rate Blood Pressure 132/82 132/82 O2 Sat by Pulse 96 96 Oximetry EKG Findings - EKG Comments: EKG Findings:: Sinus rhythm ventricular rate 83. KS interval 160. QRS 86. QT 358. QTC 398. No acute changes from previous EKG. EKG interpreted by me Medical Decision Making - Medical Decision Making Was pt. sent in by a medical professional or institution (JOHN Mckinney, PURCHASING CLERK, urgent care, hospital, or care home...) When possible be specific @ -No Did you speak to anyone other than the patient for history (EMS, parent, family, police, friend...)? What history was obtained from this source @ -No Did you review nursing and triage notes (agree or disagree)? Why? @ -I reviewed and agree with nursing and triage notes Were old charts reviewed (outside hosp., previous admission, EMS record, old EKG, old radiological studies, urgent care reports/EKG's, care home records)? Report findings @ -No old charts were reviewed Differential Diagnosis (chest pain, altered mental status, abdominal pain women, abdominal pain men, vaginal bleeding, weakness, fever, dyspnea, syncope, headache, dizziness, GI bleed, back pain, seizure, CVA, palpatations, mental health, musculoskeletal)? @ -MDM Differential Dizziness: Benign paroxysmal positional Vertigo, Menieres disease, otitis media, acoustic neuroma, vertebrobasilar insufficiency, cerebellar stroke, encephalitis, hypovolemic, arrhythmia, coronary artery syndrome, anemia this is not meant to be an all-inclusive list EKG interpreted by me (3pts min.). @ -As above X-rays interpreted by me (1pt min.). @ -Chest x-ray shows patchy bilateral airspace disease consistent with the patient's sarcoidosis, no acute changes when compared to previous chest x-ray CT interpreted by me (1pt min.). @ -None done U/S interpreted by me (1pt. min.). @ -None done What testing was considered but not performed or refused? (CT, X-rays, U/S, labs)? Why? @ -None What meds were considered but not given or refused? Why? @ -None Did you discuss the management of the patient with other professionals (professionals i.e. JOHN Mckinney, PURCHASING CLERK, lab, RT, psych nurse, social service worker, inbound customer service representative, teacher, fire officer, director case management)? Give summary @ -No Was smoking cessation discussed for >3mins.? @ -No Was critical care preformed (if so, how long)? @ -No Were there social determinants of health that impacted care today? How? (Homelessness, low income, unemployed, alcoholism, drug addiction, transportation, low edu. Level, literacy, decrease access to med. care, alf, rehab)? @ -No Was there de-escalation of care discussed even if they declined (Discuss DNR or withdrawal of care, Hospice)? DNR status @ -No What co-morbidities impacted this encounter? (DM, HTN, Smoking, COPD, CAD, Cancer, CVA, ARF, Chemo, Hep., AIDS, mental health diagnosis, sleep apnea, morbid obesity)? @ -None Was patient admitted / discharged? Hospital course, mention meds given and route, prescriptions, significant lab abnormalities, going to OR and other pertinent info. @ -Patient is a 42-year-old male presenting with chief complaint of dizziness. Patient states that with forceful coughing episodes he finds himself "blacking out" which he describes as going into a daze accompanied by dizziness. Patient does not fully lose consciousness. Physical examination is unremarkable with no focal neurological deficits. EKG shows no acute changes. Chest x-ray shows no acute process. Lab work is essentially negative with negative troponin and no leukocytosis or anemia. Urine toxicology positive for marijuana. Reassessment patient is resting comfortably and showing no signs of distress. I educated the patient on today's findings and encouraged him to follow up with his weigh and charge worker. Follow-up with PCP. Report back to ER with any new or worsening symptoms. Discussed return parameters and answered all questions. Patient conveyed verbal understanding and agreed to the plan. I discussed this case in detail with my attending Dr. Prajapati Undiagnosed new problem with uncertain prognosis? @ -No Drug Therapy requiring intensive monitoring for toxicity (Heparin, Nitro, Insulin, Cardizem)? @ -No Were any procedures done? @ -No Diagnosis/symptom? @ -Dizziness Acute, or Chronic, or Acute on Chronic? @ -Acute Uncomplicated (without systemic symptoms) or Complicated (systemic symptoms)? @ -Uncomplicated Side effects of treatment? @ -No Exacerbation, Progression, or Severe Exacerbation? @ -No Poses a threat to life or bodily function? How? (Chest pain, USA, VT, pneumonia, PE, COPD, DKA, ARF, appy, cholecystitis, CVA, Diverticulitis, Homicidal, Suicidal, threat to staff... and all critical care pts) @ -No - Lab Data Result diagrams: 02/12/23 02:43 02/12/23 02:43 Lab Results 02/12/23 02/12/23 02/12/23 Range/Units 02:43 02:43 02:43 WBC 6.3 (3.8-10.6) k/uL RBC 4.93 (4.30-5.90) m/uL Hgb 14.4 (13.0-17.5) gm/dL Hct 43.8 (39.0-53.0) % MCV 89.0 (80.0-100.0) fL MCH 29.2 (25.0-35.0) pg MCHC 32.8 (31.0-37.0) g/dL RDW 14.4 (11.5-15.5) % Plt Count 317 (150-450) k/uL MPV 6.8 Neutrophils % 81 % Lymphocytes % 10 % Monocytes % 5 % Eosinophils % 3 % Basophils % 0 % Neutrophils # 5.1 (1.3-7.7) k/uL Lymphocytes # 0.6 L (1.0-4.8) k/uL Monocytes # 0.3 (0-1.0) k/uL Eosinophils # 0.2 (0-0.7) k/uL Basophils # 0.0 (0-0.2) k/uL PT (9.0-12.0) sec INR (<1.2) Sodium 141 (137-145) mmol/L Potassium 4.0 (3.5-5.1) mmol/L Chloride 103 (98-107) mmol/L Carbon Dioxide 28 (22-30) mmol/L Anion Gap 10 mmol/L BUN 16 (9-20) mg/dL Creatinine 0.86 (0.66-1.25) mg/dL Est GFR (CKD-EPI)AfAm >90 (>60 ml/min/1.73 sqM) Est GFR (CKD-EPI)NonAf >90 (>60 ml/min/1.73 sqM) Glucose 118 H (74-99) mg/dL Plasma Lactic Acid Olman 0.8 (0.7-2.0) mmol/L Calcium 8.9 (8.4-10.2) mg/dL Total Bilirubin 0.4 (0.2-1.3) mg/dL AST 26 (17-59) U/L ALT 29 (4-49) U/L Alkaline Phosphatase 88 (38-126) U/L Troponin I (0.000-0.034) ng/mL Total Protein 7.7 (6.3-8.2) g/dL Albumin 4.3 (3.5-5.0) g/dL Urine Color Urine Appearance (Clear) Urine pH (5.0-8.0) Ur Specific Aragon (1.001-1.035) Urine Protein (Negative) Urine Glucose (UA) (Negative) Urine Ketones (Negative) Urine Blood (Negative) Urine Nitrite (Negative) Urine Bilirubin (Negative) Urine Urobilinogen (<2.0) mg/dL Ur Leukocyte Esterase (Negative) Urine RBC (0-5) /hpf Urine WBC (0-5) /hpf Hyaline Casts (0-2) /lpf Urine Mucus (None) /hpf Urine Opiates Screen (NotDetected) Ur Oxycodone Screen (NotDetected) Urine Methadone Screen (NotDetected) Ur Propoxyphene Screen (NotDetected) Ur Barbiturates Screen (NotDetected) U Tricyclic Antidepress (NotDetected) Ur Phencyclidine Scrn (NotDetected) Ur Amphetamines Screen (NotDetected) U Methamphetamines Scrn (NotDetected) U Benzodiazepines Scrn (NotDetected) Urine Cocaine Screen (NotDetected) U Marijuana (THC) Screen (NotDetected) 02/12/23 02/12/23 02/12/23 Range/Units 02:43 02:43 03:04 WBC (3.8-10.6) k/uL RBC (4.30-5.90) m/uL Hgb (13.0-17.5) gm/dL Hct (39.0-53.0) % MCV (80.0-100.0) fL MCH (25.0-35.0) pg MCHC (31.0-37.0) g/dL RDW (11.5-15.5) % Plt Count (150-450) k/uL MPV Neutrophils % % Lymphocytes % % Monocytes % % Eosinophils % % Basophils % % Neutrophils # (1.3-7.7) k/uL Lymphocytes # (1.0-4.8) k/uL Monocytes # (0-1.0) k/uL Eosinophils # (0-0.7) k/uL Basophils # (0-0.2) k/uL PT 10.4 (9.0-12.0) sec INR 1.0 (<1.2) Sodium (137-145) mmol/L Potassium (3.5-5.1) mmol/L Chloride (98-107) mmol/L Carbon Dioxide (22-30) mmol/L Anion Gap mmol/L BUN (9-20) mg/dL Creatinine (0.66-1.25) mg/dL Est GFR (CKD-EPI)AfAm (>60 ml/min/1.73 sqM) Est GFR (CKD-EPI)NonAf (>60 ml/min/1.73 sqM) Glucose (74-99) mg/dL Plasma Lactic Acid Olman (0.7-2.0) mmol/L Calcium (8.4-10.2) mg/dL Total Bilirubin (0.2-1.3) mg/dL AST (17-59) U/L ALT (4-49) U/L Alkaline Phosphatase (38-126) U/L Troponin I <0.012 (0.000-0.034) ng/mL Total Protein (6.3-8.2) g/dL Albumin (3.5-5.0) g/dL Urine Color Yellow Urine Appearance Clear (Clear) Urine pH 6.0 (5.0-8.0) Ur Specific [place] 1.025 (1.001-1.035) Urine Protein 1+ H (Negative) Urine Glucose (UA) Negative (Negative) Urine Ketones Trace H (Negative) Urine Blood Negative (Negative) Urine Nitrite Negative (Negative) Urine Bilirubin Negative (Negative) Urine Urobilinogen <2.0 (<2.0) mg/dL Ur Leukocyte Esterase Negative (Negative) Urine RBC 1 (0-5) /hpf Urine WBC 1 (0-5) /hpf Hyaline Casts 1 (0-2) /lpf Urine Mucus Many H (None) /hpf Urine Opiates Screen Not Detected (NotDetected) Ur Oxycodone Screen Not Detected (NotDetected) Urine Methadone Screen Not Detected (NotDetected) Ur Propoxyphene Screen Not Detected (NotDetected) Ur Barbiturates Screen Not Detected (NotDetected) U Tricyclic Antidepress Not Detected (NotDetected) Ur Phencyclidine Scrn Not Detected (NotDetected) Ur Amphetamines Screen Not Detected (NotDetected) U Methamphetamines Scrn Not Detected (NotDetected) U Benzodiazepines Scrn Not Detected (NotDetected) Urine Cocaine Screen Not Detected (NotDetected) U Marijuana (THC) Screen Detected H (NotDetected) Disposition Clinical Impression: Dizziness Disposition: HOME SELF-CARE Condition: Good Instructions (If sedation given, give patient instructions): Dizziness (ED) Additional Instructions: Follow-up with PCP and weigh and charge worker. Report back to ER with any new or worsening symptoms. Is patient prescribed a controlled substance at d/c from ED?: No Referrals: Maximino Dunham MD [Primary Care Provider] - 1-2 days Hood Bustamante DO [STAFF PHYSICIAN] - 1-2 days Time of Disposition: 04:22
[2023-02-12 03:05] LABS: Basophils % (A) 0 %; Eosinophils # (A) 0.2 k/uL (0-0.7); Eosinophils % (A) 3 %; HCT 43.8 % (39.0-53.0); HGB 14.4 gm/dL (13.0-17.5); Lymphocytes # (A) 0.6 k/uL (1.0-4.8); Lymphocytes % (A) 10 %; MCH 29.2 pg (25.0-35.0); MCHC 32.8 g/dL (31.0-37.0); Mean Platelet Volume 6.8; Monocytes # (A) 0.3 k/uL (0-1.0); Monocytes % (A) 5 %; Neutrophils # (A) 5.1 k/uL (1.3-7.7); Neutrophils % (A) 81 %; Platelet Count 317 k/uL (150-450); RBC 4.93 m/uL (4.30-5.90); RDW 14.4 % (11.5-15.5); WBC 6.3 k/uL (3.8-10.6)
[2023-02-12 03:16] LABS: Prothrombin Time 10.4 sec (9.0-12.0)
[2023-02-12 03:18] LABS: Appearance,Urine Clear (Clear); Bilirubin,Urine Negative (Negative); Blood,Urine Negative (Negative); Color,Urine Yellow; Glucose,Urine (UA) Negative (Negative); Hyaline Casts,Urine 1 /lpf (0-2); Ketones,Urine Trace (Negative); Leukocyte Esterase,Urine Negative (Negative); Mucus,Urine Many /hpf; Nitrite,Urine Negative (Negative); Protein,Urine 1+ (Negative); RBC,Urine 1 /hpf (0-5); Specific Gravity,Urine 1.025 (1.001-1.035); Urobilinogen,Urine <2.0 mg/dL (<2.0); WBC,Urine 1 /hpf (0-5)
[2023-02-12 03:18] LABS: ALT 29 U/L (4-49); AST 26 U/L (17-59); African American GFR (CKD) >90 (>60 ml/min/1.73 sqM); Albumin 4.3 g/dL (3.5-5.0); Alkaline Phosphatase 88 U/L (38-126); Anion Gap 10 mmol/L; Blood Urea Nitrogen 16 mg/dL (9-20); Calcium 8.9 mg/dL (8.4-10.2); Carbon Dioxide 28 mmol/L (22-30); Chloride 103 mmol/L (98-107); Glucose 118 mg/dL (74-99); Non-African American GFR(CKD) >90 (>60 ml/min/1.73 sqM); Sodium 141 mmol/L (137-145); Total Bilirubin 0.4 mg/dL (0.2-1.3); Total Protein 7.7 g/dL (6.3-8.2)
[2023-02-12 03:24] LABS: Amphetamine Screen,Urine Not Detected (NotDetected); Barbiturate Screen,Urine Not Detected (NotDetected); Benzodiazepines Screen,Urine Not Detected (NotDetected); Cocaine Screen,Urine Not Detected (NotDetected); Methadone Screen, Urine Not Detected (NotDetected); Opiate Screen,Urine Not Detected (NotDetected); Oxycodone Screen, Urine Not Detected (NotDetected); Phencyclidine Screen,Urine Not Detected (NotDetected); Tricyclic Antidepressant,Urine Not Detected (NotDetected); Urn Cannabinoid Scrn Detected (NotDetected)
[2023-02-12 04:07] VITALS: BP 132/82; PULSE 90; RESP 18
--- NOTE | 2023-02-12 04:44 | XR ---
EXAM: XR Chest, 2 Views CLINICAL HISTORY: ITS.REASON XR Reason: dizziness TECHNIQUE: Frontal and lateral views of the chest. COMPARISON: 11/06/22 FINDINGS: Lungs: Interval increase in patchy airspace disease in the upper to midlung zones bilaterally, likely multifocal airspace disease superimposed on chronic lung disease. More rounded opacity in the right upper lung. Follow-up to exclude underlying lesion. Cystic/bullous changes again noted in the upper lung zones, right worse than left. Pleural space: Biapical pleural thickening, again noted. No pneumothorax. Heart: Unremarkable. No cardiomegaly. Mediastinum: Unremarkable. Bones/joints: Unremarkable. Tubes, lines and devices: Overlying chest leads obscure portion of the chest. IMPRESSION: 1. Interval development of patchy bilateral airspace disease. Follow-up to clearing recommended. 2. Underlying emphysema/chronic changes.
== END 2023-02-12 04:39 | disposition home or self-care (01) ==
LOC: EC 01:58
DX: R42 Dizziness and giddiness (principal); I10 Essential (primary) hypertension; M19.90 Unspecified osteoarthritis, unspecified site; J44.9 Chronic obstructive pulmonary disease, unspecified; F32.A Depression, unspecified; F12.90 Cannabis use, unspecified, uncomplicated; Z79.82 Long term (current) use of aspirin; Z79.52 Long term (current) use of systemic steroids; Z79.899 Other long term (current) drug therapy; Z87.891 Personal history of nicotine dependence
CPT/HCPCS: 36415; 71046; 80053; 80306; 81001; 83605; 84484; 85025; 85610; 93005; 99284

== ENCOUNTER → 2023-02-25 | Outpatient (CLI) | payer OTHER ==
--- NOTE | 2023-02-26 14:40 | MR ---
EXAMINATION TYPE: MR brain wo/w con DATE OF EXAM: 02/25/2023 10:24 PM CLINICAL INDICATION:Male, 42 years old with history of D86.9; Passing out with vertigo, Sarcoidosis, Syncope COMPARISON: MR brain 03/25/2021, 10/27/2019 CT 2018. TECHNIQUE: Multi planar, multi sequence imaging was performed through the brain including: T1, T2, In version recovery, susceptibility weighted imaging and gradient echo imaging and Diffusion weighted im aging. The patient was then given intravenous contrast and multi planar, T1 fat-saturation images wer e obtained. IV Contrast: 9ml cc Gadavist FINDINGS: High T1 signal lesion which is calcified in prior CT along the falx cerebri anteriorly measuring 20 x 12 x 5 mm. The hollins-white junctions, ventricular system, basal cisterns appear unremarkable. Diffusi on-weighted imaging shows no evidence of restricted diffusion to suggest acute/subacute infarct. Intr acranial arterial flow voids are maintained. Midline structures show no abnormality. The susceptibili ty weighted images do not reveal any evidence for micro-hemorrhage. After administration of gadoliniu m, no abnormal enhancement is seen. No evidence for pachymeningeal or leptomeningeal enhancement. The bone marrow signal is within normal limits. Paranasal sinuses and mastoid air cells: No significant paranasal sinus disease. Visualized orbits: Bilateral aphakia IMPRESSION: No evidence for abnormal enhancement, no significant change from priors.
== END | disposition home or self-care (01) ==
LOC: RADMRIMAIN 21:45
PROVIDERS: ATTEND Internal Medicine
DX: D86.9 Sarcoidosis, unspecified (principal); R55 Syncope and collapse
CPT/HCPCS: 70553; A9585

== ENCOUNTER → 2023-05-19 | Outpatient (CLI) | payer OTHER ==
[2023-05-19 16:05] LABS: Basophils # (A) 0.02 X 10*3/uL (0.00-0.10); Basophils % (A) 0.3 %; Eosinophils # (A) 0.08 X 10*3/uL (0.04-0.35); Eosinophils % (A) 1.4 %; HCT 44.8 % (39.6-50.0); HGB 14.3 d/dL (13.0-17.0); Lymphocytes # (A) 0.77 X 10*3/uL (0.90-5.00); Lymphocytes % (A) 13.4 %; MCH 28.2 pg (27.0-32.0); MCHC 31.9 d/dL (32.0-37.0); MCV 88.4 FL (80.0-97.0); Mean Platelet Volume 9.9 FL (9.5-12.2); Monocytes # (A) 0.75 X 10*3/uL (0.20-1.00); Monocytes % (A) 13.1 %; NRBC Per 100 WBC 0 X 10*3/uL (0.00-0.01); Neutrophils % (A) 71.6 %; Platelet Count 364 X 10*3/uL (140-440); RBC 5.07 X 10*6/uL (4.40-5.60); RDW 14.2 % (11.5-14.5); WBC 5.73 X 10*3/uL (4.50-10.00)
[2023-05-19 16:19] LABS: ALT 23 U/L (10-49); AST 16 U/L (14-35); Albumin 4.6 d/dL (3.8-4.9); Albumin/Globulin Ratio 1.53 Ratio (1.60-3.17); Alkaline Phosphatase 92 U/L (41-126); BUN/Creat Ratio 12.18 Ratio (12.00-20.00); Blood Urea Nitrogen 13.4 mg/dL (9.0-27.0); Calcium 9.6 mg/dL (8.7-10.3); Carbon Dioxide 24.1 mmol/L (21.6-31.8); Chloride 107 mmol/L (96-109); Glucose 79 mg/dL (70-110); LDL Cholesterol,Calculated 61.9 mg/dL (0.0-131.0); Potassium 4.6 mmol/L (3.5-5.5); Sodium 144 mmol/L (135-145); Total Bilirubin 0.2 mg/dL (0.3-1.2); Total Protein 7.6 d/dL (6.2-8.2); VLDL Calculation 10.98 mg/dL (5.00-40.00)
== END | disposition home or self-care (01) ==
LOC: LABWHC1 08:27
PROVIDERS: ATTEND Internal Medicine
DX: I10 Essential (primary) hypertension (principal); E55.9 Vitamin D deficiency, unspecified; M25.561 Pain in right knee; R73.9 Hyperglycemia, unspecified
CPT/HCPCS: 36415; 80053; 80061; 82306; 83036; 83735; 84443; 84550; 85025

== ENCOUNTER → 2023-06-01 | Outpatient (CLI) | payer OTHER ==
--- NOTE | 2023-06-01 11:09 | XR ---
EXAMINATION TYPE: XR chest 2V DATE OF EXAM: 06/01/2023 11:03 AM COMPARISON: Chest radiographs from 02/12/2023 TECHNIQUE: XR chest 2V Frontal and lateral views of the chest. CLINICAL INDICATION:Male, 43 years old with history of D869 SARCOIDOSIS; FINDINGS: Lungs/Pleura: No pleural effusion or pneumothorax. Increased diffuse interstitial airspace opacities throughout the lungs from prior examination. Pulmonary vascularity: Unremarkable. Heart/mediastinum: Cardiomediastinal silhouette is unremarkable. Musculoskeletal: No acute osseous pathology. IMPRESSION: Slightly increased diffuse interstitial airspace opacities throughout the lungs from prior examinatio n. Findings again concerning for pneumonia versus sequelae of sarcoidosis.
== END | disposition home or self-care (01) ==
LOC: LABWHC1 10:48
PROVIDERS: ATTEND Internal Medicine
DX: Z20.822 Contact with and (suspected) exposure to COVID-19 (principal); D86.9 Sarcoidosis, unspecified; R91.8 Other nonspecific abnormal finding of lung field
CPT/HCPCS: 71046; 87636

== ENCOUNTER → 2023-06-10 | Outpatient (CLI) | payer OTHER ==
--- NOTE | 2023-06-10 19:18 | BD ---
EXAMINATION TYPE: Axial Bone Density DATE OF EXAM: 06/10/2023 CLINICAL HISTORY: 43 years old Male. ICD-10 CODE: Z79.52 ASSISTED (CURRENT) USE OF SYSTEMIC STEROID Height: 5 ft 9 in Weight: 198 FRAX RISK QUESTIONS: Alcohol (3 or more units per day): no Family History (Parent hip fracture): no Glucocorticoids (More than 3mos): yes (Ex: prednisone, prednisolone, methylprednisolone, dexamethasone, and hydrocortisone). History of Fracture in Adulthood: no Secondary Osteoporosis: 1. Type 1 Diabetes: pre 2. Hyperthyroidism: no 4. Malnutrition: no 5. Chronic liver disease: no Rheumatoid Arthritis: no Current Tobacco Use: no RISK FACTORS HISTORY OF: Surgery to Spine/Hip(right/left)/Wrist (right/left): no Family History of Osteoporosis: yes Active: no Diet low in dairy products/other sources of calcium: no Lost more than 2 inches in height since high school: yes Frequent falls: no Poor Health: yes Hyperparathyroidism: no Adrenal Insufficiency: no MEDICATIONS: Prednisone or other steroids: on and off since 2006 dx with sarcoidosis Additional Medications: ventolin, fluticasone, prednisone, aripiprazole, albuterol, trazodone, Lamotr igine, amlodipine, loratadine, cyclobenzaprine, isosorbide, mononitrate Additional History: EXAM MEASUREMENTS: Bone mineral densitometry was performed using the [employer] System. Bone mineral density as measured about the Lumbar spine is: ----- L1-L4(G/cm2): 0.876 T Score Values are as follows: ----- L1: -1.4 ----- L2: -3.0 ----- L3: -2.2 ----- L4: -3.4 ----- L1-L4: -2.5 Z Score Values are as follows: ----- L1: -2.7 ----- L2: -4.3 ----- L3: -3.6 ----- L4: -4.8 ----- L1-L4: -3.9 baseline Bone mineral density about the R hip (g/cm2): 0.763 Bone mineral density about the L hip (g/cm2): 0.669 T Score values are as follows: -----R Neck: -2.0 -----L Neck: -2.7 -----R Total: -1.8 -----L Total: -2.1 Z Score values are as follows: -----R Neck: -3.2 -----L Neck: -3.9 -----R Total: -3.1 -----L Total: -3.4 baseline FRAX%s: The graph provided illustrates a 3.9 % chance for a major osteoporotic fx and a 1.8 % chance for the hips probability for fx in 10 years time. IMPRESSION: Osteoporosis (T Score less than -2.5). There is increased fracture risk and therapy is usually indicated based on age. Re-Screen 1-2 years. NOTE: T-SCORE=SD OF THE YOUNG ADULT MEAN.
== END | disposition home or self-care (01) ==
LOC: RADBDWWP 07:39
PROVIDERS: ATTEND Internal Medicine
DX: M81.0 Age-related osteoporosis without current pathological fracture (principal); M85.89 Other specified disorders of bone density and structure, multiple sites; Z79.52 Long term (current) use of systemic steroids
CPT/HCPCS: 77080

== ENCOUNTER → 2024-02-03 | Outpatient (CLI) | payer OTHER ==
--- NOTE | 2024-02-03 11:31 | XR ---
EXAMINATION TYPE: XR chest 2V DATE OF EXAM: 02/03/2024 COMPARISON: 06/01/2023 HISTORY: Sarcoidosis TECHNIQUE: Frontal and lateral views of the chest are obtained. FINDINGS: Disorganized pulmonary parenchyma noted bilaterally. There are areas of linear parenchymal scarring a nd emphysematous change. Focal chronic appearing infiltrates. Hilar regions are much improved relativ e to prior study. Blunting right costophrenic angle appears to be chronic in nature. No evidence for pneumothorax. No pleural effusion. The cardiac silhouette size is within normal limits. The osseous structures are grossly intact. IMPRESSION: 1. Chronic pulmonary parenchymal changes secondary to provided history of sarcoidosis.
== END | disposition home or self-care (01) ==
LOC: RADXRMAIN 10:21
PROVIDERS: ATTEND Internal Medicine
DX: D86.9 Sarcoidosis, unspecified (principal)
CPT/HCPCS: 71046

== ENCOUNTER 2024-05-14 04:30 | Inpatient (IN) | payer OTHER ==
[~2024-05-14 04:30] MED LIST changes: -ALPRAZolam 0.25 MG TAB PO PRN; -ALPRAZolam 0.5 MG TAB PO PRN; -ASPIRIN 325 MG TAB PO STA; +DEXAMETHASONE SOD PHOSPHATE 10 MG/ML 1 ML VIAL ONE; +IPRATROPIUM-ALBUTEROL 3 ML NEB ONE; +KETOROLAC 15 MG/ML 1 ML VIAL ONE; +MORPHINE SULFATE 2 MG/ML SYRINGE ONE; +MORPHINE SULFATE 4 MG/ML SYRINGE ONE; -NITROGLYCERIN SL TABS 0.4 MG TAB SUBLINGUAL PRN; +SODIUM CHLORIDE 0.9% 1,000 ML BAG ONE; -SODIUM CHLORIDE 0.9% 1,000 ML in EMPTY BAG 1 BAG IV SCH
[2024-05-14] MEDS ORDERED: MORPHINE SULFATE 4 MG/ML SYRINGE ONE ×3 (08:38→16:39)
[2024-05-14] MEDS ORDERED: methylPREDNISolone SOD SUCCI 125 MG/2 ML VIAL ONE ×2 (12:31→16:53)
[2024-05-14] MEDS ORDERED: guaiFENesin SYRUP 100MG/5ML 200 MG/10 ML CUP ONE (16:47)
[2024-05-14] MEDS ORDERED: ACETAMINOPHEN TAB 325 MG TAB ONE (16:47)
[2024-05-14] MEDS ORDERED: cefTRIAXone 1 GM VIAL ONE (16:48)
[2024-05-14] MEDS ORDERED: NALOXONE 0.4 MG/ML 1 ML VIAL IV PRN (18:08)
[2024-05-14] MEDS ORDERED: lamoTRIgine 100 MG TAB ONE (20:18)
[2024-05-14] MEDS ORDERED: traZODone HCL 50 MG TAB ONE (20:18)
[2024-05-14] MEDS ORDERED: LORazepam 2 MG/ML INJ IV PRN (23:20)
[2024-05-14] MEDS ORDERED: ONDANSETRON 4 MG/2 ML VIAL IVP PRN (23:21)
[2024-05-14] MEDS ORDERED: ACETAMINOPHEN TAB 325 MG TAB PO PRN (23:22)
[2024-05-15] MEDS ORDERED: HYDROcodone/APAP 5-325MG 1 EACH TAB ONE (00:17)
[2024-05-15] MEDS ORDERED: guaiFENesin SYRUP 100MG/5ML 200 MG/10 ML CUP ONE (00:17)
[2024-05-15] MEDS ORDERED: methylPREDNISolone SOD SUCCI 125 MG/2 ML VIAL ONE (00:17)
[2024-05-15] MEDS: methylPREDNISolone SOD SUCCI 125 MG/2 ML VIAL IV SCH (03:01)
[2024-05-15 04:08] LABS: Basophils % (A) 0 %; Eosinophils # (A) 0.2 k/uL (0-0.7); Eosinophils % (A) 2 %; HCT 39.7 % (39.0-53.0); HGB 12.5 gm/dL (13.0-17.5); Hypochromasia Marked; Lymphocytes # (A) 0.9 k/uL (1.0-4.8); Lymphocytes % (A) 8 %; MCH 28.3 pg (25.0-35.0); MCHC 31.5 g/dL (31.0-37.0); Mean Platelet Volume 7.6; Monocytes # (A) 0.6 k/uL (0-1.0); Monocytes % (A) 6 %; Neutrophils # (A) 9.1 k/uL (1.3-7.7); Neutrophils % (A) 84 %; Platelet Count 436 k/uL (150-450); RBC 4.41 m/uL (4.30-5.90); RDW 13.4 % (11.5-15.5); WBC 10.8 k/uL (3.8-10.6)
[2024-05-15 04:42] LABS: ALT 23 U/L (4-49); AST 23 U/L (17-59); African American GFR (CKD) >90 (>60 ml/min/1.73 sqM); Albumin 4.3 g/dL (3.5-5.0); Albumin/Globulin Ratio 1.7; Alkaline Phosphatase 65 U/L (38-126); Anion Gap 10 mmol/L; Blood Urea Nitrogen 14 mg/dL (9-20); Calcium 9.4 mg/dL (8.4-10.2); Carbon Dioxide 24 mmol/L (22-30); Chloride 105 mmol/L (98-107); Globulin 2.6 g/dL; Glucose 91 mg/dL (74-99); Magnesium 2.3 mg/dL (1.6-2.3); Non-African American GFR(CKD) >90 (>60 ml/min/1.73 sqM); Potassium 3.8 mmol/L (3.5-5.1); Sodium 139 mmol/L (137-145); Total Bilirubin 0.3 mg/dL (0.2-1.3); Total Protein 6.9 g/dL (6.3-8.2)
[2024-05-15] MEDS ORDERED: TRELEGY INHALATION SCH (08:00)
[2024-05-15] MEDS: ENOXAPARIN 40 MG/0.4 ML SYRINGE SQ SCH (08:15)
[2024-05-15] MEDS: FLUTICASONE NASAL 50MCG/SPRAY 16GM BTL NASAL SCH (08:15)
[2024-05-15] MEDS: AZITHROMYCIN 500 MG TAB PO SCH (08:16)
[2024-05-15] MEDS: amLODIPine 10 MG TAB PO SCH (08:16)
[2024-05-15] MEDS: ARIPiprazole 15 MG TAB PO SCH (08:16)
[2024-05-15] MEDS: HYDROcodone/APAP 5-325MG 1 EACH TAB PO PRN (08:34)
[2024-05-15] MEDS: guaiFENesin SYRUP 100MG/5ML 200 MG/10 ML CUP PO PRN (08:34)
[2024-05-15] MEDS: IPRATROPIUM-ALBUTEROL 3 ML NEB INHALATION SCH (09:02)
[2024-05-15] MEDS: SYMBICORT 160-4.5 MCG INHALER INHALATION SCH (09:02)
[2024-05-15] MEDS: TRELEGY INHALER INHALATION SCH (11:15)
--- NOTE | 2024-05-15 12:08 | P.PN ---
Subjective Progress Note Date: 05/15/24 The patient is seen today May 15, 2024 in follow-up on the regular medical floor. He is currently sitting up in bed. Awake and alert in no acute distress. Not feeling much better today compared to yesterday. Still with a loose productive cough. Still dyspneic on exertion. Dyspneic with conversati on. He is maintaining O2 saturations in the high 90s on 3 L/min per nasal cannula. He is afebrile. Hemodynamically stable. White count 10.8. Hemoglobin 12.5. Platelets 436. Sodium 139. Potassium 3.8. Bicarb 24. BUN 14. Creatinine 0.74. He is continued on DuoNeb inhalations, Solu-Medrol. Remains on antibiotics in the form of ceftriaxone and azithromycin. Procalcitonin pending. Lovenox for DVT prophylaxis. Utilizing his home Trelegy. Objective - Vital Signs Vital signs: Vital Signs Temp 98.1 F 05/15/24 07:42 Pulse 86 05/15/24 09:12 Resp 17 05/15/24 07:42 BP 137/81 05/15/24 07:42 Pulse Ox 99 05/15/24 09:02 FiO2 Intake & Output 05/14/24 05/15/24 05/15/24 18:59 06:59 18:59 Weight 87.09 kg - Exam GENERAL EXAM: Alert, active, pleasant 44-year-old male, on 3 L nasal cannula, comfortable in no apparent distress. HEAD: Normocephalic. EYES: Normal reaction of pupils, equal size. NOSE: Clear with pink turbinates. THROAT: No erythema or exudates. NECK: No masses, no JVD. CHEST: No chest wall deformity. LUNGS: Equal air entry with bilateral scattered rhonchi, wheeze. CVS: S1 and S2 normal with no audible murmur, regular rhythm. ABDOMEN: No hepatosplenomegaly, normal bowel sounds, no guarding or rigidity. SPINE: No scoliosis or deformity SKIN: No rashes CENTRAL NERVOUS SYSTEM: No focal deficits, tone is normal in all 4 extremities. EXTREMITIES: There is no peripheral edema. No clubbing, no cyanosis. Peripheral pulses are intact. - Labs CBC & Chem 7: 05/15/24 02:42 05/15/24 02:42 Labs: Abnormal Lab Results - Last 24 Hours (Table) 05/15/24 Range/Units 02:42 WBC 10.8 H (3.8-10.6) k/uL Hgb 12.5 L (13.0-17.5) gm/dL Neutrophils # 9.1 H (1.3-7.7) k/uL Lymphocytes # 0.9 L (1.0-4.8) k/uL Assessment and Plan Assessment: Assessment: Acute on chronic hypoxemic respiratory failure Acute on chronic sarcoidosis exacerbation Stage IV pulmonary sarcoidosis Chronic hypoxic respiratory failure secondary to above Benign essential hypertension Plan: The patient was seen and evaluated Labs and medications reviewed Continue the current treatment plan Titrate the FiO2 as tolerated Procalcitonin pending Continue steroids and bronchodilators Lovenox for DVT prophylaxis We will continue to follow I have personally seen and examined the patient, performed the documentation and the assessment and plan as written. Number of minutes spent on the visit: 10.
[2024-05-15] MEDS: IPRATROPIUM-ALBUTEROL 3 ML NEB INHALATION PRN (12:27)
--- NOTE | 2024-05-15 14:04 | P.PN ---
Subjective Progress Note Date: 05/15/24 Hospital course: Patient is a pleasant 44-year-old male with a past medical history of cardiomyopathy, hypertension, stage IV pulmonary sarcoidosis, COPD with emphysema and chronic hypoxic respiratory failure 3 L home oxygen dependent. He presented to the hospital on 05/14/2024 secondary to reports of worsening shortness of breath. He underwent evaluation in the emergency department. Chest x-ray revealing bilateral streaky heterogeneous opacities throughout lungs. EKG showing sinus mechanism at 90 bpm. Labs were unremarkable with the exception of mild leukocytosis with WBC count of 12.58. COVID, influenza, and RSV were negative. Patient was admitted under our services with consultation to pulmonology. Physical exam: Patient seen and fully evaluated at bedside. He reports continued coarse cough unable to produce sputum and only minimal improvement of shortness of breath. He denies any other complaints at this time. Vital signs reviewed and stable. General: Nontoxic, no distress and appears stated age. Derm: Skin warm and dry, normal coloration for ethnicity. Head: Atraumatic, normocephalic and symmetric. Eyes: EOM's intact, no lid lag, and anicteric sclera Mouth: no lip lesions, mucus membranes moist Cardiovascular: regular rate and rhythm with normal S1S2, no murmur, positive posterior tibial pulses bilaterally, and cap refill < 2 seconds. Lungs: Respirations even, regular, and unlabored on 3 L. Lungs diminished but appear to have improved air movement with diffuse rhonchi and expiratory wheezes. Abdominal: soft, nontender to palpation, no guarding, no appreciable organomegaly Ext: ROM intact. No gross muscle atrophy, no edema, no contractures Neuro: Speech clear, face symmetrical and CN II-XII grossly intact with no noted focal neuro deficits Psych: Alert and oriented to person, place, time, and situation. Appropriate and pleasant affect. Assessment and Plan of Care: Acute on chronic respiratory failure Acute COPD exacerbation Stage IV pulmonary sarcoidosis Severe emphysema -Pulmonology following, discussed in detail with pulmonary STAFF COMBAT INFORMATION CENTER OFFICER and bus dispatcher interstate. -Oxygenation to be administered and titrated as needed to maintain SPO2 equal to or greater than 90% -Telemetry monitoring. -Monitor pulse-oximetry -Duonebs scheduled 4 times daily and as needed for SOB and/or wheezing -Incentive Spirometry -Flutter valve -Steroids: Solu-Medrol 60 mg IVP every 6 hours -Continue Trelegy Ellipta -Continue CellCept-1500 mg twice daily Hypertension Monitor vital signs and continue amlodipine 10 mg daily. Data and imaging reviewed: Morning labs reviewed. CBC showing mild improvement of leukocytosis from previous 12.58 down to 10.8 this morning. BMP was unremarkable. Magnesium 2.3. Liver profile unremarkable. Vital signs reviewed. Blood pressure 137/81, heart rate 103, respiratory rate 17, temp 98.1 F, and SpO2 of 99% on 3 L. CODE STATUS: Full code DVT prophylaxis: Lovenox Anticipated discharge date: Pending clinical course Anticipated discharge place: Home Patient was seen independently by Nurse Pracitioner. This document was prepared using [employer] dictation software. Please allow for errors in salad maker, while rare they do occur. Lei Fang NP rendered care for this patient independently, reviewed the findings and plan as documented in the note above. I did not physically speak w ith or examine the patient on this date. Objective - Vital Signs Vital signs: Vital Signs Temp 98.1 F 05/15/24 07:42 Pulse 103 H 05/15/24 07:42 Resp 17 05/15/24 07:42 BP 137/81 05/15/24 07:42 Pulse Ox 99 05/15/24 07:42 FiO2 Intake & Output 05/14/24 05/15/24 05/15/24 18:59 06:59 18:59 Weight 87.09 kg - Labs CBC & Chem 7: 05/15/24 02:42 05/15/24 02:42 Labs: Abnormal Lab Results - Last 24 Hours (Table) 05/15/24 Range/Units 02:42 WBC 10.8 H (3.8-10.6) k/uL Hgb 12.5 L (13.0-17.5) gm/dL Neutrophils # 9.1 H (1.3-7.7) k/uL Lymphocytes # 0.9 L (1.0-4.8) k/uL
[2024-05-15] MEDS: guaiFENesin-Coden 100-10MG/5ML 10 ML CUP PO PRN (16:28)
[2024-05-15] MEDS: traZODone HCL 50 MG TAB PO SCH (20:50)
[2024-05-15] MEDS: lamoTRIgine 100 MG TAB PO SCH (20:50)
[2024-05-16] MEDS: guaiFENesin SYRUP 100MG/5ML 200 MG/10 ML CUP ONE (11:26)
[2024-05-16] MEDS: guaiFENesin-Coden 100-10MG/5ML 10 ML CUP ONE ×2 (11:26→11:27)
[2024-05-16] MEDS: HYDROcodone/APAP 5-325MG 1 EACH TAB ONE ×4 (11:26→11:27)
[2024-05-16] MEDS: IPRATROPIUM-ALBUTEROL 3 ML NEB ONE (11:27)
[2024-05-16] MEDS: BENZONATATE 100 MG CAP PO SCH (11:58)
--- NOTE | 2024-05-16 13:31 | P.PN ---
Subjective Progress Note Date: 05/16/24 The patient is seen today May 15, 2024 in follow-up on the regular medical floor. He is currently sitting up in bed. Awake and alert in no acute distress. Not feeling much better today compared to yesterday. Still with a loose productive cough. Still dyspneic on exertion. Dyspneic with conversati on. He is maintaining O2 saturations in the high 90s on 3 L/min per nasal cannula. He is afebrile. Hemodynamically stable. White count 10.8. Hemoglobin 12.5. Platelets 436. Sodium 139. Potassium 3.8. Bicarb 24. BUN 14. Creatinine 0.74. He is continued on DuoNeb inhalations, Solu-Medrol. Remains on antibiotics in the form of ceftriaxone and azithromycin. Procalcitonin pending. Lovenox for DVT prophylaxis. Utilizing his home Trelegy. The patient is seen today May 16, 2024 and follow-up on the regular medical floor. He is awake and alert in no acute distress. Sitting up in bed. Breathing easier today compared to yesterday. Still with a harsh cough. Still with some near syncope while coughing episodes. He remains on Trelegy, DuoNeb inhalations, Solu-Medrol. Robitussin for his cough. Lovenox for DVT prophylaxis. Remains on antibiotics in the form of ceftriaxone. Procalcitonin 0.04. Objective - Vital Signs Vital signs: Vital Signs Temp 97.9 F 05/16/24 08:00 Pulse 80 05/16/24 12:10 Resp 18 05/16/24 08:00 BP 142/71 05/16/24 08:00 Pulse Ox 99 05/16/24 08:00 FiO2 Intake & Output 05/15/24 05/16/24 05/16/24 18:59 06:59 18:59 Intake Total 900 Balance 900 Intake: Oral 900 Other: # Voids 6 5 2 # Bowel Movements 1 - Exam GENERAL EXAM: Alert, pleasant 44-year-old male, on 3 L nasal cannula, in no apparent distress. HEAD: Normocephalic. EYES: Normal reaction of pupils, equal size. NOSE: Clear with pink turbinates. THROAT: No erythema or exudates. NECK: No masses, no JVD. CHEST: No chest wall deformity. LUNGS: Equal air entry with bilateral scattered rhonchi, wheeze. CVS: S1 and S2 normal with no audible murmur, regular rhythm. ABDOMEN: No hepatosplenomegaly, normal bowel sounds, no guarding or rigidity. SPINE: No scoliosis or deformity SKIN: No rashes CENTRAL NERVOUS SYSTEM: No focal deficits, tone is normal in all 4 extremities. EXTREMITIES: There is no peripheral edema. No clubbing, no cyanosis. Peripheral pulses are intact. - Labs CBC & Chem 7: 05/15/24 02:42 05/15/24 02:42 Labs: Microbiology - Last 24 Hours (Table) 05/15/24 12:20 Gram Stain - Preliminary Sputum Assessment and Plan Assessment: Acute on chronic hypoxemic respiratory failure secondary to acute on chronic sarcoidosis exacerbation Stage IV pulmonary sarcoidosis Chronic hypoxic respiratory failure secondary to above Benign essential hypertension Plan: The patient was seen and evaluated Medications reviewed Continue the current treatment plan Add Tessalon Perles 3 times daily Titrate the FiO2 as tolerated Procalcitonin negative Ceftriaxone discontinued I have personally seen and examined the patient, performed the documentation and the assessment and plan as written. Number of minutes spent on the visit: 10.
--- NOTE | 2024-05-16 15:49 | P.PN ---
Subjective Progress Note Date: 05/16/24 Hospital course: Patient is a pleasant 44-year-old male with a past medical history of cardiomyopathy, hypertension, stage IV pulmonary sarcoidosis, COPD with emphysema and chronic hypoxic respiratory failure 3 L home oxygen dependent. He presented to the hospital on 05/14/2024 secondary to reports of worsening shortness of breath. He underwent evaluation in the emergency department. Chest x-ray revealing bilateral streaky heterogeneous opacities throughout lungs. EKG showing sinus mechanism at 90 bpm. Labs were unremarkable with the exception of mild leukocytosis with WBC count of 12.58. COVID, influenza, and RSV were negative. Patient was admitted under our services with consultation to pulmonology. Physical exam: Patient seen and fully evaluated at bedside this morning. He reports Robitussin AC is helping somewhat with coughing fits. He reports he was able to cough up a quarter sized chunk of phlegm this morning and breathing is a little easier. Patient reports he is using his flutter valve and incentive spirometry as instructed. He denies having any new complaints or concerns. Vital signs reviewed and stable. General: Nontoxic, no distress and appears stated age. Derm: Skin warm and dry, normal coloration for ethnicity. Head: Atraumatic, normocephalic and symmetric. Eyes: EOM's intact, no lid lag, and anicteric sclera Mouth: no lip lesions, mucus membranes moist Cardiovascular: regular rate and rhythm with normal S1S2, no murmur, positive posterior tibial pulses bilaterally, and cap refill < 2 seconds. Lungs: Respirations even, regular, and unlabored on 3 L. Lungs diminished (worse on right) but continue to have improved air movement with expiratory wheezes. No rhonchi, crackles or rales noted. Abdominal: soft, nontender to palpation, no guarding, no appreciable organomegaly Ext: ROM intact. No gross muscle atrophy, no edema, no contractures Neuro: Speech clear, face symmetrical and CN II-XII grossly intact with no noted focal neuro deficits Psych: Alert and oriented to person, place, time, and situation. Appropriate and pleasant affect. Assessment and Plan of Care: Acute on chronic respiratory failure Acute COPD exacerbation Stage IV pulmonary sarcoidosis Severe emphysema -Pulmonology following, discussed in detail with pulmonary CORE ASSEMBLY SUPERVISOR and medical manager. -Oxygenation to be administered and titrated as needed to maintain SPO2 equal to or greater than 90% -Telemetry monitoring. -Monitor pulse-oximetry -Duonebs scheduled 4 times daily and as needed for SOB and/or wheezing -Follow-up on sputum culture. -Incentive Spirometry -Flutter valve -Steroids: Solu-Medrol 60 mg IVP every 6 hours -Continue Trelegy Ellipta -Continue CellCept-1500 mg twice daily Hypertension Monitor vital signs and continue amlodipine 10 mg daily. Data and imaging reviewed: Recent Labs showing mild improvement of leukocytosis from previous 12.58 down to 10.8. BMP was unremarkable. Magnesium 2.3. Liver profile unremarkable. Vital signs reviewed. Blood pressure 142/71, heart rate 92, respiratory rate 18, temp 97.9 F, and SpO2 of 99% on 3 L. CODE STATUS: Full code DVT prophylaxis: Lovenox Anticipated discharge date: Pending clinical course Anticipated discharge place: Home Patient was seen independently by Nurse Pracitioner. This document was prepared using [employer] dictation software. Please allow for errors in group leader semiconductor testing, while rare they do occur. Lei Fang NP rendered care for this patient independently, reviewed the findings and plan as documented in the note above. I did not physically speak with or examine the patient on this date. Objective - Vital Signs Vital signs: Vital Signs Temp 98.0 F 05/16/24 01:56 Pulse 80 05/16/24 08:27 Resp 18 05/16/24 01:56 BP 155/82 05/16/24 01:56 Pulse Ox 96 05/15/24 19:57 FiO2 Intake & Output 05/15/24 05/16/24 05/16/24 18:59 06:59 18:59 Other: # Voids 6 5 # Bowel Movements 1 - Labs CBC & Chem 7: 05/15/24 02:42 05/15/24 02:42
[2024-05-17] MEDS: MORPHINE SULFATE 4 MG/ML SYRINGE IVP PRN (06:29)
[2024-05-17 06:47] LABS: HCT 44.6 % (39.0-53.0); HGB 13.6 gm/dL (13.0-17.5); Hypochromasia Moderate; MCH 28.4 pg (25.0-35.0); MCHC 30.5 g/dL (31.0-37.0); MCV 93.2 fL (80.0-100.0); Mean Platelet Volume 7.7; Platelet Count 446 k/uL (150-450); RBC 4.78 m/uL (4.30-5.90); WBC 18.7 k/uL (3.8-10.6)
[2024-05-17 07:52] VITALS: RESP 17
[2024-05-17 10:16] LABS: African American GFR (CKD) >90 (>60 ml/min/1.73 sqM); Anion Gap 5 mmol/L; Blood Urea Nitrogen 11 mg/dL (9-20); Calcium 9.1 mg/dL (8.4-10.2); Carbon Dioxide 36 mmol/L (22-30); Chloride 100 mmol/L (98-107); Glucose 116 mg/dL (74-99); Non-African American GFR(CKD) >90 (>60 ml/min/1.73 sqM); Sodium 141 mmol/L (137-145)
[2024-05-17 10:17] LABS: Magnesium 2.6 mg/dL (1.6-2.3); Potassium 3.8 mmol/L (3.5-5.1)
--- NOTE | 2024-05-17 12:25 | P.PN ---
Subjective Progress Note Date: 05/17/24 The patient is seen today May 15, 2024 in follow-up on the regular medical floor. He is currently sitting up in bed. Awake and alert in no acute distress. Not feeling much better today compared to yesterday. Still with a loose productive cough. Still dyspneic on exertion. Dyspneic with conversati on. He is maintaining O2 saturations in the high 90s on 3 L/min per nasal cannula. He is afebrile. Hemodynamically stable. White count 10.8. Hemoglobin 12.5. Platelets 436. Sodium 139. Potassium 3.8. Bicarb 24. BUN 14. Creatinine 0.74. He is continued on DuoNeb inhalations, Solu-Medrol. Remains on antibiotics in the form of ceftriaxone and azithromycin. Procalcitonin pending. Lovenox for DVT prophylaxis. Utilizing his home Trelegy. The patient is seen today May 16, 2024 and follow-up on the regular medical floor. He is awake and alert in no acute distress. Sitting up in bed. Breathing easier today compared to yesterday. Still with a harsh cough. Still with some near syncope while coughing episodes. He remains on Trelegy, DuoNeb inhalations, Solu-Medrol. Robitussin for his cough. Lovenox for DVT prophylaxis. Remains on antibiotics in the form of ceftriaxone. Procalcitonin 0.04. The patient is seen today May 17, 2024 and follow-up on the regular medical floor. He is sitting up in bed. Awake and alert in no acute distress. Continues to improve daily. He is maintaining good O2 saturations in the 90s on room air. He has normal saline at KVO. He has less cough and congestion. No syncope. Continued on his home Trelegy, albuterol, Solu-Medrol, Robitussin and Tessalon Perles. White count 18.7. Hemoglobin 13.6. Platelets 446. Sodium 141. Potassium 3.8. Bicarb 36. BUN 11. Creatinine 0.61. Glucose 116. Objective - Vital Signs Vital signs: Vital Signs Temp 98.2 F 05/17/24 07:35 Pulse 104 H 05/17/24 08:31 Resp 17 05/17/24 07:35 BP 148/88 05/17/24 07:35 Pulse Ox 100 05/17/24 08:18 FiO2 Intake & Output 05/16/24 05/17/24 05/17/24 18:59 06:59 18:59 Intake Total 1300 Balance 1300 Intake: Oral 1300 Other: # Voids 4 2 - Exam GENERAL EXAM: Alert, pleasant 44-year-old male, feeling better, on room air, in no apparent distress. HEAD: Normocephalic. EYES: Normal reaction of pupils, equal size. NOSE: Clear with pink turbinates. THROAT: No erythema or exudates. NECK: No masses, no JVD. CHEST: No chest wall deformity. LUNGS: Equal air entry with bilateral scattered rhonchi, wheeze. CVS: S1 and S2 normal with no audible murmur, regular rhythm. ABDOMEN: No hepatosplenomegaly, normal bowel sounds, no guarding or rigidity. SPINE: No scoliosis or deformity SKIN: No rashes CENTRAL NERVOUS SYSTEM: No focal deficits, tone is normal in all 4 extremities. EXTREMITIES: There is no peripheral edema. No clubbing, no cyanosis. Peripheral pulses are intact. - Labs CBC & Chem 7: 05/17/24 06:17 05/17/24 09:33 Labs: Abnormal Lab Results - Last 24 Hours (Table) 05/17/24 05/17/24 Range/Units 06:17 09:33 WBC 18.7 H (3.8-10.6) k/uL MCHC 30.5 L (31.0-37.0) g/dL Carbon Dioxide 36 H (22-30) mmol/L Creatinine 0.65 L (0.66-1.25) mg/dL Glucose 116 H (74-99) mg/dL Magnesium 2.6 H (1.6-2.3) mg/dL Microbiology - Last 24 Hours (Table) 05/15/24 12:20 Gram Stain - Preliminary Sputum Assessment and Plan Assessment: Acute on chronic hypoxemic respiratory failure secondary to acute on chronic sarcoidosis exacerbation Stage IV pulmonary sarcoidosis Chronic hypoxic respiratory failure secondary to above Benign essential hypertension Plan: The patient was seen and evaluated Medications and labs reviewed Cleared for discharge from the pulmonary standpoint Continue his home Trelegy, albuterol, prednisone taper Follow-up with Dr. Kwan in our office in 1 week I have personally seen and examined the patient, performed the documentation and the assessment and plan as written. Number of minutes spent on the visit: 10.
[2024-05-17] MEDS: ALBUTEROL NEBULIZED 2.5 MG/3 ML INHALATION SCH (12:49)
--- NOTE | 2024-05-17 14:48 | P.DS ---
Providers Date of admission: 05/14/24 04:30 Expected date of discharge: 05/17/24 Attending physician: Francois Rahman MD Consults: 05/14/24 18:09 Consult Physician Routine Consulting Provider: Sara Kwan Consult Reason/Comments: dyspnea Do you want consulting provider notified?: Already Contacted Primary care physician: Stated None Hospital Course: Discharge Diagnosis: Acute on chronic respiratory failure Acute COPD exacerbation Stage IV pulmonary sarcoidosis Severe emphysema Hypertension Hospital Course: Patient is a pleasant 44-year-old male with a past medical history of cardiomyopathy, hypertension, stage IV pulmonary sarcoidosis, COPD with emphysema and chronic hypoxic respiratory failure 3 L home oxygen dependent. He presented to the hospital on 05/14/2024 secondary to reports of worsening shortness of breath. He underwent evaluation in the emergency department. C hest x-ray revealing bilateral streaky heterogeneous opacities throughout lungs. EKG showing sinus mechanism at 90 bpm. Labs were unremarkable with the exception of mild leukocytosis with WBC count of 12.58. COVID, influenza, and RSV were negative. Patient was admitted under our services with consultation to pulmonology. He underwent 2 night hospitalization with treatment of [id number] nebulizer treatments and IV steroids. Patient condition improving and he is medically stable for discharge home at this time. Patient cleared from pulmonology perspective recommending 16-day prednisone taper at discharge. Patient medically stable for discharge and to follow-up outpatient with PCP and consumer electronic retail specialist. Physical exam: Vital signs reviewed and stable. General: Nontoxic, no distress and appears stated age. Derm: Skin warm and dry, normal coloration for ethnicity. Head: Atraumatic, normocephalic and symmetric. Eyes: EOM's intact, no lid lag, and anicteric sclera Mouth: no lip lesions, mucus membranes moist Cardiovascular: regular rate and rhythm with normal S1S2, no murmur, positive posterior tibial pulses bilaterally, and cap refill < 2 seconds. Lungs: Respirations even, regular, and unlabored on 3 L. Lungs diminished (worse on right) but continue to have improved air movement with expiratory wheezes. No rhonchi, crackles or rales noted. Abdominal: soft, nontender to palpation, no guarding, no appreciable organomegaly Ext: ROM intact. No gross muscle atrophy, no edema, no contractures Neuro: Speech clear, face symmetrical and CN II-XII grossly intact with no noted focal neuro deficits Psych: Alert and oriented to person, place, time, and situation. Appropriate and pleasant affect. A total of 33 minutes of time were spent preparing this complex discharge summary. Pt was discharged on 05/17/2024 at 2:45 PM Patient was seen independently by Nurse Practitioner. This document was prepared using [employer] dictation software. Please allow for errors in production sanitizer while rare they do occur. I reviewed the documentation as provided by the NATHAN above, who is the original author of this note. I agree with the documented assessment and plan, with the following changes: none Patient Condition at Discharge: Stable Plan - Discharge Summary New Discharge Prescriptions: New predniSONE See Taper PO DIRECTED 16 Days #40 tab Continue lamoTRIgine 200 mg PO HS Cyclobenzaprine [Flexeril] 5 mg PO HS mycophenolate mofetiL [Cellcept] 1,500 mg PO BID Albuterol Nebulized [Ventolin Nebulized] 2.5 mg INHALATION RT-Q4H #180 ml Albuterol Sulfate [Proventil Hfa] 2 puff INHALATION RT-Q4H PRN #1 each PRN Reason: Shortness Of Breath Fluticasone Nasal [place] [Flonase Nasal [place]] 2 spray EA NOSTRIL DAILY #1 dispenser traZODone HCL [Desyrel] 50 mg PO HS amLODIPine [Norvasc] 10 mg PO HS Loratadine [Claritin] 10 mg PO HS Aspirin 81 mg PO DAILY No Action ARIPiprazole [Abilify] 20 mg PO HS Fluticasone/Umeclidin/Vilanter [Trelegy Ellipta 200-62.5-25] 1 puff INHALATION RT-DAILY Discharge Medication List lamoTRIgine 200 mg PO HS 10/30/17 [History] Albuterol Nebulized [Ventolin Nebulized] 2.5 mg INHALATION RT-Q4H #180 ml 09/25/22 [Rx] Albuterol Sulfate [Proventil Hfa] 2 puff INHALATION RT-Q4H PRN #1 each 09/25/22 [Rx] Fluticasone Nasal [place] [Flonase Nasal [place]] 2 spray EA NOSTRIL DAILY #1 dispenser 10/03/22 [Rx] Cyclobenzaprine [Flexeril] 5 mg PO HS 01/06/23 [History] Loratadine [Claritin] 10 mg PO HS 01/06/23 [History] amLODIPine [Norvasc] 10 mg PO HS 01/06/23 [History] traZODone HCL [Desyrel] 50 mg PO HS 01/06/23 [History] Aspirin 81 mg PO DAILY 01/12/23 [History] ARIPiprazole [Abilify] 20 mg PO HS 05/17/24 [History] Fluticasone/Umeclidin/Vilanter [Trelegy Ellipta 200-62.5-25] 1 puff INHALATION RT-DAILY 05/17/24 [History] mycophenolate mofetiL [Cellcept] 1,500 mg PO BID 05/17/24 [History] predniSONE See Taper PO DIRECTED 16 Days #40 tab 05/17/24 [Rx] Follow up Appointment(s)/Referral(s): Sara Kwan MD [STAFF PHYSICIAN] - 05/25/24 8:45 am Herber Campbell MD [REFERRING] - 1 Week (office not answering Please call to schedule appointment) Patient Instructions/Handouts: Dyspnea (DC) Discharge Disposition: HOME SELF-CARE
[2024-05-17 20:00] VITALS: BP 130/81; PULSE 61; TEMP 97.9
[2024-05-21] MEDS ORDERED: FOSAMAX PO SCH (09:00)
== END 2024-05-17 15:48 | disposition home or self-care (01) | DRG 133 ==
LOC: 4SSUR 04:30
PROVIDERS: ADMIT Internal Medicine; ATTEND Internal Medicine
DX: J96.21 Acute and chronic respiratory failure with hypoxia (principal); I42.9 Cardiomyopathy, unspecified; J44.1 Chronic obstructive pulmonary disease with (acute) exacerbation; Z99.81 Dependence on supplemental oxygen; D86.0 Sarcoidosis of lung; J43.9 Emphysema, unspecified; I10 Essential (primary) hypertension; Z11.52 Encounter for screening for COVID-19; Z87.891 Personal history of nicotine dependence; Z79.51 Long term (current) use of inhaled steroids; Z79.899 Other long term (current) drug therapy
CPT/HCPCS: 71046; 80048; 80053; 83735; 84145; 85025; 85027; 87070; 87205; 93005; 94640; 94664; 94760; 96361; 96374; 96375; 96376; 99285

== ENCOUNTER → 2024-05-24 | Outpatient (CLI) | payer OTHER ==
--- NOTE | 2024-05-24 13:03 | XR ---
EXAMINATION TYPE: XR shoulder complete 3 views RT DATE OF EXAM: 05/24/2024 Comparison: 11/29/2020 Clinical History: 44-year-old male M25.511 R shoulder pain Findings: Known extensive underlying pleural parenchymal opacity in the right lung only partially visualized. A C joint appears congruent and intact but with mild overlying soft tissue swelling. Subacromial space is preserved. There is patchy sclerosis redemonstrated within the humeral head. No acute fracture see n. No subluxation or dislocation. Impression: 1. There is some capsular hypertrophy/swelling at the AC joint which may reflect some early degenerat michelle change or mild joint sprain. Clinically correlate. 2. Patchy sclerosis throughout the humeral head. Consider underlying AVN. No acute fracture seen. 3. Known extensive pleural-parenchymal opacities throughout the right lung on the partially visualize d.
== END | disposition home or self-care (01) ==
LOC: RADXRMAIN 12:38
PROVIDERS: ATTEND Internal Medicine
DX: M25.511 Pain in right shoulder (principal)

== ENCOUNTER 2024-06-06 12:08 | Inpatient (IN) | payer OTHER ==
[2024-06-06] MEDS ORDERED: VANCOMYCIN IV PER PHARMACY 1 EACH MISC MISCELLANE PRN (12:41)
--- NOTE | 2024-06-06 12:44 | ED ---
General Adult HPI - General Chief complaint: Shortness of Breath Stated complaint: Pneumonia Time Seen by Provider: 06/06/24 12:25 Source: patient, RN notes reviewed, old records reviewed Mode of arrival: ambulatory Limitations: no limitations - History of Present Illness Initial comments: This is a 44-year-old male who presents to the emergency department with a past history of stage IV sarcoidosis patient's been treated as an outpatient for pneumonia and is x-ray was worse according to his body and frame technician so he was sent in for further evaluation. Patient will be started on cefepime and vancomycin per Dr. Kwan. Patient denies any chest pain or palpitations. Patient denies any headache patient states the cough has been worsening shortness of breath has been worse he is on 4 L of oxygen at home as well - Related Data Home Medications Medication Instructions Recorded Confirmed lamoTRIgine 200 mg PO HS 10/30/17 01/12/23 Cyclobenzaprine [Flexeril] 5 mg PO HS 01/06/23 01/12/23 Loratadine [Claritin] 10 mg PO HS 01/06/23 01/12/23 amLODIPine [Norvasc] 10 mg PO HS 01/06/23 01/12/23 traZODone HCL [Desyrel] 50 mg PO HS 01/06/23 01/12/23 Aspirin 81 mg PO DAILY 01/12/23 01/12/23 ARIPiprazole [Abilify] 20 mg PO HS 05/17/24 05/17/24 Fluticasone/Umeclidin/Vilanter 1 puff INHALATION RT-DAILY 05/17/24 05/17/24 [Trelegy Ellipta 200-62.5-25] mycophenolate mofetiL [Cellcept] 1,500 mg PO BID 05/17/24 05/17/24 Previous Rx's Medication Instructions Recorded Albuterol Nebulized [Ventolin 2.5 mg INHALATION RT-Q4H #180 ml 09/25/22 Nebulized] Albuterol Sulfate [Proventil Hfa] 2 puff INHALATION RT-Q4H PRN #1 09/25/22 each Fluticasone Nasal [place] [Flonase 2 spray EA NOSTRIL DAILY #1 10/03/22 Nasal [place]] dispenser predniSONE See Taper PO DIRECTED 16 Days 05/17/24 #40 tab Allergies Allergy/AdvReac Type Severity Reaction Status Date / Time No Known Allergies Allergy Verified 06/06/24 12:13 Review of Systems ROS Statement: Those systems with pertinent positive or pertinent negative responses have been documented in the HPI. ROS Other: All systems not noted in ROS Statement are negative. Past Medical History Past Medical History: COPD, Hypertension, Osteoarthritis (OA), Vascular Disorder Additional Past Medical History / Comment(s): sarcoidosis, avascular necrosis History of Any Multi-Drug Resistant Organisms: None Reported Past Surgical History: Hernia Repair Additional Past Surgical History / Comment(s): lung biopsy, cataract surgery bilateral, rotator cuff repair right shoulder Past Anesthesia/Blood Transfusion Reactions: No Reported Reaction Past Psychological History: Depression Smoking Status: Former smoker Past Alcohol Use History: Occasional Past Drug Use History: Marijuana - Past Family History Mother Additional Family Medical History / Comment(s): sarcoidosis Father Additional Family Medical History / Comment(s): leukemia at 45 General Exam - General Exam Comments Initial Comments: GENERAL: Patient is well-developed and well-nourished. Patient is nontoxic and well- hydrated and is in mild distress. ENT: Neck is soft and supple. No significant lymphadenopathy is noted. Oropharynx is clear. Moist mucous membranes. Neck has full range of motion without eliciting any pain. EYES: The sclera were anicteric and conjunctiva were pink and moist. Extraocular movements were intact and pupils were equal round and reactive to light. Eyelids were unremarkable. PULMONARY: Crackles right greater than left CARDIOVASCULAR: There is a regular rate and rhythm without any murmurs gallops or rubs. ABDOMEN: Soft and nontender with normal bowel sounds. SKIN: Skin is clear with no lesions or rashes and otherwise unremarkable. NEUROLOGIC: Patient is alert and oriented x3. Cranial nerves II through XII are grossly intact. Motor and sensory are also intact. Normal speech, volume and content. Symmetrical smile. MUSCULOSKELETAL: Normal extremities with adequate strength and full range of motion. No lower extremity swelling or edema. No calf tenderness. LYMPHATICS: No significant lymphadenopathy is noted PSYCHIATRIC: Normal psychiatric evaluation. Limitations: no limitations Course Vital Signs 06/06/24 12:11 Temperature 98.3 F Pulse Rate 94 Respiratory 18 Rate Blood Pressure 128/88 O2 Sat by Pulse 100 Oximetry Medical Decision Making - Medical Decision Making EKG is interpreted by myself. EKG shows a sinus rhythm at 85 bpm AL interval 152 QRS is 88 QT interval 339 QTc is 381. Patient's EKG shows no ST segment elevation or depression Was pt. sent in by a medical professional or institution ([facility]ckin[facility], REGISTERED HEALTH NURSE, urgent care, hospital, or long term...) When possible be specific @ -Patient was sent in by his body and frame technician. Did you speak to anyone other than the patient for history (EMS, parent, family, police, friend...)? What history was obtained from this source @ -I spoke with Dr. Kwan about his past history and the reason he is being sent in today Did you review nursing and triage notes (agree or disagree)? Why? @ -I reviewed and agree with nursing and triage notes Were old charts reviewed (outside hosp., previous admission, EMS record, old EKG, old radiological studies, urgent care reports/EKG's, long term records)? Report findings @ -No old charts were reviewed Differential Diagnosis? @ -Differential Dyspnea: Coronary syndrome, arrhythmia, tamponade, asthma, COPD, pulmonary embolism, pneumonia, pneumothorax, pulmonary effusion, anaphylaxis, diabetic ketoacidosis, flailed chest, pulmonary contusion, diaphragmatic rupture, anemia, neuromuscular, this is not meant to be an all-inclusive list. EKG interpreted by me (3pts min.). @ -As above X-rays interpreted by me (1pt min.). @ -None done CT interpreted by me (1pt min.). @ -None done U/S interpreted by me (1pt. min.). @ -None done What testing was considered but not performed or refused? (CT, X-rays, U/S, labs)? Why? @ -None What meds were considered but not given or refused? Why? @ -None Did you discuss the management of the patient with other professionals (professionals i.e. JOHN Mckinney, REGISTERED HEALTH NURSE, lab, RT, psych nurse, social media assistant, machine inker, teacher, army senior officer, rn case mgr)? Give summary @ -I spoke with sound physicians they agreed admit the patient to the patient consult the Dr. Kwan Was smoking cessation discussed for >3mins.? @ -No Was critical care preformed (if so, how long)? @ -No Were there social determinants of health that impacted care today? How? (Homelessness, low income, unemployed, alcoholism, drug addiction, transportation, low edu. Level, literacy, decrease access to med. care, skilled nursing, rehab)? @ -No Was there de-escalation of care discussed even if they declined (Discuss DNR or withdrawal of care, Hospice)? DNR status @ -No What co-morbidities impacted this encounter? (DM, HTN, Smoking, COPD, CAD, Cancer, CVA, ARF, Chemo, Hep., AIDS, mental health diagnosis, sleep apnea, morbid obesity)? @ -None Was patient admitted / discharged? Hospital course, mention meds given and route, prescriptions, significant lab abnormalities, going to OR and other pertinent info. @ -Patient receiving cefepime and vancomycin in the emergency department. Patient will be admitted to [facility] with a consult to Dr. Kwan Undiagnosed new problem with uncertain prognosis? @ -No Drug Therapy requiring intensive monitoring for toxicity (Heparin, Nitro, Insulin, Cardizem)? @ -No Were any procedures done? @ -No Diagnosis/symptom? @ -Pneumonia Acute, or Chronic, or Acute on Chronic? @ -Acute Uncomplicated (without systemic symptoms) or Complicated (systemic symptoms)? @ -Default Side effects of treatment? @ -No Exacerbation, Progression, or Severe Exacerbation? @ -No Poses a threat to life or bodily function? How? (Chest pain, [place], [place], pneumonia, PE, COPD, DKA, ARF, appy, cholecystitis, CVA, Diverticulitis, Homicidal, Suicidal, threat to staff... and all critical care pts) @ -Yes this could lead to sepsis and endorgan dysfunction Disposition Clinical Impression: Pneumonia, Failure of outpatient treatment Disposition: ADMITTED IP TO THIS [facility] Referrals: Maximino Dunham DO [Primary Care Provider] - 1-2 days Time of Disposition: 12:47
[2024-06-06] MEDS ORDERED: PNEUMONIA PROTOCOL UTILIZED 1 EACH MISC PO PRN (12:49)
--- NOTE | 2024-06-06 13:25 | XR ---
EXAMINATION TYPE: XR chest 2V DATE OF EXAM: 06/06/2024 COMPARISON: 02/03/2024 HISTORY: 44-year-old male shortness of breath, difficulty breathing TECHNIQUE: PA and lateral views FINDINGS: Heart normal size. Focal perihilar opacities are redemonstrated with architectural distortion and emp hysematous changes in the upper lungs. There is upward retraction of the [place] redemonstrated. Opacity is more confluent in the left perihilar region. IMPRESSION: 1. Extensive upper to midlung predominant pleural parenchymal changes favored to represent fibrosis a nd scarring as a sequela of sarcoidosis, pneumoconiosis, or prior fungal/mycobacterial infection. 2. Opacity at the left perihilar region is increased and could represent superimposed pneumonia. 3. 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 [facility], , 06/06/2024 1:22 PM
[2024-06-06] MEDS: SODIUM CHLORIDE 0.9% 1,000 ML IV STA (13:37)
[2024-06-06] MEDS: CEFEPIME 2 GM in SODIUM CHLORIDE 0.9% 100 ML IVPB STA (13:39)
[2024-06-06 13:48] LABS: Basophils % (A) 1 %; Eosinophils # (A) 0.3 k/uL (0-0.7); Eosinophils % (A) 6 %; HCT 46.6 % (39.0-53.0); HGB 14.4 gm/dL (13.0-17.5); Hypochromasia Moderate; Lymphocytes # (A) 1.1 k/uL (1.0-4.8); Lymphocytes % (A) 19 %; MCH 27.7 pg (25.0-35.0); MCHC 30.8 g/dL (31.0-37.0); MCV 89.9 fL (80.0-100.0); Mean Platelet Volume 6.9; Monocytes # (A) 0.3 k/uL (0-1.0); Monocytes % (A) 6 %; Neutrophils # (A) 3.8 k/uL (1.3-7.7); Neutrophils % (A) 67 %; Platelet Count 406 k/uL (150-450); RBC 5.18 m/uL (4.30-5.90); RDW 13.5 % (11.5-15.5); WBC 5.6 k/uL (3.8-10.6)
[2024-06-06 14:03] LABS: ALT 27 U/L (4-49); African American GFR (CKD) >90 (>60 ml/min/1.73 sqM); Albumin 4.8 g/dL (3.5-5.0); Anion Gap 9 mmol/L; Blood Urea Nitrogen 6 mg/dL (9-20); Calcium 9.6 mg/dL (8.4-10.2); Carbon Dioxide 30 mmol/L (22-30); Chloride 104 mmol/L (98-107); Glucose 63 mg/dL (74-99); Non-African American GFR(CKD) >90 (>60 ml/min/1.73 sqM); Sodium 143 mmol/L (137-145); Total Bilirubin 0.6 mg/dL (0.2-1.3); Total Protein 7.6 g/dL (6.3-8.2)
--- NOTE | 2024-06-06 14:15 | P.CNPUL ---
History of Present Illness Consult date: 06/06/24 Requesting physician: Maximino Dunham Reason for consult: dyspnea, cough, hypoxemia, pneumonia, abnormal CXR/CT Chief complaint: Pneumonia. History of present illness: Pulmonary consult dated June 06, 2024. 44-year-old black male with a known history of sarcoidosis, who was seen by my partner in the office today, and sent to the emergency room, to be evaluated, and admitted. The patient was recently in the hospital, about 3 or 4 weeks ago. The patient was being treated for pneumonia, as an outpatient, but was not improving. He apparently was coughing, and was having hemoptysis. In addition, he apparently was having some chest discomfort, as well as shortness of breath. Because he was not improving, and because a chest x-ray revealed a left-sided pneumonia, the patient was sent over to be evaluated, admitted, and placed on vancomycin and cefepime. Chest x-ray revealed a left-sided patchy infiltrate. CT scan of the chest was ordered. That is not completed as yet. The patient's medical history includes hypertension, sarcoidosis, avascular necrosis, cataracts, as well as rotator cuff injury. The patient also apparently has a history of COPD, from previous tobacco use. Laboratory data includes a white count 5.6, hemoglobin 14.4, hematocrit 46.6, and a platelet count of 406,000. Lactic acid is 1.8. There were additional laboratories ordered, but are not yet back on the chart. His chest x-ray is reviewed. There are some changes that are chronic in nature, likely relating to his sarcoidosis, but, in the left perihilar region, there is some patchy opacity, which may reflect an acute process, i.e. pneumonia. CT scan of the chest is pending. Review of Systems REVIEW OF SYSTEMS: CONSTITUTIONAL: Feeling hot and cold. No temperature taken at home. NEUROLOGIC: [ Negative.] HEENT: [ Negative.] CARDIAC: Chest pain. PULMONARY: Shortness of breath, cough, hemoptysis. GI: [Negative.] : [Negative.] RHEUMATOLOGIC: [ Negative.] IMMUNOLOGIC: [ Negative.] ENDOCRINE: [Negative. ] DERMATOLOGIC: [Negative.] Past Medical History Past Medical History: COPD, Hypertension, Osteoarthritis (OA), Vascular Disorder Additional Past Medical History / Comment(s): sarcoidosis, avascular necrosis History of Any Multi-Drug Resistant Organisms: None Reported Past Surgical History: Hernia Repair Additional Past Surgical History / Comment(s): lung biopsy, cataract surgery bilateral, rotator cuff repair right shoulder Past Anesthesia/Blood Transfusion Reactions: No Reported Reaction Past Psychological History: Depression Smoking Status: Former smoker Past Alcohol Use History: Occasional Past Drug Use History: Marijuana - Past Family History Mother Additional Family Medical History / Comment(s): sarcoidosis Father Additional Family Medical History / Comment(s): leukemia at 45 Medications and Allergies Home Medications Medication Instructions Recorded Confirmed Type lamoTRIgine 200 mg PO HS 10/30/17 06/06/24 History Albuterol Nebulized [Ventolin 2.5 mg INHALATION RT-Q4H #180 ml 09/25/22 06/06/24 Rx Nebulized] Albuterol Sulfate [Proventil Hfa] 2 puff INHALATION RT-Q4H PRN #1 09/25/22 06/06/24 Rx each Fluticasone Nasal [place] [Flonase 2 spray EA NOSTRIL DAILY #1 10/03/22 06/06/24 Rx Nasal [place]] dispenser Cyclobenzaprine [Flexeril] 5 mg PO HS 01/06/23 06/06/24 History Loratadine [Claritin] 10 mg PO HS 01/06/23 06/06/24 History amLODIPine [Norvasc] 10 mg PO HS 01/06/23 06/06/24 History traZODone HCL [Desyrel] 50 mg PO HS 01/06/23 06/06/24 History ARIPiprazole [Abilify] 20 mg PO HS 05/17/24 06/06/24 History Fluticasone/Umeclidin/Vilanter 1 puff INHALATION RT-DAILY 05/17/24 06/06/24 History [Trelegy Ellipta 200-62.5-25] mycophenolate mofetiL [Cellcept] 1,500 mg PO BID 05/17/24 06/06/24 History Alendronate Sodium 70 mg PO MO 06/06/24 06/06/24 History Aspirin EC [Ecotrin] 650 mg PO ONETIME PRN 06/06/24 06/06/24 History Celecoxib [CeleBREX] 100 mg PO BID PRN 06/06/24 06/06/24 History Cyclobenzaprine [Flexeril] 5 mg PO BID PRN 06/06/24 06/06/24 History Ergocalciferol [Vitamin D2 (1250 1,250 mcg PO MO 06/06/24 06/06/24 History Mcg = [id number] Iu)] Infliximab-Abda [Renflexis] 1 dose IV Q30D 06/06/24 06/06/24 History Allergies Allergy/AdvReac Type Severity Reaction Status Date / Time No Known Allergies Allergy Verified 06/06/24 13:06 Physical Exam Osteopathic Statement: *. No significant issues noted on an osteopathic structural exam other than those noted in the History and Physical/Consult. Vitals: Vital Signs Temp Pulse Resp BP Pulse Ox 06/06/24 12:11 98.3 F 94 18 128/88 100 Intake and Output 06/05/24 06/06/24 06/06/24 22:59 06:59 14:59 Other: Weight 85.275 kg No acute distress, oriented 3. Currently on 3 L of oxygen. No mallory respiratory distress. HEENT examination is grossly unremarkable. Mucous membranes are moist. No oral lesions. Neck supple. Full range of motion. No adenopathy thyromegaly or neck vein distention. Cardiovascular examination reveals regular rhythm rate. S1-S2 normal. No S3 or S4. No discernible murmur noted. Heart rate 94 bpm. Lungs reveal tattered rhonchi. Minimal wheezes. No crackles. Breath sounds equal. Saturations are 100% on 3 L. Abdomen soft bowel sounds are heard. No masses or tenderness. Extremities are intact. No cyanosis clubbing or edema. Skin is without rash or lesion. Neurologic examination is brief but nonfocal. Results - Laboratory Findings CBC and BMP: 06/06/24 13:38 Abnormal lab findings: Abnormal Labs 06/06/24 13:38 MCHC 30.8 L - Diagnostic Findings Chest x-ray: image reviewed Assessment and Plan Assessment: Shortness of breath, cough, hemoptysis, with possible pneumonia, left perihilar region. History of sarcoidosis, with chronic changes on chest x-ray. Recent admission, April 2024, for an acute exacerbation of chronic sarcoidosis. History of stage IV sarcoidosis. History of benign essential hypertension. History of previous tobacco use. History of depression. Plan: Plan dated June 06, 2024. The patient was seen today in the office by my partner, and sent to the hospital for possible pneumonia. The patient apparently has been having increasing shortness of breath, cough, chest pain, and hemoptysis. A chest x-ray shows a possible infiltrate in the left perihilar region. Chronic changes are seen on his chest x-ray, from his chronic advanced sarcoidosis. A CT scan was ordered but not completed as yet. The patient was placed on vancomycin and cefepime. We will check a procalcitonin level. No additional recommendations at this time. Time with Patient: Less than 30
--- NOTE | 2024-06-06 14:22 | CT ---
EXAMINATION TYPE: CT chest angio for PE DATE OF EXAM: 06/06/2024 COMPARISON: 07/13/2021 HISTORY: Difficulty breathing and pneumonia. History of Sarcoidosis CT DLP: 373.1 mGycm Automated exposure control for dose reduction was used. CONTRAST: CT Chest for pulmonary embolism performed with with IV Contrast, patient injected with 75ml mL of Iso yola 370. FINDINGS: There are no filling defects within the pulmonary arterial circulation to suggest pulmonary embolism. There are changes consistent with the history of sarcoidosis with marked destruction of the upper lob es bronchiectasis with peribronchial cuffing and interstitial fibrosis. The nodular pattern seen in t he prior study 11 is not apparent on the current study although a few small nodules are identified in the right middle lobe. There is a partially consolidative opacity in the left lower lobe posteriorly suspicious for an acute infiltrate such as pneumonia. There is no pleural effusion or pneumothorax. There is no mediastinal, hilar or axillary adenopathy. Limited scanning through the upper abdomen reveals no gross abnormality. No focal osseous lesions are seen. IMPRESSION: 1. No evidence of pulmonary embolism 2. Marked chronic changes with parenchymal destruction and interstitial scarring, bronchiectasis and upper lobe volume loss consistent with the history of sarcoidosis. 3. Partially consolidated infiltrate in the left lower lobe posteriorly suspicious for an acute pneum onia and short-term follow-up is recommended. [facility], , 06/06/2024 2:20 PM
[2024-06-06 14:25] LABS: AST 28 U/L (17-59); Alkaline Phosphatase 81 U/L (38-126); Magnesium 2.4 mg/dL (1.6-2.3); Potassium 4.2 mmol/L (3.5-5.1)
[2024-06-06 14:59] LABS: Glucose,Whole Blood 71 mg/dL (70-110)
[2024-06-06] MEDS ORDERED: ALBUTEROL HFA INHALER INHALATION PRN (15:27)
--- NOTE | 2024-06-06 17:12 | P.HPIM ---
History of Present Illness H&P Date: 06/06/24 Chief Complaint: Pneumonia Patient is a 44-year-old male with PMH of sarcoidosis stage IV, chronic hypoxemic respiratory failure on 3 L continuous home oxygen, COPD, hypertension was sent to the ER for further evaluation and treatment of suspected pneumonia. Patient was seen earlier today by Dr. Kwan in his office for progressively worsening shortness of breath and cough. Outpatient x-ray showed concern for pneumonia and was asked to come to the ER for further evaluation. Patient was recently hospitalized from 05/13/2024 to 05/17/2024 for acute on chronic respiratory failure at [facility]. Patient had a 1 week follow-up appointment with Dr. Kwan and was started on oral antibiotic, likely levofloxacin for 10 days due to symptoms of cough, fever, chills and shortness of breath. Patient did not see any improvement in his symptoms despite being on antibiotic. Patient also complaining of hemoptysis that started 4 to 5 days ago associated with cough. He is also feeling weak with generalized malaise. He has been having night sweats along with unintentional 20 pound weight loss since 3 months. Patient states that his cough is worse when he is laying in supine position. He also complaining of dizziness associated with cough. Apparently, patient had multiple falls in the past 1 month because of dizziness. He will lose balance and would fall to the ground staying unconscious for few seconds. Per , patient would wake up to gentle rub on his face or back. Patient denies any head injury, urinary or bowel incontinence or tongue bite. No history of seizure. Patient is also complaining of mild left-sided chest pain under the left breast area associated with cough. Denies any history of previous CAD. Denies any use of illicit drug such as cocaine. No swelling of the legs. No recent travel. Patient is not on any blood thinner. Laboratory evaluation in the ER shows WBC 5.6, hemoglobin 14.4, MCV 89.9, platelet count 406, sodium 143, potassium 4.2, BUN 6, creatinine 0.8, glucose 63, magnesium 2.4 Troponin I less than 0.012 Chest x-ray independently interpreted, bilateral interstitial opacities, more prominent in left perihilar region CT angiogram of the chest shows: -No evidence of pulmonary embolism -Marked chronic changes with parenchymal destruction interstitial scarring, bronchiectasis and upper lobe volume loss consistent with history of sarcoidosis -Partially consolidated infiltrate in the left lower lobe posteriorly suspicious for an acute pneumonia EKG independently interpreted shows normal sinus rhythm with ventricular rate of 85 bpm, normal OH interval of 152 ms, normal QRS duration of 88 ms, normal QTc 81 ms, not prolonged. Also signs of early repolarization is seen in lead II and bifid P waves. Normal R wave progression. No ST-T wave changes. Review of systems: Pertinent positives and negatives as discussed in HPI, a complete review of systems was performed and all other systems are negative. Social history: Tobacco: [id number] history; quit 1 year ago Alcohol: Occasional alcohol Recreational drugs: Smokes marijuana Travel: None Occupation: None Family History: Sarcoidosis in mother and cousin Physical examination: Vital signs reviewed General: non toxic, no distress, appears at stated age, normal weight Derm: no unusual rashes/lesions, warm Head: atraumatic, normocephalic, symmetric Eyes: EOMI, no lid lag, anicteric sclera, pupils equal round reactive to light ENT: Nose and ears atraumatic Neck: No cervical lymphadenopathy, trachea midline, supple Mouth: no lip lesion, mucus membranes moist Cardiovascular: S1S2 reg, no murmur, positive dorsalis pedis pulse bilateral, no edema Lungs: Decreased breath sounds left lower lobe, bilateral rhonchi, no rales, no accessory muscle use, 3 L oxygen via nasal cannula Abdominal: soft, nontender to palpation, no guarding Ext: muscle strength 5 out of 5 in all 4 extremities grossly, no gross muscle atrophy, no contractures, Neuro: CN II-XI grossly intact, no gross focal neuro deficits Psych: Alert, oriented, appropriate affect Assessment/Plan: 44-year-old male with PMH of sarcoidosis stage IV, chronic hypoxemic respiratory failure on 3 L continuous home oxygen, COPD, hypertension was sent to the ER for further evaluation and treatment of suspected pneumonia. #Community-acquired pneumonia Hemoptysis Chest x-ray shows opacity in the left perihilar region CT angio of the chest shows consolidated infiltrate in left lower lobe Order IV vancomycin, cefepime 2 g IVPB every 8 hour and Zithromax 500 mg IVPB daily -Monitor BMP for vancomycin related renal toxicity Obtain blood culture and sputum culture Order urine Legionella antigen test Order procalcitonin Continue monitor CBC Consult pulmonology Does not meet SIRS criteria. -Hemoptysis likely secondary to coughing -MRSA screen, if negative, discontinue IV vancomycin #Chronic respiratory failure #COPD, not in exacerbation #History of sarcoidosis Continue 3 L oxygen via nasal cannula Resume resume home albuterol and ipratropium nebulizers as scheduled Continue with Symbicort 160-4.5 mcg inhaler Resume mycophenolate 1500 mg p.o. twice daily, hold infliximab Consult pulmonology # Vasovagal syncope in the setting of cough #Hypoglycemia Brain MRI on 02/25/2023 shows no evidence of acute or subacute changes Cardiac monitoring Fall precaution Glucose 63 improved to 71 with juice Continue to monitor glucose level #Chronic conditions Hypertension: Resume amlodipine 10 mg p.o. at bedtime Seizure disorder-continue Lamictal 200 nightly Insomnia-continue trazodone 50 nightly DVT prophylaxis: Lovenox 40 mg subcu daily The patient is admitted with an anticipated greater than 2 midnight stay as inpatient status for evaluation of community-acquired pneumonia. CODE STATUS: Full Discussed with: Patient Anticipated discharge place: Home A total of 55 minutes was spent on the care of this complex patient more than 50% of the time was spent in counseling and care coordination. I have seen and evaluated the patient today. Discussed with the resident and agree with the residents finding and plan as documented in the resident's note. Changes highlighted in blue font. Past Medical History Past Medical History: COPD, Hypertension, Osteoarthritis (OA), Vascular Disorder Additional Past Medical History / Comment(s): sarcoidosis, avascular necrosis History of Any Multi-Drug Resistant Organisms: None Reported Past Surgical History: Hernia Repair Additional Past Surgical History / Comment(s): lung biopsy, cataract surgery bilateral, rotator cuff repair right shoulder Past Anesthesia/Blood Transfusion Reactions: No Reported Reaction Past Psychological History: Depression Smoking Status: Former smoker Past Alcohol Use History: Occasional Past Drug Use History: Marijuana - Past Family History Mother Additional Family Medical History / Comment(s): sarcoidosis Father Additional Family Medical History / Comment(s): leukemia at 45 Medications and Allergies Home Medications Medication Instructions Recorded Confirmed Type lamoTRIgine 200 mg PO HS 10/30/17 06/06/24 History Albuterol Nebulized [Ventolin 2.5 mg INHALATION RT-Q4H #180 ml 09/25/22 06/06/24 Rx Nebulized] Albuterol Sulfate [Proventil Hfa] 2 puff INHALATION RT-Q4H PRN #1 09/25/22 06/06/24 Rx each Fluticasone Nasal E[place] [Flonase 2 spray EA NOSTRIL DAILY #1 10/03/22 06/06/24 Rx Nasal [place]] dispenser Cyclobenzaprine [Flexeril] 5 mg PO HS 01/06/23 06/06/24 History Loratadine [Claritin] 10 mg PO HS 01/06/23 06/06/24 History amLODIPine [Norvasc] 10 mg PO HS 01/06/23 06/06/24 History traZODone HCL [Desyrel] 50 mg PO HS 01/06/23 06/06/24 History ARIPiprazole [Abilify] 20 mg PO HS 05/17/24 06/06/24 History Fluticasone/Umeclidin/Vilanter 1 puff INHALATION RT-DAILY 05/17/24 06/06/24 History [Trelegy Ellipta 200-62.5-25] mycophenolate mofetiL [Cellcept] 1,500 mg PO BID 05/17/24 06/06/24 History Alendronate Sodium 70 mg PO MO 06/06/24 06/06/24 History Aspirin EC [Ecotrin] 650 mg PO ONETIME PRN 06/06/24 06/06/24 History Celecoxib [CeleBREX] 100 mg PO BID PRN 06/06/24 06/06/24 History Cyclobenzaprine [Flexeril] 5 mg PO BID PRN 06/06/24 06/06/24 History Ergocalciferol [Vitamin D2 (1250 1,250 mcg PO MO 06/06/24 06/06/24 History Mcg = [id number] Iu)] Infliximab-Abda [Renflexis] 1 dose IV Q30D 06/06/24 06/06/24 History Allergies Allergy/AdvReac Type Severity Reaction Status Date / Time No Known Allergies Allergy Verified 06/06/24 13:06 Physical Exam Vitals: Vital Signs Temp Pulse Resp BP Pulse Ox 06/06/24 12:11 98.3 F 94 18 128/88 100 Intake and Output 06/06/24 06/06/24 06/06/24 06:59 14:59 22:59 Other: Weight 85.275 kg Results CBC & Chem 7: 06/06/24 13:38 09/16/24 13:38 Labs: Abnormal Lab Results - Last 24 Hours (Table) 06/06/24 06/06/24 Range/Units 13:38 13:38 MCHC 30.8 L (31.0-37.0) g/dL BUN 6 L (9-20) mg/dL Glucose 63 L (74-99) mg/dL Magnesium 2.4 H (1.6-2.3) mg/dL
[2024-06-06] MEDS: VANCOMYCIN 1,750 MG in SODIUM CHLORIDE 0.9% 500 ML 500 ML IVPB ONE (17:26)
[2024-06-06] MEDS: AZITHROMYCIN 500 MG in SODIUM CHLORIDE 0.9% 250 ML IVPB SCH (17:51)
[2024-06-06] MEDS: ALBUTEROL NEBULIZED 2.5 MG/3 ML INHALATION SCH (19:42)
[2024-06-06] MEDS: lamoTRIgine 100 MG TAB PO SCH (21:10)
[2024-06-06] MEDS: traZODone HCL 50 MG TAB PO SCH (21:12)
[2024-06-06] MEDS: LORATADINE 10 MG TAB PO SCH (21:12)
[2024-06-06] MEDS: CEFEPIME 2 GM in SODIUM CHLORIDE 0.9% 100 ML IVPB SCH (21:25)
[2024-06-06] MEDS: amLODIPine 10 MG TAB PO SCH (22:56)
[2024-06-06] MEDS: ACETAMINOPHEN TAB 325 MG TAB PO PRN (22:56)
[2024-06-07] MEDS: MORPHINE SULFATE 4 MG/ML SYRINGE IVP STA (01:22)
[2024-06-07] MEDS: VANCOMYCIN 1,500 MG in SODIUM CHLORIDE 0.9% 500 ML 500 ML IVPB SCH ×2 (01:22→22:43)
[2024-06-07 08:07] LABS: Basophils % (A) 0 %; Eosinophils # (A) 0.5 k/uL (0-0.7); Eosinophils % (A) 7 %; HCT 39.9 % (39.0-53.0); HGB 12.5 gm/dL (13.0-17.5); Hypochromasia Slight; Lymphocytes # (A) 1.2 k/uL (1.0-4.8); Lymphocytes % (A) 18 %; MCH 27.9 pg (25.0-35.0); MCHC 31.4 g/dL (31.0-37.0); MCV 88.7 fL (80.0-100.0); Mean Platelet Volume 7.1; Monocytes # (A) 0.4 k/uL (0-1.0); Monocytes % (A) 6 %; Neutrophils # (A) 4.6 k/uL (1.3-7.7); Neutrophils % (A) 66 %; Platelet Count 409 k/uL (150-450); RDW 13.9 % (11.5-15.5); WBC 6.9 k/uL (3.8-10.6)
[2024-06-07] MEDS: SYMBICORT 160-4.5 MCG INHALER INHALATION SCH (08:29)
[2024-06-07] MEDS: IPRATROPIUM 0.5 MG/2.5 ML NEBU INHALATION SCH (08:30)
[2024-06-07 08:43] LABS: African American GFR (CKD) >90 (>60 ml/min/1.73 sqM); Anion Gap 5 mmol/L; Blood Urea Nitrogen 5 mg/dL (9-20); Calcium 8.9 mg/dL (8.4-10.2); Carbon Dioxide 30 mmol/L (22-30); Chloride 103 mmol/L (98-107); Glucose 113 mg/dL (74-99); Non-African American GFR(CKD) >90 (>60 ml/min/1.73 sqM); Potassium 4.1 mmol/L (3.5-5.1); Sodium 138 mmol/L (137-145)
[2024-06-07] MEDS: oxyCODONE-APAP 7.5-325MG 1 EACH TAB PO STA (09:08)
--- NOTE | 2024-06-07 12:44 | P.PN ---
Subjective Progress Note Date: 06/07/24 Hospital course: Patient is a 44-year-old male with PMH of sarcoidosis stage IV, chronic hypoxemic respiratory failure on 3 L continuous home oxygen, COPD, hypertension was sent to the ER for further evaluation and treatment of suspected pneumonia. Patient was recently hospitalized from 05/13/2024 to 05/17/2024 for acute on chronic respiratory failure at [facility]. Patient had a 1 week pulmonary follow-up and he was was started on oral antibiotic, likely levofloxacin for 10 days due to symptoms of cough, fever, chills and shortness of breath. Patient did not see any improvement in his symptoms despite being on antibiotic. Patient had outpatient follow-up at the pulmonary clinic today wh ere x-ray showed concern for pneumonia and was asked to come to the ER for further evaluation. He also complaining of dizziness and left-sided chest pain under the left breast area associated with cough. Patient was admitted for community-acquired pneumonia secondary to failed outpatient therapy. Laboratory evaluation in the ER shows WBC 5.6, hemoglobin 14.4, MCV 89.9, platelet count 406, sodium 143, potassium 4.2, BUN 6, creatinine 0.8, glucose 63, magnesium 2.4. Troponin I less than 0.012. Chest x-ray independently interpreted, bilateral interstitial opacities, more prominent in left perihilar region. CT angiogram of the chest showed left lower lobe consolidation. EKG independently interpreted shows normal sinus rhythm with ventricular rate of 85 bpm, normal CA interval of 152 ms, normal QRS duration of 88 ms, normal QTc 81 ms, not prolonged. Also signs of early repolarization is seen in lead II and bifid P waves. Normal R wave progression. No ST-T wave changes. Patient started on IV vancomycin, IV cefepime and p.o. Zithromax. Pulmonology consulted. Subjective: Patient seen and examined at the bedside. Patient continue to have coughing fits associated with half teaspoonful of blood tinged sputum. Patient continues to complaining of left-sided chest pain associated with cough. All Systems reviewed and pertinent positives and negatives noted in HPI, all other symptoms are negative Objective: Vital signs reviewed. General: non toxic, no distress, appears at stated age, normal weight Derm: no unusual rashes/lesions, warm Head: atraumatic, normocephalic, symmetric Eyes: EOMI, no lid lag, anicteric sclera, pupils equal round reactive to light ENT: Nose and ears atraumatic Neck: No cervical lymphadenopathy, trachea midline, supple Mouth: no lip lesion, mucus membranes moist Cardiovascular: S1S2 reg, no murmur, positive dorsalis pedis pulse bilateral, no edema Lungs: Decreased breath sounds left lower lobe, bilateral rhonchi, no rales, no accessory muscle use, 2 L oxygen via nasal cannula Abdominal: soft, nontender to palpation, no guarding Ext: muscle strength 5 out of 5 in all 4 extremities grossly, no gross muscle atrophy, no contractures, Neuro: CN II-XI grossly intact, no gross focal neuro deficits Psych: Alert, oriented, appropriate affect Data reviewed today: Pertinent Labs: WBC 6.9, hemoglobin 12.5, hematocrit 39.9, MCV 88.7, platelet c ount 409, sodium 138, potassium 4.1, BUN 5, creatinine 0.68, glucose 113, calcium 8.9 Urine Legionella antigen is negative, procalcitonin 0.06 No new imaging Assessment/Plan: 44-year-old male with PMH of sarcoidosis stage IV, chronic hypoxemic respiratory failure on 3 L continuous home oxygen, COPD, hypertension was sent to the ER for further evaluation and treatment of suspected pneumonia. #Community-acquired pneumonia, failed outpatient therapy #Hemoptysis secondary to above #Normocytic anemia likely secondary to hemodilution Chest x-ray shows opacity in the left perihilar region Hemoglobin 12.5 secondary hemodilution; monitor CBC CT angio of the chest shows consolidated infiltrate in left lower lobe Continue with IV vancomycin, cefepime 2 g IVPB every 8 hour and Zithromax 500 mg IVPB daily Monitor BMP for vancomycin related renal toxicity Obtain blood culture and sputum culture Urine Legionella antigen testing negative Procalcitonin is negative Pulmonology note reviewed, continue current therapy Hemoptysis likely secondary to coughing; consider bronchoscopy if worsens MRSA screen, if negative, discontinue IV vancomycin #Chronic hypoxic respiratory failure #COPD, not in exacerbation #History of stage IV sarcoidosis O2 saturation target between 88 to 92%; avoid hyperoxia Resume home albuterol and ipratropium nebulizers as scheduled Continue with Symbicort 160-4.5 mcg inhaler Resume mycophenolate 1500 mg p.o. twice daily, hold infliximab #Vasovagal syncope in the setting of cough #Hypoglycemia, resolved Brain MRI on 02/25/2023 shows no evidence of acute or subacute changes Cardiac monitoring Fall precaution Glucose 113 Continue to monitor glucose level #Chronic conditions Hypertension: Continue amlodipine 10 mg p.o. at bedtime Seizure disorder: continue Lamictal 200 nightly Insomnia: continue trazodone 50 nightly F: None E: Replete as needed N: Regular A: Fall precautions DVT prophylaxis: Subcu heparin CODE STATUS: Full Discussed with: Patient Anticipated discharge place: Home Anticipated discharge time: Pending clinical course I have seen and evaluated the patient today. Discussed with the resident and agree with the residents finding and plan as documented in the resident's note. Changes highlighted in blue font. Objective - Vital Signs Vital signs: Vital Signs Temp 97.4 F L 06/07/24 08:59 Pulse 82 06/07/24 10:27 Resp 20 06/07/24 11:14 BP 136/87 06/07/24 08:59 Pulse Ox 98 06/07/24 10:27 FiO2 Intake & Output 06/06/24 06/07/24 06/07/24 18:59 06:59 18:59 Weight 85.275 kg Other: # Voids 2 - Labs CBC & Chem 7: 06/07/24 07:40 06/07/24 07:40 Labs: Abnormal Lab Results - Last 24 Hours (Table) 06/06/24 06/06/24 06/07/24 Range/Units 13:38 13:38 07:40 Hgb 12.5 L (13.0-17.5) gm/dL MCHC 30.8 L (31.0-37.0) g/dL BUN 6 L (9-20) mg/dL Glucose 63 L (74-99) mg/dL Magnesium 2.4 H (1.6-2.3) mg/dL 06/07/24 Range/Units 07:40 Hgb (13.0-17.5) gm/dL MCHC (31.0-37.0) g/dL BUN 5 L (9-20) mg/dL Glucose 113 H (74-99) mg/dL Magnesium (1.6-2.3) mg/dL Microbiology - Last 24 Hours (Table) 06/06/24 17:08 Gram Stain - Preliminary Sputum Sputum Culture - Preliminary
--- NOTE | 2024-06-07 13:08 | P.PN ---
Subjective Progress Note Date: 06/07/24 Principal diagnosis: Pneumonia. Pulmonary consult dated June 06, 2024. 44-year-old black male with a known history of sarcoidosis, who was seen by my partner in the office today, and sent to the emergency room, to be evaluated, and admitted. The patient was recently in the hospital, about 3 or 4 weeks ago. The patient was being treated for pneumonia, as an outpatient, but was not improving. He apparently was coughing, and was having hemoptysis. In addition, he apparently was having some chest discomfort, as well as shortness of breath. Because he was not improving, and because a chest x-ray revealed a left-sided pneumonia, the patient was sent over to be evaluated, admitted, and placed on vancomycin and cefepime. Chest x-ray revealed a left-sided patchy infiltrate. CT scan of the chest was ordered. That is not completed as yet. The patient's medical history includes hypertension, sarcoidosis, avascular necrosis, cataracts, as well as rotator cuff injury. The patient also apparently has a history of COPD, from previous tobacco use. Laboratory data includes a white count 5.6, hemoglobin 14.4, hematocrit 46.6, and a platelet count of 406,000. Lactic acid is 1.8. There were additional laboratories ordered, but are not yet back on the chart. His chest x-ray is reviewed. There are some changes that are chronic in nature, likely relating to his sarcoidosis, but, in the left perihilar region, there is some patchy opacity, which may reflect an acute process, i.e. pneumonia. CT scan of the chest is pending. Progress note dated June 07, 2024. Pleasant 44-year-old black male with a history of chronic sarcoidosis. The patient was seen by my partner in the office, and sent to the hospital for admission, for possible left-sided pneumonia. Chest x-ray reveals chronic changes, as did CT scan. Nonetheless, there appears to be a new infiltrate, in the left midlung. The patient was started on vancomycin, and cefepime. Clinically, the patient appears a bit better today than he did yesterday. When he first came in, he was coughing up blood. That has not happened yet today. The patient continues on oxygen, at 2 L. Saturations are 98%. Procalcitonin level was 0.06. Current labs include a white count of 6.9, hemoglobin 12.5, hematocrit 39.9, and a normal platelet count. Sodium 138, potassium 4.1, chlorides 103, CO2 30, BUN 5, creatinine 0.68. Calcium is 8.9. Urine Legionella antigen was negative. Objective - Vital Signs Vital signs: Vital Signs Temp 97.4 F L 06/07/24 08:59 Pulse 82 06/07/24 10:27 Resp 20 06/07/24 11:14 BP 136/87 06/07/24 08:59 Pulse Ox 98 06/07/24 10:27 FiO2 Intake & Output 06/06/24 06/07/24 06/07/24 18:59 06:59 18:59 Weight 85.275 kg Other: # Voids 2 - Exam No acute distress, oriented 3. Currently on 2 L of oxygen. No mallory respiratory distress. HEENT examination is grossly unremarkable. Mucous membranes are moist. No oral lesions. Neck supple. Full range of motion. No adenopathy thyromegaly or neck vein distention. Cardiovascular examination reveals regular rhythm rate. S1-S2 normal. No S3 or S4. No discernible murmur noted. Heart rate 82 bpm. Lungs reveal tattered rhonchi. Minimal wheezes. No crackles. Breath sounds equal. Saturations are 99% on 2 L. Abdomen soft bowel sounds are heard. No masses or tenderness. Extremities are intact. No cyanosis clubbing or edema. Skin is without rash or lesion. Neurologic examination is brief but nonfocal. - Labs CBC & Chem 7: 06/07/24 07:40 06/07/24 07:40 Labs: Abnormal Lab Results - Last 24 Hours (Table) 06/06/24 06/06/24 06/07/24 Range/Units 13:38 13:38 07:40 Hgb 12.5 L (13.0-17.5) gm/dL MCHC 30.8 L (31.0-37.0) g/dL BUN 6 L (9-20) mg/dL Glucose 63 L (74-99) mg/dL Magnesium 2.4 H (1.6-2.3) mg/dL 06/07/24 Range/Units 07:40 Hgb (13.0-17.5) gm/dL MCHC (31.0-37.0) g/dL BUN 5 L (9-20) mg/dL Glucose 113 H (74-99) mg/dL Magnesium (1.6-2.3) mg/dL Microbiology - Last 24 Hours (Table) 06/06/24 17:08 Gram Stain - Preliminary Sputum Sputum Culture - Preliminary Assessment and Plan Assessment: Shortness of breath, cough, hemoptysis, with possible pneumonia, left perihilar region. History of sarcoidosis, with chronic changes on chest x-ray. Recent admission, April 2024, for an acute exacerbation of chronic sarcoidosis. History of stage IV sarcoidosis. History of benign essential hypertension. History of previous tobacco use. History of depression. Plan: Plan dated June 06, 2024. The patient was seen today in the office by my partner, and sent to the hospital for possible pneumonia. The patient apparently has been having increasing shortness of breath, cough, chest pain, and hemoptysis. A chest x-ray shows a possible infiltrate in the left perihilar region. Chronic changes are seen on his chest x-ray, from his chronic advanced sarcoidosis. A CT scan was ordered but not completed as yet. The patient was placed on vancomycin and cefepime. We will check a procalcitonin level. No additional recommendations at this time. Plan dated June 07, 2024. The patient feels a bit better today than when he first came in. He was initially seen in the office by my partner yesterday, and sent to the hospital for IV antibiotics in the form of vancomycin, and cefepime. Interestingly, even though his chest x-ray and CT scan suggest a new infiltrate in the left midlung, the procalcitonin level was in the normal range. 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 The [place] chao is hoping to be discharged before the appointment on . Additional recommendations and suggestions are forthcoming. Labs, x-rays, and all medications have been reviewed. Sputum is nondiagnostic. Time with Patient: Less than 30
[2024-06-07] MEDS: oxyCODONE-APAP 7.5-325MG 1 EACH TAB PO PRN (18:05)
[2024-06-07] MEDS: HEPARIN SODIUM,PORCINE 5,000 UNIT/ML 1 ML VIAL SQ SCH (18:07)
[2024-06-08] MEDS: ASPIRIN 325 MG TAB PO STA (01:09)
[2024-06-08] MEDS: ALPRAZolam 0.5 MG TAB PO PRN (01:09)
[2024-06-08 05:04] LABS: African American GFR (CKD) >90 (>60 ml/min/1.73 sqM); Anion Gap 6 mmol/L; Blood Urea Nitrogen 8 mg/dL (9-20); Carbon Dioxide 29 mmol/L (22-30); Chloride 101 mmol/L (98-107); Glucose 95 mg/dL (74-99); Non-African American GFR(CKD) >90 (>60 ml/min/1.73 sqM); Potassium 4.2 mmol/L (3.5-5.1); Sodium 136 mmol/L (137-145)
[2024-06-08 05:30] LABS: Basophils % (A) 1 %; Eosinophils # (A) 0.3 k/uL (0-0.7); Eosinophils % (A) 6 %; HCT 44.9 % (39.0-53.0); HGB 13.6 gm/dL (13.0-17.5); Hypochromasia Marked; Lymphocytes # (A) 1.2 k/uL (1.0-4.8); Lymphocytes % (A) 21 %; MCH 27.2 pg (25.0-35.0); MCHC 30.3 g/dL (31.0-37.0); MCV 89.8 fL (80.0-100.0); Mean Platelet Volume 7.5; Monocytes # (A) 0.6 k/uL (0-1.0); Monocytes % (A) 10 %; Neutrophils # (A) 3.4 k/uL (1.3-7.7); Neutrophils % (A) 60 %; Platelet Count 389 k/uL (150-450); RDW 13.5 % (11.5-15.5); WBC 5.7 k/uL (3.8-10.6)
[2024-06-08] MEDS ORDERED: VANCOMYCIN TROUGH DUE 1 EACH MISC MISCELLANE ONE (09:00)
[2024-06-08] MEDS: AZITHROMYCIN 500 MG in SODIUM CHLORIDE 0.9% 250 ML IVPB SCH (09:35)
--- NOTE | 2024-06-08 10:38 | P.PN ---
Subjective Progress Note Date: 06/08/24 Pneumonia. Pulmonary consult dated June 06, 2024. 44-year-old black male with a known history of sarcoidosis, who was seen by my partner in the office today, and sent to the emergency room, to be evaluated, and admitted. The patient was recently in the hospital, about 3 or 4 weeks ago. The patient was being treated for pneumonia, as an outpatient, but was not improving. He apparently was coughing, and was having hemoptysis. In addition, he apparently was having some chest discomfort, as well as shortness of breath. Because he was not improving, and because a chest x-ray revealed a left-sided pneumonia, the patient was sent over to be evaluated, admitted, and placed on vancomycin and cefepime. Chest x-ray revealed a left-sided patchy infiltrate. CT scan of the chest was ordered. That is not completed as yet. The patient's medical history includes hypertension, sarcoidosis, avascular necrosis, cataracts, as well as rotator cuff injury. The patient also apparently has a history of COPD, from previous tobacco use. Laboratory data includes a white count 5.6, hemoglobin 14.4, hematocrit 46.6, and a platelet count of 406,000. Lactic acid is 1.8. There were additional laboratories ordered, but are not yet back on the chart. His chest x-ray is reviewed. There are some changes that are chronic in nature, likely relating to his sarcoidosis, but, in the left perihilar region, there is some patchy opacity, which may reflect an acute process, i.e. pneumonia. CT scan of the chest is pending. Progress note dated June 07, 2024. Pleasant 44-year-old black male with a history of chronic sarcoidosis. The patient was seen by my partner in the office, and sent to the hospital for admission, for possible left-sided pneumonia. Chest x-ray reveals chronic changes, as did CT scan. Nonetheless, there appears to be a new infiltrate, in the left midlung. The patient was started on vancomycin, and cefepime. Clinically, the patient appears a bit better today than he did yesterday. When he first came in, he was coughing up blood. That has not happened yet today. T he patient continues on oxygen, at 2 L. Saturations are 98%. Procalcitonin level was 0.06. Current labs include a white count of 6.9, hemoglobin 12.5, hematocrit 39.9, and a normal platelet count. Sodium 138, potassium 4.1, chlorides 103, CO2 30, BUN 5, creatinine 0.68. Calcium is 8.9. Urine L egionella antigen was negative. Progress noted dated June 08, 2024. Mr. Soto is a 44 year old male with a history of sarcoidosis came to the hospital with possible left sided pneumonia. He was being treated outpatient for pneumonia, but his symptoms did not improve hence he was sent over to the hospital to receive vancomycin and cefepime. He was evaluated this morning. Resting comfortably in bed. He reported feeling better, not coughing as much, but still reported coughing up some blood (mixed with sputum). His sputum and blood cultures have been negative so far. He is currently saturating at 94% via nasal cannula at 3L/min. Procalcitonin level was 0.06. Current labs include a WBC count of 5.7, hemoglobin 13.6, platelets 389, sodium 136, potassium 4.2, chloride 101, CO2 29, BUN 8, creatinine 0.70. Calcium is 9.0. Urine Legionella antigen was negative. Objective - Vital Signs Vital signs: Vital Signs Temp 98.1 F 06/08/24 08:00 Pulse 78 06/08/24 08:00 Resp 17 06/08/24 08:00 BP 149/73 06/08/24 08:00 Pulse Ox 94 L 06/08/24 08:00 FiO2 Intake & Output 06/07/24 06/08/24 06/08/24 18:59 06:59 18:59 Intake Total 1680 Balance 1680 Weight 85.275 kg Intake: Oral 1680 Other: Voiding Method Toilet Urinal # Voids 3 - Exam General: Alert and oriented, not in acute distress Cardiovascular: Regular heart rate, no murmurs Respiratory: Rhonchi heard in the left lower lung posteriorly, right side clear, no wheezing/stridor/crackles Abdominal: Soft, nondistended, nontender to palpation Extremity: No LE edema - Labs CBC & Chem 7: 06/08/24 03:57 06/08/24 03:57 Labs: Abnormal Lab Results - Last 24 Hours (Table) 06/08/24 06/08/24 Range/Units 03:57 03:57 MCHC 30.3 L (31.0-37.0) g/dL Sodium 136 L (137-145) mmol/L BUN 8 L (9-20) mg/dL Microbiology - Last 24 Hours (Table) 06/06/24 17:08 Gram Stain - Final Sputum Sputum Culture - Final 06/06/24 13:38 Blood Culture - Preliminary Blood 06/06/24 13:46 Nasal Screen MRSA/MSSA - Final Nasal Swab Assessment and Plan Assessment: Assessment: Shortness of breath, cough, hemoptysis, with possible pneumonia, left perihilar region. History of sarcoidosis, with chronic changes on chest x-ray. Recent admission, April 2024, for an acute exacerbation of chronic sarcoidosis. History of stage IV sarcoidosis. History of benign essential hypertension. History of previous tobacco use. History of depression. Plan: Plan dated June 06, 2024. The patient was seen today in the office by my partner, and sent to the hospital for possible pneumonia. The patient apparently has been having increasing shortness of breath, cough, chest pain, and hemoptysis. A chest x-ray shows a possible infiltrate in the left perihilar region. Chronic changes are seen on his chest x-ray, from his chronic advanced sarcoidosis. A CT scan was ordered but not completed as yet. The patient was placed on vancomycin and cefepime. We will check a procalcitonin level. No additional recommendations at this time. Plan dated June 07, 2024. The patient feels a bit better today than when he first came in. He was initially seen in the office by my partner yesterday, and sent to the hospital for IV antibiotics in the form of vancomycin, and cefepime. Interestingly, even though his chest x-ray and CT scan suggest a new infiltrate in the left midlung, the procalcitonin level was in the normal range. 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 The patient is hoping to be discharged before the appointment on . Additional recommendations and suggestions are forthcoming. Labs, x-rays, and all medications have been reviewed. Sputum is nondiagnostic. Plan dated June 08, 2024. The patient feels better today compared to yesterday. He initially came to the hospital and received Vancomycin and cefepime. Vancomycin has been discontinued. He is currently on Zithromax and Cefepime for his possible pneumonia. Patient said he had to cancel his appointment on at [facility]. Additional recommendations and suggestions are forthcoming. We will continue with the current antibiotic regimen and continue to monitor the patient. Time with Patient: Less than 30
[2024-06-08 16:12] VITALS: BMI 28.5
--- NOTE | 2024-06-08 16:24 | P.PN ---
Subjective Progress Note Date: 06/08/24 Hospital course: Patient is a 44-year-old male with PMH of sarcoidosis stage IV, chronic hypoxemic respiratory failure on 3 L continuous home oxygen, COPD, hypertension was sent to the ER for further evaluation and treatment of suspected pneumonia. Patient was recently hospitalized from 05/13/2024 to 05/17/2024 for acute on chronic respiratory failure at [facility]. Patient had a 1 week pulmonary follow-up and he was was started on oral antibiotic, likely levofloxacin for 10 days due to symptoms of cough, fever, chills and shortness of breath. Patient did not see any improvement in his symptoms despite being on antibiotic. Patient had outpatient follow-up at the pulmonary clinic today wh ere x-ray showed concern for pneumonia and was asked to come to the ER for further evaluation. He also complaining of dizziness and left-sided chest pain under the left breast area associated with cough. Patient was admitted for community-acquired pneumonia secondary to failed outpatient therapy. Laboratory evaluation in the ER shows WBC 5.6, hemoglobin 14.4, MCV 89.9, platelet count 406, sodium 143, potassium 4.2, BUN 6, creatinine 0.8, glucose 63, magnesium 2.4. Troponin I less than 0.012. Chest x-ray independently interpreted, bilateral interstitial opacities, more prominent in left perihilar region. CT angiogram of the chest showed left lower lobe consolidation. EKG independently interpreted shows normal sinus rhythm with ventricular rate of 85 bpm, normal CA interval of 152 ms, normal QRS duration of 88 ms, normal QTc 81 ms, not prolonged. Also signs of early repolarization is seen in lead II and bifid P waves. Normal R wave progression. No ST-T wave changes. Patient started on IV vancomycin, IV cefepime and p.o. Zithromax. Pulmonology consulted. Sputum culture came back negative. MRSA screening negative. Blood culture negative. IV vancomycin discontinued. Patient to continue with IV cefepime and Zithromax. Patient reports moderate improvement in his shortness of breath and cough. Subjective: Patient seen and examined at the bedside. Patient complained of worsening left- sided chest pain overnight and was given aspirin 325 mg p.o. and morphine IVP 4 mg stat. EKG was unremarkable. Troponin negative. Patient reports improvement in chest pain but it is aggravated with coughing. Patient reports improvement in shortness of breath and coughing spells compared to yesterday but continues to have hemoptysis and left-sided chest pain associated with cough. All Systems reviewed and pertinent positives and negatives noted in HPI, all other symptoms are negative Objective: Vital signs reviewed. General: non toxic, no distress, appears at stated age, normal weight Derm: no unusual rashes/lesions, warm Head: atraumatic, normocephalic, symmetric Eyes: EOMI, no lid lag, anicteric sclera, pupils equal round reactive to light ENT: Nose and ears atraumatic Neck: No cervical lymphadenopathy, trachea midline, supple Mouth: no lip lesion, mucus membranes moist Cardiovascular: S1S2 reg, no murmur, positive dorsalis pedis pulse bilateral, no edema Lungs: Decreased breath sounds left lower lobe, bilateral rhonchi, no rales, no accessory muscle use, 3 L oxygen via nasal cannula Abdominal: soft, nontender to palpation, no guarding Ext: muscle strength 5 out of 5 in all 4 extremities grossly, no gross muscle atrophy, no contractures, Neuro: CN II-XI grossly intact, no gross focal neuro deficits Psych: Alert, oriented, appropriate affect Data reviewed today: Pertinent Labs: WBC 5.7, hemoglobin 13.6, MCV 89.8, platelet count 389, sodium 136, potassium 4.2, bicarb 29, BUN 8, creatinine 0.7, glucose 25, calcium 9.1 Troponin less than 0.012 No new imaging Assessment/Plan: 44-year-old male with PMH of sarcoidosis stage IV, chronic hypoxemic respiratory failure on 3 L continuous home oxygen, COPD, hypertension was sent to the ER for further evaluation and treatment of suspected pneumonia. #Community-acquired pneumonia, failed outpatient therapy #Hemoptysis secondary to above #Left-sided Chest pain secondary to above #Normocytic anemia likely secondary to hemodilution Chest x-ray shows opacity in the left perihilar region Hemoglobin 12.5 secondary hemodilution; monitor CBC CT angio of the chest shows consolidated infiltrate in left lower lobe cefepime 2 g IVPB every 8 hour and Zithromax 500 mg IVPB daily Blood cultures negative growth to date, sputum culture shows normal respiratory bucky Urine Legionella antigen testing negative Procalcitonin is negative Pulmonology note reviewed, continue current therapy Hemoptysis likely secondary to coughing; consider bronchoscopy if worsens MRSA screen, if negative, discontinue IV vancomycin Repeat troponin negative; chest pain improving #Chronic hypoxic respiratory failure #COPD, not in exacerbation #History of stage IV sarcoidosis O2 saturation target between 88 to 92%; avoid hyperoxia Resume home albuterol and ipratropium nebulizers as scheduled Continue with Symbicort 160-4.5 mcg inhaler Resume mycophenolate 1500 mg p.o. twice daily, hold infliximab #Vasovagal syncope in the setting of cough #Hypoglycemia, resolved Brain MRI on 02/25/2023 shows no evidence of acute or subacute changes Cardiac monitoring Fall precaution Glucose 95 Continue to monitor glucose level #Chronic conditions Hypertension: Continue amlodipine 10 mg p.o. at bedtime Seizure disorder: continue Lamictal 200 nightly Insomnia: continue trazodone 50 nightly F: None E: Replete as needed N: Regular A: Fall precautions DVT prophylaxis: Subcu heparin CODE STATUS: Full Discussed with: Patient Anticipated discharge place: Home Anticipated discharge time: Pending clinical course I have seen and evaluated the patient today. Discussed with the resident and agree with the residents finding and plan as documented in the resident's note. Changes highlighted in blue font. Objective - Vital Signs Vital signs: Vital Signs Temp 98.1 F 06/08/24 08:00 Pulse 78 06/08/24 08:00 Resp 17 06/08/24 08:00 BP 149/73 06/08/24 08:00 Pulse Ox 94 L 06/08/24 08:00 FiO2 Intake & Output 06/07/24 06/08/24 06/08/24 18:59 06:59 18:59 Intake Total 1680 Balance 1680 Weight 85.275 kg Intake: Oral 1680 Other: Voiding Method Toilet Urinal # Voids 3 - Labs CBC & Chem 7: 06/08/24 03:57 06/08/24 03:57 Labs: Abnormal Lab Results - Last 24 Hours (Table) 06/08/24 06/08/24 Range/Units 03:57 03:57 MCHC 30.3 L (31.0-37.0) g/dL Sodium 136 L (137-145) mmol/L BUN 8 L (9-20) mg/dL Microbiology - Last 24 Hours (Table) 06/06/24 17:08 Gram Stain - Final Sputum Sputum Culture - Final 06/06/24 13:38 Blood Culture - Preliminary Blood 06/06/24 13:46 Nasal Screen MRSA/MSSA - Final Nasal Swab
[2024-06-09 05:11] LABS: Basophils % (A) 1 %; Eosinophils # (A) 0.5 k/uL (0-0.7); Eosinophils % (A) 10 %; HCT 37.1 % (39.0-53.0); HGB 11.9 gm/dL (13.0-17.5); Hypochromasia Slight; Lymphocytes # (A) 1.4 k/uL (1.0-4.8); Lymphocytes % (A) 28 %; MCH 28.4 pg (25.0-35.0); MCHC 32.1 g/dL (31.0-37.0); MCV 88.4 fL (80.0-100.0); Mean Platelet Volume 8.1; Monocytes # (A) 0.5 k/uL (0-1.0); Monocytes % (A) 10 %; Neutrophils # (A) 2.4 k/uL (1.3-7.7); Neutrophils % (A) 49 %; Platelet Count 396 k/uL (150-450); RBC 4.19 m/uL (4.30-5.90); RDW 13.7 % (11.5-15.5)
[2024-06-09 05:24] LABS: African American GFR (CKD) >90 (>60 ml/min/1.73 sqM); Anion Gap 7 mmol/L; Blood Urea Nitrogen 10 mg/dL (9-20); Calcium 9.6 mg/dL (8.4-10.2); Carbon Dioxide 31 mmol/L (22-30); Chloride 97 mmol/L (98-107); Glucose 108 mg/dL (74-99); Non-African American GFR(CKD) >90 (>60 ml/min/1.73 sqM); Potassium 4.1 mmol/L (3.5-5.1); Sodium 135 mmol/L (137-145)
--- NOTE | 2024-06-09 10:38 | P.PN ---
Subjective Progress Note Date: 06/09/24 Pneumonia. Pulmonary consult dated June 06, 2024. 44-year-old black male with a known history of sarcoidosis, who was seen by my partner in the office today, and sent to the emergency room, to be evaluated, and admitted. The patient was recently in the hospital, about 3 or 4 weeks ago. The patient was being treated for pneumonia, as an outpatient, but was not improving. He apparently was coughing, and was having hemoptysis. In addition, he apparently was having some chest discomfort, as well as shortness of breath. Because he was not improving, and because a chest x-ray revealed a left-sided pneumonia, the patient was sent over to be evaluated, admitted, and placed on vancomycin and cefepime. Chest x-ray revealed a left-sided patchy infiltrate. CT scan of the chest was ordered. That is not completed as yet. The patient's medical history includes hypertension, sarcoidosis, avascular necrosis, cataracts, as well as rotator cuff injury. The patient also apparently has a history of COPD, from previous tobacco use. Laboratory data includes a white count 5.6, hemoglobin 14.4, hematocrit 46.6, and a platelet count of 406,000. Lactic acid is 1.8. There were additional laboratories ordered, but are not yet back on the chart. His chest x-ray is reviewed. There are some changes that are chronic in nature, likely relating to his sarcoidosis, but, in the left perihilar region, there is some patchy opacity, which may reflect an acute process, i.e. pneumonia. CT scan of the chest is pending. Progress note dated June 07, 2024. Pleasant 44-year-old black male with a history of chronic sarcoidosis. The patient was seen by my partner in the office, and sent to the hospital for admission, for possible left-sided pneumonia. Chest x-ray reveals chronic changes, as did CT scan. Nonetheless, there appears to be a new infiltrate, in the left midlung. The patient was started on vancomycin, and cefepime. Clinically, the patient appears a bit better today than he did yesterday. When he first came in, he was coughing up blood. That has not happened yet today. T he patient continues on oxygen, at 2 L. Saturations are 98%. Procalcitonin level was 0.06. Current labs include a white count of 6.9, hemoglobin 12.5, hematocrit 39.9, and a normal platelet count. Sodium 138, potassium 4.1, chlorides 103, CO2 30, BUN 5, creatinine 0.68. Calcium is 8.9. Urine L egionella antigen was negative. Progress noted dated June 08, 2024. Mr. Soto is a 44 year old male with a history of sarcoidosis came to the hospital with possible left sided pneumonia. He was being treated outpatient for pneumonia, but his symptoms did not improve hence he was sent over to the hospital to receive vancomycin and cefepime. He was evaluated this morning. Resting comfortably in bed. He reported feeling better, not coughing as much, but still reported coughing up some blood (mixed with sputum). His sputum and blood cultures have been negative so far. He is currently saturating at 94% via nasal cannula at 3L/min. Procalcitonin level was 0.06. Current labs include a WBC count of 5.7, hemoglobin 13.6, platelets 389, sodium 136, potassium 4.2, chloride 101, CO2 29, BUN 8, creatinine 0.70. Calcium is 9.0. Urine Legionella antigen was negative. Progress noted dated June 09, 2024. Mr. Soto is a 44 year old male with a history of sarcoidosis came to the hospital with possible left sided pneumonia. He was evaluated this morning. Resting comfortably in bed. He reported feeling a lot better, not coughing up blood. He had an uneventful night. His sputum and blood cultures have been negative thus far. He is currently saturating at 100% via nasal cannula at 3L/ min. Procalcitonin level was 0.06 done on 06/06. Current labs include a WBC of 5.0, hemoglobin 11.9, platelet 396, sodium 135, potassium 4.1, BUN 10, creatinine 0.60. Urine Legionella antigen was negative. Objective - Vital Signs Vital signs: Vital Signs Temp 97.6 F 06/09/24 08:31 Pulse 87 06/09/24 08:31 Resp 17 06/09/24 08:31 BP 132/73 06/09/24 08:31 Pulse Ox 100 06/09/24 08:31 FiO2 Intake & Output 06/08/24 06/09/24 06/09/24 18:59 06:59 18:59 Weight 85.275 kg Other: Voiding Method Toilet Toilet Urinal Urinal # Voids 2 2 - Exam General: Alert and oriented, not in acute distress Cardiovascular: Regular heart rate, no murmurs Respiratory: Clear to auscultation bilaterally, no wheezing/rhonchi/stridor Abdominal: Soft, nondistended, nontender to palpation Extremity: No LE edema - Labs CBC & Chem 7: 06/09/24 04:06 06/09/24 04:06 Labs: Abnormal Lab Results - Last 24 Hours (Table) 06/09/24 06/09/24 Range/Units 04:06 04:06 RBC 4.19 L (4.30-5.90) m/uL Hgb 11.9 L (13.0-17.5) gm/dL Hct 37.1 L (39.0-53.0) % Sodium 135 L (137-145) mmol/L Chloride 97 L (98-107) mmol/L Carbon Dioxide 31 H (22-30) mmol/L Creatinine 0.60 L (0.66-1.25) mg/dL Glucose 108 H (74-99) mg/dL Microbiology - Last 24 Hours (Table) 06/06/24 13:38 Blood Culture - Preliminary Blood 06/06/24 17:08 Gram Stain - Final Sputum Sputum Culture - Final Assessment and Plan Assessment: Shortness of breath, cough, hemoptysis, with possible pneumonia, left perihilar region. History of sarcoidosis, with chronic changes on chest x-ray. Recent admission, April 2024, for an acute exacerbation of chronic sarcoidosis. History of stage IV sarcoidosis. History of benign essential hypertension. History of previous tobacco use. History of depression. Plan: Plan dated June 06, 2024. The patient was seen today in the office by my partner, and sent to the hospital for possible pneumonia. The patient apparently has been having increasing shortness of breath, cough, chest pain, and hemoptysis. A chest x-ray shows a possible infiltrate in the left perihilar region. Chronic changes are seen on his chest x-ray, from his chronic advanced sarcoidosis. A CT scan was ordered but not completed as yet. The patient was placed on vancomycin and cefepime. We will check a procalcitonin level. No additional recommendations at this time. Plan dated June 07, 2024. The patient feels a bit better today than when he first came in. He was initially seen in the office by my partner yesterday, and sent to the hospital for IV antibiotics in the form of vancomycin, and cefepime. Interestingly, even though his chest x-ray and CT scan suggest a new infiltrate in the left midlung, the procalcitonin level was in the normal range. 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 The patient is hoping to be discharged before the appointment on . Additional recommendations and suggestions are forthcoming. Labs, x-rays, and all medications have been reviewed. Sputum is nondiagnostic. Plan dated June 08, 2024. The patient feels better today compared to yesterday. He initially came to the hospital and received Vancomycin and cefepime. Vancomycin has been discontinued. He is currently on Zithromax and Cefepime for his possible pneumonia. Patient said he had to cancel his appointment on at [facility]. Additional recommendations and suggestions are forthcoming. We will continue with the current antibiotic regimen and continue to monitor the patient. Plan dated June 09, 2024. The patient feels better today compared to yesterday. He is currently on Azithromycin and Cefepime for left sided pneumonia. We will order an CXR today to see if there is any changes. Additional recommendation and suggestions are forthcoming. We will continue with the current antibiotic regimen and continue to monitor the patient. Time with Patient: Less than 30
--- NOTE | 2024-06-09 12:07 | XR ---
EXAMINATION TYPE: XR chest 2V DATE OF EXAM: 06/09/2024 COMPARISON: 06/06/2024 HISTORY: Difficulty breathing TECHNIQUE: Frontal and lateral views of the chest are obtained. FINDINGS: The partially consolidative opacity in the left upper lobe is stable and is suspicious for pneumonic infiltrate. Short-term follow-up to resolution is recommended. There are marked chronic changes with marked interstitial scarring and probable fibrosis with volume loss. The heart size is normal. There is no pleural effusion or pneumothorax. IMPRESSION: 1. Marked chronic changes as described above. 2. Focal partially consolidative opacity left upper lobe unchanged. Previous. The finding is suspicio us for an acute pneumonia and clinical correlation and short-term follow-up to resolution is recommen ded. IMPRESSION: No acute cardiopulmonary process. [facility], , 06/09/2024 12:05 PM
[2024-06-09 13:33] VITALS: BP 133/79; RESP 19; TEMP 98.4
--- NOTE | 2024-06-09 14:15 | P.PN ---
Subjective Progress Note Date: 06/09/24 Hospital course: Patient is a 44-year-old male with PMH of sarcoidosis stage IV, chronic hypoxemic respiratory failure on 3 L continuous home oxygen, COPD, hypertension was sent to the ER for further evaluation and treatment of suspected pneumonia. Patient was recently hospitalized from 05/13/2024 to 05/17/2024 for acute on chronic respiratory failure at [facility]. Patient had a 1 week pulmonary follow-up and he was was started on oral antibiotic, likely levofloxacin for 10 days due to symptoms of cough, fever, chills and shortness of breath. Patient did not see any improvement in his symptoms despite being on antibiotic. Patient had outpatient follow-up at the pulmonary clinic today wh ere x-ray showed concern for pneumonia and was asked to come to the ER for further evaluation. He also complaining of dizziness and left-sided chest pain under the left breast area associated with cough. Patient was admitted for community-acquired pneumonia secondary to failed outpatient therapy. Laboratory evaluation in the ER shows WBC 5.6, hemoglobin 14.4, MCV 89.9, platelet count 406, sodium 143, potassium 4.2, BUN 6, creatinine 0.8, glucose 63, magnesium 2.4. Troponin I less than 0.012. Chest x-ray independently interpreted, bilateral interstitial opacities, more prominent in left perihilar region. CT angiogram of the chest showed left lower lobe consolidation. EKG independently interpreted shows normal sinus rhythm with ventricular rate of 85 bpm, normal [place] interval of 152 ms, normal QRS duration of 88 ms, normal QTc 81 ms, not prolonged. Also signs of early repolarization is seen in lead II and bifid P waves. Normal R wave progression. No ST-T wave changes. Patient started on IV vancomycin, IV cefepime and p.o. Zithromax. Pulmonology consulted. Sputum culture came back negative. MRSA screening negative. Blood culture negative. IV vancomycin discontinued. Patient to continue with IV cefepime and Zithromax. Patient reports moderate improvement in his shortness of breath and cough. Urine Legionella antigen is negative. Subjective: Patient seen and examined at the bedside. Patient complained of worsening left- sided chest pain overnight and was given aspirin 325 mg p.o. and morphine IVP 4 mg stat. EKG was unremarkable. Troponin negative. Patient reports improvement in chest pain but it is aggravated with coughing. Patient reports improvement in shortness of breath and coughing spells compared to yesterday but continues to have hemoptysis and left-sided chest pain associated with cough. All Systems reviewed and pertinent positives and negatives noted in HPI, all other symptoms are negative Objective: Vital signs reviewed. General: non toxic, no distress, appears at stated age, normal weight Derm: no unusual rashes/lesions, warm Head: atraumatic, normocephalic, symmetric Eyes: EOMI, no lid lag, anicteric sclera, pupils equal round reactive to light ENT: Nose and ears atraumatic Neck: No cervical lymphadenopathy, trachea midline, supple Mouth: no lip lesion, mucus membranes moist Cardiovascular: S1S2 reg, no murmur, positive dorsalis pedis pulse bilateral, no edema Lungs: Decreased breath sounds left lower lobe, bilateral rhonchi, no rales, no accessory muscle use, 3 L oxygen via nasal cannula Abdominal: soft, nontender to palpation, no guarding Ext: muscle strength 5 out of 5 in all 4 extremities grossly, no gross muscle atrophy, no contractures, Neuro: CN II-XI grossly intact, no gross focal neuro deficits Psych: Alert, oriented, appropriate affect Data reviewed today: Pertinent Labs: WBC 5.0, hemoglobin 11.9, hematocrit 37.1, MCV 88.4, platelet count 396, sodium 135, potassium 4.1, bicarb 31, chloride 97, BUN 10, creatinine 0.6, glucose 108, calcium 9.6, Chest xray shows no acute cardiopulmonary process, opacity in the left perihilar region is stable, diffuse interstitial fibrosis Assessment/Plan: 44-year-old male with PMH of sarcoidosis stage IV, chronic hypoxemic respiratory failure on 3 L continuous home oxygen, COPD, hypertension was sent to the ER for further evaluation and treatment of suspected pneumonia. #Community-acquired pneumonia, failed outpatient therapy #Hemoptysis secondary to above #Left-sided Chest pain secondary to above #Normocytic anemia likely secondary to hemodilution Chest x-ray shows opacity in the left perihilar region Hemoglobin 11.9 secondary hemodilution; monitor CBC CT angio of the chest shows consolidated infiltrate in left lower lobe cefepime 2 g IVPB every 8 hour and Zithromax 500 mg IVPB daily Blood cultures negative growth to date, sputum culture shows normal respiratory bucky Urine Legionella antigen testing negative Procalcitonin is negative Pulmonology note reviewed, continue current therapy Hemoptysis likely secondary to coughing; consider bronchoscopy if worsens MRSA screen is negative; IV vancomycin d/c Repeat troponin negative; chest pain improving #Chronic hypoxic respiratory failure #COPD, not in exacerbation #History of stage IV sarcoidosis O2 saturation target between 88 to 92%; avoid hyperoxia Resume home albuterol and ipratropium nebulizers as scheduled Continue with Symbicort 160-4.5 mcg inhaler Resume mycophenolate 1500 mg p.o. twice daily, hold infliximab #Vasovagal syncope in the setting of cough #Hypoglycemia, resolved Brain MRI on 02/25/2023 shows no evidence of acute or subacute changes Cardiac monitoring Fall precaution Glucose 95 Continue to monitor glucose level #Chronic conditions Hypertension: Continue amlodipine 10 mg p.o. at bedtime Seizure disorder: continue Lamictal 200 nightly Insomnia: continue trazodone 50 nightly F: None E: Replete as needed N: Regular A: Fall precautions DVT prophylaxis: Subcu heparin CODE STATUS: Full Discussed with: Patient Anticipated discharge place: Home Anticipated discharge time: Pending clinical course Objective - Vital Signs Vital signs: Vital Signs Temp 98.2 F 06/09/24 01:18 Pulse 78 06/09/24 01:18 Resp 14 06/09/24 01:18 BP 129/77 06/09/24 01:18 Pulse Ox 99 06/09/24 07:52 FiO2 Intake & Output 06/08/24 06/09/24 06/09/24 18:59 06:59 18:59 Weight 85.275 kg Other: Voiding Method Toilet Toilet Urinal Urinal # Voids 2 2 - Labs CBC & Chem 7: 06/09/24 04:06 06/09/24 04:06 Labs: Abnormal Lab Results - Last 24 Hours (Table) 06/09/24 06/09/24 Range/Units 04:06 04:06 RBC 4.19 L (4.30-5.90) m/uL Hgb 11.9 L (13.0-17.5) gm/dL Hct 37.1 L (39.0-53.0) % Sodium 135 L (137-145) mmol/L Chloride 97 L (98-107) mmol/L Carbon Dioxide 31 H (22-30) mmol/L Creatinine 0.60 L (0.66-1.25) mg/dL Glucose 108 H (74-99) mg/dL Microbiology - Last 24 Hours (Table) 06/06/24 13:38 Blood Culture - Preliminary Blood 06/06/24 17:08 Gram Stain - Final Sputum Sputum Culture - Final
[2024-06-09 14:57] VITALS: PULSE 88
--- NOTE | 2024-06-09 15:31 | P.DS ---
Providers Date of admission: 06/06/24 12:50 Attending physician: Matthew Pineda Discharge Diagnosis: #Community-acquired pneumonia, failed outpatient therapy #Hemoptysis, resolved #Left-sided Chest pain, resolved #Normocytic anemia #Chronic hypoxic respiratory failure #COPD, Gold Stage IV, not in exacerbation #History of stage IV sarcoidosis #Vasovagal syncope in the setting of cough #Hypoglycemia, resolved #Chronic conditions Hypertension Seizure disorder Insomnia Hospital Course: Patient is a 44-year-old male with PMH of sarcoidosis stage IV, chronic hypoxemic respiratory failure on 3 L continuous home oxygen, COPD, hypertension was sent to the ER for further evaluation and treatment of suspected pneumonia. Patient was recently hospitalized from 05/13/2024 to 05/17/2024 for acute on chronic respiratory failure at [facility]. Patient had a 1 week pulmonary follow-up and he was was started on oral antibiotic, likely levofloxacin for 10 days due to symptoms of cough, fever, chills and shortness of breath. Patient did not see any improvement in his symptoms despite being on antibiotic. Patient had outpatient follow-up at the pulmonary clinic today where x-ray showed concern for pneumonia and was asked to come to the ER for further evaluation. He also complaining of dizziness and left-sided chest pain under the left breast area associated with cough. Patient was admitted for community-acquired pneumonia secondary to failed outpatient therapy. Laboratory evaluation in the ER shows WBC 5.6, hemoglobin 14.4, MCV 89.9, platelet count 406, sodium 143, potassium 4.2, BUN 6, creatinine 0.8, glucose 63, magnesium 2.4. Troponin I less than 0.012. Chest x-ray independently interpreted, bilateral interstitial opacities, more prominent in left perihilar region. CT angiogram of the chest showed left lower lobe consolidation. EKG independently interpreted shows normal sinus rhythm with ventricular rate of 85 bpm, normal [place] interval of 152 ms, normal QRS duration of 88 ms, normal QTc 81 ms, not prolonged. Also signs of early repolarization is seen in lead II and bifid P waves. Normal R wave progression. No ST-T wave changes. Patient started on IV vancomycin, IV cefepime and p.o. Zithromax. Pulmonology consulted. Sputum culture came back negative. MRSA screening negative. Blood culture negative. IV vancomycin discontinued. Patient to continue with IV cefepime and Zithromax. Patient continues to improve. Urine Legionella antigen is negative. Patient reports improvement in cough and no longer has hemoptysis. Chest pain improved. Hemodynamically stable. WBC 5.0, hemoglobin 11.9, hematocrit 37.1, MCV 88.4, platelet count 396, sodium 135, potassium 4.1, bicarb 31, chloride 97, BUN 10, creatinine 0.6, glucose 108, calcium 9.6. Labs are unremarkable. Patient to be discharged on levofloxacin 750 mg po for 4 more days, to complete a 7 day course of abx for complicated CAP Patient to follow-up with PCP and [facility]poster. Patient is provided instruction on sarcoidosis and community-acquired pneumonia. Patient to continue with his home medications as directed. Vital signs reviewed. Gen: in no apparent distress, resting comfortably in bed Eyes: PERRL, no scleral injection or icterus HENT: normocephalic, atraumatic, good hearing acuity, moist mucous membranes Neck: full range of motion Resp: CTAB, no rales, rhonchi, or wheezes, oxygen 3 L via nasal cannula CVS: normal S1 and S2, no murmurs, rubs or gallops, no edema GI: soft, NTTP, ND, no hepatosplenomegaly : no suprapubic tenderness, no CVAT, verde catheter is not present MSK: no clubbing, no cyanosis, no noted contractures of extremities Skin: no noted rashes, petechiae; temperature of skin is appropriate Neuro: moving all extremities without signs of weakness, CN II-XII intact Psych: cooperative, euthymic mood, insight and judgment intact Consults: 06/06/24 12:49 Consult Physician Routine Consulting Provider: Sara Kwan Consult Reason/Comments: Pneumonia, sarcoidosis Do you want consulting provider notified?: Yes Primary care physician: Maximino Dunham Plan - Discharge Summary Discharge Rx Participant: Yes New Discharge Prescriptions: New Levofloxacin [Levaquin] 750 mg PO DAILY 1 Days #4 tab Continue lamoTRIgine 200 mg PO HS mycophenolate mofetiL [Cellcept] 1,500 mg PO BID ARIPiprazole [Abilify] 20 mg PO HS Ergocalciferol [Vitamin D2 (1250 Mcg = 41810 Iu)] 1,250 mcg PO MO Celecoxib [CeleBREX] 100 mg PO BID PRN PRN Reason: Pain Alendronate Sodium 70 mg PO MO Albuterol Nebulized [Ventolin Nebulized] 2.5 mg INHALATION RT-Q4H #180 ml Albuterol Sulfate [Proventil Hfa] 2 puff INHALATION RT-Q4H PRN #1 each PRN Reason: Shortness Of Breath Fluticasone Nasal Perley [Flonase Nasal Perley] 2 spray EA NOSTRIL DAILY #1 dispenser traZODone HCL [Desyrel] 50 mg PO HS amLODIPine [Norvasc] 10 mg PO HS Loratadine [Claritin] 10 mg PO HS Fluticasone/Umeclidin/Vilanter [Trelegy Ellipta 200-62.5-25] 1 puff INHALATION RT-DAILY Aspirin EC [Ecotrin] 650 mg PO ONETIME PRN PRN Reason: Chest Pain Infliximab-Abda [Renflexis] 1 dose IV Q30D Discontinued Cyclobenzaprine [Flexeril] 5 mg PO HS Cyclobenzaprine [Flexeril] 5 mg PO BID PRN PRN Reason: Muscle Spasm Discharge Medication List lamoTRIgine 200 mg PO HS 10/30/17 [History] Albuterol Nebulized [Ventolin Nebulized] 2.5 mg INHALATION RT-Q4H #180 ml 09/25/22 [Rx] Albuterol Sulfate [Proventil Hfa] 2 puff INHALATION RT-Q4H PRN #1 each 09/25/22 [Rx] Fluticasone Nasal Perley [Flonase Nasal Perley] 2 spray EA NOSTRIL DAILY #1 dispenser 10/03/22 [Rx] Loratadine [Claritin] 10 mg PO HS 01/06/23 [History] amLODIPine [Norvasc] 10 mg PO HS 01/06/23 [History] traZODone HCL [Desyrel] 50 mg PO HS 01/06/23 [History] ARIPiprazole [Abilify] 20 mg PO HS 05/17/24 [History] Fluticasone/Umeclidin/Vilanter [Trelegy Ellipta 200-62.5-25] 1 puff INHALATION RT-DAILY 05/17/24 [History] mycophenolate mofetiL [Cellcept] 1,500 mg PO BID 05/17/24 [History] Alendronate Sodium 70 mg PO MO 06/06/24 [History] Aspirin EC [Ecotrin] 650 mg PO ONETIME PRN 06/06/24 [History] Celecoxib [CeleBREX] 100 mg PO BID PRN 06/06/24 [History] Ergocalciferol [Vitamin D2 (1250 Mcg = 75600 Iu)] 1,250 mcg PO MO 06/06/24 [History] Infliximab-Abda [Renflexis] 1 dose IV Q30D 06/06/24 [History] Levofloxacin [Levaquin] 750 mg PO DAILY 1 Days #4 tab 06/09/24 [Rx] Follow up Appointment(s)/Referral(s): Maximino Dunham DO [Primary Care Provider] - 1-2 days Patient Instructions/Handouts: Sarcoidosis (DC), Community Acquired Pneumonia (DC) Activity/Diet/Wound Care/Special Instructions: Please follow up with your PCP and [facility]poster. Discharge Disposition: HOME SELF-CARE
== END 2024-06-09 16:39 | disposition home or self-care (01) | DRG 139 ==
LOC: EC 12:08 → 4SSUR 12:50
PROVIDERS: ADMIT Student in an Organized Health Care Education/Training Program; ATTEND Student in an Organized Health Care Education/Training Program
DX: J18.9 Pneumonia, unspecified organism (principal); D86.9 Sarcoidosis, unspecified; D64.9 Anemia, unspecified; G40.909 Epilepsy, unspecified, not intractable, without status epilepticus; G47.00 Insomnia, unspecified; I10 Essential (primary) hypertension; J44.0 Chronic obstructive pulmonary disease with (acute) lower respiratory infection; E16.2 Hypoglycemia, unspecified; F32.A Depression, unspecified; R29.6 Repeated falls; J96.11 Chronic respiratory failure with hypoxia; Z79.899 Other long term (current) drug therapy; Z79.82 Long term (current) use of aspirin; Z79.52 Long term (current) use of systemic steroids; Z99.81 Dependence on supplemental oxygen; Z79.1 Long term (current) use of non-steroidal anti-inflammatories (NSAID); Z79.624 Long term (current) use of inhibitors of nucleotide synthesis; Z87.891 Personal history of nicotine dependence; Z91.81 History of falling
CPT/HCPCS: 71046; 71275; 80048; 80053; 83605; 83735; 84145; 84484; 85025; 87040; 87070; 87205; 87449; 93005; 94640; 94760; 96365; 96366; 96367; 96368; 96375; 99285

== ENCOUNTER → 2024-10-06 | Outpatient (CLI) | payer OTHER ==
[2024-10-06 15:37] LABS: HGB 13.4 g/dL (13.0-17.0); MCH 27.2 pg (27.0-32.0); MCHC 29.8 g/dL (32.0-37.0); MCV 91.3 FL (80.0-97.0); Mean Platelet Volume 9.8 FL (9.5-12.2); NRBC Per 100 WBC 0 X 10*3/uL (0.00-0.01); Platelet Count 358 X 10*3/uL (140-440); RBC 4.93 X 10*6/uL (4.40-5.60); RDW 15.5 % (11.5-14.5); WBC 12.78 X 10*3/uL (4.50-10.00)
== END | disposition home or self-care (01) ==
LOC: LABWHC1 08:39
PROVIDERS: ATTEND Internal Medicine
DX: D86.0 Sarcoidosis of lung (principal); Z79.899 Other long term (current) drug therapy
CPT/HCPCS: 36415; 85027

== ENCOUNTER → 2024-10-24 | Outpatient (CLI) | payer OTHER ==
[2024-10-24 16:50] LABS: Basophils # (A) 0.05 X 10*3/uL (0.00-0.10); Basophils % (A) 0.8 %; Eosinophils # (A) 0.15 X 10*3/uL (0.04-0.35); Eosinophils % (A) 2.4 %; HCT 43.6 % (39.6-50.0); HGB 13.8 g/dL (13.0-17.0); Lymphocytes # (A) 1.03 X 10*3/uL (0.90-5.00); Lymphocytes % (A) 16.8 %; MCH 28.2 pg (27.0-32.0); MCHC 31.7 g/dL (32.0-37.0); Mean Platelet Volume 9.2 FL (9.5-12.2); Monocytes # (A) 0.68 X 10*3/uL (0.20-1.00); Monocytes % (A) 11.1 %; NRBC Per 100 WBC 0 X 10*3/uL (0.00-0.01); Neutrophils # (A) 4.21 X 10*3/uL (1.80-7.70); Neutrophils % (A) 68.6 %; Platelet Count 380 X 10*3/uL (140-440); RDW 15.1 % (11.5-14.5); WBC 6.14 X 10*3/uL (4.50-10.00)
[2024-10-24 18:50] LABS: % Iron Saturation 13.99 (15.00-50.00); ALT 27 U/L (10-49); AST 18 U/L (14-35); Albumin 4.5 g/dL (3.8-4.9); Albumin/Globulin Ratio 1.88 Ratio (1.60-3.17); Alkaline Phosphatase 66 U/L (41-126); Blood Urea Nitrogen 7.8 mg/dL (9.0-27.0); Calcium 9.7 mg/dL (8.7-10.3); Carbon Dioxide 26.4 mmol/L (21.6-31.8); Chloride 103 mmol/L (96-109); Chol/HDL Ratio 2.31 Ratio; Globulin 2.4 g/dL (1.6-3.3); Glucose 100 mg/dL (70-110); Iron 54 UG/DL (65-175); LDL Cholesterol,Calculated 74.7 mg/dL (0.0-131.0); Potassium 4.6 mmol/L (3.5-5.5); Sodium 140 mmol/L (135-145); Total Bilirubin 0.2 mg/dL (0.3-1.2); Total Iron Binding Capacity 386 UG/DL (228-460); Total Protein 6.9 g/dL (6.2-8.2); VLDL Calculation 12.04 mg/dL (5.00-40.00)
== END | disposition home or self-care (01) ==
LOC: LABWHC1 09:49
PROVIDERS: ATTEND Internal Medicine
DX: I10 Essential (primary) hypertension (principal); Z12.5 Encounter for screening for malignant neoplasm of prostate; M81.0 Age-related osteoporosis without current pathological fracture; R73.9 Hyperglycemia, unspecified
CPT/HCPCS: 80061; 80053; 84443; 82607; 82728; 82746; 83540; 83550; 83735; 85025; 82306; 83036; 36415; G0103

== ENCOUNTER → 2024-12-20 | Outpatient (CLI) | payer OTHER | END | disposition home or self-care (01) | LOC: CPPFTMAIN 12:39 | PROVIDERS: ATTEND Internal Medicine | DX: J44.9 Chronic obstructive pulmonary disease, unspecified (principal); F12.90 Cannabis use, unspecified, uncomplicated; Z87.891 Personal history of nicotine dependence | CPT/HCPCS: 94060; 94726; 94729 ==